=== PATIENT | male | born 1955 | race Caucasian/White ===

== ENCOUNTER 2016-09-01 19:45 | Inpatient (IN) | payer MEDICARE, OTHER ==
[~2016-09-01] VITALS: Ht 172.7 cm; Wt 65.9 kg
[2016-09-01 20:14] VITALS: BP 183/98; PULSE 110; RESP 15; TEMP 98.3; O2SAT 98
[2016-09-01] MEDS ORDERED: SODIUM CHLOR 0.9% 1000 ML INJ 1,000 ML IV ONE (20:30)
[2016-09-01 20:34] VITALS: BP 176/93; PULSE 101; RESP 15; O2SAT 98
[2016-09-01 20:52] VITALS: BP 157/78; PULSE 91; RESP 16; O2SAT 98
--- NOTE | 2016-09-01 21:11 | PD ---
HPI Chief Complaint: Psychiatric Symptoms Time Seen by Provider: 20:30 Travel History International Travel<30 days: No Contact w/Intl Traveler<30days: No Traveled to known affect area: No History of Present Illness HPI 61yo M with PMH of bipolar disorder presents to the ED under Grant Act because he claims that there is a person beaming signals from a [place] satelite to his head and speaking to him. Pt denies any suicidal ideation or homicidal ideation. Denies any fever, cough, chest pain, sob, n/v, abdominal pain, focal weakness or numbness. Pt initially had EKG that showed SVT at 172bpm but when I walked into the medical room, he was in sinus tachycardia at 110bpm. Pt denies any cardiac complaints. PFSH Past Medical History Bipolar Disorder: Yes (PT DENIES, QUIT TAKING MEDS) Anxiety: Yes Depression: Yes Cancer: Yes (HX OF SKIN CANCER) Cardiovascular Problems: Yes High Cholesterol: Yes Diabetes: Yes Diminished Hearing: No Headaches: No Hypertension: Yes Insomnia: Yes Psychiatric: Yes (Bipolar Disorder) Immunizations Current: Yes Schizophrenia: Yes Seizures: No ?: Not Past Surgical History Other Surgery: Yes (PROSTATE BIOPSY 01/29/14/ Hernia) Social History Alcohol Use: No (QUIT IN 90S) Tobacco Use: No (QUIT IN THE 80S) Substance Use: Yes Allergies-Medications (Allergen,Severity, Reaction): Coded Allergies: No Known Allergies (Verified , 09/01/16) Reported Meds & Prescriptions Reported Meds & Active Scripts Active No Active Prescriptions or Reported Medications Review of Systems Except as stated in HPI: all other systems reviewed are Neg Physical Exam Narrative GENERAL: 61yo M not in distress. SKIN: Focused skin assessment warm/dry. HEAD: Atraumatic. Normocephalic. EYES: Pupils equal and round. No scleral icterus. No injection or drainage. ENT: No nasal bleeding or discharge. Mucous membranes pink and moist. NECK: Trachea midline. No JVD. CARDIOVASCULAR: Sinus tachycardia at 110bpm. No murmur appreciated. RESPIRATORY: No accessory muscle use. Clear to auscultation. Breath sounds equal bilaterally. GASTROINTESTINAL: Abdomen soft, non-tender, nondistended. MUSCULOSKELETAL: No obvious deformities. No clubbing. No cyanosis. No edema. NEUROLOGICAL: Awake and alert. No obvious cranial nerve deficits. Motor grossly within normal limits. Normal speech. PSYCHIATRIC: Inappropriate mood and affect; poor insight and judgment. Data Data Last Documented VS Vital Signs Date Time Temp Pulse Resp B/P Pulse Ox O2 Delivery O2 Flow Rate FiO2 09/01/16 20:52 91 16 157/78 98 09/01/16 20:34 Room Air 09/01/16 20:14 98.3 Orders Complete Blood Count With Diff (09/01/16 20:30) Comprehensive Metabolic Panel (09/01/16 20:30) Thyroid Stimulating Hormone (09/01/16 20:30) Urinalysis - C+S If Indicated (09/01/16 20:30) Electrocardiogram (09/01/16 20:30) Psych Screen (09/01/16 20:30) Drug Screen, Random Urine (09/01/16 20:30) Alcohol (Ethanol) (09/01/16 20:30) Sodium Chlor 0.9% 1000 Ml Inj (Ns 1000 M (09/01/16 20:30) Ckmb (Isoenzyme) Profile (09/01/16 21:00) Troponin I (09/01/16 21:00) Electrocardiogram (09/01/16 20:00) Labs Laboratory Tests Test 09/01/16 21:00 White Blood Count 9.1 TH/MM3 Red Blood Count 4.76 MIL/MM3 Hemoglobin 14.9 GM/DL Hematocrit 44.3 % Mean Corpuscular Volume 93.2 FL Mean Corpuscular Hemoglobin 31.3 PG Mean Corpuscular Hemoglobin 33.6 % Concent Red Cell Distribution Width 13.9 % Platelet Count 269 TH/MM3 Mean Platelet Volume 8.5 FL Neutrophils (%) (Auto) 68.2 % Lymphocytes (%) (Auto) 20.1 % Monocytes (%) (Auto) 9.9 % Eosinophils (%) (Auto) 1.2 % Basophils (%) (Auto) 0.6 % Neutrophils # (Auto) 6.2 TH/MM3 Lymphocytes # (Auto) 1.8 TH/MM3 Monocytes # (Auto) 0.9 TH/MM3 Eosinophils # (Auto) 0.1 TH/MM3 Basophils # (Auto) 0.1 TH/MM3 CBC Comment DIFF FINAL Differential Comment Urine Color YELLOW Urine Turbidity CLEAR Urine pH 5.5 Urine Specific [place] 1.020 Urine Protein 30 mg/dL Urine Glucose (UA) 150 mg/dL Urine Ketones NEG mg/dL Urine Occult Blood TRACE Urine Nitrite NEG Urine Bilirubin NEG Urine Urobilinogen LESS THAN 2.0 MG/DL Urine Leukocyte Esterase NEG Urine RBC 7 /hpf Urine WBC LESS THAN 1 /hpf Urine Mucus FEW /lpf Urine Sperm RARE Microscopic Urinalysis Comment CULT NOT INDICATED Sodium Level 141 MEQ/L Potassium Level 4.1 MEQ/L Chloride Level 108 MEQ/L Carbon Dioxide Level 23.6 MEQ/L Anion Gap 9 MEQ/L Blood Urea Nitrogen 33 MG/DL Creatinine 1.84 MG/DL Estimat Glomerular Filtration 37 ML/MIN Rate Random Glucose 129 MG/DL Calcium Level 8.5 MG/DL Total Bilirubin 0.3 MG/DL Aspartate Amino Transf 18 U/L (AST/SGOT) Alanine Aminotransferase 22 U/L (ALT/SGPT) Alkaline Phosphatase 117 U/L Total Creatine Kinase 90 U/L Troponin I LESS THAN 0.02 NG/ML Total Protein 8.2 GM/DL Albumin 4.1 GM/DL Thyroid Stimulating Hormone 0.570 uIU/ML 3rd Gen Urine Opiates Screen NEG Urine Barbiturates Screen NEG Urine Amphetamines Screen NEG Urine Benzodiazepines Screen NEG Urine Cocaine Screen NEG Urine Cannabinoids Screen NEG Ethyl Alcohol Level LESS THAN 3 MG/DL MDM Medical Decision Making Medical Screen Exam Complete: Yes Emergency Medical Condition: Yes Interpretation(s) EKG #1: SVT 172bpm. EKG #2: NSR 93bpm. Normal axis. TWI I, aVL. 1mm ST elevation in V2. Similar to prior on 08/2014 except for TWI I. Differential Diagnosis Dehydration vs. homelessness vs. bipolar disorder vs. psychosis Narrative Course 61yo M with bipolar disorder who has been here multiple times for psych complaints here under Grant Act because he states someone is beaming signals into his head. I was given EKG that showed SVT at 172bpm by nurse but when I walked into the room, pt was in sinus tachycardia at 110bpm and I ordered NS IVF. Pt has no complaints. Labs reviewed, no leukocytosis. BUN/creatinine elevated at 33/1.84. Creatinine is mildly increased from prior at 1.59. Pt given NS IVF. Troponin negative. TSH normal. Glucose 129. UA showed no leukocyte or nitrite. Culture not indicated. Utox negative. Blood alcohol negative. Pt has been observed in the ED and HR has been in the 90s. Pt is medically clear for psych evaluation. Diagnosis Primary Impression: Auditory hallucinations Scripts No Active Prescriptions or Reported Meds Kendal Desai DO Sep 01, 2016 21:11
[2016-09-01 21:28] LABS: AUTOMATED NEUTROPHIL # 6.2 TH/MM3 (1.8-7.7); BASOPHIL # 0.1 TH/MM3 (0-0.2); BASOPHIL % 0.6 % (0.0-2.0); EOSINOPHIL # 0.1 TH/MM3 (0-0.4); EOSINOPHIL % 1.2 % (0.0-4.0); HEMATOCRIT 44.3 % (39.0-51.0); HEMO FLAGS DIFF FINAL; LYMPH % 20.1 % (9.0-44.0); LYMPHOCYTE # 1.8 TH/MM3 (1.0-4.8); MEAN CELL VOLUME 93.2 FL (80.0-100.0); MEAN CORPUSCULAR HEMOGLOBIN 31.3 PG (27.0-34.0); MEAN CORPUSCULAR HGB CONC 33.6 % (32.0-36.0); MONO % 9.9 % (0.0-8.0); NEUT % 68.2 % (16.0-70.0); PLATELET COUNT 269 TH/MM3 (150-450); RED BLOOD COUNT 4.76 MIL/MM3 (4.50-5.90); RED CELL DISTRIBUTION WIDTH 13.9 % (11.6-17.2); WHITE BLOOD COUNT 9.1 TH/MM3 (4.0-11.0)
[2016-09-01 21:46] LABS: BLOOD, URINE TRACE (NEG); GLUCOSE,URINE 150 mg/dL (NEG); KETONE, URINE NEG (NEG); MUCUS URINE FEW /lpf (OCC); NITRITE,URINE NEG (NEG); PH, URINE 5.5 (5.0-8.5); URINE COLOR YELLOW (YELLW/STRAW)
[2016-09-01 21:47] LABS: COMMENT (UR) CULT NOT INDICATED; CULTURE IF INDICATED CULT NOT INDICATED
[2016-09-01 21:49] LABS: AMPHETAMINE, URINE NEG (NEG); BARBITURATES, URINE NEG (NEG); COCAINE, URINE NEG (NEG)
[2016-09-01 22:01] LABS: ALKALINE PHOSPHATASE 117 U/L (45-117); TOTAL BILIRUBIN ADULT 0.3 MG/DL (0.2-1.0)
[2016-09-01 22:17] LABS: ALT (GPT) 22 U/L (12-78); ANION GAP 9 MEQ/L (5-15); AST (GOT) 18 U/L (15-37); BICARBONATE 23.6 MEQ/L (21.0-32.0); BLOOD UREA NITROGEN 33 MG/DL (7-18); CHLORIDE 108 MEQ/L (98-107); CREATINE KINASE 90 U/L (39-308); GLOMERULAR FILTRATION RATE 37 ML/MIN (>89); POTASSIUM 4.1 MEQ/L (3.5-5.1); SODIUM (NA) 141 MEQ/L (136-145)
[2016-09-02] VITALS (9 sets, daily range): BP systolic 152–221; BP diastolic 72–108; PULSE 73–104; RESP 17–20; TEMP 97.3–98.4; O2SAT 98–99
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
[2016-09-02] MEDS ORDERED: ALUMINUM/MAGNESIUM/SIMETH 30 ML CUP PO PRN (13:30)
[2016-09-02] MEDS ORDERED: ACETAMINOPHEN 325 MG TAB PO PRN (13:30)
[2016-09-02] MEDS ORDERED: MAGNESIUM HYDROXIDE SUSP 30 ML CUP PO PRN (13:30)
[2016-09-02] MEDS ORDERED: cloNIDine HCL 0.2 MG TAB PO ONE (14:15)
[2016-09-02] MEDS ORDERED: cloNIDine HCL 0.1 MG TAB PO PRN (14:15)
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
[2016-09-02] MEDS ORDERED: BENZTROPINE MESYLATE 1 MG TAB PO PRN (16:30)
[2016-09-02] MEDS ORDERED: BENZTROPINE MESYLATE 2 MG/2 ML VIAL IM PRN (16:30)
[2016-09-02] MEDS ORDERED: ZOLPIDEM TARTRATE 5 MG TAB PO PRN (16:30)
[2016-09-02] MEDS ORDERED: LORazepam 2 MG/ML VIAL IM PRN (16:30)
--- NOTE | 2016-09-02 16:57 | PD.CONS ---
HPI Service [facility] Hospitalists Consult Requested By Dr. Granados Reason for Consult Assist in the management of medical condition, hypertension Primary Care Physician Unknown Diagnoses: History of Present Illness Written by Jimbo Hernandez, acting as scribe for Dr. Bhakta on 09/02/16 at 16:47. 61-year-old male with past medical history of HTN, HLD, DM, and psychosis. The patient presented for psychiatric evaluation for hearing voices because he was "fed up". Hospitalist service was consulted for medical management. The patient does report a history of taking medicine for blood pressure. He does recall that he was taking lisinopril, but states he only took it intermittently and does not recall the dose. He has been out of his blood pressure medication for several weeks now. He states a long time ago he also took medicine for cholesterol and level 170/30 for diabetes. The patient has no acute complaints at this time. He denies any chest pain, shortness breath, palpitations, dizziness, lower healy the swelling, or blood in his stool, urine, or cough. He denies being on any medications for breathing or any blood thinning medication. The patient has no acute medical complaints at this time. Review of Systems Except as stated in HPI: all other systems reviewed are Neg Past Family Social History Allergies: Coded Allergies: No Known Allergies (Verified , 09/01/16) Past Medical History Hypertension Hyperlipidemia Diabetes mellitus Psychosis Past Surgical History Left hernia repair Right hip surgery Reported Medications None Active Ordered Medications Current Medications Medications (Trade) Dose Ordered Sig/Drea Route Start Time Stop Time Status Last Admin (Tylenol) 650 mg Q4H PRN PO 09/02/16 13:30 (Milk Of Magnesia Liq) 30 ml DAILY PRN PO 09/02/16 13:30 (Mag-Al Plus Susp Liq) 30 ml Q6H PRN PO 09/02/16 13:30 (Catapres) 0.1 mg Q8HR PRN PO 09/02/16 14:15 (Norvasc) 10 mg DAILY PO 09/03/16 09:00 (Cozaar) 50 mg DAILY PO 09/03/16 09:00 (Apresoline) 50 mg Q8HR PO 09/02/16 22:00 (risperDAL M-TAB) 1 mg Q12HR PO 09/02/16 21:00 (Ativan) 1 mg Q6H PRN PO 09/02/16 16:30 (Ativan Inj) 1 mg Q6H PRN IM 09/02/16 16:30 (Cogentin) 1 mg Q12HR PRN PO 09/02/16 16:30 (Cogentin Inj) 1 mg Q12HR PRN IM 09/02/16 16:30 (Ambien) 5 mg HS PRN PO 09/02/16 16:30 Family History Mother had diabetes Social History Denies alcohol, tobacco, or drug use Physical Exam Vital Signs Vital Signs Date Time Temp Pulse Resp B/P Pulse Ox O2 Delivery O2 Flow Rate FiO2 09/02/16 15:06 78 171/83 09/02/16 14:47 82 183/87 09/02/16 14:30 84 181/84 09/02/16 13:49 97.3 98 18 190/98 99 Blow-by 09/02/16 13:45 98.2 104 17 221/108 09/02/16 13:13 97.3 98 20 190/98 99 Room Air 09/02/16 06:19 77 20 152/83 98 Room Air 09/02/16 02:06 73 18 159/87 98 Room Air 09/01/16 20:52 91 16 157/78 98 09/01/16 20:34 101 15 176/93 98 Room Air 09/01/16 20:14 98.3 110 15 183/98 98 Physical Exam GENERAL: Well-developed well-nourished. In no acute distress. SKIN: Warm and dry. No lesions noted. HEENT: Normocephalic. Pupils equal and round. Mucous membranes pink and moist. CARDIOVASCULAR: Regular rate and rhythm. No murmur appreciated. RESPIRATORY: No accessory muscle use. Clear to auscultation. Breath sounds equal bilaterally. GASTROINTESTINAL: Abdomen soft, non-tender, nondistended. Bowel sounds x4. MUSCULOSKELETAL: No obvious deformities. No clubbing or cyanosis. No edema. NEUROLOGICAL: Awake and alert. No focal neurological deficits. Moves upper and lower extremities spontaneously. Normal speech. PSYCHIATRIC: Expresses visual hallucinations. Laboratory Laboratory Tests Test 09/01/16 21:00 White Blood Count 9.1 Red Blood Count 4.76 Hemoglobin 14.9 Hematocrit 44.3 Mean Corpuscular Volume 93.2 Mean Corpuscular Hemoglobin 31.3 Mean Corpuscular Hemoglobin 33.6 Concent Red Cell Distribution Width 13.9 Platelet Count 269 Mean Platelet Volume 8.5 Neutrophils (%) (Auto) 68.2 Lymphocytes (%) (Auto) 20.1 Monocytes (%) (Auto) 9.9 Eosinophils (%) (Auto) 1.2 Basophils (%) (Auto) 0.6 Neutrophils # (Auto) 6.2 Lymphocytes # (Auto) 1.8 Monocytes # (Auto) 0.9 Eosinophils # (Auto) 0.1 Basophils # (Auto) 0.1 CBC Comment DIFF FINAL Differential Comment Urine Color YELLOW Urine Turbidity CLEAR Urine pH 5.5 Urine Specific [place] 1.020 Urine Protein 30 Urine Glucose (UA) 150 Urine Ketones NEG Urine Occult Blood TRACE Urine Nitrite NEG Urine Bilirubin NEG Urine Urobilinogen LESS THAN 2.0 Urine Leukocyte Esterase NEG Urine RBC 7 Urine WBC LESS THAN 1 Urine Mucus FEW Urine Sperm RARE Microscopic Urinalysis Comment CULT NOT INDICATED Sodium Level 141 Potassium Level 4.1 Chloride Level 108 Carbon Dioxide Level 23.6 Anion Gap 9 Blood Urea Nitrogen 33 Creatinine 1.84 Estimat Glomerular Filtration 37 Rate Random Glucose 129 Calcium Level 8.5 Total Bilirubin 0.3 Aspartate Amino Transf 18 (AST/SGOT) Alanine Aminotransferase 22 (ALT/SGPT) Alkaline Phosphatase 117 Total Creatine Kinase 90 Troponin I LESS THAN 0.02 Total Protein 8.2 Albumin 4.1 Thyroid Stimulating Hormone 0.570 3rd Gen Urine Opiates Screen NEG Urine Barbiturates Screen NEG Urine Amphetamines Screen NEG Urine Benzodiazepines Screen NEG Urine Cocaine Screen NEG Urine Cannabinoids Screen NEG Ethyl Alcohol Level LESS THAN 3 Result Diagram: 09/01/16 2100 09/01/16 2100 Assessment and Plan Assessment and Plan 61-year-old male with past medical history of HTN, HLD, DM, and psychosis. The patient presented for psychiatric evaluation for hearing voices because he was "fed up". Hospitalist service was consulted for medical management. Hypertension: Accelerated. Improved some with clonidine 1. The patient has been started appropriately on amlodipine, losartan, and hydralazine. Continue clonidine as needed. Monitor and adjust medications as needed. Hyperlipidemia: Check lipid profile and treat appropriately. Diabetes mellitus: By history. Random glucose 129. Check hemoglobin A1c and treat accordingly. CKD vs SARAH: Creatinine 1.84, previously 1.59 on 08/31/15. Renal function probably decreased due to uncontrolled hypertension. Follow-up BMP. Psychosis/hallucinations: Management per primary psychiatry service. This note was transcribed by amari Hernandez. I, Dr. Frederick Bhakta personally performed the history, physical exam, and medical decision making; and confirmed the accuracy of the information in the transcribed note. Authenticated by Dr. Frederick Bhakta on 09/02/16 at 16:47. Code Status Full code Discussed Condition With Patient, psychological operations officer Jimbo Hernandez Sep 02, 2016 16:57 Frederick Bhakta MD Sep 02, 2016 16:58
--- NOTE | 2016-09-02 18:17 | EKG ---
Date Performed: 09/01/2016 Time Performed: 20:49:21 PTAGE: 61 years EKG: Sinus rhythm LEFT ATRIAL ENLARGEMENT INCOMPLETE RIGHT BUNDLE BRANCH BLOCK NONSPECIFIC T-WAVE ABNORMALITY ABNORMAL ECG PREVIOUS TRACING : 09/19/2014 09.16 Compared to the previous tracing, now in sinus rhythm, ST/T wave changes have resolved DOCTOR: Jero Reza Interpretating Date/Time 09/02/2016 18:16:05
--- NOTE | 2016-09-02 18:21 | EKG ---
Date Performed: 09/01/2016 Time Performed: 20:09:27 PTAGE: 61 years EKG: SUPRAVENTRICULAR TACHYCARDIA POSSIBLE RIGHT VENTRICULAR CONDUCTION DELAY ST DEVIATION AND M ODERATE T-WAVE ABNORMALITY, CONSIDER LATERAL ISCHEMIA ST DEVIATION AND MODERATE T-WAVE ABNORMALITY, C ONSIDER INFERIOR ISCHEMIA ABNORMAL ECG INTERPRETATION BASED ON A DEFAULT AGE OF 40 YEARS Compared to the PREVIOUS TRACING from 09/19/14, now in SVT with ST/T wave changes DOCTOR: Jero Reza Interpretating Date/Time 09/02/2016 18:19:16
[2016-09-02] MEDS: hydrALAZINE HCL 50 MG TAB PO SCH (21:10)
[2016-09-02] MEDS: risperiDONE ODT 1 MG TAB PO SCH (21:10)
[2016-09-03 05:46] VITALS: BP 139/82
[2016-09-03] MEDS: hydrALAZINE HCL 50 MG TAB PO SCH ×3 (05:49→21:31)
[2016-09-03 06:10] VITALS: BP 139/82; PULSE 75; RESP 16; TEMP 98.2; O2SAT 98
[2016-09-03 08:03] LABS: ANION GAP 9 MEQ/L (5-15); BLOOD UREA NITROGEN 29 MG/DL (7-18); CHLORIDE 110 MEQ/L (98-107); GLOMERULAR FILTRATION RATE 53 ML/MIN (>89); POTASSIUM 4.5 MEQ/L (3.5-5.1); SODIUM (NA) 141 MEQ/L (136-145)
[2016-09-03 08:06] LABS: HDL CHOLESTEROL 49.2 MG/DL (40.0-60.0); LDL CHOLESTEROL 134 MG/DL (0-99)
[2016-09-03] MEDS: LOSARTAN 50 MG TAB PO SCH (09:06)
[2016-09-03] MEDS: risperiDONE ODT 1 MG TAB PO SCH ×2 (09:07→21:00)
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
[2016-09-03 10:21] LABS: HEMOGLOBIN A1a 1.7 %; HEMOGLOBIN Ao 84.8 %; HEMOGLOBIN F 0.9 %; HEMOGLOBIN LA1C 1.9 %; HEMOGLOBIN P3 3.8 %
[2016-09-03] MEDS ORDERED: ATORVASTATIN 40 MG TAB PO ONE (10:30)
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
[2016-09-03 15:55] VITALS: BP 146/78; PULSE 86; RESP 16; TEMP 98.1; O2SAT 98
[2016-09-04 05:58] VITALS: BP 165/78; PULSE 91; RESP 18; TEMP 98.3; O2SAT 98
[2016-09-04] MEDS: hydrALAZINE HCL 50 MG TAB PO SCH ×3 (06:11→21:37)
[2016-09-04] MEDS: risperiDONE ODT 1 MG TAB PO SCH ×2 (08:41→21:37)
[2016-09-04] MEDS: LOSARTAN 50 MG TAB PO SCH ×2 (08:41→21:38)
[2016-09-04] MEDS: ATORVASTATIN 40 MG TAB PO SCH (10:21)
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
[2016-09-04 14:44] VITALS: BP 143/59; PULSE 102; RESP 19; TEMP 97.1; O2SAT 99
[2016-09-05 06:14] VITALS: BP 158/79; PULSE 86; RESP 18; TEMP 98.5; O2SAT 100
[2016-09-05 08:38] LABS: BICARBONATE 23.8 MEQ/L (21.0-32.0); POTASSIUM 4.1 MEQ/L (3.5-5.1)
[2016-09-05] MEDS: ATORVASTATIN 40 MG TAB PO SCH (08:44)
[2016-09-05] MEDS: LOSARTAN 50 MG TAB PO SCH (08:44)
[2016-09-05] MEDS: hydrALAZINE HCL 50 MG TAB PO SCH ×3 (08:44→21:23)
[2016-09-05] MEDS: risperiDONE ODT 1 MG TAB PO SCH ×2 (08:45→21:23)
[2016-09-05 11:11] VITALS: BP 145/63; PULSE 88; RESP 18; TEMP 97.9; O2SAT 98
[2016-09-05] MEDS ORDERED: NIFEdipine 60 MG SUSTAINED RELEASE TAB PO ONE (13:00)
--- NOTE | 2016-09-05 13:55 | HHI.PR ---
Subjective Remarks Follow up on patient with HTN, HLD, DM and psychosis. Patient seen and examined today. Patient states he has alot of things wrong with him. When asked for specifics he replies "just with the way my life is going". Patient denies any fever or chills, headaches or dizziness. Also denies any N/V or abdominal pain. Denies any chest pain or SOB. Objective Vitals Vital Signs Date Time Temp Pulse Resp B/P Pulse Ox O2 Delivery O2 Flow Rate FiO2 09/05/16 11:11 97.9 88 18 145/63 98 09/05/16 06:14 98.5 86 18 158/79 100 09/04/16 14:44 97.1 102 19 143/59 99 Result Diagram: 09/01/16 2100 09/05/16 0730 Objective Remarks GENERAL: Well-developed well-nourished male, INAD. Awake and alert. Pleasant and cooperative. SKIN: Warm and dry. No lesions noted. HEENT: Normocephalic. EOMI. Mucous membranes pink and moist. CARDIOVASCULAR: Regular rate and rhythm. No murmur appreciated. RESPIRATORY: No accessory muscle use. Clear to auscultation. Breath sounds equal bilaterally. GASTROINTESTINAL: Abdomen soft, non-tender, nondistended. Bowel sounds x4. MUSCULOSKELETAL: No obvious deformities. No clubbing or cyanosis. No edema. NEUROLOGICAL: Awake and alert. No focal neurological deficits. Moves upper and lower extremities spontaneously. Normal speech. Medications and IVs Current Medications Medications (Trade) Dose Ordered Sig/Drea Route Start Time Stop Time Status Last Admin (Tylenol) 650 mg Q4H PRN PO 09/02/16 13:30 (Milk Of Magnesia Liq) 30 ml DAILY PRN PO 09/02/16 13:30 (Mag-Al Plus Susp Liq) 30 ml Q6H PRN PO 09/02/16 13:30 (Catapres) 0.1 mg Q8HR PRN PO 09/02/16 14:15 (Apresoline) 50 mg Q8HR PO 09/02/16 22:00 09/05/16 08:44 (Ativan) 1 mg Q6H PRN PO 09/02/16 16:30 (Ativan Inj) 1 mg Q6H PRN IM 09/02/16 16:30 (Cogentin) 1 mg Q12HR PRN PO 09/02/16 16:30 (Cogentin Inj) 1 mg Q12HR PRN IM 09/02/16 16:30 (Ambien) 5 mg HS PRN PO 09/02/16 16:30 (Lipitor) 40 mg DAILY PO 09/04/16 09:00 09/05/16 08:44 (risperDAL M-TAB) 2 mg Taper BID PO 09/04/16 21:00 09/17/16 20:59 09/05/16 08:45 (Procardia Xl) 60 mg DAILY PO 09/06/16 09:00 A/P Assessment and Plan 61-year-old male with past medical history of HTN, HLD, DM, and psychosis. The patient presented for psychiatric evaluation for hearing voices because he was "fed up". Hospitalist service was consulted for medical management. Psychosis/hallucinations - Management per primary psychiatry service Hypertension: - Accelerated at admission. Improved some with clonidine 1. - still not well controlled - discontinue Cozaar (due to SARAH) and Norvasc - Begin Procardia XL 60mg daily - Continue Hydralazine 50mg q8hr - Continue clonidine as needed. - Monitor and adjust medications as needed. Hyperlipidemia - lipid panel shows TG 119, TC 207, LDL 134 - ASCVD risk calculator indicates patient would benefit from statin therapy - begin Lipitor 40mg daily Diabetes mellitus - By history. - Random glucose 91 and 95 - hemoglobin A1c 5.6 - no indication to begin treatment at this time. Recommend follow up with PCP as outpatient. SARAH on CKD - Creatinine 1.84 --> 1.35 but now 1.46 after increasing dose of Cozaar - baseline appears to be 1.2 - 1.3 - d/c Cozaar - avoid nephrotoxic agents - encourage po intake - repeat BMP in 3 days to follow trend DVT prophylaxis - patient is ambulatory Discussed with patient and Pat Smith Sep 05, 2016 13:55
--- NOTE | 2016-09-05 15:56 | HHI.PYPN ---
Subjective Remarks Patient was seen and case discussed with nursing. Patient remains delusional various bizarre delusions. Believes that a man named Mr. Millan controls his another people's thoughts. His upsets the police would not believe him about being some satellites controlling people some somatic delusions where his body is made out of moonshine pills and he should be in the medical unit. Behaving well on the unit. Compliant with medications Objective Alert: Yes [place]: Person, Place Mood: Other (remains dysphoric) Affect: Restricted Memory Intact: Comment (Not assessed) Hallucinations: Auditory (as before) Delusions: Yes Delusion Type: Paranoid Suicidal: Ideation (Suicide by paste up copy camera operator. No reported urge to hurt himself on the unit.) Homicidal: Ideation (No HI) Insight/Judgment Poor Labs Test 09/05/16 07:30 Sodium Level 142 MEQ/L Potassium Level 4.1 MEQ/L Chloride Level 108 MEQ/L Carbon Dioxide Level 23.8 MEQ/L Anion Gap 10 MEQ/L Blood Urea Nitrogen 32 MG/DL Creatinine 1.46 MG/DL Estimat Glomerular Filtration 49 ML/MIN Rate Random Glucose 95 MG/DL Calcium Level 9.0 MG/DL Vitals/IOs Vital Signs Date Time Temp Pulse Resp B/P Pulse Ox O2 Delivery O2 Flow Rate FiO2 09/05/16 11:11 97.9 88 18 145/63 98 09/02/16 13:49 Blow-by Assessment & Plan Problem List: (1) Psychosis ICD Code: F29 Assessment & Plan Continue current treatment plan Justification for Cont. Inpt. Patient will decompensate in a less restrictive setting Request HC Surrog/Guard Advoc?: No Problem Qualifiers (1) Psychosis: Qualified Code: F28 - Other psychotic disorder not due to substance or known physiological condition Dinesh Pinto DO Sep 05, 2016 15:56
[2016-09-05 17:00] VITALS: BP_SYST 128; BP_SYST 143; BP_DIAS 64; BP_DIAS 70; PULSE 84; PULSE 97; RESP 18; TEMP 97.7; TEMP 98.2; O2SAT 96; O2SAT 99
[2016-09-06 05:56] VITALS: BP 136/63; PULSE 75; RESP 18; TEMP 98; O2SAT 98
[2016-09-06] MEDS: hydrALAZINE HCL 50 MG TAB PO SCH ×3 (06:03→21:37)
[2016-09-06] MEDS: ATORVASTATIN 40 MG TAB PO SCH (08:28)
[2016-09-06] MEDS: risperiDONE ODT 1 MG TAB PO SCH ×2 (08:28→21:00)
[2016-09-06] MEDS: NIFEdipine 60 MG SUSTAINED RELEASE TAB PO SCH (08:29)
--- NOTE | 2016-09-06 16:41 | HHI.PYPN ---
Subjective Remarks Patient was seen and case discussed with nursing. Patient remains seclusive and delusional. Molina used to have bizarre delusions about a Mr. Monty and satellites controlling his mind. Continues to have somatic delusions with the believe he needs to be checked out medically. Irritable edge questioned about specifics of delusions. Behaving well on the unit Objective Alert: Yes [place]: Person, Place Mood: Other (remains dysphoric) Affect: Blunted Memory Intact: Comment (Not assessed) Hallucinations: Auditory (denies, but for story and) Delusions: Yes Delusion Type: Paranoid (bizarre delusions) Suicidal: Ideation (Suicide by telescope repairer. No reported urge to hurt himself on the unit.) Homicidal: Ideation (No HI) Insight/Judgment Poor Vitals/IOs Vital Signs Date Time Temp Pulse Resp B/P Pulse Ox O2 Delivery O2 Flow Rate FiO2 09/06/16 05:56 98.0 75 18 136/63 98 09/02/16 13:49 Blow-by Assessment & Plan Problem List: (1) Psychosis ICD Code: F29 Assessment & Plan Continue current treatment plan Justification for Cont. Inpt. Patient will decompensate in a less restrictive setting Request HC Surrog/Guard Advoc?: No Problem Qualifiers (1) Psychosis: Qualified Code: F28 - Other psychotic disorder not due to substance or known physiological condition Dinesh Pinto DO Sep 06, 2016 16:41
[2016-09-06 19:59] VITALS: BP 126/55; PULSE 100; RESP 18; TEMP 98.1; O2SAT 97
[2016-09-07 05:46] VITALS: BP 143/70; PULSE 116; RESP 18; TEMP 98.3; O2SAT 96
[2016-09-07] MEDS: hydrALAZINE HCL 50 MG TAB PO SCH ×3 (06:00→21:12)
[2016-09-07] MEDS: risperiDONE ODT 1 MG TAB PO SCH (09:00)
[2016-09-07] MEDS: ATORVASTATIN 40 MG TAB PO SCH (09:00)
[2016-09-07] MEDS: NIFEdipine 60 MG SUSTAINED RELEASE TAB PO SCH (09:00)
--- NOTE | 2016-09-07 09:13 | HHI.PYPN ---
Subjective Remarks Patient seen and examined with counselor and nurse. Chart reviewed. Case discussed with nursing staff who notes that the patient's spat out his Risperdal this morning before it could dissolve. On my examination today, patient remains irritable and dysphoric. He is somewhat somatically preoccupied and was not reassured by his visit with the hospitalist. He continues to believe that he is being attacked with beams. He says "I don't want to live a life like this." No side effects from medications. No new physical complaints. Review of Systems ROS Limitations: Psychotic, Poor Historian Except as stated in HPI: all other systems reviewed are Neg Objective Alert: Yes [place]: Person, Place Mood: Other (dysphoric) Affect: Restricted Memory Intact: Comment (not formally assessed) Hallucinations: Other (no AVH) Delusions: Yes Delusion Type: Paranoid (ongoing bizarre delusions) Suicidal: Ideation (continues to say that he no longer wants to live in his current fashion. No reported suicidal plan or intent on the unit.) Homicidal: Ideation (No HI) Insight/Judgment Poor Remarks No motor abnormalities noted. Grooming and hygiene fair at best. Thought process fairly linear within delusional system. Labs Labs reviewed. Vitals/IOs Vital Signs Date Time Temp Pulse Resp B/P Pulse Ox O2 Delivery O2 Flow Rate FiO2 09/07/16 05:46 98.3 116 18 143/70 96 Assessment & Plan Problem List: (1) Psychosis ICD Code: F29 Assessment & Plan Definitely an irritable, dysphoric quality to the patient's current presentation. I will add Depakote DR 500 mg twice daily for mood stabilization. LFTs and platelets okay. Plan to check a level after the appropriate interval. I will additionally add IM backup Haldol in case patient should continue to refuse his Risperdal. Hospitalist input noted and appreciated. I will follow up BMP ordered by hospitalist for tomorrow. Continue to monitor on the high acuity unit. Continue other medications and care as ordered. Justification for Cont. Inpt. Impairment in reality construction. Concern for impairment in safety. Medication changes in process. High risk for decompensation in a less restrictive environment. Discharge Planning Possible placement following psychiatric stabilization. Request HC Surrog/Guard Advoc?: No (May need to request HCS/GA) Problem Qualifiers (1) Psychosis: Qualified Code: F28 - Other psychotic disorder not due to substance or known physiological condition Jose Granados MD Sep 07, 2016 09:13
[2016-09-07] MEDS ORDERED: HALOPERIDOL LACTATE 5 MG/ML AMP IM PRN (13:45)
[2016-09-07 17:57] VITALS: BP 148/74; PULSE 89; RESP 18; TEMP 97.1; O2SAT 97
[2016-09-07] MEDS: DIVALPROEX DR 500 MG TABEC PO SCH (21:12)
[2016-09-07] MEDS: risperiDONE ODT 3 MG TAB PO SCH (21:12)
[2016-09-08 05:43] VITALS: BP 130/68; PULSE 92; RESP 18; TEMP 98.7; O2SAT 96
[2016-09-08] MEDS: hydrALAZINE HCL 50 MG TAB PO SCH ×3 (05:55→21:32)
[2016-09-08 08:23] LABS: BICARBONATE 22.4 MEQ/L (21.0-32.0); POTASSIUM 4.1 MEQ/L (3.5-5.1)
[2016-09-08] MEDS: risperiDONE ODT 3 MG TAB PO SCH (09:00)
[2016-09-08] MEDS: NIFEdipine 60 MG SUSTAINED RELEASE TAB PO SCH (09:16)
[2016-09-08] MEDS: DIVALPROEX DR 500 MG TABEC PO SCH ×2 (09:16→21:32)
[2016-09-08] MEDS: ATORVASTATIN 40 MG TAB PO SCH (09:16)
--- NOTE | 2016-09-08 11:37 | HHI.PYPN ---
Subjective Remarks Patient seen and examined with counselor and nurse. Chart reviewed. Case discussed with nurse, counselor and occupational therapist in treatment team. Per nursing staff, patient remains fairly irritable. Occupational therapist reports that the patient isn't participating in groups. On my examination today , the patient does indeed present as fairly irritable. He says "15 times in the psychiatric [facility]. It's not right. It's not fair. I was trying to get rid of someone" by which she apparently means Mr. Millan. He continues to say that he is "tired of living" but does not articulate any suicidal plan or intent on the unit. No side effects from medications. No physical complaints. Review of Systems ROS Limitations: Psychotic, Poor Historian Except as stated in HPI: all other systems reviewed are Neg Objective Alert: Yes [place]: Person, Place Mood: Other (remains irritable and dysphoric) Affect: Restricted Memory Intact: Comment (not formally assessed) Hallucinations: Other (no AVH) Delusions: Yes Delusion Type: Paranoid Suicidal: Ideation ("tired of living") Homicidal: Ideation (No HI) Insight/Judgment Poor Remarks No motoric abnormalities noted. Grooming and hygiene somewhat improved. Thought process little less perseverative on delusional themes. Labs Test 09/08/16 06:35 Sodium Level 137 MEQ/L Potassium Level 4.1 MEQ/L Chloride Level 104 MEQ/L Carbon Dioxide Level 22.4 MEQ/L Anion Gap 11 MEQ/L Blood Urea Nitrogen 39 MG/DL Creatinine 1.91 MG/DL Estimat Glomerular Filtration 36 ML/MIN Rate Random Glucose 88 MG/DL Calcium Level 8.8 MG/DL Labs reviewed. GFR decreased; hospitalist following this. Vitals/IOs Vital Signs Date Time Temp Pulse Resp B/P Pulse Ox O2 Delivery O2 Flow Rate FiO2 09/08/16 05:43 98.7 92 18 130/68 96 Assessment & Plan Problem List: (1) Psychosis ICD Code: F29 Assessment & Plan Titrate Risperdal to 4 mg twice daily to target psychosis. Unclear if patient is deriving significant benefit from this agent; may need to consider switching to an alternative antipsychotic. Continue Depakote for mood stabilization. Continue to monitor on the inpatient unit. Hospitalist datapower consultant input noted and appreciated. Continue other medications and care as ordered. Justification for Cont. Inpt. Impairment in reality construction. Medication changes in process. High risk for decompensation in a less restrictive environment. Discharge Planning Presently pending psychiatric stabilization. Placement is possibility if the patient is willing. Request HC Surrog/Guard Advoc?: No Problem Qualifiers (1) Psychosis: Qualified Code: F28 - Other psychotic disorder not due to substance or known physiological condition Jose Granados MD Sep 08, 2016 11:37
[2016-09-08 14:17] VITALS: BP 134/59; PULSE 104; RESP 18; TEMP 98.6
--- NOTE | 2016-09-08 15:36 | HHI.PR ---
Subjective Remarks Follow up on patient with HTN, HLD, DM and psychosis. Patient seen and examined today. Patient is angry and agitated. States that he doesn't belong to the unit, and he was "mistakenly locked in there." States "everything in his life is wrong." Reports he has no medical issues. Denies pain and discomfort. Denies SOB/ dyspnea. Denies chest pain, palpitations, headaches, dizziness. Denies fevers, chills, n/v/d. Denies hematuria, dysuria. Objective Vitals Vital Signs Date Time Temp Pulse Resp B/P Pulse Ox O2 Delivery O2 Flow Rate FiO2 09/08/16 14:17 98.6 104 18 134/59 09/08/16 05:43 98.7 92 18 130/68 96 09/07/16 17:57 97.1 89 18 148/74 97 Result Diagram: 09/08/16 0635 Objective Remarks GENERAL: This is a well-nourished, well-developed patient, in no apparent distress. SKIN: Warm and dry. HEENT: Normocephalic. Pupils equal round and reactive. Nose without bleeding. Airway patent. NECK: Trachea midline. No JVD. Supple. CARDIOVASCULAR: Tachycardia without murmurs, gallops, or rubs. RESPIRATORY: Clear to auscultation. Breath sounds equal bilaterally. No wheezes , rales, or rhonchi. GASTROINTESTINAL: Abdomen soft, non-tender, nondistended. Bowel Sounds normoactive x4. MUSCULOSKELETAL: Extremities without clubbing, cyanosis, or edema. NEUROLOGICAL: Awake and alert. Agitated. Oriented to place, person. Moves all extremities. Pressure speech. A/P Problem List: (1) Psychosis ICD Code: F29 Status: Acute (2) Diabetes mellitus ICD Code: E11.9 Status: Acute (3) noncompliance medication Status: Acute (4) Benign hypertension ICD Code: I10 Status: Acute Assessment and Plan 61-year-old male with past medical history of HTN, HLD, DM, and psychosis. The patient presented for psychiatric evaluation for hearing voices because he was "fed up". Hospitalist service was consulted for medical management. Psychosis/hallucinations - Management per primary psychiatry service Hypertension, accelerated Tachycardia - Previously on Cozaar but was held secondary to SARAH - Currently on Procardia XL 60 mg daily, hydralazine 50 mg every 8 hours - Clonidine when necessary - Monitor BP trend. Improving - Continue current meds. Possible tachycardia is secondary to agitation and psychosis. Hyperlipidemia - lipid panel shows TG 119, TC 207, LDL 134 - ASCVD risk calculator indicates patient would benefit from statin therapy - Continue Lipitor 40mg daily Diabetes mellitus, history - hemoglobin A1c 5.6 - no indication to begin treatment at this time. Recommend follow up with PCP as outpatient. SARAH on CKD - Creatinine 1.84 --> 1.35 --> 1.91 - avoid nephrotoxic agents - encourage po intake - Repeat BMP in 3 days DVT prophylaxis - patient is ambulatory Discussed with patient, nursing, Dr. Anthony Problem Qualifiers (1) Psychosis: Qualified Code: F28 - Other psychotic disorder not due to substance or known physiological condition Agus Chapa Sep 08, 2016 15:36
[2016-09-08 18:53] VITALS: BP 134/59; PULSE 104; RESP 18; TEMP 98.2; O2SAT 97
[2016-09-08] MEDS: risperiDONE ODT 2 MG TAB PO SCH (21:32)
[2016-09-09 05:39] VITALS: BP 158/79; PULSE 121; RESP 18; TEMP 97.8; O2SAT 97
[2016-09-09] MEDS: hydrALAZINE HCL 50 MG TAB PO SCH ×3 (06:00→21:02)
[2016-09-09] MEDS: NIFEdipine 60 MG SUSTAINED RELEASE TAB PO SCH (08:19)
[2016-09-09] MEDS: ATORVASTATIN 40 MG TAB PO SCH (08:19)
[2016-09-09] MEDS: risperiDONE ODT 2 MG TAB PO SCH ×2 (08:19→20:23)
[2016-09-09] MEDS: DIVALPROEX DR 500 MG TABEC PO SCH ×2 (08:19→20:23)
--- NOTE | 2016-09-09 10:08 | HHI.PYPN ---
Subjective Remarks Patient seen and examined with counselor and nurse. Chart reviewed. Case discussed with nursing staff reports the patient believes that someone stole one of his hip bones at a long-term that he once resided in. On my examination today, the patient does indeed articulated beliefs that his hip bone was severed at a facility he resided at [facility]. He continues to believe that he is being attacked by radar beams. He believes that Jason Millan is behind it. He remains quite frustrated and dysphoric as a result of his ongoing delusional material and says that he continues to experience suicidal ideation as a result. No side effects from medications but he doesn't really feel like they're helping. No physical complaints. We discuss pharmacotherapeutic options going forward including the possibility of a clozapine trial, and the patient is not opposed to this option. Review of Systems ROS Limitations: Psychotic, Poor Historian Except as stated in HPI: all other systems reviewed are Neg Objective Alert: Yes [place]: Person, Place Mood: Depressed Affect: Restricted (consistent with stated mood) Memory Intact: Comment (not formally assessed) Hallucinations: Other (messages, e.g. about family being , etc.) Delusions: Yes Delusion Type: Paranoid Suicidal: Ideation (Vague SI. No reported urge to hurt himself on the inpatient psychiatric unit.) Homicidal: Ideation (no homicidal ideation) Insight/Judgment Poor Remarks No motoric abnormalities noted. Thought process fairly linear within delusional system. Grooming and hygiene fair. Labs Labs reviewed. Vitals/IOs Vital Signs Date Time Temp Pulse Resp B/P Pulse Ox O2 Delivery O2 Flow Rate FiO2 09/09/16 05:39 97.8 121 18 158/79 97 Assessment & Plan Problem List: (1) Psychosis ICD Code: F29 Assessment & Plan Patient with previous trials of Risperdal and Geodon within our system, although the patient does report an extensive history of previous antipsychotic medication trials without significant improvement in symptoms. Given the length and severity of his illness, I do not think a clozapine trial is unreasonable at this juncture. I will check a CBC, and if the ANC is within acceptable parameters will plan to taper Risperdal and initiate a low dose of clozapine with plans to titrate to effect. Check EKG given ongoing tachycardia. Continue to monitor on the inpatient unit. Continue other medications and care as ordered. Justification for Cont. Inpt. Impairment in reality construction. Planned medication changes. High risk for decompensation in a less restrictive environment. Discharge Planning Possible placement following psychiatric stabilization. Request HC Surrog/Guard Advoc?: No Problem Qualifiers (1) Psychosis: Qualified Code: F28 - Other psychotic disorder not due to substance or known physiological condition Jose Granados MD Sep 09, 2016 10:08
[2016-09-09 14:28] LABS: AUTOMATED NEUTROPHIL # 7.3 TH/MM3 (1.8-7.7); BASOPHIL % 0.3 % (0.0-2.0); EOSINOPHIL # 0.3 TH/MM3 (0-0.4); EOSINOPHIL % 3.2 % (0.0-4.0); HEMATOCRIT 44.2 % (39.0-51.0); HEMO FLAGS DIFF FINAL; LYMPH % 4.6 % (9.0-44.0); LYMPHOCYTE # 0.4 TH/MM3 (1.0-4.8); MEAN CELL VOLUME 93.2 FL (80.0-100.0); MEAN CORPUSCULAR HEMOGLOBIN 30.2 PG (27.0-34.0); MEAN CORPUSCULAR HGB CONC 32.4 % (32.0-36.0); MONO % 8.9 % (0.0-8.0); PLATELET COUNT 229 TH/MM3 (150-450); RED BLOOD COUNT 4.74 MIL/MM3 (4.50-5.90); RED CELL DISTRIBUTION WIDTH 13.9 % (11.6-17.2); WHITE BLOOD COUNT 8.8 TH/MM3 (4.0-11.0)
[2016-09-09 18:22] VITALS: BP 120/67; PULSE 109; RESP 16; TEMP 99.1; O2SAT 97
[2016-09-10 04:49] VITALS: PULSE 106
[2016-09-10] MEDS: hydrALAZINE HCL 50 MG TAB PO SCH ×3 (05:15→21:06)
[2016-09-10 05:54] VITALS: BP 112/58; PULSE 106; RESP 18; TEMP 99; O2SAT 96
[2016-09-10] MEDS: ATORVASTATIN 40 MG TAB PO SCH (08:27)
[2016-09-10] MEDS: risperiDONE ODT 2 MG TAB PO SCH ×2 (08:27→21:07)
[2016-09-10] MEDS: DIVALPROEX DR 500 MG TABEC PO SCH ×2 (08:27→21:06)
[2016-09-10] MEDS: NIFEdipine 60 MG SUSTAINED RELEASE TAB PO SCH (08:27)
--- NOTE | 2016-09-10 11:53 | HHI.PYPN ---
Subjective Remarks Patient seen and case discussed with nursing staff. Chart reviewed. For me today, patient continues to believe that Mr. Millan is taunting him, saying that people behind him or trying to shoot him and talking about the [place]. He believes that he is doing this by some sort of radio. Describes his mood as "down, really down" and hopeless. No side effects from medications. No physical complaints. Review of Systems ROS Limitations: Psychotic, Poor Historian Except as stated in HPI: all other systems reviewed are Neg Objective Alert: Yes [place]: Person, Place Mood: Depressed Affect: Restricted Memory Intact: Comment (not formally assessed) Hallucinations: Auditory (ongoing messages, as before) Delusions: Yes Delusion Type: Paranoid Suicidal: Ideation (No SI but remains hopeless) Homicidal: Ideation (No HI) Insight/Judgment Poor Remarks No motor abnormalities noted. Thought process perseverative on delusional themes. Speech within normal limits for rate, tone and volume. Labs Test 09/09/16 14:10 White Blood Count 8.8 TH/MM3 Red Blood Count 4.74 MIL/MM3 Hemoglobin 14.3 GM/DL Hematocrit 44.2 % Mean Corpuscular Volume 93.2 FL Mean Corpuscular Hemoglobin 30.2 PG Mean Corpuscular Hemoglobin 32.4 % Concent Red Cell Distribution Width 13.9 % Platelet Count 229 TH/MM3 Mean Platelet Volume 7.9 FL Neutrophils (%) (Auto) 83.0 % Lymphocytes (%) (Auto) 4.6 % Monocytes (%) (Auto) 8.9 % Eosinophils (%) (Auto) 3.2 % Basophils (%) (Auto) 0.3 % Neutrophils # (Auto) 7.3 TH/MM3 Lymphocytes # (Auto) 0.4 TH/MM3 Monocytes # (Auto) 0.8 TH/MM3 Eosinophils # (Auto) 0.3 TH/MM3 Basophils # (Auto) 0.0 TH/MM3 CBC Comment DIFF FINAL Differential Comment Labs reviewed. ANC is adequate for initiation of clozapine. Vitals/IOs Vital Signs Date Time Temp Pulse Resp B/P Pulse Ox O2 Delivery O2 Flow Rate FiO2 09/10/16 05:54 99.0 106 18 112/58 96 Assessment & Plan Problem List: (1) Psychosis ICD Code: F29 Assessment & Plan Initiate cause a pain 25 mg at bedtime to target psychosis. Plan to titrate to effect. Weekly CBCs. Taper Risperdal to 2 mg twice daily with plans to discontinue. Continue Depakote as ordered. Continue to monitor on the inpatient unit. Continue other medications and care as ordered. Patient's case was presented to the [place] and he was retained on the inpatient unit by the court. Justification for Cont. Inpt. Impairment in reality construction. Medication changes in process. High risk for decompensation in a less restrictive environment. Discharge Planning Pending psychiatric stabilization. Request HC Surrog/Guard Advoc?: No Problem Qualifiers (1) Psychosis: Qualified Code: F28 - Other psychotic disorder not due to substance or known physiological condition Jose Granados MD Sep 10, 2016 11:53
[2016-09-10 14:11] VITALS: BP 153/67; PULSE 112; TEMP 97.8; O2SAT 95
[2016-09-10 16:09] VITALS: BP 133/61; PULSE 119; RESP 17; TEMP 98.2; O2SAT 95
--- NOTE | 2016-09-10 16:49 | EKG ---
Date Performed: 09/09/2016 Time Performed: 14:15:56 PTAGE: 61 years EKG: SINUS TACHYCARDIA WITH OCCASIONAL SUPRAVENTRICULAR PREMATURE COMPLEXES RIGHT ATRIAL ENLARGE MENT LEFT ATRIAL ENLARGEMENT BORDERLINE RIGHT AXIS DEVIATION INCOMPLETE RIGHT BUNDLE BRANCH BLOCK NON SPECIFIC ST & T-WAVE ABNORMALITY Prolonged corrected QT interval. ABNORMAL ECG PREVIOUS TRACING : 09/01/2016 20.49 DOCTOR: Wolf Mobley Interpretating Date/Time 09/10/2016 16:46:53
[2016-09-10] MEDS ORDERED: cloZAPine 25 MG TAB PO SCH (21:00)
[2016-09-11 05:35] VITALS: BP 152/65; PULSE 118; RESP 24; TEMP 98; O2SAT 97
[2016-09-11] MEDS: LORazepam 1 MG TAB PO PRN ×2 (05:47→12:38)
[2016-09-11] MEDS: hydrALAZINE HCL 50 MG TAB PO SCH ×3 (05:47→22:00)
[2016-09-11 09:15] VITALS: BP 115/57; PULSE 96; RESP 18; TEMP 98.3; O2SAT 98
[2016-09-11] MEDS: DIVALPROEX DR 500 MG TABEC PO SCH (09:22)
[2016-09-11] MEDS: risperiDONE ODT 2 MG TAB PO SCH (09:22)
[2016-09-11] MEDS: ATORVASTATIN 40 MG TAB PO SCH (09:22)
[2016-09-11] MEDS: NIFEdipine 60 MG SUSTAINED RELEASE TAB PO SCH (09:22)
[2016-09-11 10:15] VITALS: BP 106/63; PULSE 127; RESP 18; TEMP 97.3; O2SAT 97
[2016-09-11 10:46] LABS: BICARBONATE 21.7 MEQ/L (21.0-32.0); POTASSIUM 3.4 MEQ/L (3.5-5.1)
--- NOTE | 2016-09-11 10:53 | RADRPT ---
EXAM DATE/TIME: 09/11/2016 10:37 [facility] COMPARISON: CT BRAIN W/O CONTRAST, June 09, 2014, 10:42. INDICATIONS : Trauma and altered mental status. RADIATION DOSE: 69.18 CTDIvol (mGy) MEDICAL HISTORY : Cardiovascular disease. Hypertension. Schizophrenia, Bipolar SURGICAL HISTORY : prostate bx, hernia. ENCOUNTER: Initial ACUITY: 1 day PAIN SCALE: 0/10 LOCATION: cranial TECHNIQUE: Multiple contiguous axial images were obtained of the head. Using automated exposure control and adj ustment of the mA and/or kV according to patient size, radiation dose was kept as low as reasonably a chievable to obtain optimal diagnostic quality images. FINDINGS: CEREBRUM: The ventricles are normal for age. No evidence of midline shift, mass lesion, hemorrhage or acute in farction. No extra-axial fluid collections are seen. POSTERIOR FOSSA: The cerebellum and brainstem are intact. The 4th ventricle is midline. The cerebellopontine angle i s unremarkable. EXTRACRANIAL: The visualized portion of the orbits is intact. SKULL: The calvaria is intact. No evidence of skull fracture. CONCLUSION: No acute disease. Conrado Chao MD FACR on September 11, 2016 at 10:51 Board Certified Radiologist. This report was verified electronically.
[2016-09-11] MEDS ORDERED: POTASSIUM CHLORIDE 10 MEQ CAP PO ONE (11:15)
--- NOTE | 2016-09-11 11:35 | RADRPT ---
EXAM DATE/TIME: 09/11/2016 10:18 [facility] COMPARISON: No previous studies available for comparison. INDICATIONS : Left hip pain due to trauma. MEDICAL HISTORY : None. SURGICAL HISTORY : None. ENCOUNTER: Initial ACUITY: 3 days PAIN SCORE: Non-responsive. LOCATION: Left hip. FINDINGS: No acute fracture or dislocation of the left hip. Mild degenerative changes are noted involving the l eft hip joint. Right hip replacement is noted. Degenerative changes are also noted within the lower l umbar spine. CONCLUSION: No acute fracture or dislocation of the left hip. Mild degenerative changes are noted within the left hip. Degenerative changes are noted within the lower lumbar spine. Jamie Koenig MD on September 11, 2016 at 11:32 Board Certified Radiologist. This report was verified electronically.
--- NOTE | 2016-09-11 11:35 | HHI.PYPN ---
Subjective Remarks Patient seen and examined with counselor and nurse. Chart reviewed. Case discussed with nursing staff. I was notified by nursing staff this morning about fall earlier this morning on to the patient's left side involving left shoulder and left hip, questionable whether he hit his head. Per nursing staff , even prior to the fall, the patient seemed a little sedated. At the time of my evaluation, the patient is drowsy and oriented to month and location. Focus and concentration somewhat impaired. He denies any pain in general and in particular in the areas affected by the fall. There is no sign of focal weakness or slurred speech. Affect blunted. Limited exam because of patient's mental status. Review of Systems ROS Limitations: Altered Mental Status, Psychotic, Poor Historian Except as stated in HPI: all other systems reviewed are Neg Objective Alert: Yes [place]: Person, Place, Date (month) Mood: Other (Dysphoric) Affect: Blunted Memory Intact: Comment (No assessed) Hallucinations: Other (None reported) Delusions: Yes Delusion Type: Paranoid Suicidal: Ideation (None voiced) Homicidal: Ideation (None voiced) Insight/Judgment Poor Remarks No focal weakness. No motor abnormalities. TP slowed. Labs Test 09/11/16 08:46 Sodium Level 134 MEQ/L Potassium Level 3.4 MEQ/L Chloride Level 100 MEQ/L Carbon Dioxide Level 21.7 MEQ/L Anion Gap 12 MEQ/L Blood Urea Nitrogen 28 MG/DL Creatinine 1.92 MG/DL Estimat Glomerular Filtration 36 ML/MIN Rate Random Glucose 120 MG/DL Calcium Level 8.7 MG/DL Ammonia 34 MCMOL/L Valproic Acid (Depakene) Level 89 MCG/ML Labs reviewed. Mild hyponatremia noted. Mild hypokalemia noted. GFR stable. Depakote level within the therapeutic range. Ammonia level mildly elevated. Last Impressions Shoulder X-Ray 09/11/16 0000 Signed Impressions: Service Date/Time: Sunday, September 11, 2016 10:27 - CONCLUSION: No acute disease. Jamie Koenig MD Hip and Pelvis X-Ray 09/11/16 0000 Signed Impressions: Service Date/Time: Sunday, September 11, 2016 10:18 - CONCLUSION: No acute fracture or dislocation of the left hip. Mild degenerative changes are noted within the left hip. Degenerative changes are noted within the lower lumbar spine. Jamie Koenig MD Head CT 09/11/16 0000 Signed Impressions: Service Date/Time: Sunday, September 11, 2016 10:37 - CONCLUSION: No acute disease. Conrado Chao MD FACR Vitals/IOs Vital Signs Date Time Temp Pulse Resp B/P Pulse Ox O2 Delivery O2 Flow Rate FiO2 09/11/16 10:15 97.3 127 18 106/63 97 Assessment & Plan Problem List: (1) Psychosis ICD Code: F29 (2) Delirium due to multiple etiologies Assessment & Plan: ?hyperammonemia, medications ICD Code: F05 Assessment & Plan Patient presents as mildly delirious today. He has taken a fall this morning. Possible contributing factors to the patient's acute confusional state include mild hyperammonemia, possible medication effect as we just started the clozapine last night. Head CT and imaging of patient's left shoulder and hip all negative. I will hold patient's psychotropics including the clozapine, Depakote and Risperdal. I will initiate Carnitor for hyperammonemia and recheck an ammonia level as well as a BMP on Wednesday morning. I will institute fall precautions and consult physical therapist. The hospitalist is following a long. Should the patient's mental status improve over the weekend, I would ask the weekend rounding psychiatrist to please try to resume patient's clozapine 25 mg at bedtime. Continue to monitor on the inpatient unit. Continue other medications and care as ordered. Justification for Cont. Inpt. Complicating condition, delirium. Impairment in reality construction. High risk for decompensation in a less restrictive environment. Discharge Planning Pending psychiatric stabilization. Request HC Surrog/Guard Advoc?: No Problem Qualifiers (1) Psychosis: Qualified Code: F28 - Other psychotic disorder not due to substance or known physiological condition Jose Granados MD Sep 11, 2016 11:35
--- NOTE | 2016-09-11 11:36 | RADRPT ---
EXAM DATE/TIME: 09/11/2016 10:27 [facility] COMPARISON: No previous studies available for comparison. INDICATIONS : Left shoulder pain due to trauma. MEDICAL HISTORY : None. SURGICAL HISTORY : None. ENCOUNTER: Initial ACUITY: 3 days PAIN SCORE: Non-responsive. LOCATION: Left shoulder. FINDINGS: Two view examination of the left shoulder demonstrates no evidence of fracture or dislocation. The g lenohumeral and acromioclavicular joints are maintained. Bony mineralization is normal. CONCLUSION: No acute disease. Jamie Koenig MD on September 11, 2016 at 11:33 Board Certified Radiologist. This report was verified electronically.
[2016-09-11] MEDS: levOCARNitine 10% ORAL SOLN 118 ML BTL PO SCH ×2 (13:00→17:27)
[2016-09-11 14:15] VITALS: BP 101/51; PULSE 110; RESP 18; TEMP 97.3; O2SAT 97
[2016-09-11] MEDS ORDERED: LACTULOSE SYRUP 20 GM/30 ML CUP PO ONE (15:30)
[2016-09-11 16:54] LABS: BLOOD, URINE TRACE (NEG); COMMENT (UR) CULT NOT INDICATED; CULTURE IF INDICATED CULT NOT INDICATED; GLUCOSE,URINE NEG (NEG); GRANULAR CAST, URINE 5 /lpf; HYALINE CAST, URINE 1 /lpf (RARE); KETONE, URINE 10 mg/dL (NEG); MUCUS URINE FEW /lpf (OCC); NITRITE,URINE NEG (NEG); PH, URINE 5.5 (5.0-8.5); URINE COLOR DARK-YELLOW (YELLW/STRAW)
--- NOTE | 2016-09-11 16:56 | HHI.PR ---
Subjective Remarks Follow-up visit status post fall, lethargic, SARAH, elevated ammonia level. Patient seen and examined today. He is sitting in a geriatric chair. Lethargic. Occasionally would open eyes to verbal stimulation and would follow commands. Otherwise, appears to be overly medicated. One-to-one 8 with the patient. As per nursing, he was transferred from 2700 and has been lethargic since yesterday. His psych medications has been held by psychiatry. Patient also with poor by mouth and fluid intake. Objective Vitals Vital Signs Date Time Temp Pulse Resp B/P Pulse Ox O2 Delivery O2 Flow Rate FiO2 09/11/16 14:15 97.3 110 18 101/51 97 09/11/16 10:15 97.3 127 18 106/63 97 09/11/16 09:15 98.3 96 18 115/57 98 09/11/16 05:35 98.0 118 24 152/65 97 I/O 09/10/16 09/10/16 09/10/16 09/11/16 09/11/16 09/11/16 07:00 15:00 23:00 07:00 15:00 23:00 Intake Total 240 ml Balance 240 ml Intake Oral 240 ml Result Diagram: 09/09/16 1410 09/11/16 0846 Imaging Last Impressions Shoulder X-Ray 09/11/16 0000 Signed Impressions: Service Date/Time: Sunday, September 11, 2016 10:27 - CONCLUSION: No acute disease. Jamie Koenig MD Hip and Pelvis X-Ray 09/11/16 0000 Signed Impressions: Service Date/Time: Sunday, September 11, 2016 10:18 - CONCLUSION: No acute fracture or dislocation of the left hip. Mild degenerative changes are noted within the left hip. Degenerative changes are noted within the lower lumbar spine. Jamie Koenig MD Head CT 09/11/16 0000 Signed Impressions: Service Date/Time: Sunday, September 11, 2016 10:37 - CONCLUSION: No acute disease. Conrado Chao MD FACR Objective Remarks GENERAL: This is a well-nourished, well-developed patient, lethargic. SKIN: Warm and dry. HEENT: Normocephalic. Pupils equal round and reactive. Nose without bleeding. Airway patent. NECK: Trachea midline. No JVD. Supple. CARDIOVASCULAR: Tachycardia without murmurs, gallops, or rubs. RESPIRATORY: Clear to auscultation. Breath sounds equal bilaterally. No wheezes , rales, or rhonchi. GASTROINTESTINAL: Abdomen soft, non-tender, nondistended. Bowel Sounds normoactive x4. MUSCULOSKELETAL: Extremities without clubbing, cyanosis, or edema. NEUROLOGICAL: Lethargic. Moves all extremities. Slow speech. A/P Problem List: (1) Psychosis ICD Code: F29 Status: Acute (2) Diabetes mellitus ICD Code: E11.9 Status: Acute (3) noncompliance medication Status: Acute (4) Benign hypertension ICD Code: I10 Status: Acute Assessment and Plan 61-year-old male with past medical history of HTN, HLD, DM, and psychosis. The patient presented for psychiatric evaluation for hearing voices because he was "fed up". Hospitalist service was consulted for medical management. Psychosis/hallucinations - Management per primary psychiatry service Acute encephalopathy - Elevated ammonia level 34 - Lactulose ordered - CT scan of the head showed no acute disease. - Hold off on any narcotics, benzos - held risperidone, Clozaril, Depakote, Haldol - Check liver enzymes. Check UA. - Labs reviewed worsening kidney function. - If encephalopathy continues and worsening kidney function continues may warrant to be transferred to medical unit for IV fluid hydration. - Monitor neuro status Status post fall, weakness - Patient is lethargic. Elevated ammonia level. Hold all medications with sedating effect - X-ray of the hip and pelvis negative, x-ray of the shoulder negative - Increased risk for falls secondary to encephalopathy - Monitor patient Hypertension, accelerated Tachycardia - Previously on Cozaar but was held secondary to SARAH - Currently on Procardia XL 60 mg daily, hydralazine 50 mg every 8 hours - Clonidine when necessary - Monitor BP trend. - Encouraged by mouth fluid intake. SARAH on CKD - Creatinine 1.84 --> 1.35 --> 1.91 -->1.92 - avoid nephrotoxic agents - encourage po intake 300ml per med pass and qshift Hypo kalemia Hyponatremia - Potassium replacement 10MEQ - Check BMP tomorrow Hyperlipidemia - lipid panel shows TG 119, TC 207, LDL 134 - ASCVD risk calculator indicates patient would benefit from statin therapy - Continue Lipitor 40mg daily - Check liver enzymes Diabetes mellitus, history - hemoglobin A1c 5.6 - no indication to begin treatment at this time. Recommend follow up with PCP as outpatient. DVT prophylaxis - patient is ambulatory Discussed with patient, nursing, Dr. Anthony Problem Qualifiers (1) Psychosis: Qualified Code: F28 - Other psychotic disorder not due to substance or known physiological condition Agus Chapa Sep 11, 2016 4:56 pm
[2016-09-11 17:56] VITALS: BP 108/64; PULSE 70; RESP 17; TEMP 97.7; O2SAT 99
[2016-09-11 18:36] LABS: INDIRECT BILIRUBIN 0.5 MG/DL (0.0-0.8); TOTAL BILIRUBIN ADULT 1.5 MG/DL (0.2-1.0)
[2016-09-11 21:25] VITALS: BP 114/72; PULSE 74; RESP 20; TEMP 97.9; O2SAT 98
[2016-09-11] MEDS ORDERED: ONDANSETRON ODT 4 MG TAB SL PRN (22:45)
[2016-09-12 01:30] VITALS: BP 125/74; PULSE 97; RESP 20; TEMP 101.5; O2SAT 99
[2016-09-12] MEDS: hydrALAZINE HCL 50 MG TAB PO SCH (06:00)
[2016-09-12 06:01] VITALS: BP 127/59; PULSE 121; RESP 16; TEMP 99.7; O2SAT 96
[2016-09-12] MEDS: NIFEdipine 60 MG SUSTAINED RELEASE TAB PO SCH (08:27)
[2016-09-12] MEDS: levOCARNitine 10% ORAL SOLN 118 ML BTL PO SCH ×2 (08:28→11:55)
[2016-09-12] MEDS ORDERED: LACTULOSE SYRUP 20 GM/30 ML CUP PO SCH (09:00)
[2016-09-12 09:30] VITALS: BP 113/58; PULSE 118
[2016-09-12 10:07] LABS: BICARBONATE 25.5 MEQ/L (21.0-32.0); POTASSIUM 3.5 MEQ/L (3.5-5.1)
--- NOTE | 2016-09-12 12:48 | RADRPT ---
EXAM DATE/TIME: 09/12/2016 11:48 [facility] COMPARISON: No previous studies available for comparison. INDICATIONS : Fever starting today MEDICAL HISTORY : None. SURGICAL HISTORY : None. ENCOUNTER: Initial ACUITY: 1 day PAIN SCORE: Non-responsive. LOCATION: Bilateral chest FINDINGS: Underinflated AP view of the chest demonstrates a normal-sized cardiac silhouette with mild calcifica tion of the aorta. There is atelectasis at the lung bases, left greater than right. No effusion, cons olidation, or pneumothorax is visualized. Bones and soft tissues demonstrate no acute finding. CONCLUSION: Underinflated examination with atelectasis at the lung bases. Otherwise, no acute finding is visualiz ed. Riley Colin MD on September 12, 2016 at 12:45 Board Certified Radiologist. This report was verified electronically.
--- NOTE | 2016-09-12 13:04 | HHI.PR ---
Subjective Remarks Follow-up visit acute kidney injury, lethargic, elevated temperature. Patient seen and examined today. Lethargic. Eyes opening to tactile stimulation occasionally would follow commands otherwise he appears to be more lethargic than yesterday's exam. As per nursing, patient had elevated temperature last night 101.9, 99.9 and was tachycardic. They have been trying to push fluids but patient is unable to comply. Repeat labs today showed worsening kidney function. Discuss with Dr. Anthony and with nursing, patient to be transferred out to the medical floor for further evaluation and closer monitoring. Objective Vitals Vital Signs Date Time Temp Pulse Resp B/P Pulse Ox O2 Delivery O2 Flow Rate FiO2 09/12/16 09:30 118 113/58 09/12/16 06:01 99.7 121 16 127/59 96 09/12/16 01:30 101.5 97 20 125/74 99 09/11/16 21:25 97.9 74 20 114/72 98 09/11/16 17:56 97.7 70 17 108/64 99 09/11/16 14:15 97.3 110 18 101/51 97 I/O 09/11/16 09/11/16 09/11/16 09/12/16 09/12/16 09/12/16 07:00 15:00 23:00 07:00 15:00 23:00 Intake Total 240 ml 900 ml Balance 240 ml 900 ml Intake Oral 240 ml 900 ml # Voids 3 Result Diagram: 09/09/16 1410 09/12/16 0858 Imaging Last Impressions Chest X-Ray 09/12/16 0000 Signed Impressions: Service Date/Time: Monday, September 12, 2016 11:48 - CONCLUSION: Underinflated examination with atelectasis at the lung bases. Otherwise, no acute finding is visualized. Riley Colin MD Shoulder X-Ray 09/11/16 0000 Signed Impressions: Service Date/Time: Sunday, September 11, 2016 10:27 - CONCLUSION: No acute disease. Jamie Koenig MD Hip and Pelvis X-Ray 09/11/16 0000 Signed Impressions: Service Date/Time: Sunday, September 11, 2016 10:18 - CONCLUSION: No acute fracture or dislocation of the left hip. Mild degenerative changes are noted within the left hip. Degenerative changes are noted within the lower lumbar spine. Jamie Koenig MD Head CT 09/11/16 0000 Signed Impressions: Service Date/Time: Sunday, September 11, 2016 10:37 - CONCLUSION: No acute disease. Conrado Chao MD FACR Objective Remarks GENERAL: This is a well-nourished, well-developed patient, lethargic. SKIN: Warm and dry. HEENT: Normocephalic. Pupils equal round and reactive. Nose without bleeding. Airway patent. NECK: Trachea midline. No JVD. Supple. CARDIOVASCULAR: Tachycardia without murmurs, gallops, or rubs. RESPIRATORY: Diminished at sounds. No wheezes, rales, or rhonchi. GASTROINTESTINAL: Abdomen soft, non-tender, nondistended. Bowel Sounds normoactive x4. MUSCULOSKELETAL: Extremities without clubbing, cyanosis, or edema. NEUROLOGICAL: Lethargic. Moves all extremities. Very Slow speech. A/P Problem List: (1) Psychosis ICD Code: F29 Status: Acute (2) Diabetes mellitus ICD Code: E11.9 Status: Acute (3) noncompliance medication Status: Acute (4) Benign hypertension ICD Code: I10 Status: Acute Assessment and Plan 61-year-old male with past medical history of HTN, HLD, DM, and psychosis. The patient presented for psychiatric evaluation for hearing voices because he was "fed up". Hospitalist service was consulted for medical management. SIRS - elevated temperature, tachycardia Sepsis - unknown source - Chest x-ray follow-up results - UA negative - Check CBC, pro-calcitonin, lactic acid, blood cultures - Transfer to medical floor - Vital signs every 4 hours - Start IV fluid for hydration NS @100ML/HR - Repeat labs tomorrow CBC, CMP - Upon transfer to medical floor, Dr. Anthony or order empiric antibiotics - vancomycin and Zosyn IV Psychosis/hallucinations - Management per primary psychiatry service Acute encephalopathy Transaminitis, acute liver failure - Elevated ammonia level 34 - Lactulose ordered - CT scan of the head showed no acute disease. - Hold off on any narcotics, benzos - held risperidone, Clozaril, Depakote, Haldol - Check liver enzymes. Check UA. - Labs reviewed worsening kidney function. - If encephalopathy continues and worsening kidney function continues may warrant to be transferred to medical unit for IV fluid hydration. - Monitor neuro status - Patient continues to be lethargic. - LFTs elevated. Hold off atorvastatin for now - Trend LFTs Status post fall, weakness - Patient is lethargic. Elevated ammonia level. Hold all medications with sedating effect - X-ray of the hip and pelvis negative, x-ray of the shoulder negative - Increased risk for falls secondary to encephalopathy - Monitor patient Hypertension, accelerated Tachycardia - Previously on Cozaar but was held secondary to SARAH - Currently on Procardia XL 60 mg daily, hydralazine 50 mg every 8 hours - Clonidine when necessary - Monitor BP trend. - Encouraged by mouth fluid intake. SARAH on CKD - Creatinine 1.84 --> 1.35 --> 1.91 -->1.92 -->2.05 - avoid nephrotoxic agents - Start IV fluids ns @100ML/HR Hypo kalemia Hyponatremia - Potassium replacement 10MEQ - Check BMP tomorrow Hyperlipidemia - lipid panel shows TG 119, TC 207, LDL 134 - ASCVD risk calculator indicates patient would benefit from statin therapy - Hold Lipitor 40mg daily - Liver enzymes elevated Diabetes mellitus, history - hemoglobin A1c 5.6 - no indication to begin treatment at this time. Recommend follow up with PCP as outpatient. DVT prophylaxis - patient is ambulatory Discussed with patient, nursing, Dr. Anthony Problem Qualifiers (1) Psychosis: Qualified Code: F28 - Other psychotic disorder not due to substance or known physiological condition Agus Chapa Sep 12, 2016 13:04
--- NOTE | 2016-09-13 13:12 | HHI.DS ---
Psychiatry Discharge Summary Advance Directive: Yes Mental Health AdvanceDirective: No Admission Admission Date Sep 02, 2016 at 13:29 Admission Diagnosis: Brief History Mr. Pate is a 61 year-old male with a history of psychotic illness who presents under a [place] Act by [place] alleging that he believes that someone named Jason Millan is beaming signals into his brain. Reviewing the EMR, I note that the patient was admitted here most recently in August,, seen chiefly at that time by Dr. Bui. He was stabilized on Risperdal and transitioned to Invega Sustenna at that time along with Depakote. Patient seen and examined. Chart reviewed. Case discussed with RN on the inpatient unit. On my examination today, patient tells me that for years he has been "controlled by a radar beam from the [employer] satellite that is getting into Swazi's heads. Some of the crap they're pumping into Swazi's heads is crap! Martian stuff, telling you your brother and sister are , popping sounds." He says "my appetite isn't good because of the beams and my hygiene isn't good [for the same reason]." He says that he would like to end his life because, "I'm fed up with this crap. If they put me down like a dog, so be it. " Affect is dysphoric and the patient is fairly anhedonic. No other delusional material or AVH. No hypomanic/manic symptoms. No HI. Remainder of the psychiatric ROS is negative. Past psychiatric history: Patient is likely an unreliable historian. He reports that he has been attacked for several years by the beams, although he does not accept that this reflects a mental illness. His earliest psychiatric hospitalization within our system is from 2013. He denies a history of suicide attempts. 09/03/16 Above note dictated by Dr. Granados noted and agreed with. Patient seen on unit with RN. Patient quite psychotic delusional and paranoid. Feels there are Martian supervision read his brain in people who have consider thoughts into his brain. Dr. granados first opinion petition supporting [place] act. I agree. Patient meets criteria for involuntary psychiatric hospitalization under the [place] act. Thus I will cosign second opinion petition supporting [place] act Tobacco Use In Past 30 Days: No Tobacco Past 30 Days Alcohol Use: Never Results Blood Pressure 113 / 58 Vital Signs Date Time Temp Pulse Resp B/P Pulse Ox O2 Delivery O2 Flow Rate FiO2 09/12/16 09:30 118 113/58 09/12/16 06:01 99.7 16 96 Laboratory Tests Test 09/11/16 09/11/16 09/12/16 09/12/16 08:46 16:21 08:58 13:30 Sodium Level 134 MEQ/L (136-145) Potassium Level 3.4 MEQ/L (3.5-5.1) Blood Urea Nitrogen 28 MG/DL (7-18) 42 MG/DL (7-18) Creatinine 1.92 MG/DL 2.05 MG/DL (0.60-1.30) (0.60-1.30) Estimat Glomerular Filtration 36 ML/MIN (>89) 33 ML/MIN (>89) Rate Random Glucose 120 MG/DL 107 MG/DL (74-106) (74-106) Total Bilirubin 1.5 MG/DL (0.2-1.0) Direct Bilirubin 1.0 MG/DL (0.0-0.2) Aspartate Amino Transf 121 U/L (15-37) (AST/SGOT) Alanine Aminotransferase 198 U/L (12-78) (ALT/SGPT) Alkaline Phosphatase 290 U/L (45-117) Ammonia 34 MCMOL/L (11-32) Albumin 2.9 GM/DL (3.4-5.0) Urine Color DARK-YELLOW (YELLW/STRAW) Urine Turbidity HAZY (CLEAR) Urine Protein 30 mg/dL (NEG-TRACE) Urine Ketones 10 mg/dL (NEG) Urine Occult Blood TRACE (NEG) Urine Bilirubin SMALL (NEG) Urine Urobilinogen 4.0 MG/DL (LESS THAN 2.0) Urine RBC 6 /hpf (0-3) Urine Mucus FEW /lpf (OCC) Calcium Level 8.4 MG/DL (8.5-10.1) Procalcitonin 1.25 ng/mL (0.00-0.50) Laboratory Results Test 09/11/16 08:46 Valproic Acid (Depakene) Level 89 MCG/ML (50-100) Imaging Last Impressions Chest X-Ray 09/12/16 0000 Signed Impressions: Service Date/Time: Monday, September 12, 2016 11:48 - CONCLUSION: Underinflated examination with atelectasis at the lung bases. Otherwise, no acute finding is visualized. Riley Colin MD Shoulder X-Ray 09/11/16 0000 Signed Impressions: Service Date/Time: Sunday, September 11, 2016 10:27 - CONCLUSION: No acute disease. Jamie Koenig MD Hip and Pelvis X-Ray 09/11/16 0000 Signed Impressions: Service Date/Time: Sunday, September 11, 2016 10:18 - CONCLUSION: No acute fracture or dislocation of the left hip. Mild degenerative changes are noted within the left hip. Degenerative changes are noted within the lower lumbar spine. Jamie Koenig MD Head CT 09/11/16 0000 Signed Impressions: Service Date/Time: Sunday, September 11, 2016 10:37 - CONCLUSION: No acute disease. Conrado Chao MD FACR Medications Approp Antipsych med options 1 - Minimum of three failed multiple trials of monotherapy. 2 - Documented plan to taper to monotherapy due to previous use of multiple meds OR cross-taper in progress at D/C. 3 - Documentation of augmentation of Clozapine. 4 - Justification other than those listed in allowable values 1-3, document here : Discharge Discharge Disposition: Disch to Another Hospital Discharge Instructions Diet Instructions: Heart Healthy Diet Activities you can perform: Regular-No Restrictions Discharge/Advance Care Plan Health Problems: (1) Psychosis (2) Delirium due to multiple etiologies Goals to promote your health * To prevent worsening of your condition and complications * To maintain your health at the optimal level Directions to meet your goals Take your medications as prescribed Follow your dietary instruction Follow activity as directed Keep your appointments as scheduled Take your immunizations and boosters as scheduled If your symptoms worsen call your PCP, if no PCP go to Urgent Care Center or Emergency Room For 24/7 questions related to your inpatient stay or results of tests pending at discharge, please contact Dr. Jose Granados at Smoking is Dangerous to Your Health. Avoid second hand smoking Jose Granados MD Sep 13, 2016 13:12
== END 2016-09-12 12:05 | disposition short-term general hospital (02) | DRG 885 ==
LOC: NEPC 19:45 → NEDA 09-02 13:29 → H270 09-02 13:45 → H260 09-10 14:32 → H250 09-11 18:03
PROVIDERS: ADMIT Psychiatry & Neurology Psychiatry; ATTEND Psychiatry & Neurology Psychiatry
DX: F29 Unspecified psychosis not due to a substance or known physiological condition (principal); K72.00 Acute and subacute hepatic failure without coma; G93.40 Encephalopathy, unspecified; N17.9 Acute kidney failure, unspecified; E72.20 Disorder of urea cycle metabolism, unspecified; E87.1 Hypo-osmolality and hyponatremia; R65.10 Systemic inflammatory response syndrome (SIRS) of non-infectious origin without acute organ dysfunction; E11.9 Type 2 diabetes mellitus without complications; Z91.19 Patient's noncompliance with other medical treatment and regimen; E78.5 Hyperlipidemia, unspecified; Z59.0 Homelessness; I12.9 Hypertensive chronic kidney disease with stage 1 through stage 4 chronic kidney disease, or unspecified chronic kidney disease; N18.9 Chronic kidney disease, unspecified; Z91.81 History of falling; E87.6 Hypokalemia; T46.5X5A Adverse effect of other antihypertensive drugs, initial encounter; Y92.239 Unspecified place in hospital as the place of occurrence of the external cause; Z85.828 Personal history of other malignant neoplasm of skin; Z87.891 Personal history of nicotine dependence
CPT/HCPCS: 70450; 71010; 73030; 73502; 80048; 80053; 80061; 80076; 80164; 80307; 81001; 82140; 82550; 83036; 84145; 84443; 84484; 85025; 93005; 96360; J7030

== ENCOUNTER 2016-09-12 12:27 | Inpatient (IN) | payer MEDICARE, OTHER ==
[2016-09-12] MEDS ORDERED: SENNOSIDES 8.6 MG TAB PO PRN (12:45)
[2016-09-12] MEDS ORDERED: LACTULOSE SYRUP 20 GM/30 ML CUP PO PRN (12:45)
[2016-09-12] MEDS ORDERED: ONDANSETRON HCL 4 MG/2 ML VIAL IVP PRN (12:45)
[2016-09-12] MEDS ORDERED: SODIUM CHLORIDE 0.9% FLUSH 10 ML FLUSH IV FLUSH PRN (12:45)
[2016-09-12] MEDS ORDERED: BISACODYL 10 MG SUPP RECTAL PRN (12:45)
[2016-09-12] MEDS ORDERED: MAGNESIUM HYDROXIDE SUSP 30 ML CUP PO PRN (12:45)
[2016-09-12] MEDS ORDERED: NALOXONE HCL 0.4 MG/ML AMP IV PRN (12:45)
[2016-09-12] MEDS ORDERED: ACETAMINOPHEN 325 MG TAB PO PRN (12:45)
[2016-09-12 14:17] LABS: AUTOMATED NEUTROPHIL # 11.4 TH/MM3 (1.8-7.7); BASOPHIL % 0.2 % (0.0-2.0); EOSINOPHIL # 0.4 TH/MM3 (0-0.4); EOSINOPHIL % 2.6 % (0.0-4.0); HEMATOCRIT 42.5 % (39.0-51.0); HEMO FLAGS DIFF FINAL; LYMPH % 5.5 % (9.0-44.0); LYMPHOCYTE # 0.8 TH/MM3 (1.0-4.8); MEAN CELL VOLUME 91.2 FL (80.0-100.0); MEAN CORPUSCULAR HEMOGLOBIN 30.8 PG (27.0-34.0); MEAN CORPUSCULAR HGB CONC 33.8 % (32.0-36.0); NEUT % 81.7 % (16.0-70.0); PLATELET COUNT 187 TH/MM3 (150-450); RED BLOOD COUNT 4.67 MIL/MM3 (4.50-5.90); WHITE BLOOD COUNT 13.9 TH/MM3 (4.0-11.0)
[2016-09-12 14:30] VITALS: PULSE 100
[2016-09-12] MEDS: D5-1/2 NS + KCL 20 MEQ INJ 1,000 ML IV SCH ×2 (14:31→21:06)
[2016-09-12] MEDS: PIPERACIL-TAZO 4.5 GM PREMIX 100 ML IV SCH ×2 (15:44→23:18)
[2016-09-12] MEDS: LACTULOSE SYRUP 20 GM/30 ML CUP PO SCH (15:50)
[2016-09-12 16:00] VITALS: BP 116/67; PULSE 98; RESP 18; TEMP 97.8; O2SAT 96
[2016-09-12] MEDS ORDERED: VANCOMYCIN INJ 1,250 MG in SODIUM CHLOR 0.9% 250 ML INJ 250 ML IV ONE (16:00)
--- NOTE | 2016-09-12 16:49 | HHI.HP ---
HPI Service [facility] Primary Care Physician Unknown Admission Diagnosis Diagnoses: Chief Complaint: Sepsis, SARAH Travel History International Travel<30 Days: No Contact w/Intl Traveler <30 Da: No Sepsis Criteria SIRS Criteria (2 or more): Temp > 100.9 or < 96.8, Heart rate over 90, WBC > 87622, < 4000 or > 10% bands Severe Sepsis (+one): Hypoperfusion, Acute Oliguria/Renal Failure History of Present Illness 61 Y/O male with a medical history significant for HTN, DM, hyperlipidemia, psychosis initially admitted to the psychiatric unit for delusional disorder who has been progressively getting dehydrated. Over the past couple of days, the patient's oral intake has been declining. He spiked a fever overnight. He is becoming more lethargic. His renal functions have been declining and is now in acute renal failure. Patient is admitted from the psychiatric unit to the medical floor for acute renal failure and possible sepsis. Patient is lethargic anc cannot contribute to the history. History obtained from extensive review of the chart. Review of Systems ROS Limitations: Clinical Condition, Poor Historian Past Family Social History Past Medical History Hypertension Hyperlipidemia Diabetes mellitus Psychosis Past Surgical History Left hernia repair Right hip surgery Allergies: Coded Allergies: No Known Allergies (Verified , 09/01/16) Family History Unable to obtain Social History Unable to obtain. Physical Exam Vital Signs Vital Signs Date Time Temp Pulse Resp B/P Pulse Ox O2 Delivery O2 Flow Rate FiO2 09/12/16 16:00 97.8 98 18 116/67 96 09/12/16 14:30 100 Physical Exam GENERAL: Patient is lethargic HEAD: Atraumatic. Normocephalic. No temporal or scalp tenderness. EYES: Pupils equal round and reactive. Extraocular motions intact. No scleral icterus. No injection or drainage. ENT: Nose without drainage. Airway patent. NECK: Trachea midline. No JVD or lymphadenopathy. Supple, nontender, no meningeal signs. CARDIOVASCULAR: Rate about 105 and rhythm without murmurs, gallops, or rubs. RESPIRATORY: Clear to auscultation. Breath sounds equal bilaterally. No wheezes , rales, or rhonchi. GASTROINTESTINAL: Abdomen soft, non-tender, nondistended. No hepato-splenomegaly , or palpable masses. No guarding. MUSCULOSKELETAL: Extremities without clubbing, cyanosis, or edema. No joint tenderness, effusion, or edema noted. No calf tenderness. Negative Homans sign bilaterally. NEUROLOGICAL: Lethargic Laboratory Laboratory Tests Test 09/12/16 13:46 White Blood Count 13.9 Red Blood Count 4.67 Hemoglobin 14.4 Hematocrit 42.5 Mean Corpuscular Volume 91.2 Mean Corpuscular Hemoglobin 30.8 Mean Corpuscular Hemoglobin 33.8 Concent Red Cell Distribution Width 14.0 Platelet Count 187 Mean Platelet Volume 8.7 Neutrophils (%) (Auto) 81.7 Lymphocytes (%) (Auto) 5.5 Monocytes (%) (Auto) 10.0 Eosinophils (%) (Auto) 2.6 Basophils (%) (Auto) 0.2 Neutrophils # (Auto) 11.4 Lymphocytes # (Auto) 0.8 Monocytes # (Auto) 1.4 Eosinophils # (Auto) 0.4 Basophils # (Auto) 0.0 CBC Comment DIFF FINAL Differential Comment Lactic Acid Level 1.0 Date/Time Procedure Status Source Growth 09/12/16 13:46 Aerobic Blood Culture Received Blood Peripheral Pending 09/12/16 13:46 Anaerobic Blood Culture Received Blood Peripheral Pending Result Diagram: 09/12/16 4116 Assessment and Plan Assessment and Plan 61 Y/O male with Sepsis - unknown source - Chest x-ray and UA negative - Start IV fluid for hydration NS @100ML/HR - Repeat labs tomorrow CBC, CMP - Vancomycin and Zosyn IV Acute on chronic renal failure - Baseline creatinine seems to be around 1.5, it is now 2.05 - avoid nephrotoxic agents - Start IV fluids ns @125ML/HR Psychosis/hallucinations - Hold all sedating meds for now. Consult Psychiatry. Acute encephalopathy Transaminitis, acute liver failure Possible Uremia - Elevated ammonia level 34 - Lactulose ordered - CT scan of the head showed no acute disease. - Hold off on all sedatives - If encephalopathy continues and worsening kidney function continues may warrant to be transferred to medical unit for IV fluid hydration. - Monitor neuro status - Trend LFTs Hypertension: BP stable - Previously on Cozaar, Procardia XL 60 mg daily, hydralazine 50 mg every 8 hours - Clonidine when necessary - Monitor BP trend. Diabetes mellitus, history - hemoglobin A1c 5.6 - no indication to begin treatment at this time. Recommend follow up with PCP as outpatient. DVT prophylaxis - Heparin Physician Certification 2 Midnight Certification Type: Admission for Inpatient Services Order for Inpatient Services The services are ordered in accordance with Medicare regulations or non- Medicare payer requirements, as applicable. In the case of services not specified as inpatient-only, they are appropriately provided as inpatient services in accordance with the 2-midnight benchmark. Estimated LOS (days): 5 days is the estimated time the patient will need to remain in the hospital, assuming treatment plan goals are met and no additional complications. Post-Hospital Plan: Not yet determined Murali Anthony MD Sep 12, 2016 16:48
[2016-09-12] MEDS ORDERED: cloNIDine HCL 0.1 MG TAB PO PRN (17:00)
[2016-09-12] MEDS: HEPARIN SODIUM - SQ 10,000 UNITS/ML VIAL SQ SCH (17:12)
[2016-09-12 20:00] VITALS: BP 118/68; PULSE 98; RESP 17; TEMP 96.9; O2SAT 96
[2016-09-12] MEDS: DOCUSATE SODIUM 50 MG/SENNA 8.6 MG TAB PO SCH (21:00)
[2016-09-12] MEDS: SODIUM CHLORIDE 0.9% FLUSH 10 ML FLUSH IV FLUSH SCH (21:00)
[2016-09-12 21:47] VITALS: O2SAT 98
[2016-09-12 23:02] VITALS: PULSE 105
[2016-09-13] VITALS (9 sets, daily range): BP systolic 104–118; BP diastolic 57–72; PULSE 84–106; RESP 17–20; TEMP 96.9–100; O2SAT 94–98
[2016-09-13] MEDS: HEPARIN SODIUM - SQ 10,000 UNITS/ML VIAL SQ SCH ×3 (01:00→17:31)
[2016-09-13] MEDS: D5-1/2 NS + KCL 20 MEQ INJ 1,000 ML IV SCH ×3 (04:35→20:27)
[2016-09-13 06:24] LABS: AUTOMATED NEUTROPHIL # 7.1 TH/MM3 (1.8-7.7); BASOPHIL % 0.2 % (0.0-2.0); EOSINOPHIL # 0.5 TH/MM3 (0-0.4); EOSINOPHIL % 5.1 % (0.0-4.0); HEMO FLAGS DIFF FINAL; LYMPHOCYTE # 1.1 TH/MM3 (1.0-4.8); MEAN CELL VOLUME 91.2 FL (80.0-100.0); MEAN CORPUSCULAR HEMOGLOBIN 30.3 PG (27.0-34.0); MEAN CORPUSCULAR HGB CONC 33.2 % (32.0-36.0); MONO % 12.4 % (0.0-8.0); NEUT % 71.3 % (16.0-70.0); PLATELET COUNT 176 TH/MM3 (150-450); RED BLOOD COUNT 4.61 MIL/MM3 (4.50-5.90); RED CELL DISTRIBUTION WIDTH 13.6 % (11.6-17.2)
[2016-09-13] MEDS: PIPERACIL-TAZO 4.5 GM PREMIX 100 ML IV SCH ×3 (06:40→23:06)
[2016-09-13 06:51] LABS: ANION GAP 9 MEQ/L (5-15); AST (GOT) 109 U/L (15-37); BICARBONATE 23.9 MEQ/L (21.0-32.0); BLOOD UREA NITROGEN 33 MG/DL (7-18); CHLORIDE 104 MEQ/L (98-107); GLOMERULAR FILTRATION RATE 41 ML/MIN (>89); POTASSIUM 3.6 MEQ/L (3.5-5.1); SODIUM (NA) 137 MEQ/L (136-145)
[2016-09-13 06:52] LABS: ALT (GPT) 179 U/L (12-78)
[2016-09-13 06:54] LABS: ALKALINE PHOSPHATASE 411 U/L (45-117); TOTAL BILIRUBIN ADULT 1.7 MG/DL (0.2-1.0)
[2016-09-13] MEDS: SODIUM CHLORIDE 0.9% FLUSH 10 ML FLUSH IV FLUSH SCH ×2 (09:00→20:28)
--- NOTE | 2016-09-13 10:35 | HHI.PR ---
Subjective Remarks Patient states he is fed up and just does not want to eat. He reports visual and auditory hallucinations that has been ongoing. Objective Vitals Vital Signs Date Time Temp Pulse Resp B/P Pulse Ox O2 Delivery O2 Flow Rate FiO2 09/13/16 08:30 96 21 09/13/16 07:50 98.2 84 20 115/63 95 09/13/16 04:00 96.9 97 17 108/57 96 09/13/16 00:00 97.2 96 17 104/62 94 09/12/16 23:02 105 09/12/16 21:47 98 21 09/12/16 20:00 96.9 98 17 118/68 96 09/12/16 16:00 97.8 98 18 116/67 96 09/12/16 14:30 100 I/O 09/12/16 09/12/16 09/12/16 09/13/16 09/13/16 09/13/16 07:00 15:00 23:00 07:00 15:00 23:00 Intake Total 589 ml 60 ml Output Total 550 ml 300 ml 460 ml Balance -550 ml 289 ml -400 ml Intake Oral 160 ml 60 ml IV Total 429 ml Output Urine Total 550 ml 300 ml 460 ml # Voids 0 1 # Bowel Movements 0 0 Result Diagram: 09/13/1615 09/13/1615 Objective Remarks GENERAL: Patient is withdrawn. In no acute distress. CARDIOVASCULAR: Normal rate and regular rhythm without murmurs, gallops, or rubs. RESPIRATORY: Good respiratory efforts. Breath sounds equal and clear to auscultation bilaterally. GASTROINTESTINAL: Abdomen soft, non-tender, non-distended. Normal active bowel sounds MUSCULOSKELETAL: Extremities without cyanosis, or edema. NEURO: Awake and alert. Moves all ext x4 PSYCH: Withdrawn. Seems to be responding to internal stimuli. A/P Assessment and Plan 61 Y/O male with Acute on chronic renal failure: Patient is refusing to eat or drink. -Renal function improving - avoid nephrotoxic agents -Continue IV fluids ns @125ML/HR Possible Sepsis : Less likely - Chest x-ray and UA negative -Continue IV fluid for hydration NS @100ML/HR -Blood cultures so far negative. CBC improved. -Continue Zosyn IV for 1 more day. Plan to discontinue Aleve blood cultures remain negative at 48 hours Psychosis/hallucinations: -Psychiatry consulted for psychiatric meds. Currently still hallucinating and refusing to eat or drink. Acute encephalopathy: Much improved. He is awake and talking Transaminitis, acute liver failure Possible Uremia - Elevated ammonia level 34 - Lactulose ordered - CT scan of the head showed no acute disease. - Hold off on all sedatives - Monitor neuro status - Trend LFTs Hypertension: BP stable - Previously on Cozaar, Procardia XL 60 mg daily, hydralazine 50 mg every 8 hours - Clonidine when necessary - Monitor BP trend. Diabetes mellitus, history - hemoglobin A1c 5.6 - no indication to begin treatment at this time. Recommend follow up with PCP as outpatient. DVT prophylaxis - Heparin Murali Anthony MD Sep 13, 2016 10:35
[2016-09-13] MEDS: DOCUSATE SODIUM 50 MG/SENNA 8.6 MG TAB PO SCH ×2 (11:45→20:27)
[2016-09-13] MEDS: LACTULOSE SYRUP 20 GM/30 ML CUP PO SCH (11:45)
--- NOTE | 2016-09-13 12:14 | PD.CONS ---
Provisional Diagnosis Admission Date Sep 12, 2016 at 12:27 [place] I. 1. Schizophrenia, paranoid type, acute exacerbation Rule out schizoaffective disorder or comorbid depression 2. Delirium due to multiple etiologies [place] II. Deferred History of Present Illness Service Psychiatry Consult Requested By Dr. Anthony Reason for Consult Transfer from inpatient psych. Primary Care Physician Unknown HPI Mr. Pate is a 61-year-old male with a history psychosis who was admitted initially to the inpatient psychiatric unit under a [place] act by law enforcement alleging that he believed that a gentleman by the name of Jason Millan was beaming signals into his brain. Patient underwent medication management on the inpatient psychiatric unit, and his case was presented to the [place] act court. The patient was retained on the unit by the glass carrier and appointed a guardian advocate, BILL DEMPSEY [phone]. On around his 10th inpatient day, the patient became more somnolent and altered. He also took a fall. He was evaluated by the hospitalist consulted who recommended transferred to the inpatient medical unit for further evaluation. Psychiatry has been consulted to follow along. Patient seen and examined. Chart reviewed. Case discussed with nursing staff who reports the patient's oral intake is poor. He has been no real behavioral problem otherwise. On my examination today, the patient presents as somewhat encephalopathic, see full mental status testing below. He says that he is struggling with "confusion and things out of place." He continues to believe that he is being assaulted by radar beams and says "that probably won't stop." He continues to articulate that he is "fed up" with being attacked in this way and says that he is intentionally not eating "because I've had enough." He denies any urge to actively hurt himself on the medical unit but does say he intends to continue to refuse food/fluids. He is presently receiving IVF. Affect remains restricted and dysphoric. Hopelessness present. Anhedonia present. No hypomanic or manic symptoms. Continues to receive messages as before. No command auditory hallucinations. No other delusional material. No homicidal ideation. Remainder psychiatric ROS is negative. I obtained patient's past psychiatric, family, chemical dependency and social history during my initial evaluation under [id number] on 09/02/16. These data are unchanged today. Review of Systems ROS Limitations: Psychotic, Poor Historian Except as stated in HPI: all other systems reviewed are Neg Past Family Social History Coded Allergies: No Known Allergies (Verified , 09/01/16) Past Medical History See electronic medical record No Active Prescriptions or Reported Meds Current Medications Medications (Trade) Dose Ordered Sig/Drea Route Start Time Stop Time Status Last Admin (D5-1/2 NS + KCl 20 Meq Inj) 1,000 ml @ 125 mls/hr Q8H IV 09/12/16 12:35 09/12/16 21:06 (NS Flush) 2 ml UNSCH PRN IV FLUSH 09/12/16 12:45 (NS Flush) 2 ml BID IV FLUSH 09/12/16 21:00 (Tylenol) 650 mg Q4H PRN PO 09/12/16 12:45 (Zofran Inj) 4 mg Q6H PRN IVP 09/12/16 12:45 (Narcan Inj) 0.4 mg UNSCH PRN IV 09/12/16 12:45 (Vanessa-Colace) 1 tab BID PO 09/12/16 21:00 09/13/16 11:45 (Milk Of Magnesia Liq) 30 ml Q12H PRN PO 09/12/16 12:45 (Senokot) 17.2 mg Q12H PRN PO 09/12/16 12:45 (Dulcolax Supp) 10 mg DAILY PRN RECTAL 09/12/16 12:45 Lactulose 30 ml 30 ml DAILY PRN PO 09/12/16 12:45 (Zosyn 4.5 Gm Premix) 100 ml @ 200 mls/hr Q8H IV 09/12/16 15:00 09/13/16 06:40 (Lactulose Liq) 30 ml DAILY PO 09/12/16 12:39 09/13/16 11:45 (Heparin Inj) 5,000 units Q8H SQ 09/12/16 17:00 09/13/16 11:45 (Catapres) 0.1 mg Q6H PRN PO 09/12/16 17:00 Patient's Strengths (min. 2) In a monitored setting. Verbally fluent. Physical Exam Physical examination completed by ED provider. On my examination today, the patient appears to be in no acute physical distress. He is somewhat ill- appearing. No motoric abnormalities noted. Laboratories and vitals reviewed. Vital Signs Vital Signs Date Time Temp Pulse Resp B/P Pulse Ox O2 Delivery O2 Flow Rate FiO2 09/13/16 08:30 96 21 09/13/16 07:50 98.2 84 20 115/63 I/O 09/12/16 09/12/16 09/13/16 08:00 16:00 00:00 Intake Total 589 ml Output Total 550 ml 300 ml Balance -550 ml 289 ml Lab Results Item Value Date Time White Blood Count 10.0 TH/MM3 09/13/16 06 Hemoglobin 13.9 GM/DL 09/13/16614 Platelet Count 176 TH/MM3 09/13/16614 Sodium Level 137 MEQ/L 09/13/16614 Potassium Level 3.6 MEQ/L 09/13/16614 Chloride Level 104 MEQ/L 09/13/16614 Carbon Dioxide Level 23.9 MEQ/L 09/13/16614 Blood Urea Nitrogen 33 MG/DL H 09/13/16 0615 Creatinine 1.71 MG/DL H 09/13/1615 Aspartate Amino Transf (AST/SGOT) 109 U/L H 09/13/16 0615 Alanine Aminotransferase (ALT/SGPT) 179 U/L H 09/13/1615 Alkaline Phosphatase 411 U/L H 09/13/16614 Mental Status Examination Patient is in hospital gow. He is somewhat disheveled. He is awake and alert and oriented to person, month, [place] in [facility]. He does not know the date, year or floor. His registration is 3 out of 3 but his recall is one out of 3 at 3 minutes. He is able to spell the word world forwards because it backwards as DLORD. He is somewhat over inclusive on vigilance A. no motor abnormalities noted. Speech is somewhat slow with increased speech latency. Focus and concentration mildly impaired. Mood is dysphoric and affect is restricted and consistent with stated mood. Thought process linear. No loosening of associations. Paranoid delusions of being attacked by radar beams present. Receiving messages from these beams of this sort as previously detailed. No command auditory hallucinations. No other hallucinatory material. Denies urged to actively hurt himself on the medical unit but says that he will continue to refuse food and fluids. No homicidal ideation. Insight and judgment are poor. Assessment & Plan Problem List: (1) Psychosis ICD Code: F29 (2) Delirium due to multiple etiologies ICD Code: F05 Assessment & Plan This is a 61-year-old male with psychiatric history as noted above who has been transferred from the inpatient psychiatric unit to the medical unit following an episode of altered mental status. Psychiatry is consulted to follow along while the patient is medically hospitalized. Patient remains delusional and is reportedly presently refusing food and fluids. He is presently mildly encephalopathic. For now, I recommend the following: --For patient's dysphoria, I will start Remeron 15mg qHS. It is my hope that this will also stimulate his appetite so that he will accept PO, although we will also need to remain vigilant for excessive sedation. --Underlying delusions are long-standing. He has been on Geodon, Risperdal and Invega Sustenna within our system. I was going to trial him on clozapine prior to his departure from the psychiatric unit, but in light of his acute medical issues, I think such a trial is presently unwise. I will instead start Abilify 5mg daily as this does not require dose adjustment for renal/hepatic impairment , is not sedating, and is available in a long-acting injectable should it prove efficacious. --Patient is not presently with a sitter. Inasmuch as his plan for self-injury is passive, i.e. by food/fluid refusal, I do not think one is absolutely needed at this time. However, I would have a low threshold to place patient with a sitter if there is any sign of behavioral deterioration, and I would have the staff make regular (i.e. at least q15min) checks on the patient. --Patient already has a court-appointed GA for medical/psychiatric decisions, see HPI --We will plan to accept pt back to inpatient psychiatry once medically clear ( patient might also be a candidate for med psych, should the unit open again while patient is medically hospitalized). Case d/w RN. Thank you very much for this consultation. Please call or page with questions. I will plan to follow along. Discharge Planning Patient has been retained by the court and a guardian advocate appointed. Plan to return to inpatient psychiatry once medically stabilized. Request HC Surrog/Guard Advoc?: Yes Problem Qualifiers (1) Psychosis: Qualified Code: F20.0 - Paranoid schizophrenia Jose Granados MD Sep 13, 2016 12:14
[2016-09-13] MEDS: MIRTAZAPINE ODT 15 MG TAB PO SCH (20:28)
[2016-09-14] VITALS (7 sets, daily range): BP systolic 103–134; BP diastolic 55–73; PULSE 72–98; RESP 16–20; TEMP 97.3–98.6; O2SAT 94–97
[2016-09-14] MEDS: HEPARIN SODIUM - SQ 10,000 UNITS/ML VIAL SQ SCH ×3 (00:24→17:55)
[2016-09-14] MEDS: D5-1/2 NS + KCL 20 MEQ INJ 1,000 ML IV SCH ×3 (02:49→20:37)
[2016-09-14] MEDS: PIPERACIL-TAZO 4.5 GM PREMIX 100 ML IV SCH (06:50)
[2016-09-14 07:31] LABS: HEMATOCRIT 40.1 % (39.0-51.0); MEAN CELL VOLUME 92.7 FL (80.0-100.0); MEAN CORPUSCULAR HEMOGLOBIN 30.1 PG (27.0-34.0); MEAN CORPUSCULAR HGB CONC 32.4 % (32.0-36.0); PLATELET COUNT 170 TH/MM3 (150-450); RED BLOOD COUNT 4.33 MIL/MM3 (4.50-5.90); RED CELL DISTRIBUTION WIDTH 13.6 % (11.6-17.2); REVIEW FLAG FINAL; WHITE BLOOD COUNT 7.1 TH/MM3 (4.0-11.0)
[2016-09-14 07:56] LABS: BICARBONATE 22.8 MEQ/L (21.0-32.0); POTASSIUM 3.8 MEQ/L (3.5-5.1)
[2016-09-14 07:59] LABS: INDIRECT BILIRUBIN 0.3 MG/DL (0.0-0.8)
[2016-09-14] MEDS: SODIUM CHLORIDE 0.9% FLUSH 10 ML FLUSH IV FLUSH SCH ×2 (09:00→20:36)
[2016-09-14] MEDS: ARIPiprazole 5 MG TAB PO SCH (09:33)
[2016-09-14] MEDS: DOCUSATE SODIUM 50 MG/SENNA 8.6 MG TAB PO SCH ×2 (09:33→20:32)
[2016-09-14] MEDS: LACTULOSE SYRUP 20 GM/30 ML CUP PO SCH (09:34)
--- NOTE | 2016-09-14 14:15 | HHI.PR ---
Subjective Remarks Patient reports he is feeling okay. He stated he ate some eggs this morning. Still does not want to eat or drink much. Renal functions improving. Objective Vitals Vital Signs Date Time Temp Pulse Resp B/P Pulse Ox O2 Delivery O2 Flow Rate FiO2 09/14/16 11:50 98.1 77 20 103/56 96 09/14/16 07:50 97.5 72 20 118/56 97 09/14/16 04:00 97.3 82 16 106/55 94 09/14/16 00:00 98.0 83 18 122/60 97 09/13/16 20:18 95 09/13/16 20:00 98.7 87 17 115/72 98 09/13/16 15:00 100.0 106 20 118/58 95 I/O 09/13/16 09/13/16 09/13/16 09/14/16 09/14/16 09/14/16 07:00 15:00 23:00 07:00 15:00 23:00 Intake Total 60 ml 1450 ml 700 ml 1150 ml Output Total 460 ml 550 ml 700 ml 700 ml Balance -400 ml 900 ml 0 ml 450 ml Intake Oral 60 ml 341 ml 120 ml 60 ml IV Total 1109 ml 580 ml 1090 ml Output Urine Total 460 ml 550 ml 700 ml 700 ml # Voids 1 # Bowel Movements 0 0 0 0 Result Diagram: 09/14/16 0709/14/16 07 Objective Remarks GENERAL: Patient is withdrawn. In no acute distress. CARDIOVASCULAR: Normal rate and regular rhythm without murmurs, gallops, or rubs. RESPIRATORY: Good respiratory efforts. Breath sounds equal and clear to auscultation bilaterally. GASTROINTESTINAL: Abdomen soft, non-tender, non-distended. Normal active bowel sounds MUSCULOSKELETAL: Extremities without cyanosis, or edema. NEURO: Awake and alert. Moves all ext x4 PSYCH: Withdrawn. A/P Assessment and Plan 61 Y/O male with Acute on chronic renal failure: Patient has been refusing to eat or drink. Related to his psychiatric condition. Seems slightly improved today since started on antipsychotics. -Renal function improving - avoid nephrotoxic agents -Continue IV fluids ns @125ML/HR Possible Sepsis : Less likely, ruled out. - Chest x-ray and UA negative -Blood cultures so far negative. CBC improved. -Discontinue antibiotics Psychosis/hallucinations: -Appreciate psychiatry following. Psych meds per psychiatry. Seems to be improving today. Acute encephalopathy: Much improved. He is awake and talking Transaminitis, acute liver failure Possible Uremia - Elevated ammonia level 34 - Lactulose ordered - CT scan of the head showed no acute disease. - Monitor neuro status - Trend LFTs Hypertension: BP stable - Previously on Cozaar, Procardia XL 60 mg daily, hydralazine 50 mg every 8 hours - Clonidine when necessary - Monitor BP trend. Diabetes mellitus, history - hemoglobin A1c 5.6 - no indication to begin treatment at this time. Recommend follow up with PCP as outpatient. DVT prophylaxis - Heparin Murali Anthony MD Sep 14, 2016 14:15
--- NOTE | 2016-09-14 17:42 | HHI.PYPN ---
Subjective Remarks Pt seen in follow up for psychosis, delirium. Chart reviewed. Has received first dose of Abilify and Remeron. Case discussed with RN who reports PO intake has been good today, although the patient has been a little drowsy. He is awake and alert for my evaluation. Remains fairly dysphoric. Feels like he is a "total loss." Denies any urge to hurt himself in the hospital but insinuates he might try to arrange suicide by buffer copper after leaving. Continues to believe he is being attacked by radar beams as before. No reported CAH. Denies side effects from medications. Review of Systems ROS Limitations: Psychotic, Poor Historian Except as stated in HPI: all other systems reviewed are Neg Objective Alert: Yes [place]: Person, Place, Date Mood: Other (Dysphoric) Affect: Restricted Memory Intact: Comment (Not formally assessed today) Hallucinations: Auditory (non-command) Delusions: Yes Delusion Type: Paranoid Suicidal: Ideation (As above. Denies urge to hurt himself on inpatient unit.) Homicidal: Ideation (No HI) Insight/Judgment Poor Remarks No motor abnormalities noted. No cog-wheeling. No hypomimia. TP linear today. Focus/concentration fair. Speech wnl for rate, tone, volume. Labs Test 09/14/16 07:01 White Blood Count 7.1 TH/MM3 Red Blood Count 4.33 MIL/MM3 Hemoglobin 13.0 GM/DL Hematocrit 40.1 % Mean Corpuscular Volume 92.7 FL Mean Corpuscular Hemoglobin 30.1 PG Mean Corpuscular Hemoglobin 32.4 % Concent Red Cell Distribution Width 13.6 % Platelet Count 170 TH/MM3 Mean Platelet Volume 8.7 FL Sodium Level 139 MEQ/L Potassium Level 3.8 MEQ/L Chloride Level 108 MEQ/L Carbon Dioxide Level 22.8 MEQ/L Anion Gap 8 MEQ/L Blood Urea Nitrogen 17 MG/DL Creatinine 1.49 MG/DL Estimat Glomerular Filtration 48 ML/MIN Rate Random Glucose 122 MG/DL Calcium Level 8.7 MG/DL Total Bilirubin 1.0 MG/DL Direct Bilirubin 0.7 MG/DL Indirect Bilirubin 0.3 MG/DL Aspartate Amino Transf 53 U/L (AST/SGOT) Alanine Aminotransferase 115 U/L (ALT/SGPT) Alkaline Phosphatase 339 U/L Total Protein 5.5 GM/DL Albumin 2.2 GM/DL Date/Time Procedure Status Source Growth 09/12/16 13:46 Aerobic Blood Culture - Preliminary Resulted Blood Peripheral NO GROWTH IN 2 DAYS 09/12/16 13:46 Anaerobic Blood Culture - Preliminary Resulted Blood Peripheral NO GROWTH IN 2 DAYS Labs reviewed. GFR trending upward. Transaminitis improving. Vitals/IOs Vital Signs Date Time Temp Pulse Resp B/P Pulse Ox O2 Delivery O2 Flow Rate FiO2 09/14/16 15:50 98.6 78 20 119/64 96 09/13/16 08:30 21 Intake and Output 09/13/16 09/13/16 09/14/16 08:00 16:00 00:00 Intake Total 60 ml 1450 ml 700 ml Output Total 460 ml 550 ml 700 ml Balance -400 ml 900 ml 0 ml Assessment & Plan Problem List: (1) Psychosis Assessment & Plan: ?comorbid depressive d/o vs. Schizoaffective d/o. ICD Code: F29 (2) Delirium due to multiple etiologies Assessment & Plan: ?improving ICD Code: F05 Assessment & Plan PO intake reportedly improved. Patient remains dysphoric and psychotic but is denying urge to hurt himself in the hospital. Mental status seems improved today. --Recommend continuing Abilify and Remeron as ordered for now with plans for slow titration of both agents to avoid excessive sedation from medications. --No behavioral issues on medical unit. Would continue to have low threshold to place patient with sitter should behavior deteriorate, however. --Patient has been involuntarily retained on inpatient unit by [employer], and we will plan to accept patient back to inpatient psychiatry once he is medically cleared. I will continue to follow along. Case d/w RN. Thank you for the consultation. Justification for Cont. Inpt. Per primary team. Discharge Planning To IP psych once medically cleared. Request HC Surrog/Guard Advoc?: Yes Problem Qualifiers (1) Psychosis: Qualified Code: F20.0 - Paranoid schizophrenia Jose Granados MD Sep 14, 2016 17:42
[2016-09-14] MEDS: MIRTAZAPINE ODT 15 MG TAB PO SCH (20:34)
[2016-09-15] VITALS (7 sets, daily range): BP systolic 115–146; BP diastolic 56–81; PULSE 62–72; RESP 16; TEMP 97.6–98.5; O2SAT 95–100
[2016-09-15] MEDS: HEPARIN SODIUM - SQ 10,000 UNITS/ML VIAL SQ SCH ×3 (00:32→17:55)
[2016-09-15] MEDS: D5-1/2 NS + KCL 20 MEQ INJ 1,000 ML IV SCH ×3 (02:42→20:24)
[2016-09-15 07:17] LABS: BICARBONATE 24.3 MEQ/L (21.0-32.0); POTASSIUM 4.2 MEQ/L (3.5-5.1)
[2016-09-15] MEDS: DOCUSATE SODIUM 50 MG/SENNA 8.6 MG TAB PO SCH ×2 (08:32→20:25)
[2016-09-15] MEDS: ARIPiprazole 5 MG TAB PO SCH (08:32)
[2016-09-15] MEDS: LACTULOSE SYRUP 20 GM/30 ML CUP PO SCH (08:32)
[2016-09-15] MEDS: SODIUM CHLORIDE 0.9% FLUSH 10 ML FLUSH IV FLUSH SCH ×2 (08:33→20:24)
--- NOTE | 2016-09-15 10:01 | HHI.PR ---
Subjective Remarks " There is no hope for me doc". He said he ate a little today. No motivation to get out of bed. Objective Vitals Vital Signs Date Time Temp Pulse Resp B/P Pulse Ox O2 Delivery O2 Flow Rate FiO2 09/15/16 08:00 97.6 72 16 146/71 100 09/15/16 04:00 97.6 69 16 135/81 96 09/15/16 00:00 98.0 72 16 128/70 95 09/14/16 20:08 98 09/14/16 20:00 98.2 80 16 134/73 95 09/14/16 15:50 98.6 78 20 119/64 96 09/14/16 11:50 98.1 77 20 103/56 96 I/O 09/14/16 09/14/16 09/14/16 09/15/16 09/15/16 09/15/16 07:00 15:00 23:00 07:00 15:00 23:00 Intake Total 1150 ml 221 ml 2420 ml 950 ml Output Total 700 ml 400 ml 650 ml 500 ml Balance 450 ml -179 ml 1770 ml 450 ml Intake Oral 60 ml 221 ml 480 ml IV Total 1090 ml 1940 ml 950 ml Output Urine Total 700 ml 400 ml 650 ml 500 ml # Bowel Movements 0 0 2 Result Diagram: 09/14/16 0701 09/15/16 0600 Objective Remarks GENERAL: Patient is withdrawn. In no acute distress. CARDIOVASCULAR: Normal rate and regular rhythm without murmurs, gallops, or rubs. RESPIRATORY: Good respiratory efforts. Breath sounds equal and clear to auscultation bilaterally. GASTROINTESTINAL: Abdomen soft, non-tender, non-distended. Normal active bowel sounds MUSCULOSKELETAL: Extremities without cyanosis, or edema. NEURO: Awake and alert. Moves all ext x4 PSYCH: Withdrawn. A/P Assessment and Plan 61 Y/O male with Acute on chronic renal failure: Patient has been refusing to eat or drink. Related to his psychiatric condition. Stable today since started on antipsychotics. However he remain hopeless. - Renal function improving, seems to be stabilizing to his baseline. - avoid nephrotoxic agents - Continue IV fluids ns @125ML/HR Possible Sepsis : Sepsis ruled out. Patient had SIRS. - Chest x-ray and UA negative -Blood cultures negative. CBC improved. -Antibiotics discontinued. Psychosis/hallucinations: -Appreciate psychiatry following. Psych meds per psychiatry. Seems stable. Will need to go back to psychiatry. Acute encephalopathy: Much improved. He is awake and talking Transaminitis, acute liver failure Possible Uremia - Elevated ammonia level 34 - Lactulose ordered - CT scan of the head showed no acute disease. - Monitor neuro status - Trend LFTs Hypertension: BP stable - Previously on Cozaar, Procardia XL 60 mg daily, hydralazine 50 mg every 8 hours - Clonidine when necessary - Monitor BP trend. Diabetes mellitus, history - hemoglobin A1c 5.6 - no indication to begin treatment at this time. Recommend follow up with PCP as outpatient. DVT prophylaxis - Heparin Discharge Planning Plan to discharge back to psych in the next 1-2 days. Murali Anthony MD Sep 15, 2016 10:01
--- NOTE | 2016-09-15 18:34 | HHI.PYPN ---
Subjective Remarks Pt seen in follow up for delirium, psychosis. Chart reviewed. Case d/w RN. Reportedly saw "black waffles" earlier today. Eating well per nursing staff. On my examination today, patient remains broadly dysphoric. Continues to say he has "nothing to look forward to." Remains hopeless secondary to his belief that he is being assaulted by radar beams. He says "this vikas has been sending messages, it changes night to night. One night it's the [employer] green party. The next night it's black people stuff." Denies urge to hurt himself on inpatient unit. Denies side effects from medications. Review of Systems ROS Limitations: Poor Historian Except as stated in HPI: all other systems reviewed are Neg Objective Alert: Yes [place]: Person, Place, Date Mood: Other (Remains dysphoric) Affect: Restricted Memory Intact: Comment (Not assessed) Hallucinations: Auditory (no AVH) Delusions: Yes Delusion Type: Paranoid Suicidal: Ideation (Denies urge to hurt self on medical unit. Remains fairly hopeless.) Homicidal: Ideation (No HI) Insight/Judgment Poor Remarks No motor abnormalities noted. TP linear within delusional system. Labs Test 09/15/16 06:00 Sodium Level 143 MEQ/L Potassium Level 4.2 MEQ/L Chloride Level 111 MEQ/L Carbon Dioxide Level 24.3 MEQ/L Anion Gap 8 MEQ/L Blood Urea Nitrogen 17 MG/DL Creatinine 1.43 MG/DL Estimat Glomerular Filtration 50 ML/MIN Rate Random Glucose 107 MG/DL Calcium Level 8.2 MG/DL Date/Time Procedure Status Source Growth 09/12/16 13:46 Aerobic Blood Culture - Preliminary Resulted Blood Peripheral NO GROWTH IN 3 DAYS 09/12/16 13:46 Anaerobic Blood Culture - Preliminary Resulted Blood Peripheral NO GROWTH IN 3 DAYS Labs reviewed. Vitals/IOs Vital Signs Date Time Temp Pulse Resp B/P Pulse Ox O2 Delivery O2 Flow Rate FiO2 09/15/16 16:00 98.2 72 16 115/56 98 09/13/16 08:30 21 Intake and Output 09/14/16 09/14/16 09/15/16 08:00 16:00 00:00 Intake Total 1150 ml 221 ml 2420 ml Output Total 700 ml 400 ml 650 ml Balance 450 ml -179 ml 1770 ml Assessment & Plan Problem List: (1) Psychosis ICD Code: F29 (2) Delirium due to multiple etiologies ICD Code: F05 Assessment & Plan Recommend titrating Abilify to 7.5mg daily to target psychosis. Continue Remeron as ordered for now with plans to titrate to target dysphoria. Other recommendations as before. We will plan to accept pt back to inpatient psych once medically cleared (or to med psych if bed is available). Justification for Cont. Inpt. Per primary team. Request HC Surrog/Guard Advoc?: Yes Problem Qualifiers (1) Psychosis: Qualified Code: F20.0 - Paranoid schizophrenia Jose Granados MD Sep 15, 2016 18:34
[2016-09-15] MEDS ORDERED: PILL SPLITTER OTHER PRN (19:15)
[2016-09-15] MEDS: MIRTAZAPINE ODT 15 MG TAB PO SCH (20:25)
[2016-09-16] VITALS: BP 138/70; PULSE 51; RESP 16; TEMP 97.9; O2SAT 96
[2016-09-16] MEDS: HEPARIN SODIUM - SQ 10,000 UNITS/ML VIAL SQ SCH ×2 (00:52→09:02)
[2016-09-16 04:00] VITALS: BP 135/73; PULSE 58; RESP 16; TEMP 98.9; O2SAT 97
[2016-09-16] MEDS: D5-1/2 NS + KCL 20 MEQ INJ 1,000 ML IV SCH (04:35)
[2016-09-16 06:02] LABS: BICARBONATE 23.4 MEQ/L (21.0-32.0); POTASSIUM 4.4 MEQ/L (3.5-5.1)
[2016-09-16 06:05] LABS: INDIRECT BILIRUBIN 0.2 MG/DL (0.0-0.8); TOTAL BILIRUBIN ADULT 0.6 MG/DL (0.2-1.0)
[2016-09-16 07:55] VITALS: BP 124/72; PULSE 64; RESP 20; TEMP 98.1; O2SAT 96
[2016-09-16] MEDS: SODIUM CHLORIDE 0.9% FLUSH 10 ML FLUSH IV FLUSH SCH (09:00)
[2016-09-16] MEDS ORDERED: ARIPiprazole 5 MG TAB PO SCH (09:00)
[2016-09-16] MEDS: LACTULOSE SYRUP 20 GM/30 ML CUP PO SCH (09:01)
[2016-09-16] MEDS: DOCUSATE SODIUM 50 MG/SENNA 8.6 MG TAB PO SCH (09:01)
[2016-09-16 11:30] VITALS: BP 132/98; PULSE 55; RESP 20; TEMP 97.4; O2SAT 98
[2016-09-16] MEDS ORDERED: ARIP1TAB11 PO (13:06)
[2016-09-16] MEDS ORDERED: Lactulose Liq PO (13:06)
[2016-09-16] MEDS ORDERED: MIRT15TA2 PO (13:06)
--- NOTE | 2016-09-16 13:07 | HHI.DCPOC ---
Discharge Care Plan Diagnosis: (1) Acute on chronic renal failure (2) Psychosis (3) Delirium due to multiple etiologies (4) Dehydration (5) Delusional disorder Goals to Promote Your Health * To prevent worsening of your condition and complications * To maintain your health at the optimal level Directions to Meet Your Goals Take your medications as prescribed Follow your dietary instruction Follow activity as directed Keep your appointments as scheduled Take your immunizations and boosters as scheduled If your symptoms worsen call your PCP, if no PCP go to Urgent Care Center or Emergency Room Smoking is Dangerous to Your Health. Avoid second hand smoke Call the 24-hour hour crisis hotline for domestic abuse at Murali Anthony MD Sep 16, 2016 13:07
--- NOTE | 2016-09-16 13:14 | HHI.DS ---
Discharge Summary Admission Date Sep 12, 2016 at 12:27 Discharge Date: Sep 16, 2016 Admitting Diagnosis (1) Acute on chronic renal failure ICD Code: N17.9 (2) Delusional disorder ICD Code: F22 (3) Dehydration ICD Code: E86.0 (4) Psychosis ICD Code: F29 Procedures None Brief History - From Admission 61 Y/O male with a medical history significant for HTN, DM, hyperlipidemia, psychosis initially admitted to the psychiatric unit for delusional disorder who has been progressively getting dehydrated. Over the past couple of days, the patient's oral intake has been declining. He spiked a fever overnight. He is becoming more lethargic. His renal functions have been declining and is now in acute renal failure. Patient is admitted from the psychiatric unit to the medical floor for acute renal failure and possible sepsis. Patient is lethargic anc cannot contribute to the history. History obtained from extensive review of the chart. CBC/BMP: 09/14/16 0701 09/16/16 0448 Significant Findings Laboratory Tests Test 09/14/16 09/15/16 09/16/16 07:01 06:00 04:48 Red Blood Count 4.33 MIL/MM3 (4.50-5.90) Chloride Level 108 MEQ/L 111 MEQ/L 110 MEQ/L (98-107) (98-107) (98-107) Creatinine 1.49 MG/DL 1.43 MG/DL 1.34 MG/DL (0.60-1.30) (0.60-1.30) (0.60-1.30) Estimat Glomerular Filtration 48 ML/MIN (>89) 50 ML/MIN (>89) 54 ML/MIN (>89) Rate Random Glucose 122 MG/DL 107 MG/DL 137 MG/DL (74-106) (74-106) (74-106) Direct Bilirubin 0.7 MG/DL 0.4 MG/DL (0.0-0.2) (0.0-0.2) Aspartate Amino Transf 53 U/L (15-37) (AST/SGOT) Alanine Aminotransferase 115 U/L (12-78) 86 U/L (12-78) (ALT/SGPT) Alkaline Phosphatase 339 U/L 348 U/L (45-117) (45-117) Total Protein 5.5 GM/DL (6.4-8.2) Albumin 2.2 GM/DL 2.4 GM/DL (3.4-5.0) (3.4-5.0) Calcium Level 8.2 MG/DL 8.1 MG/DL (8.5-10.1) (8.5-10.1) PE at Discharge GENERAL: Patient is withdrawn. In no acute distress. CARDIOVASCULAR: Normal rate and regular rhythm without murmurs, gallops, or rubs. RESPIRATORY: Good respiratory efforts. Breath sounds equal and clear to auscultation bilaterally. GASTROINTESTINAL: Abdomen soft, non-tender, non-distended. Normal active bowel sounds MUSCULOSKELETAL: Extremities without cyanosis, or edema. NEURO: Awake and alert. Moves all ext x4 PSYCH: Withdrawn. Pt update on day of discharge Patient reports is feeling okay. He is eating more. Still reports that someone is be meeting information into his head. Still expresses despair and a sense of hopelessness. Renal functions back to baseline. He ate 90% of his lunch. Hospital Course 61 Y/O male initially in the psychiatric unit who developed acute on chronic renal failure related to inadequate oral intake. The patient decided to stop eating or drinking. Evaluation and treatment course detailed below: Acute on chronic renal failure: Patient has been refusing to eat or drink. He does have psychosis and pervasive delusions. However based on discussion with the psychiatrist, it appears that he has had superimposed depression which affected his oral intake. The patient was started on Remeron and Abilify. Although his delusions persist but his appetite significantly improved. His renal functions returned to baseline with IV fluid. He is discharged back to psychiatry to continue treatment. Possible Sepsis : Sepsis ruled out. Patient had SIRS. - Chest x-ray and UA negative -Blood cultures negative. CBC improved. Psychosis/hallucinations: -Appreciate psychiatry following. Psych meds per psychiatry. Will go back to psychiatry. Acute encephalopathy: Likely related to dehydration. Much improved. He is awake and talking Transaminitis, acute liver failure Possible Uremia - Elevated ammonia level 34 - Lactulose ordered - CT scan of the head showed no acute disease. Hypertension: BP stable - Previously on Cozaar, Procardia XL 60 mg daily, hydralazine 50 mg every 8 hours. However his blood pressure remained normal therefore on antihypertensives were put on hold. - Monitor BP trend. Diabetes mellitus, history - hemoglobin A1c 5.6 - no indication to begin treatment at this time. Recommend follow up with PCP as outpatient. I discussed the case with Dr. Granados who will continue to manage the patient in psychiatry. Pt Condition on Discharge: Good Discharge Disposition: Disc to Psych Care Fac Discharge Time: > 30 minutes Discharge Instructions DIET: Follow Instructions for: As Tolerated, No Restrictions Activities you can perform: Regular-No Restrictions New Medications: Aripiprazole (Aripiprazole) 5 Mg Tab 7.5 MG PO DAILY #30 TAB Mirtazapine ODT (Mirtazapine ODT) 15 Mg Tab 15 MG PO HS #30 TAB ([Lactulose Liq]) 30 ML SYRP 30 ML PO DAILY Days 30 ML Murali Anthony MD Sep 16, 2016 13:14
[2016-09-16 15:50] VITALS: BP 185/81; PULSE 72; RESP 20; TEMP 97.9; O2SAT 97
== END 2016-09-16 15:46 | DRG 682 ==
LOC: HOCB 12:27
PROVIDERS: ADMIT Family Medicine; ATTEND Family Medicine
DX: N17.9 Acute kidney failure, unspecified (principal); K72.00 Acute and subacute hepatic failure without coma; R65.11 Systemic inflammatory response syndrome (SIRS) of non-infectious origin with acute organ dysfunction; G93.40 Encephalopathy, unspecified; F05 Delirium due to known physiological condition; F29 Unspecified psychosis not due to a substance or known physiological condition; E86.0 Dehydration; E11.22 Type 2 diabetes mellitus with diabetic chronic kidney disease; I12.9 Hypertensive chronic kidney disease with stage 1 through stage 4 chronic kidney disease, or unspecified chronic kidney disease; N18.9 Chronic kidney disease, unspecified; R74.0 Nonspecific elevation of levels of transaminase and lactic acid dehydrogenase [LDH]
CPT/HCPCS: 80048; 80053; 80076; 83605; 85025; 85027; 87040; J1644; J2543; J3370; J3480; J7050

== ENCOUNTER 2016-09-16 16:10 | Inpatient (IN) | payer MEDICARE, OTHER ==
[~2016-09-16] VITALS: Ht 172.7 cm; Wt 73.3 kg
[2016-09-16 15:55] VITALS: BP 198/92; PULSE 69; RESP 18; TEMP 98.5; O2SAT 98
[~2016-09-16 16:10] MED LIST: ARIP1TAB11 PO; Lactulose Liq PO; MIRT15TA2 PO
[2016-09-16] MEDS ORDERED: BENZTROPINE MESYLATE 1 MG TAB PO PRN (17:00)
[2016-09-16] MEDS ORDERED: LORazepam 2 MG/ML VIAL IM PRN (17:00)
[2016-09-16] MEDS ORDERED: ACETAMINOPHEN 325 MG TAB PO PRN (17:00)
[2016-09-16] MEDS ORDERED: ALUMINUM/MAGNESIUM/SIMETH 30 ML CUP PO PRN (17:00)
[2016-09-16] MEDS ORDERED: BENZTROPINE MESYLATE 2 MG/2 ML VIAL IM PRN (17:00)
[2016-09-16] MEDS ORDERED: MAGNESIUM HYDROXIDE SUSP 30 ML CUP PO PRN (17:00)
[2016-09-16] MEDS ORDERED: PILL SPLITTER OTHER PRN (17:15)
[2016-09-16 20:00] VITALS: BP 163/89; PULSE 74; RESP 18; O2SAT 97
[2016-09-16] MEDS ORDERED: cloNIDine HCL 0.1 MG TAB PO PRN (20:45)
[2016-09-16] MEDS ORDERED: MIRTAZAPINE 15 MG TAB PO SCH (21:00)
[2016-09-16] MEDS: DOCUSATE SODIUM 50 MG/SENNA 8.6 MG TAB PO SCH (21:46)
[2016-09-17 05:11] VITALS: BP 129/74; PULSE 70; RESP 18; TEMP 99.2
[2016-09-17 08:46] LABS: AUTOMATED NEUTROPHIL # 6.4 TH/MM3 (1.8-7.7); BASOPHIL # 0.1 TH/MM3 (0-0.2); BASOPHIL % 0.7 % (0.0-2.0); EOSINOPHIL # 0.6 TH/MM3 (0-0.4); EOSINOPHIL % 5.7 % (0.0-4.0); HEMATOCRIT 38.1 % (39.0-51.0); LYMPHOCYTE # 2.3 TH/MM3 (1.0-4.8); MEAN CELL VOLUME 92.1 FL (80.0-100.0); MEAN CORPUSCULAR HEMOGLOBIN 31.2 PG (27.0-34.0); MEAN CORPUSCULAR HGB CONC 33.9 % (32.0-36.0); MONO % 10.5 % (0.0-8.0); NEUT % 61.1 % (16.0-70.0); PLATELET COUNT 245 TH/MM3 (150-450); RED BLOOD COUNT 4.13 MIL/MM3 (4.50-5.90); RED CELL DISTRIBUTION WIDTH 14.4 % (11.6-17.2); WHITE BLOOD COUNT 10.5 TH/MM3 (4.0-11.0)
[2016-09-17 09:00] LABS: HEMO FLAGS AUTO DIFF
[2016-09-17] MEDS ORDERED: ARIPiprazole 5 MG TAB PO SCH (09:00)
[2016-09-17 09:34] LABS: ALKALINE PHOSPHATASE 309 U/L (45-117); ALT (GPT) 80 U/L (12-78); ANION GAP 8 MEQ/L (5-15); AST (GOT) 46 U/L (15-37); BICARBONATE 24.6 MEQ/L (21.0-32.0); BLOOD UREA NITROGEN 14 MG/DL (7-18); CHLORIDE 108 MEQ/L (98-107); GLOMERULAR FILTRATION RATE 54 ML/MIN (>89); HDL CHOLESTEROL 24.1 MG/DL (40.0-60.0); LDL CHOLESTEROL 79 MG/DL (0-99); SODIUM (NA) 141 MEQ/L (136-145); TOTAL BILIRUBIN ADULT 0.6 MG/DL (0.2-1.0)
[2016-09-17 09:52] LABS: SCAN/DIFF AUTO DIFF CONFIRMED
[2016-09-17] MEDS: NIFEdipine 60 MG SUSTAINED RELEASE TAB PO SCH (09:54)
[2016-09-17] MEDS: DOCUSATE SODIUM 50 MG/SENNA 8.6 MG TAB PO SCH ×2 (09:54→20:35)
--- NOTE | 2016-09-17 14:07 | HHI.HP ---
Provisional Diagnosis Admission Date Sep 16, 2016 at 16:10 Hillister I. 1. Schizophrenia, paranoid type, acute exacerbation 2. Depressive disorder Hillister II. Deferred Hillister V. GAF is 30 presently Certification of Person's Competence To Provide Express and Informed Consent I have personally examined Yuan PateJr , a [facility] on, Sep 17, 2016 14:07. Express and informed consent means consent voluntarily given in writing, by a competent person, after sufficient explanation and disclosure of the subject matter involved to enable the person to make a knowing and willful decision without any element of force, fraud, deceit, duress, or other form of constraint or coercion. This person is 18 years of age or older, is not now known to be incompetent to consent to treatment with a guardian advocate, and does not have a health care surrogate or proxy currently making medical treatment decisions. I have found this person to be one of the following: [] Competent to provide express and informed consent, as defined above, for voluntary admission to this facility and is competent to provide express and informed consent for treatment. He/she has the consistent capacity to make well reasoned, willful, and knowing decisions concerning his or her medical or mental health treatment. The person fully and consistently understands the purpose of the admission for examination/placement and is fully capable of personally exercising all rights assured [place] [x] Incompetent to provide express and informed consent to voluntary admission, and this is incompetent to provide express and informed consent to treatment. The person must be transferred to involuntary status and a petition for a guardian advocate filed with the Circuit Court. [] Refusing to provide express and informed consent to voluntary admission but is competent to provide express and informed consent for treatment. The person must be discharged or transferred to involuntary status. Form shall be completed within 24 hours of a person's arrival at the receiving facility and filed in the clinical record of each person: 1. Admitted on a voluntary basis 2. Permitted to provide express and informed consent to his/her own treatment 3. Allowed to transfer from involuntary to voluntary status 4. Prior to permitting a person to consent to his or her own treatment after having been previously found incompetent to consent to treatment. History of Present Illness Capacity: Lacks Capacity HPI Mr. Pate is a 61-year-old male with a history of schizophrenia transferred from the medical unit following an episode of SARAH. He had initially been admitted to the inpatient psychiatric unit on 09/02 under my care. He was presented to the [place] and retained by the court and a BILL guardian was appointed. EMR reviewed. Patient seen and examined. Chart reviewed. Case discussed with nursing staff. Patient has been placed with a sitter. On my examination today, the patient remains extremely dysphoric. He claims that it is his intention not to eat on the unit "because 16 times I've been in the hospital. I'm tired of it." I do see that he is charted as having eaten 100% of breakfast and lunch today. He describes his mood as "miserable." Remains quite hopeless. He continues to believe that he is "being induced by someone else." He continues to believe that he is being attacked by Jason Millan who is directing radar beams at him with messages as before. No other hallucinations or delusional material. No hypomanic/manic symptoms. Denies side effects from medications but doesn't feel like they are doing anything. No physical complaints. I obtained patient's past psychiatric, family, chemical dependency and social history at the time of my initial evaluation on 09/02, and these are unchanged today. Review of Systems ROS Limitations: Psychotic, Poor Historian Except as stated in HPI: all other systems reviewed are Neg Past Psych History Psychological trauma history None reported Violence risk - others (6 mos) Lower imminent risk. Violence risk - self (6 mos) Elevated, chiefly from self-neglect. Patient is threatening not to eat or drink although he has apparently been eating on the unit. Substance Abuse History Drugs/Alcohol past 12 months See above Past Family Social History Coded Allergies: No Known Allergies (Verified , 09/01/16) Past Medical History See electronic medical record Active Scripts Mirtazapine ODT 15 Mg Tab15 Mg PO HS #30 TAB Prov:Murali Anthony MD 09/16/16 [Lactulose] (Lactulose Liq)30 ML SYRP No Conflict Check30 Ml PO DAILY 30 Days Prov:Murali Anthony MD 09/16/16 Aripiprazole 5 Mg Tab7.5 Mg PO DAILY #30 TAB Prov:Murali Anthony MD 09/16/16 Current Medications Medications (Trade) Dose Ordered Sig/Drea Route Start Time Stop Time Status Last Admin (Ativan) 0.5 mg Q12H PRN PO 09/16/16 17:00 (Ativan Inj) 0.5 mg Q12H PRN IM 09/16/16 17:00 (Benadryl) 50 mg HS PRN PO 09/16/16 17:00 (Tylenol) 650 mg Q4H PRN PO 09/16/16 17:00 (Milk Of Magnesia Liq) 30 ml DAILY PRN PO 09/16/16 17:00 (Mag-Al Plus Susp Liq) 30 ml Q6H PRN PO 09/16/16 17:00 (Cogentin) 1 mg Q12H PRN PO 09/16/16 17:00 (Cogentin Inj) 1 mg Q12H PRN IM 09/16/16 17:00 (Abilify) 7.5 mg DAILY PO 09/17/16 09:00 09/17/16 09:54 (Remeron) 15 mg HS PO 09/16/16 21:00 09/16/16 21:46 (Vanessa-Colace) 1 tab BID PO 09/16/16 21:00 09/17/16 09:54 (Pill Splitter) 1 ea UNSCH PRN OTHER 09/16/16 17:15 (Procardia Xl) 60 mg DAILY PO 09/17/16 09:00 09/17/16 09:54 Family History See above Social History See above Patient's Strengths (min. 2) In a monitored setting. Verbally fluent. Physical Exam Physical exam completed by hospitalist prior to transfer from the medical floor. On my examination today, the patient appears to be in no acute physical distress. No abnormal motor movements noted. Labs and vital signs reviewed: Vital Signs Vital Signs Date Time Temp Pulse Resp B/P Pulse Ox O2 Delivery O2 Flow Rate FiO2 09/17/16 05:11 99.2 70 18 129/74 09/16/16 20:00 97 I/O 09/16/16 09/16/16 09/17/16 08:00 16:00 00:00 Intake Total 150 ml Balance 150 ml Lab Results Item Value Date Time White Blood Count 10.5 TH/MM3 09/17/16621 Hemoglobin 12.9 GM/DL L 09/17/16621 Platelet Count 245 TH/MM3 # 6/22/17 06 Sodium Level 141 MEQ/L 09/17/16 06 Potassium Level 4.0 MEQ/L 09/17/16621 Chloride Level 108 MEQ/L H 09/17/16621 Carbon Dioxide Level 24.6 MEQ/L 09/17/16621 Blood Urea Nitrogen 14 MG/DL 09/17/16621 Creatinine 1.34 MG/DL H 09/17/16621 Aspartate Amino Transf (AST/SGOT) 46 U/L H 09/17/16 06 Alanine Aminotransferase (ALT/SGPT) 80 U/L H 09/17/16 06 Alkaline Phosphatase 309 U/L H 09/17/16621 Labs reviewed. GFR improved. Transaminitis improving. Mental Status Examination Patient is in hospital gown. He is somewhat disheveled but maintaining basic hygiene. He is awake and alert and oriented to person and hospital at least. No motor abnormalities noted. Speech is somewhat terse but otherwise within normal limits for rate, tone and volume. Language and fund of knowledge average. Mood depressed and affect restricted and dysphoric. Thought process linear within delusional system. No loosening of associations. Paranoid delusions present as noted above. Receiving messages from satellites as before. Threatens not to eat but does not describe any plan to actively try to take his life. No HI. Insight and judgment poor. Assessment & Plan Problem List: (1) Psychosis ICD Code: F29 (2) Depressive disorder ICD Code: F32.9 Assessment & Plan This is a 61-year-old male with psychiatric history as detailed above who presents in transfer from the medical floor following an episode of SARAH, now improved. Patient remains delusional and believes that he is being attacked by a man named Mr. Millan. These beliefs continue unabated despite antipsychotic treatment. He is now saying that he will not eat because he is frustrated with his circumstance. Patient does seem quite dysphoric and so I believe that he qualifies for a separate depressive disorder diagnosis in addition to his primary psychotic disorder diagnosis. Patient requires psychiatric admission at this time for safety, observation and stabilization. Admit inpatient. Patient has already been retained on the unit and a BILL guardian appointed by the director microbiology. Consult to the hospitalist to continue to follow from the medical floor. Will ask the outpatient coder continue to follow patient's case. I&Os. Thrice weekly weights. I will continue the one-to-one sitter overnight, although since patient's plan for self-harm is passive, i.e. by not eating, and so one-to-one may be able to be discontinued tomorrow if there is no evidence of any behavioral problem. Titrate Abilify to 10 mg daily to target psychosis. Titrate Remeron to 30 mg at bedtime to target low mood. Ativan as needed for anxiety, Cogentin as needed for EPS, Benadryl as needed for sleep. Vitals every shift. Counselor to see. Disposition planning. Estimated length of stay: 2-4 weeks. Discharge Planning Pending psychiatric stabilization. Request HC Surrog/Guard Advoc?: Yes Problem Qualifiers (1) Psychosis: Qualified Code: F20.0 - Paranoid schizophrenia Jose Granados MD Sep 17, 2016 14:07
[2016-09-17 16:14] LABS: HEMOGLOBIN A1a 1.2 %; HEMOGLOBIN A1b 1.1 %; HEMOGLOBIN Ao 84.5 %; HEMOGLOBIN LA1C 1.9 %; HEMOGLOBIN P3 4.2 %
[2016-09-17 18:00] VITALS: BP 136/80; PULSE 69; RESP 17; TEMP 96.9; O2SAT 99
[2016-09-17] MEDS: MIRTAZAPINE 15 MG TAB PO SCH (20:35)
[2016-09-17] MEDS: LORazepam 0.5 MG TAB PO PRN (20:36)
[2016-09-18 06:24] VITALS: BP 135/77; PULSE 76; RESP 17; TEMP 98.9; O2SAT 97
[2016-09-18] MEDS: DOCUSATE SODIUM 50 MG/SENNA 8.6 MG TAB PO SCH ×2 (09:57→20:38)
[2016-09-18] MEDS: NIFEdipine 60 MG SUSTAINED RELEASE TAB PO SCH (09:57)
[2016-09-18] MEDS: ARIPiprazole 10 MG TAB PO SCH (09:57)
[2016-09-18] MEDS ORDERED: cloNIDine HCL 0.1 MG TAB PO PRN (17:00)
--- NOTE | 2016-09-18 17:07 | PD.CONS ---
[facility] Request[facility] By Dr. Granados Reason for Consult Medical management Primary Care Physician Unknown Diagnoses: History of Present Illness The patient is a 61-year-old male with history of diabetes and psychosis who is transferred to psychiatry after a stay at the main hospital. He was treated for acute renal failure, transaminitis and encephalopathy amongst other things. The patient was calm but unable to elaborate on his hospital stay. He kept saying that he was ready to leave the planet. He says he has been hospitalized for psychiatric reasons 17 or 18 times and he is tired of it. He does not have a plan to hurt himself but he would like to . He mentions hearing voices and believes there is somebody talking to him for communications in his brain. He says he has been trying to drink fluids. He has been ambulating. He says he is homeless and has had a bad employment history. He does not seem like he wants to be treated for his depression at this time. He was calm and cooperative. Review of Systems ROS Limitations: Psychotic, Poor Historian Except as stated in HPI: all other systems reviewed are Neg Past Family Social History Allergies: Coded Allergies: No Known Allergies (Verified , 09/01/16) Past Medical History Hypertension Hyperlipidemia Diabetes mellitus Psychosis Past Surgical History Left hernia repair Right hip surgery Active Ordered Medications Current Medications Medications (Trade) Dose Ordered Sig/Drea Route Start Time Stop Time Status Last Admin (Ativan) 0.5 mg Q12H PRN PO 09/16/16 17:00 09/17/16 20:36 (Ativan Inj) 0.5 mg Q12H PRN IM 09/16/16 17:00 (Benadryl) 50 mg HS PRN PO 09/16/16 17:00 (Tylenol) 650 mg Q4H PRN PO 09/16/16 17:00 (Milk Of Magnesia Liq) 30 ml DAILY PRN PO 09/16/16 17:00 (Mag-Al Plus Susp Liq) 30 ml Q6H PRN PO 09/16/16 17:00 (Cogentin) 1 mg Q12H PRN PO 09/16/16 17:00 (Cogentin Inj) 1 mg Q12H PRN IM 09/16/16 17:00 (Vanessa-Colace) 1 tab BID PO 09/16/16 21:00 09/18/16 09:57 (Pill Splitter) 1 ea UNSCH PRN OTHER 09/16/16 17:15 (Procardia Xl) 60 mg DAILY PO 09/17/16 09:00 09/18/16 09:57 (Abilify) 10 mg DAILY PO 09/18/16 09:00 09/18/16 09:57 (Remeron) 30 mg HS PO 09/17/16 21:00 09/17/16 20:35 Family History Denies pertinent family history Social History The pt denies smoking, drinking or using illicit substances. He says he is currently homeless Physical Exam Vital Signs Vital Signs Date Time Temp Pulse Resp B/P Pulse Ox O2 Delivery O2 Flow Rate FiO2 09/18/16 06:24 98.9 76 17 135/77 97 09/17/16 18:00 96.9 69 17 136/80 99 Physical Exam GENERAL: Resting comfortably. In no acute distress. CARDIOVASCULAR: Normal rate and regular rhythm without murmurs, gallops or rubs. RESPIRATORY: Good respiratory efforts. Breath sounds equal and clear to auscultation bilaterally. GASTROINTESTINAL: Abdomen soft, non-tender, non-distended. Normoactive bowel sounds. MUSCULOSKELETAL: Extremities without cyanosis, or edema. NEURO: Awake and alert. Moves all ext x4 PSYCH: Calm. Laboratory Laboratory Tests Test 09/18/16 11:19 Ammonia 38 Result Diagram: 09/17/1662109/17/16621 Assessment and Plan Assessment and Plan Psychosis/ Depression The pt endorses suicidal ideation. - care per psychiatry. Acute on chronic renal failure Improved. S/p IVFs at the hospital. - avoid nephrotoxic agents. - encourage fluid intake. - monitor as needed. Acute encephalopathy Improved compared to presentation at the hospital. He is awake and talking. - continue to monitor. Transaminitis LFTs have been improving. - continue to trend as needed. Hypertension BP stable. - continue nifedipine. - clonidine as needed. History diabetes mellitus Recent hemoglobin A1c 5.9%. - no indication to begin treatment at this time. Recommend follow up with PCP as outpatient. DVT prophylaxis: Ambulation Osiel Gonzales DO Sep 18, 2016 17:07
--- NOTE | 2016-09-18 17:30 | HHI.PYPN ---
Subjective Remarks Patient seen and examined. Chart reviewed. Case discussed with nursing staff. On my examination today, patient sitting in the day area. Remains fairly dysphoric. Ate 50% of lunch and 100% of dinner. Less insistent that he will refuse to eat. No active SI. Continues with paranoid delusions as before about being attacked by radar beams. Conspiratorially tells me "there more going on here than meets the eye." Denies side effects from medications. No physical complaints. Review of Systems ROS Limitations: Psychotic, Poor Historian Except as stated in HPI: all other systems reviewed are Neg Objective Alert: Yes [place]: Person, Place, Date Mood: Depressed Affect: Restricted Memory Intact: Comment (fair on clinical exam) Hallucinations: Other (no AVH today) Delusions: Yes Delusion Type: Paranoid Suicidal: Ideation (no active SI) Homicidal: Ideation (no HI) Insight/Judgment Poor Remarks Thought process linear within delusional system. No motor abnormalities noted. Grooming and hygiene fair. Labs Test 09/18/16 11:19 Ammonia 38 MCMOL/L Labs reviewed. Vitals/IOs Vital Signs Date Time Temp Pulse Resp B/P Pulse Ox O2 Delivery O2 Flow Rate FiO2 09/18/16 06:24 98.9 76 17 135/77 97 Intake and Output 09/17/16 09/17/16 09/18/16 08:00 16:00 00:00 Intake Total 240 ml 240 ml 150 ml Balance 240 ml 240 ml 150 ml Assessment & Plan Problem List: (1) Psychosis ICD Code: F29 (2) Depressive disorder ICD Code: F32.9 Assessment & Plan Continue Abilify and Remeron as ordered. These agents, particularly the Abilify , could be titrated over the weekend appropriate. Discontinue one-to-one but continue to closely monitor on the inpatient unit. Hospitalist input noted and appreciated. Continue other medications and care as ordered. Justification for Cont. Inpt. Impairment in reality construction. High risk for decompensation in a less restrictive environment. Discharge Planning Pending psychiatric stabilization Request HC Surrog/Guard Advoc?: Yes Problem Qualifiers (1) Psychosis: Qualified Code: F20.0 - Paranoid schizophrenia Jose Granados MD Sep 18, 2016 17:30
[2016-09-18 18:33] VITALS: BP 149/53; PULSE 61; RESP 18; TEMP 97.6; O2SAT 97
[2016-09-18] MEDS: MIRTAZAPINE 15 MG TAB PO SCH (20:38)
[2016-09-18] MEDS: LORazepam 0.5 MG TAB PO PRN (20:38)
[2016-09-19 06:00] VITALS: BP 111/71; PULSE 69; RESP 17; TEMP 98.5; O2SAT 94
[2016-09-19] MEDS: DOCUSATE SODIUM 50 MG/SENNA 8.6 MG TAB PO SCH ×2 (09:59→21:06)
[2016-09-19] MEDS: NIFEdipine 60 MG SUSTAINED RELEASE TAB PO SCH (09:59)
[2016-09-19] MEDS: ARIPiprazole 10 MG TAB PO SCH (09:59)
--- NOTE | 2016-09-19 12:28 | HHI.PYPN ---
Subjective Remarks Pt seen and discussed with staff. He continues to expresses belief that " Jason Millan" is plotting to kill him with a device that has been implanted in pt's head. He states that his brain is not "working right" like other people's brains. He told RN that he did not think he should eat because Jason wanted him to eat and he should do the opposite. He is tolerating medications without side effects. He denies suicide plan but states that he does not want to live anymore. Objective Alert: Yes [place]: Person, Place, Date Mood: Depressed Affect: Flat Memory Intact: Comment (fair on clinical exam) Hallucinations: Other (no AVH today) Delusions: Yes Delusion Type: Paranoid Suicidal: Ideation (no active SI) Homicidal: Ideation (no HI) Insight/Judgment poor Vitals/IOs Vital Signs Date Time Temp Pulse Resp B/P Pulse Ox O2 Delivery O2 Flow Rate FiO2 09/19/16 06:00 98.5 69 17 111/71 94 Intake and Output 09/18/16 09/18/16 09/19/16 08:00 16:00 00:00 Intake Total 0 ml 1440 ml Balance 0 ml 1440 ml Assessment & Plan Problem List: (1) Psychosis ICD Code: F29 (2) Depressive disorder ICD Code: F32.9 Assessment & Plan Continue current tx plan. Continue hospitalization for safety and stabilization. Estimated LOS: days Justification for Cont. Inpt. impairments in safety due to impairments in reality testing Request HC Surrog/Guard Advoc?: Yes Problem Qualifiers (1) Psychosis: Qualified Code: F20.0 - Paranoid schizophrenia Jess Hall MD Sep 19, 2016 12:28
[2016-09-19 18:00] VITALS: BP 114/60; PULSE 71; TEMP 97.8; O2SAT 96
[2016-09-19] MEDS: MIRTAZAPINE 15 MG TAB PO SCH (21:07)
[2016-09-20 05:39] VITALS: BP 123/71; PULSE 65; RESP 18; TEMP 97.8
[2016-09-20 10:12] LABS: ALKALINE PHOSPHATASE 234 U/L (45-117); ALT (GPT) 63 U/L (12-78); ANION GAP 8 MEQ/L (5-15); AST (GOT) 38 U/L (15-37); BICARBONATE 24.3 MEQ/L (21.0-32.0); BLOOD UREA NITROGEN 35 MG/DL (7-18); CHLORIDE 108 MEQ/L (98-107); GLOMERULAR FILTRATION RATE 47 ML/MIN (>89); POTASSIUM 3.9 MEQ/L (3.5-5.1); SODIUM (NA) 140 MEQ/L (136-145); TOTAL BILIRUBIN ADULT 0.4 MG/DL (0.2-1.0)
[2016-09-20] MEDS: ARIPiprazole 10 MG TAB PO SCH (10:31)
[2016-09-20] MEDS: NIFEdipine 60 MG SUSTAINED RELEASE TAB PO SCH (10:31)
[2016-09-20] MEDS: DOCUSATE SODIUM 50 MG/SENNA 8.6 MG TAB PO SCH ×2 (10:31→21:41)
--- NOTE | 2016-09-20 11:03 | HHI.PYPN ---
Subjective Remarks Pt seen and discussed with staff. He has been fixated on the state of [place] and believes that he is being controlled by [place]. He continues to fixate on implant in his head and states that he hears buzzing. He told RN that he needed to get out of the hospital because he wanted to because [place] was controlling his meals. He is compliant with medications. He states that he is going to stop eating because [facility] is controlling the minds of the cooks at the hospital and causing them to mess with his food. He reiterates that he wants to and that "Jason Millan needs to be killed too." No medication side effects. Objective Alert: Yes [place]: Person, Place, Date Mood: Depressed Affect: Flat Memory Intact: Comment (fair on clinical exam) Hallucinations: Other (no AVH today) Delusions: Yes Delusion Type: Paranoid Suicidal: Ideation (no active SI) Homicidal: Ideation (no HI) Insight/Judgment poor Labs Test 09/20/16 09:25 Sodium Level 140 MEQ/L Potassium Level 3.9 MEQ/L Chloride Level 108 MEQ/L Carbon Dioxide Level 24.3 MEQ/L Anion Gap 8 MEQ/L Blood Urea Nitrogen 35 MG/DL Creatinine 1.52 MG/DL Estimat Glomerular Filtration 47 ML/MIN Rate Random Glucose 132 MG/DL Calcium Level 8.5 MG/DL Total Bilirubin 0.4 MG/DL Aspartate Amino Transf 38 U/L (AST/SGOT) Alanine Aminotransferase 63 U/L (ALT/SGPT) Alkaline Phosphatase 234 U/L Ammonia 32 MCMOL/L Total Protein 7.0 GM/DL Albumin 2.6 GM/DL Vitals/IOs Vital Signs Date Time Temp Pulse Resp B/P Pulse Ox O2 Delivery O2 Flow Rate FiO2 09/20/16 05:39 97.8 65 18 123/71 09/19/16 18:00 96 Intake and Output 09/19/16 09/19/16 09/20/16 08:00 16:00 00:00 Intake Total 360 ml 360 ml 720 ml Balance 360 ml 360 ml 720 ml Assessment & Plan Problem List: (1) Psychosis ICD Code: F29 (2) Depressive disorder ICD Code: F32.9 Assessment & Plan Continue current tx plan. Estimated LOS: days Justification for Cont. Inpt. psychosis, impairments in safety and care Request HC Surrog/Guard Advoc?: Yes Problem Qualifiers (1) Psychosis: Qualified Code: F20.0 - Paranoid schizophrenia Jess Hall MD Sep 20, 2016 11:03
--- NOTE | 2016-09-20 12:09 | HHI.PR ---
Subjective Remarks Follow-up on patient with paranoid schizophrenia, diabetes, hypertension and SARAH. Patient seen and examined today. Patient denies any complaints of pain or discomfort. He denies any fever, chills, N/V, shortness of breath chest pain or abdominal pain. He is upset about the amount of food that he is receiving his meal trays and describes them as "dainty". He is convinced there is a gentleman in [place] who is controlling the food that he receives here. He states that this individual has controlled him most of his life and caused him a great deal of grief. He informs me he would be better off . Objective Vitals Vital Signs Date Time Temp Pulse Resp B/P Pulse Ox O2 Delivery O2 Flow Rate FiO2 09/20/16 05:39 97.8 65 18 123/71 09/19/16 18:00 97.8 71 114/60 96 I/O 09/19/16 09/19/16 09/19/16 09/20/16 09/20/16 09/20/16 07:00 15:00 23:00 07:00 15:00 23:00 Intake Total 720 ml 720 ml Balance 720 ml 720 ml Intake Oral 360 ml 720 ml Oral Supplement 360 ml # Voids 1 2 1 Result Diagram: 09/17/16 0622 09/20/16 0925 Objective Remarks GENERAL: Well-nourished, well-developed patient in NAD. Awake and alert. Paranoid. SKIN: Warm and dry. No rash. HEENT: Normocephalic. Atraumatic. EOMI. MMM. CARDIOVASCULAR: Regular rate and rhythm. S1, S2 noted. No murmur appreciated. RESPIRATORY: No accessory muscle use. Clear to auscultation. Breath sounds equal bilaterally. GASTROINTESTINAL: Abdomen soft, non-tender, nondistended. Normoactive bowel sounds x4. MUSCULOSKELETAL: No obvious deformities. Extremities without clubbing, cyanosis , or edema. NEUROLOGICAL: Awake and alert. He is able to move all extremities. Pressured Speech. PSYCHIATRIC: Calm and cooperative. Depressed, hopeless. Poor judgment. Medications and IVs Current Medications Medications (Trade) Dose Ordered Sig/Drea Route Start Time Stop Time Status Last Admin (Ativan) 0.5 mg Q12H PRN PO 09/16/16 17:00 6/23/17 20:38 (Ativan Inj) 0.5 mg Q12H PRN IM 09/16/16 17:00 (Benadryl) 50 mg HS PRN PO 09/16/16 17:00 (Tylenol) 650 mg Q4H PRN PO 09/16/16 17:00 (Milk Of Magnesia Liq) 30 ml DAILY PRN PO 09/16/16 17:00 (Mag-Al Plus Susp Liq) 30 ml Q6H PRN PO 09/16/16 17:00 (Cogentin) 1 mg Q12H PRN PO 09/16/16 17:00 (Cogentin Inj) 1 mg Q12H PRN IM 09/16/16 17:00 (Vanessa-Colace) 1 tab BID PO 09/16/16 21:00 09/20/16 10:31 (Pill Splitter) 1 ea UNSCH PRN OTHER 09/16/16 17:15 (Procardia Xl) 60 mg DAILY PO 09/17/16 09:00 09/20/16 10:31 (Abilify) 10 mg DAILY PO 09/18/16 09:00 09/20/16 10:31 (Remeron) 30 mg HS PO 09/17/16 21:00 09/19/16 21:07 (Catapres) 0.1 mg Q6H PRN PO 09/18/16 17:00 A/P Assessment and Plan 61-year-old male with paranoid schizophrenia admitted to psychiatric service as a transfer from the medical unit following an episode of SARAH. Hospitalist services have been consulted for medical management. Psychosis/ Depression The pt endorses suicidal ideation. - care per psychiatry. Acute on chronic renal failure Improved. S/p IVFs at the hospital. - creatinine appears near baseline - avoid nephrotoxic agents. - encourage fluid intake. - monitor as needed. Acute encephalopathy Improved compared to presentation at the hospital. He is awake and talking. - ammonia level normal - continue to monitor. Transaminitis LFTs continue to improve. - AST 46 --> 38, ALT 80 --> 63, Alk phos 309 --> 234 - continue to trend as needed. Hypertension BP stable. - continue nifedipine. - clonidine as needed. History diabetes mellitus Recent hemoglobin A1c 5.9%. - no indication to begin treatment at this time. Recommend follow up with PCP as outpatient. DVT prophylaxis: Ambulation Discussed with patient, nursing staff and Pat Carrion Sep 20, 2016 12:09 Pat Bourne Sep 20, 2016 12:09
[2016-09-20] MEDS: MIRTAZAPINE 15 MG TAB PO SCH (21:40)
[2016-09-21 05:40] VITALS: BP 113/61; PULSE 69; RESP 16; TEMP 98.1; O2SAT 95
[2016-09-21] MEDS: DOCUSATE SODIUM 50 MG/SENNA 8.6 MG TAB PO SCH ×2 (09:38→22:03)
[2016-09-21] MEDS: NIFEdipine 60 MG SUSTAINED RELEASE TAB PO SCH (09:38)
[2016-09-21] MEDS: ARIPiprazole 10 MG TAB PO SCH (09:38)
[2016-09-21] MEDS ORDERED: POLYETHYLENE GLYCOL 17 GM PKG PO ONE (14:30)
--- NOTE | 2016-09-21 16:39 | HHI.PYPN ---
Subjective Remarks Patient seen and examined. Chart reviewed. Case discussed with nursing staff. On my examination today, patient remains delusional. Of Mr. Millan, patient says, "he's got a new sensation. He makes it feel like you're getting hit in the back of the head with a basketball. He knows everything about me. He says he's done in the rest of my family. He claims how powerful his radio weapon is." Affect less dysphoric, although the patient does report he remains quite hopeless. No active SI, and patient says he has been eating some. In fact, it appears he has been taking nearly all of his meals. Denies side effects from medications. No other physical complaints. Review of Systems ROS Limitations: Psychotic, Poor Historian Except as stated in HPI: all other systems reviewed are Neg Objective Alert: Yes [place]: Person, Place, Date Mood: Other (Dysphoric) Affect: Restricted Memory Intact: Comment (fair on clinical exam) Hallucinations: Other (No AVH) Delusions: Yes Delusion Type: Paranoid Suicidal: Ideation (Again no active SI) Homicidal: Ideation (No HI) Insight/Judgment Poor Remarks No motor abnormalities noted. TP linear within delusional system. Grooming and hygiene fair. Labs Labs reviewed. Vitals/IOs Vital Signs Date Time Temp Pulse Resp B/P Pulse Ox O2 Delivery O2 Flow Rate FiO2 09/21/16 05:40 98.1 69 16 113/61 95 Intake and Output 09/20/16 09/20/16 09/21/16 08:00 16:00 00:00 Intake Total 600 ml 480 ml Balance 600 ml 480 ml Assessment & Plan Problem List: (1) Psychosis ICD Code: F29 (2) Depressive disorder ICD Code: F32.9 Assessment & Plan Titrate Abilify to 15mg/day to target psychosis with plans for further titration to effect. Continue Remeron as ordered although this too could be titrated. Check a BMP in am to follow up GFR. Continue to monitor on inpatient unit. Continue other medications and care as ordered. Justification for Cont. Inpt. Impairment in reality construction. Medication changes in process. High risk for decompensation in a less restrictive environment. Discharge Planning Pending psychiatric stabilization. Request HC Surrog/Guard Advoc?: Yes Problem Qualifiers (1) Psychosis: Qualified Code: F20.0 - Paranoid schizophrenia Jose Granados MD Sep 21, 2016 16:39
[2016-09-21 18:00] VITALS: BP 108/59; PULSE 70; RESP 20; TEMP 98; O2SAT 98
[2016-09-21] MEDS: MIRTAZAPINE 15 MG TAB PO SCH (22:03)
[2016-09-22 06:00] VITALS: BP 110/59; PULSE 60; RESP 16; O2SAT 94
[2016-09-22 09:46] LABS: BICARBONATE 25.4 MEQ/L (21.0-32.0); POTASSIUM 4.4 MEQ/L (3.5-5.1)
[2016-09-22] MEDS: DOCUSATE SODIUM 50 MG/SENNA 8.6 MG TAB PO SCH ×2 (09:48→20:39)
[2016-09-22] MEDS: NIFEdipine 60 MG SUSTAINED RELEASE TAB PO SCH (09:49)
[2016-09-22] MEDS: ARIPiprazole 15 MG TAB PO SCH (09:49)
--- NOTE | 2016-09-22 14:06 | PD.TTN ---
Present for Treatment Team Treatment Team Staff: Provider (Dr. Granados), Nurse (Katie), Psych Therapist (Lucero), Occupational Therapist (RAMON Mitchell) Patient Problems 1. Discharge planning 2. Medication compliance 3. Knowledge deficit 4. Lack of coping skills Progress Toward Goals Provider Input: Patient has fixed delusions and is getting anti-depressant medications. Medication management. Nurse Input: Patient is ntoed to be selcusive in room and refusing to eat and do ADLs. Patient is no cooperative and is isolating. Psych Therapist Input: Patient has fixed illusion surround Brenard Millan control his head and feelings of hopeless and vague suicidal states claiming he wants to . patient will potentially be a state referral. Occupational Therapist Input: Patient is not attendng groups. Lucero Badillo [facility] Sep 22, 2016 14:06
--- NOTE | 2016-09-22 16:46 | HHI.PYPN ---
Subjective Remarks Patient seen and examined with nurse. Chart reviewed. He has eaten 75% of breakfast, lunch and dinner. Case discussed in treatment team. On my examination today, the patient continues to insist that Jason Millan is causing "cracking and popping noises" in his head. He says that he feels fed up and endorses passive thoughts of but denies active suicidal ideation. He accuses Jason Millan of having tripped the nurse earlier in the day, and the nurse tells me that she slipped on the linoleum. Patient says ominously of Mr. Millan "he'll soon be here." Denies side effects from medications. No new physical complaints. Review of Systems ROS Limitations: Psychotic, Poor Historian Except as stated in HPI: all other systems reviewed are Neg Objective Alert: Yes [place]: Person, Place, Date Mood: Other (less dysphoric) Affect: Blunted Memory Intact: Comment (fair) Hallucinations: Other (No hallucinations) Delusions: Yes Delusion Type: Paranoid (ongoing, as before) Suicidal: Ideation (Denies active SI) Homicidal: Ideation (no HI) Insight/Judgment Poor Remarks No motor abnormalities noted. TP perseverative on delusional themes. Grooming and hygiene fair. Labs Test 09/22/16 06:53 Sodium Level 141 MEQ/L Potassium Level 4.4 MEQ/L Chloride Level 107 MEQ/L Carbon Dioxide Level 25.4 MEQ/L Anion Gap 9 MEQ/L Blood Urea Nitrogen 35 MG/DL Creatinine 1.55 MG/DL Estimat Glomerular Filtration 46 ML/MIN Rate Random Glucose 77 MG/DL Calcium Level 8.9 MG/DL Labs reviewed. GFR stable. Vitals/IOs Vital Signs Date Time Temp Pulse Resp B/P Pulse Ox O2 Delivery O2 Flow Rate FiO2 09/22/16 06:00 60 16 110/59 94 09/21/16 18:00 98.0 Intake and Output 09/21/16 09/21/16 09/22/16 08:00 16:00 00:00 Intake Total 0 ml 720 ml 1080 ml Output Total 3 ml Balance 0 ml 720 ml 1077 ml Assessment & Plan Problem List: (1) Psychosis ICD Code: F29 (2) Depressive disorder ICD Code: F32.9 Assessment & Plan Continue Abilify as ordered with plans to titrate approximately every other day to target psychosis. Continue Remeron as ordered. Continue to monitor on inpatient unit. Continue other medications and care as ordered. Justification for Cont. Inpt. Impairment in reality construction. High risk for decompensation in a less restrictive environment. Discharge Planning Pending psychiatric stabilization. I will initiate a state hospital referral in case patient fails to stabilize adequately for safe discharge. Request HC Surrog/Guard Advoc?: Yes Problem Qualifiers (1) Psychosis: Qualified Code: F20.0 - Paranoid schizophrenia Jose Granados MD Sep 22, 2016 16:46
[2016-09-22] MEDS: MIRTAZAPINE 15 MG TAB PO SCH (20:39)
[2016-09-23 06:34] VITALS: BP 115/60; PULSE 61; RESP 16; TEMP 98.1; O2SAT 99
[2016-09-23] MEDS: DOCUSATE SODIUM 50 MG/SENNA 8.6 MG TAB PO SCH ×2 (09:58→20:18)
[2016-09-23] MEDS: NIFEdipine 60 MG SUSTAINED RELEASE TAB PO SCH (09:58)
[2016-09-23] MEDS: ARIPiprazole 15 MG TAB PO SCH (09:58)
--- NOTE | 2016-09-23 11:33 | HHI.PYPN ---
Subjective Remarks Patient seen and examined. Chart reviewed. Case discussed with nurse. On my examination today, patient is ruminating on remaining in the hospital. "I don' t want to in a psych torrez. I'd rather than go through life like that." Affect remains dysphoric. No active SI but continues to threaten not to eat. At the same time, patient complains that his breakfast portion (of which he ate 100%) was too small. Systematized paranoid delusions of being attacked by Jason rodarte. Denies side effects from medications. No physical complaints. Review of Systems ROS Limitations: Poor Historian Except as stated in HPI: all other systems reviewed are Neg Objective Alert: Yes [place]: Person, Place, Date Mood: Oppositional Affect: Restricted (dysphoric) Memory Intact: Comment (fair) Hallucinations: Other (no AVH) Delusions: Yes Delusion Type: Paranoid (ongoing as above) Suicidal: Ideation (no active SI, see above) Homicidal: Ideation (no HI) Insight/Judgment Poor Remarks No motor abnormalities noted. Labs Labs reviewed. Vitals/IOs Vital Signs Date Time Temp Pulse Resp B/P Pulse Ox O2 Delivery O2 Flow Rate FiO2 09/23/16 06:34 98.1 61 16 115/60 99 Intake and Output 09/22/16 09/22/16 09/23/16 08:00 16:00 00:00 Intake Total 960 ml 1560 ml Balance 960 ml 1560 ml Assessment & Plan Problem List: (1) Psychosis ICD Code: F29 (2) Depressive disorder ICD Code: F32.9 Assessment & Plan Titrate Remeron to 45 mg this evening to target dysphoria. Titrate Abilify to 20 mg tomorrow to target psychotic symptoms. Continue to monitor oral intake. Check a BMP in the morning to ensure that the patient is not dehydrating himself. Continue to monitor on the inpatient unit. Continue other medications and care as ordered. Justification for Cont. Inpt. Threats of impairment and safety. Impairment in reality construction. Medication changes in process. High risk for decompensation in a less restrictive environment. Discharge Planning Pending psychiatric stabilization. [facility] referral initiated. Request HC Surrog/Guard Advoc?: Yes Problem Qualifiers (1) Psychosis: Qualified Code: F20.0 - Paranoid schizophrenia Jose Granados MD Sep 23, 2016 11:33
--- NOTE | 2016-09-23 13:19 | HHI.PR ---
Subjective Remarks Follow-up on patient with paranoid schizophrenia, diabetes, hypertension and SARAH. Patient seen and examined today. States he is still doing the same. He states he is not eating or drinking well and he refused to do it. Reports "I always have headache and there is a knot in my head I cannot eat or drink because the vikas the black vikas in [place] is controlling everything, he is adjusting a diol that makes him not to eat or drink and there is nothing he can do about it." Patient continues to admit that he is seeing things and hearing things coming from "the vikas in [place]." Denies SOB/ dyspnea. Denies chest pain, palpitations. Denies fevers, chills, n/v/d. Denies dysuria. Objective Vitals Vital Signs Date Time Temp Pulse Resp B/P Pulse Ox O2 Delivery O2 Flow Rate FiO2 09/23/16 06:34 98.1 61 16 115/60 99 I/O 09/22/16 09/22/16 09/22/16 09/23/16 09/23/16 09/23/16 07:00 15:00 23:00 07:00 15:00 23:00 Intake Total 960 ml 1560 ml 120 ml 240 ml Balance 960 ml 1560 ml 120 ml 240 ml Intake Oral 960 ml 1560 ml 120 ml 240 ml # Voids 2 4 1 Result Diagram: 09/22/16 0653 Objective Remarks GENERAL: This is a well-nourished, well-developed patient, in no apparent distress. SKIN: Warm and dry. HEENT: Normocephalic. Pupils equal round and reactive. Nose without bleeding. Airway patent. NECK: Trachea midline. No JVD. Supple. CARDIOVASCULAR: Regular rate and rhythm without murmurs, gallops, or rubs. RESPIRATORY: Clear to auscultation. No wheezes, rales, or rhonchi. GASTROINTESTINAL: Abdomen soft, non-tender, nondistended. Bowel Sounds normoactive x4. MUSCULOSKELETAL: Extremities without clubbing, cyanosis, or edema. NEUROLOGICAL: Awake and alert. Oriented to person. Noted paranoia. Moves all extremities. Normal speech. A/P Problem List: (1) Dehydration ICD Code: E86.0 Status: Acute (2) Psychosis ICD Code: F29 Status: Acute (3) Depressive disorder ICD Code: F32.9 Status: Acute (4) Acute on chronic renal failure ICD Code: N17.9 Status: Acute (5) Delusional disorder ICD Code: F22 Status: Acute Assessment and Plan Patient is a 61-year-old male with paranoid schizophrenia admitted to psychiatric service as a transfer from the medical unit following an episode of SARAH. Hospitalist services have been consulted for medical management. Psychosis/ Depression - The pt endorses suicidal ideation. Continues to have hallucinations. - Managed by psychiatry team Acute kidney injury on chronic renal failure - S/P IVFs in the acute setting - Baseline creatinine 1.2-1.3 - avoid nephrotoxic agents. - encourage fluid intake. Patient continued to have poor intake - Creatinine increasing now 1.52--> 1.55 - Recheck BMP in 2 days. Patient might need another IV fluid for hydration. Acute encephalopathy Improved compared to presentation at the hospital. He is awake and talking. - ammonia level normal - continue to monitor. Transaminitis LFTs continue to improve. - AST 46 --> 38, ALT 80 --> 63, Alk phos 309 --> 234 - Improving Hypertension BP stable. - Continue nifedipine, clonidine as needed - Monitor BP trend History diabetes mellitus Recent hemoglobin A1c 5.9%. - no indication to begin treatment at this time. Recommend follow up with PCP as outpatient. DVT prophylaxis: Ambulation This with patient, nursing, Dr. Gonzales Problem Qualifiers (1) Psychosis: Qualified Code: F20.0 - Paranoid schizophrenia Agus Chapa Sep 23, 2016 13:19
[2016-09-23 18:00] VITALS: BP 108/53; PULSE 71; RESP 16; TEMP 92.8; O2SAT 97
[2016-09-23] MEDS: MIRTAZAPINE 15 MG TAB PO SCH (20:18)
[2016-09-24 06:10] VITALS: BP 118/59; PULSE 68; RESP 18; TEMP 97.2; O2SAT 98
[2016-09-24 08:49] LABS: BICARBONATE 22.6 MEQ/L (21.0-32.0); POTASSIUM 4.4 MEQ/L (3.5-5.1)
[2016-09-24] MEDS: DOCUSATE SODIUM 50 MG/SENNA 8.6 MG TAB PO SCH ×2 (10:09→20:44)
[2016-09-24] MEDS: NIFEdipine 60 MG SUSTAINED RELEASE TAB PO SCH (10:09)
--- NOTE | 2016-09-24 12:44 | HHI.PYPN ---
Subjective Remarks Patient seen and examined. Chart reviewed. Case discussed with nursing staff. Patient has eaten breakfast and at least 50% lunch today. On my examination today, the patient remains pessimistic and dysphoric. He tells me, "I didn't think I should eat today, but I did." Continues to ruminate on being attacked by Mr. Millan. "When someone is controlling you with a radio, how good can you be?" No active SI/HI. No side effects from medications, but he doesn't feel they are helping." Review of Systems ROS Limitations: Poor Historian Except as stated in HPI: all other systems reviewed are Neg Objective Alert: Yes [place]: Person, Place, Date Mood: Other (Dysphoric) Affect: Restricted Memory Intact: Comment (Fair) Hallucinations: Other (None) Delusions: Yes Delusion Type: Paranoid (persistent) Suicidal: Ideation (No SI) Homicidal: Ideation (No HI) Insight/Judgment Poor Remarks No motor abnormalities noted. TP linear within delusions. Grooming and hygiene fair. Labs Test 09/24/16 07:29 Sodium Level 139 MEQ/L Potassium Level 4.4 MEQ/L Chloride Level 108 MEQ/L Carbon Dioxide Level 22.6 MEQ/L Anion Gap 8 MEQ/L Blood Urea Nitrogen 37 MG/DL Creatinine 1.49 MG/DL Estimat Glomerular Filtration 48 ML/MIN Rate Random Glucose 85 MG/DL Calcium Level 9.1 MG/DL Labs reviewed. Vitals/IOs Vital Signs Date Time Temp Pulse Resp B/P Pulse Ox O2 Delivery O2 Flow Rate FiO2 09/24/16 06:10 97.2 68 18 118/59 98 Intake and Output 09/23/16 09/23/16 09/24/16 08:00 16:00 00:00 Intake Total 360 ml 360 ml Balance 360 ml 360 ml Assessment & Plan Problem List: (1) Psychosis ICD Code: F29 (2) Depressive disorder ICD Code: F32.9 Assessment & Plan Continue Abilify with plans to titrate. Continue Remeron as ordered. Continue to monitor on the inpatient unit. Continue other medications and care as ordered. Justification for Cont. Inpt. Impairment in reality construction. High risk for decompensation in a less restrictive setting. Discharge Planning [facility] referral Request HC Surrog/Guard Advoc?: Yes Problem Qualifiers (1) Psychosis: Qualified Code: F20.0 - Paranoid schizophrenia Chaiffetz,Jose B. MD Sep 24, 2016 12:44
[2016-09-24 13:05] VITALS: BP 99/61; PULSE 78; TEMP 97.6; O2SAT 96
[2016-09-24] MEDS: MIRTAZAPINE 15 MG TAB PO SCH (20:44)
[2016-09-24 20:46] VITALS: BP 126/61; PULSE 76; RESP 18; TEMP 97.6; O2SAT 94
[2016-09-25 04:36] VITALS: BP 128/77; PULSE 74; RESP 17; TEMP 98.4; O2SAT 96
[2016-09-25 06:03] VITALS: BP 128/77; PULSE 74; RESP 17; TEMP 98.4; O2SAT 96
[2016-09-25] MEDS: DOCUSATE SODIUM 50 MG/SENNA 8.6 MG TAB PO SCH ×2 (09:00→22:04)
[2016-09-25] MEDS: NIFEdipine 60 MG SUSTAINED RELEASE TAB PO SCH (09:00)
--- NOTE | 2016-09-25 12:33 | HHI.PYPN ---
Subjective Remarks Patient seen and examined with nurse. Chart reviewed. Case discussed with nursing staff. On my examination today, the patient remains delusional, believing that he is subject to numerous attacks by Jason Millan. He reports hallucinations of "cobwebs." Affect remains dysphoric and hopeless. No active SI. He has been accepting most of his meals, although he continues to say that he would like to stop eating to passively end his life. Denies side effects from medications. Review of Systems ROS Limitations: Psychotic, Poor Historian Except as stated in HPI: all other systems reviewed are Neg Objective Alert: Yes [place]: Person, Place, Date Mood: Other (Remains dysphoric) Affect: Restricted Memory Intact: Comment (remains fair) Hallucinations: Other (No AVH) Delusions: Yes Delusion Type: Paranoid (persecutory, ongoing) Suicidal: Ideation (No active SI) Homicidal: Ideation (No HI) Insight/Judgment Poor Remarks No motor abnormalities noted. TP linear within delusional system. Grooming/ hygiene fair. Labs Labs reviewed. No new labs. Vitals/IOs Vital Signs Date Time Temp Pulse Resp B/P Pulse Ox O2 Delivery O2 Flow Rate FiO2 09/25/16 06:03 98.4 74 17 128/77 96 Intake and Output 09/24/16 09/24/16 09/25/16 08:00 16:00 00:00 Intake Total 360 ml 490 ml 240 ml Balance 360 ml 490 ml 240 ml Assessment & Plan Problem List: (1) Psychosis ICD Code: F29 (2) Depressive disorder ICD Code: F32.9 Assessment & Plan Titrate Abilify through the weekend to a target dose of 30 mg daily for psychosis. Continue Remeron for dysphoria. To consider switching antipsychotic or augmenting antidepressant if inadequate response. Continue to monitor on inpatient unit. Continue other medications and care as ordered. Justification for Cont. Inpt. Impairment in reality construction. High risk for decompensation in a less restrictive environment. Discharge Planning [facility] psychiatric hospital referral Request HC Surrog/Guard Advoc?: Yes Problem Qualifiers (1) Psychosis: Qualified Code: F20.0 - Paranoid schizophrenia Jose Granados MD Sep 25, 2016 12:33
--- NOTE | 2016-09-25 14:56 | HHI.PR ---
Subjective Remarks Follow-up on patient with paranoid schizophrenia, diabetes, hypertension and SARAH. Patient seen and examined today. She states he continues to have headaches but "there is nothing he can do or anybody can do about it because the radiofrequency being controlled in [place]." States he hasn't been eating or drinking well because he can only eat or drink dictated by the radiofrequency. Patient was provided with crystallite bottle and he is able to take it without any problem. Denies chest pain, palpitations, fevers, chills. Objective Vitals Vital Signs Date Time Temp Pulse Resp B/P Pulse Ox O2 Delivery O2 Flow Rate FiO2 09/25/16 06:03 98.4 74 17 128/77 96 09/25/16 04:36 98.4 74 17 128/77 96 09/24/16 20:46 97.6 76 18 126/61 94 I/O 09/24/16 09/24/16 09/24/16 09/25/16 09/25/16 09/25/16 07:00 15:00 23:00 07:00 15:00 23:00 Intake Total 360 ml 490 ml 240 ml 1440 ml Balance 360 ml 490 ml 240 ml 1440 ml Intake Oral 360 ml 490 ml 1440 ml Oral Supplement 240 ml # Voids 1 2 Result Diagram: 09/24/16 0729 Objective Remarks GENERAL: This is a well-nourished, well-developed patient, in no apparent distress. SKIN: Warm and dry. HEENT: Normocephalic. Pupils equal round and reactive. Nose without bleeding. Airway patent. NECK: Trachea midline. No JVD. Supple. CARDIOVASCULAR: Regular rate and rhythm without murmurs, gallops, or rubs. RESPIRATORY: Clear to auscultation. No wheezes, rales, or rhonchi. GASTROINTESTINAL: Abdomen soft, non-tender, nondistended. Bowel Sounds normoactive x4. MUSCULOSKELETAL: Extremities without clubbing, cyanosis, or edema. NEUROLOGICAL: Awake and alert. Oriented to person. Noted paranoia, delusions. Moves all extremities. Normal speech. A/P Problem List: (1) Dehydration ICD Code: E86.0 Status: Acute (2) Psychosis ICD Code: F29 Status: Acute (3) Depressive disorder ICD Code: F32.9 Status: Acute (4) Acute on chronic renal failure ICD Code: N17.9 Status: Acute (5) Delusional disorder ICD Code: F22 Status: Acute Assessment and Plan Patient is a 61-year-old male with paranoid schizophrenia admitted to psychiatric service as a transfer from the medical unit following an episode of SARAH. Hospitalist services have been consulted for medical management. Psychosis/ Depression - The pt endorses suicidal ideation. Continues to have hallucinations. - Managed by psychiatry team Acute kidney injury on chronic renal failure - S/P IVFs in the acute setting - Baseline creatinine 1.2-1.3 - avoid nephrotoxic agents. - encourage fluid intake. Patient continued to have poor intake - Creatinine increasing now 1.52--> 1.55 - Recheck BMP on Wednesday Acute encephalopathy Improved compared to presentation at the hospital. He is awake and talking. - ammonia level normal - continue to monitor. Transaminitis LFTs continue to improve. - AST 46 --> 38, ALT 80 --> 63, Alk phos 309 --> 234 - Improving Hypertension BP stable. - Continue nifedipine, clonidine as needed - Monitor BP trend History diabetes mellitus Recent hemoglobin A1c 5.9%. - no indication to begin treatment at this time. Recommend follow up with PCP as outpatient. DVT prophylaxis: Ambulation This with patient, nursing, Dr. Gonzales Problem Qualifiers (1) Psychosis: Qualified Code: F20.0 - Paranoid schizophrenia Agus Chapa Sep 25, 2016 14:56
[2016-09-25 17:49] VITALS: BP 138/66; PULSE 69; RESP 16; TEMP 97.9; O2SAT 98
[2016-09-25] MEDS: MIRTAZAPINE 15 MG TAB PO SCH (22:05)
[2016-09-26 05:49] VITALS: BP 137/67; PULSE 67; RESP 16; TEMP 98.4; O2SAT 96
[2016-09-26] MEDS: DOCUSATE SODIUM 50 MG/SENNA 8.6 MG TAB PO SCH ×2 (09:44→20:29)
[2016-09-26] MEDS: NIFEdipine 60 MG SUSTAINED RELEASE TAB PO SCH (09:44)
[2016-09-26] MEDS: ARIPiprazole 10 MG TAB PO SCH (09:44)
--- NOTE | 2016-09-26 12:09 | HHI.PYPN ---
Subjective Remarks Patient was seen and case discussed with nursing. Patient is pleasant and cooperative with exam. Per nursing he has been irritable and seclusive throughout the day. Continues to be psychotic with a fixed believe that a man named Jason Millan is controlling his life since 1970 with rate are beings. Denies active suicidal ideation but says that "I'll be glad when it's over." Compliant with medications. Objective Alert: Yes [place]: Person, Place, Date Mood: Calm Affect: Blunted Memory Intact: Comment Hallucinations: Other Delusions: Yes Delusion Type: Paranoid (Jason Millan, radar beams) Suicidal: Ideation Homicidal: Ideation (No HI) Insight/Judgment Poor Vitals/IOs Vital Signs Date Time Temp Pulse Resp B/P Pulse Ox O2 Delivery O2 Flow Rate FiO2 09/26/16 05:49 98.4 67 16 137/67 96 Intake and Output 09/25/16 09/25/16 09/25/16 07:59 15:59 23:59 Intake Total 1440 ml 960 ml Balance 1440 ml 960 ml Assessment & Plan Problem List: (1) Psychosis ICD Code: F29 (2) Depressive disorder ICD Code: F32.9 Assessment & Plan Continue current treatment plan Justification for Cont. Inpt. Patient will decompensate in a less restrictive setting Request HC Surrog/Guard Advoc?: Yes Problem Qualifiers (1) Psychosis: Qualified Code: F20.0 - Paranoid schizophrenia Dinesh Pinto DO Sep 26, 2016 12:09
[2016-09-26 18:16] VITALS: BP 107/59; PULSE 70; RESP 17; TEMP 98.1; O2SAT 95
[2016-09-26] MEDS: MIRTAZAPINE 15 MG TAB PO SCH (20:29)
[2016-09-27 06:12] VITALS: BP 116/61; PULSE 72; RESP 16; TEMP 97.9; O2SAT 95
[2016-09-27] MEDS: NIFEdipine 60 MG SUSTAINED RELEASE TAB PO SCH (08:42)
[2016-09-27] MEDS: ARIPiprazole 10 MG TAB PO SCH (08:43)
[2016-09-27] MEDS: DOCUSATE SODIUM 50 MG/SENNA 8.6 MG TAB PO SCH ×2 (08:44→20:54)
--- NOTE | 2016-09-27 11:46 | HHI.PR ---
Subjective Remarks Follow-up on patient with paranoid schizophrenia, diabetes, hypertension and SARAH. Patient seen and examined today. Patient states he is doing the same. States that the man continues to control him but does not give him headaches anymore. States "he is giving me the visions in front of me with blocks which is black and blue-colored." When asked if he is hearing the person that is controlling him he states that "not recently." Patient noted to be drinking more fluids as it was in his bedside. He is also offered crystallite and he is able to take it without difficulty. Denies chest pain, palpitations, fevers, chills. Denies headaches. Objective Vitals Vital Signs Date Time Temp Pulse Resp B/P Pulse Ox O2 Delivery O2 Flow Rate FiO2 09/27/16 06:12 97.9 72 16 116/61 95 09/26/16 18:16 98.1 70 17 107/59 95 I/O 09/26/16 09/26/16 09/26/16 09/27/16 09/27/16 09/27/16 07:00 15:00 23:00 07:00 15:00 23:00 Intake Total 240 ml 720 ml 0 ml Balance 240 ml 720 ml 0 ml Intake Oral 240 ml 720 ml 0 ml # Voids 1 3 2 2 Result Diagram: 09/24/16 0729 Objective Remarks GENERAL: This is a well-nourished, well-developed patient, in no apparent distress. SKIN: Warm and dry. HEENT: Normocephalic. Pupils equal round and reactive. Nose without bleeding. Airway patent. NECK: Trachea midline. No JVD. Supple. CARDIOVASCULAR: Regular rate and rhythm without murmurs, gallops, or rubs. RESPIRATORY: Clear to auscultation. No wheezes, rales, or rhonchi. GASTROINTESTINAL: Abdomen soft, non-tender, nondistended. Bowel Sounds normoactive x4. MUSCULOSKELETAL: Extremities without clubbing, cyanosis, or edema. NEUROLOGICAL: Awake and alert. Oriented to person. Noted paranoia, delusions. Moves all extremities. Normal speech. A/P Problem List: (1) Dehydration ICD Code: E86.0 Status: Acute (2) Psychosis ICD Code: F29 Status: Acute (3) Depressive disorder ICD Code: F32.9 Status: Acute (4) Acute on chronic renal failure ICD Code: N17.9 Status: Acute (5) Delusional disorder ICD Code: F22 Status: Acute Assessment and Plan Patient is a 61-year-old male with paranoid schizophrenia admitted to psychiatric service as a transfer from the medical unit following an episode of SARAH. Hospitalist services have been consulted for medical management. Psychosis/ Depression - The pt endorses suicidal ideation. Continues to have hallucinations. - Managed by psychiatry team Acute kidney injury on chronic renal failure - S/P IVFs in the acute setting - Baseline creatinine 1.2-1.3 - avoid nephrotoxic agents. - encourage fluid intake. Patient continued to have poor intake - Creatinine increasing now 1.52--> 1.55 -->1.49 - Improving - Recheck BMP on Wednesday Acute encephalopathy Improved compared to presentation at the hospital. He is awake and talking. - ammonia level normal - continue to monitor. Transaminitis LFTs continue to improve. - AST 46 --> 38, ALT 80 --> 63, Alk phos 309 --> 234 - Improving Hypertension BP stable. - Continue nifedipine, clonidine as needed - Monitor BP trend History diabetes mellitus Recent hemoglobin A1c 5.9%. - no indication to begin treatment at this time. Recommend follow up with PCP as outpatient. DVT prophylaxis: Ambulation Discuss with patient, nursing, Dr. Tin Jarrett from Hospitalist standpoint. We will sign off if labs improved. Problem Qualifiers (1) Psychosis: Qualified Code: F20.0 - Paranoid schizophrenia Agus Chapa Sep 27, 2016 11:46
--- NOTE | 2016-09-27 12:25 | HHI.PYPN ---
Subjective Remarks Patient was seen and case discussed with nursing. Patient remains delusional and seclusive. He remains with a fixed delusion that he is being controlled by rate are beings. Told the nurse earlier someone is putting cobwebs over his eyes. Patient feels hopeless because of his bothersome delusions. He denies suicidal ideation intent or plan. Compliant with medications Objective Alert: Yes [place]: Person, Place, Date Mood: Depressed Affect: Blunted Memory Intact: Comment Hallucinations: Other Delusions: Yes Delusion Type: Paranoid (Jason Millan, radar goyo) Suicidal: Ideation Homicidal: Ideation (No HI) Insight/Judgment Poor Vitals/IOs Vital Signs Date Time Temp Pulse Resp B/P Pulse Ox O2 Delivery O2 Flow Rate FiO2 09/27/16 06:12 97.9 72 16 116/61 95 Intake and Output 09/26/16 09/26/16 09/27/16 08:00 16:00 00:00 Intake Total 240 ml 720 ml Balance 240 ml 720 ml Assessment & Plan Problem List: (1) Psychosis ICD Code: F29 (2) Depressive disorder ICD Code: F32.9 Assessment & Plan Continue current treatment plan Justification for Cont. Inpt. Patient will decompensate in a less restrictive setting Request HC Surrog/Guard Advoc?: Yes Problem Qualifiers (1) Psychosis: Qualified Code: F20.0 - Paranoid schizophrenia Dinesh Pinto DO Sep 27, 2016 12:25
[2016-09-27 18:14] VITALS: BP 114/60; PULSE 70; RESP 17; TEMP 98.1; O2SAT 99
[2016-09-27] MEDS: MIRTAZAPINE 15 MG TAB PO SCH (20:54)
[2016-09-28 08:24] LABS: TOTAL BILIRUBIN ADULT 0.5 MG/DL (0.2-1.0)
[2016-09-28 08:26] LABS: BICARBONATE 26.9 MEQ/L (21.0-32.0); INDIRECT BILIRUBIN 0.4 MG/DL (0.0-0.8); POTASSIUM 5.2 MEQ/L (3.5-5.1)
[2016-09-28] MEDS: NIFEdipine 60 MG SUSTAINED RELEASE TAB PO SCH (08:47)
[2016-09-28] MEDS: ARIPiprazole 10 MG TAB PO SCH (08:47)
[2016-09-28] MEDS: DOCUSATE SODIUM 50 MG/SENNA 8.6 MG TAB PO SCH ×2 (08:49→20:37)
--- NOTE | 2016-09-28 13:13 | HHI.PYPN ---
Subjective Remarks Patient seen and case discussed with the nurse. He continues to be seclusive. He continues to be frustrated because of delusional thinking. He appears to experience only a partial response to current antipsychotic medication. Review of Systems Except as stated in HPI: all other systems reviewed are Neg Objective Alert: Yes [place]: Person, Place Mood: Depressed Affect: Blunted Memory Intact: Comment Hallucinations: Other Delusions: Yes Delusion Type: Paranoid (Jason Millan, radar goyo) Suicidal: Ideation Homicidal: Ideation (No HI) Insight/Judgment Impaired Labs Test 09/28/16 07:18 Sodium Level 138 MEQ/L Potassium Level 5.2 MEQ/L Chloride Level 107 MEQ/L Carbon Dioxide Level 26.9 MEQ/L Anion Gap 4 MEQ/L Blood Urea Nitrogen 37 MG/DL Creatinine 1.47 MG/DL Estimat Glomerular Filtration 48 ML/MIN Rate Random Glucose 81 MG/DL Calcium Level 9.4 MG/DL Total Bilirubin 0.5 MG/DL Direct Bilirubin 0.1 MG/DL Indirect Bilirubin 0.4 MG/DL Aspartate Amino Transf 45 U/L (AST/SGOT) Alanine Aminotransferase 40 U/L (ALT/SGPT) Alkaline Phosphatase 164 U/L Total Protein 8.2 GM/DL Albumin 3.3 GM/DL Vitals/IOs Vital Signs Date Time Temp Pulse Resp B/P Pulse Ox O2 Delivery O2 Flow Rate FiO2 09/27/16 18:14 98.1 70 17 114/60 99 Intake and Output 09/27/16 09/27/16 09/28/16 08:00 16:00 00:00 Intake Total 0 ml 1200 ml Balance 0 ml 1200 ml Assessment & Plan Problem List: (1) Psychosis ICD Code: F29 (2) Depressive disorder ICD Code: F32.9 Assessment & Plan Estimated LOS: days patient requires more time on current medication regimen. He has partially responded but hopefully his delusions will at least glory in their intensity. Justification for Cont. Inpt. Likely to decompensate at lower level of care. Request HC Surrog/Guard Advoc?: Yes Problem Qualifiers (1) Psychosis: Qualified Code: F20.0 - Paranoid schizophrenia Chidi Nobles MD Sep 28, 2016 13:13
[2016-09-28 18:00] VITALS: BP 127/65; PULSE 100; RESP 18; TEMP 98; O2SAT 95
[2016-09-28] MEDS: MIRTAZAPINE 15 MG TAB PO SCH (20:37)
[2016-09-29 05:46] VITALS: BP 139/83; PULSE 67; RESP 18; O2SAT 97
[2016-09-29] MEDS: ARIPiprazole 10 MG TAB PO SCH (08:21)
[2016-09-29] MEDS: DOCUSATE SODIUM 50 MG/SENNA 8.6 MG TAB PO SCH ×2 (08:21→21:21)
[2016-09-29] MEDS: NIFEdipine 60 MG SUSTAINED RELEASE TAB PO SCH (08:21)
--- NOTE | 2016-09-29 11:08 | HHI.PYPN ---
Subjective Remarks Patient appears to be very psychotic, claiming to hear "crackling noises" and that he is being persecuted by somebody named Monty. He feels he needs to obtain a gun in order to put Monty "down". Patient has very poor insight and impaired judgment. He has not responded adequately to Abilify yet. Case discussed with nurse. Review of Systems Except as stated in HPI: all other systems reviewed are Neg Objective Alert: Yes [place]: Person Mood: Anxious Affect: Restricted, Blunted Memory Intact: Comment Hallucinations: Auditory, Other Delusions: Yes Delusion Type: Paranoid (Jason Millan, radar goyo) Suicidal: Ideation Homicidal: Ideation (No HI) Insight/Judgment Impaired Labs Test 09/28/16 13:18 Potassium Level 4.4 MEQ/L Vitals/IOs Vital Signs Date Time Temp Pulse Resp B/P Pulse Ox O2 Delivery O2 Flow Rate FiO2 09/29/16 05:46 67 18 139/83 97 09/28/16 18:00 98.0 Intake and Output 09/28/16 09/28/16 09/29/16 08:00 16:00 00:00 Intake Total 600 ml 3560 ml Balance 600 ml 3560 ml Assessment & Plan Problem List: (1) Psychosis ICD Code: F29 (2) Depressive disorder ICD Code: F32.9 Assessment & Plan Estimated LOS: days this physician plans to give Abilify more time to work. If not, the patient will be changed to a different antipsychotic. However, at the age of 61, his ability to tolerate certain antipsychotics is in question. Therefore this physician is considering Zyprexa. Justification for Cont. Inpt. Psychotic and unable to care for self. Request HC Surrog/Guard Advoc?: Yes Problem Qualifiers (1) Psychosis: Qualified Code: F20.0 - Paranoid schizophrenia Chidi Nobles MD Sep 29, 2016 11:08
[2016-09-29 18:32] VITALS: BP 131/70; PULSE 85; RESP 18; O2SAT 98
[2016-09-29] MEDS: MIRTAZAPINE 15 MG TAB PO SCH (21:20)
[2016-09-30 04:42] VITALS: BP 118/88; PULSE 69; RESP 16; TEMP 97.5; O2SAT 98
[2016-09-30] MEDS: DOCUSATE SODIUM 50 MG/SENNA 8.6 MG TAB PO SCH ×2 (09:05→21:00)
[2016-09-30] MEDS: NIFEdipine 60 MG SUSTAINED RELEASE TAB PO SCH (09:05)
[2016-09-30] MEDS: ARIPiprazole 10 MG TAB PO SCH (09:05)
[2016-09-30 13:08] LABS: BICARBONATE 25.3 MEQ/L (21.0-32.0); POTASSIUM 4.1 MEQ/L (3.5-5.1)
--- NOTE | 2016-09-30 13:47 | HHI.PR ---
Subjective Remarks Follow-up on patient with paranoid schizophrenia, diabetes, hypertension and SARAH. Patient seen and examined today. Patient states "my head isn't big enough to hold all my thoughts in life". He denies any pain or discomfort. He denies any fever, chills, N/V, dizziness, SOB, chest pain or abdominal pain. Objective Vitals Vital Signs Date Time Temp Pulse Resp B/P Pulse Ox O2 Delivery O2 Flow Rate FiO2 09/30/16 04:42 97.5 69 16 118/88 98 09/29/16 18:32 85 18 131/70 98 I/O 09/29/16 09/29/16 09/29/16 09/30/16 09/30/16 09/30/16 07:00 15:00 23:00 07:00 15:00 23:00 Intake Total 480 ml 1440 ml 480 ml Balance 480 ml 1440 ml 480 ml Intake Oral 480 ml 1440 ml 480 ml # Voids 4 1 Result Diagram: 09/30/16 1114 Objective Remarks GENERAL: Well-nourished, well-developed patient in NAD. Awake and alert. Paranoid. Lying in hospital bed. SKIN: Warm and dry. No rash. HEENT: Normocephalic. Atraumatic. EOMI. MMM. CARDIOVASCULAR: Regular rate and rhythm. S1, S2 noted. No murmur appreciated. RESPIRATORY: No accessory muscle use. Clear to auscultation. Breath sounds equal bilaterally. GASTROINTESTINAL: Abdomen soft, non-tender, nondistended. Normoactive bowel sounds x4. MUSCULOSKELETAL: No obvious deformities. Extremities without clubbing, cyanosis , or edema. NEUROLOGICAL: Awake and alert. Able to move all extremities. No focal neurologic findings appreciated. Normal Speech. PSYCHIATRIC: Calm and cooperative. Depressed, hopeless. Poor judgment. Medications and IVs Reported Meds & Active Scripts Active Mirtazapine ODT (Mirtazapine) 15 Mg Tab 15 Mg PO HS [Lactulose Liq] 30 ML Syrp 30 Ml PO DAILY 30 Days Aripiprazole 5 Mg Tab 7.5 Mg PO DAILY A/P Problem List: (1) Dehydration ICD Code: E86.0 Status: Acute (2) Psychosis ICD Code: F29 Status: Acute (3) Depressive disorder ICD Code: F32.9 Status: Acute (4) Acute on chronic renal failure ICD Code: N17.9 Status: Acute (5) Delusional disorder ICD Code: F22 Status: Acute Assessment and Plan 61-year-old male with paranoid schizophrenia admitted to psychiatric service as a transfer from the medical unit following an episode of SARAH. Hospitalist services have been consulted for medical management. Psychosis/ Depression The pt endorses suicidal ideation. He continues to have hallucinations. -Management per psychiatric team Acute on chronic renal failure S/p IVFs at the hospital. - baseline creatinine 1.2-1.3 - creatinine improving, near baseline - avoid nephrotoxic agents. - Continue to encourage fluid intake. - monitor as needed. Acute encephalopathy Improved compared to presentation at the hospital. He is awake and talking. - ammonia level normal - monitor as indicated Transaminitis LFTs continue to improve. - AST 46 --> 45, ALT 80 --> 40, Alk phos 309 --> 164 - continue to trend as needed. Hypertension BP stable. - continue nifedipine. - clonidine as needed. History diabetes mellitus Recent hemoglobin A1c 5.9%. - no indication to begin treatment at this time. Recommend follow up with PCP as outpatient. DVT prophylaxis: Ambulation Discussed with patient, nursing staff and Dr. Barreto Patient is stable from hospitalist standpoint. Will sign off. Please reconsult if needed. Problem Qualifiers (1) Psychosis: Qualified Code: F20.0 - Paranoid schizophrenia Pat Bourne Sep 30, 2016 13:47
[2016-09-30 18:00] VITALS: BP 122/64; PULSE 77; RESP 17; TEMP 97.5; O2SAT 98
[2016-09-30] MEDS: MIRTAZAPINE 15 MG TAB PO SCH (22:13)
[2016-09-30] MEDS: diphenhydrAMINE HCL 50 MG CAP PO PRN (22:14)
[2016-10-01 06:19] VITALS: BP 137/85; PULSE 67; RESP 19; TEMP 96.6; O2SAT 96
[2016-10-01] MEDS: ARIPiprazole 10 MG TAB PO SCH (08:51)
[2016-10-01] MEDS: NIFEdipine 60 MG SUSTAINED RELEASE TAB PO SCH (08:51)
[2016-10-01] MEDS: DOCUSATE SODIUM 50 MG/SENNA 8.6 MG TAB PO SCH ×2 (08:51→21:00)
--- NOTE | 2016-10-01 09:58 | HHI.PYPN ---
Subjective Remarks This is the psychiatric progress note for September 30, 2016. Chart reviewed, patient interviewed and case discussed with nursing staff. Patient continues to report being persecuted by an individual with the name of Monty. This individual's not in this hospital unit but patient continues to feel there is a conspiracy against him. Review of Systems Except as stated in HPI: all other systems reviewed are Neg Objective Alert: Yes [place]: Person Mood: Anxious Affect: Restricted, Blunted Memory Intact: Comment Hallucinations: Auditory, Other Delusions: Yes Delusion Type: Paranoid (Jason Millan, thomas nance) Suicidal: Ideation Homicidal: Ideation (No HI) Insight/Judgment Impaired Labs Test 09/30/16 11:14 Sodium Level 141 MEQ/L Potassium Level 4.1 MEQ/L Chloride Level 107 MEQ/L Carbon Dioxide Level 25.3 MEQ/L Anion Gap 9 MEQ/L Blood Urea Nitrogen 36 MG/DL Creatinine 1.32 MG/DL Estimat Glomerular Filtration 55 ML/MIN Rate Random Glucose 143 MG/DL Calcium Level 8.9 MG/DL Vitals/IOs Vital Signs Date Time Temp Pulse Resp B/P Pulse Ox O2 Delivery O2 Flow Rate FiO2 10/01/16 06:19 96.6 67 19 137/85 96 Intake and Output 09/30/16 09/30/16 10/01/16 08:00 16:00 00:00 Intake Total 480 ml 1080 ml Balance 480 ml 1080 ml Assessment & Plan Problem List: (1) Psychosis ICD Code: F29 (2) Depressive disorder ICD Code: F32.9 Assessment & Plan Estimated LOS: days patient has had an inadequate response to antipsychotic therapy. This physician feels he needs more time on current antipsychotic medications and or 2 adequately respond. Justification for Cont. Inpt. Will decompensate a lower level of care. Request HC Surrog/Guard Advoc?: Yes Problem Qualifiers (1) Psychosis: Qualified Code: F20.0 - Paranoid schizophrenia Chidi Nobles MD Oct 01, 2016 09:58
--- NOTE | 2016-10-01 13:51 | HHI.PYPN ---
Subjective Remarks Patient seen and examined with nurse. Chart reviewed. Case discussed with nursing staff. On my examination today, the patient continues to say that he is experiencing "popping noises and all kinds of stuff" in his head. He believes that Jason Millan is using a radio that he obtained from [place] "to be the Devil and to be God." Patient remains consistently dysphoric and hopeless, "there's no future for me" and "I didn't want this life. " He is eating and even requests additional food. He does not describe any active SI. No side effects from medications. Review of Systems ROS Limitations: Psychotic, Poor Historian Except as stated in HPI: all other systems reviewed are Neg Objective Alert: Yes [place]: Person Mood: Other (dysphoric) Affect: Restricted Memory Intact: Comment (not formally assessed) Hallucinations: Auditory (popping noises in his head) Delusions: Yes Delusion Type: Paranoid (as before) Suicidal: Ideation (no active SI) Homicidal: Ideation (No HI) Insight/Judgment Poor Remarks No motor abnormalities noted. Grooming and hygiene fair. Labs Labs reviewed. Vitals/IOs Vital Signs Date Time Temp Pulse Resp B/P Pulse Ox O2 Delivery O2 Flow Rate FiO2 10/01/16 06:19 96.6 67 19 137/85 96 Intake and Output 09/30/16 09/30/16 09/30/16 07:59 15:59 23:59 Intake Total 480 ml 1080 ml Balance 480 ml 1080 ml Assessment & Plan Problem List: (1) Psychosis ICD Code: F29 (2) Depressive disorder ICD Code: F32.9 Assessment & Plan Ongoing psychotic symptoms causing significant distress. I will augment Abilify with Haldol 1mg BID with plans to titrate if well tolerated. We still could consider clozapine, but I would like to try alternative strategy first as episode of AMS, although likely unrelated, was temporally associated with initiation of this agent previously. Continue Remeron as ordered, although we might also consider additional/alternate antidepressant. I will order double food portions as patient feels current portions are too meagre. Continue to monitor on the inpatient unit. Continue other medications and care as ordered. Justification for Cont. Inpt. Medication changes in process. Impairment in reality construction. High risk for decompensation in a less restrictive environment. [facility] Planning [facility] Request HC Surrog/Guard Advoc?: Yes Problem Qualifiers (1) Psychosis: Qualified Code: F20.0 - Paranoid schizophrenia Jose Granados MD Oct 01, 2016 13:51
[2016-10-01 19:21] VITALS: BP 135/81; PULSE 68; RESP 20; TEMP 97.6; O2SAT 97
[2016-10-01] MEDS: HALOPERIDOL 1 MG TAB PO SCH (21:27)
[2016-10-01] MEDS: MIRTAZAPINE 15 MG TAB PO SCH (21:27)
[2016-10-02 06:07] VITALS: BP 110/67; PULSE 68; RESP 16; TEMP 98.3; O2SAT 95
[2016-10-02] MEDS: DOCUSATE SODIUM 50 MG/SENNA 8.6 MG TAB PO SCH ×2 (09:00→20:42)
[2016-10-02] MEDS: HALOPERIDOL 1 MG TAB PO SCH (09:00)
[2016-10-02] MEDS: NIFEdipine 60 MG SUSTAINED RELEASE TAB PO SCH (09:00)
[2016-10-02] MEDS: ARIPiprazole 10 MG TAB PO SCH (09:01)
--- NOTE | 2016-10-02 10:48 | HHI.PYPN ---
Subjective Remarks Patient seen and examined with nurse. Chart reviewed. Case discussed with nurse. Case discussed with counselor. On my examination today, the patient is sitting in the day area. He appears less intensely dysphoric, although he says that he is experiencing "the same thing" as before, referring to ongoing attack by Jason Millan. He also says that he has been "seeing visions that I'm in someone else's house." He denies any such visions at this time. No SI or HI. Denies side effects from medications. No new physical complaints. Review of Systems ROS Limitations: Psychotic, Poor Historian Except as stated in HPI: all other systems reviewed are Neg Objective Alert: Yes [place]: Person Mood: Other (a little less dysphoric) Affect: Restricted Memory Intact: Comment (not formally assessed) Hallucinations: Auditory (continues to experience popping noises in his head), Visual ("visions" as noted above) Delusions: Yes Delusion Type: Paranoid Suicidal: Ideation (no SI) Homicidal: Ideation (no HI) Insight/Judgment Poor Remarks No abnormal motor movements noted. Thought processes fairly linear within delusional system. Labs Labs reviewed. Vitals/IOs Vital Signs Date Time Temp Pulse Resp B/P Pulse Ox O2 Delivery O2 Flow Rate FiO2 10/02/16 06:07 98.3 68 16 110/67 95 Intake and Output 10/01/16 10/01/16 10/02/16 08:00 16:00 00:00 Intake Total 960 ml 700 ml Balance 960 ml 700 ml Assessment & Plan Problem List: (1) Psychosis ICD Code: F29 (2) Depressive disorder ICD Code: F32.9 Assessment & Plan Titrate Haldol to 2 mg twice a day to target psychosis. Continue Abilify and Remeron as ordered. Continue to monitor on the inpatient unit. Continue other medications and care as ordered. Justification for Cont. Inpt. Impairment in reality construction. High risk for decompensation in a less restrictive environment. Discharge Planning [facility] psychiatric hospital referral Request HC Surrog/Guard Advoc?: Yes Problem Qualifiers (1) Psychosis: Qualified Code: F20.0 - Paranoid schizophrenia Jose Granados MD Oct 02, 2016 10:48
[2016-10-02 16:20] VITALS: BP 125/60; PULSE 68; RESP 16; TEMP 97.6; O2SAT 96
[2016-10-02] MEDS: HALOPERIDOL 2 MG TAB PO SCH (20:42)
[2016-10-02] MEDS: MIRTAZAPINE 15 MG TAB PO SCH (20:42)
[2016-10-03 04:00] VITALS: BP 120/72; PULSE 61; RESP 16; TEMP 98.2; O2SAT 96
[2016-10-03] MEDS: DOCUSATE SODIUM 50 MG/SENNA 8.6 MG TAB PO SCH ×2 (09:00→20:57)
[2016-10-03] MEDS: ARIPiprazole 10 MG TAB PO SCH (09:21)
[2016-10-03] MEDS: NIFEdipine 60 MG SUSTAINED RELEASE TAB PO SCH (09:21)
[2016-10-03] MEDS: HALOPERIDOL 2 MG TAB PO SCH ×2 (09:21→20:57)
--- NOTE | 2016-10-03 16:57 | HHI.PYPN ---
Subjective Remarks Pt seen and discussed with staff. He still is fixated on "Sigifredo" and told RN that "Sigifredo is trying to make me a faggot. But I won't let him." He is compliant with medications and denies side effects. He states to MD" if a endoscopy technican has to put me down, then that's how it will be." Objective Alert: Yes [place]: Person, Place, Date Mood: Depressed Affect: Restricted Memory Intact: Comment (no gross deficits) Hallucinations: Auditory Delusions: Yes Delusion Type: Paranoid Suicidal: Ideation (+SI) Homicidal: Ideation (denies) Insight/Judgment poor Vitals/IOs Vital Signs Date Time Temp Pulse Resp B/P Pulse Ox O2 Delivery O2 Flow Rate FiO2 10/03/16 04:00 98.2 61 16 120/72 96 Intake and Output 10/02/16 10/02/16 10/03/16 08:00 16:00 00:00 Intake Total 120 ml 240 ml 1320 ml Balance 120 ml 240 ml 1320 ml Assessment & Plan Problem List: (1) Psychosis ICD Code: F29 (2) Depressive disorder ICD Code: F32.9 Assessment & Plan Continue current tx plan. Estimated LOS: days Justification for Cont. Inpt. impairments in reality construction Request HC Surrog/Guard Advoc?: Yes Problem Qualifiers (1) Psychosis: Qualified Code: F20.0 - Paranoid schizophrenia Jess Hall MD Oct 03, 2016 16:57
[2016-10-03 18:00] VITALS: BP 152/73; PULSE 86; RESP 16; TEMP 98.8; O2SAT 96
[2016-10-03] MEDS: MIRTAZAPINE 15 MG TAB PO SCH (20:57)
[2016-10-04 05:47] VITALS: BP 149/71; PULSE 81; RESP 18; TEMP 98; O2SAT 96
[2016-10-04] MEDS: ARIPiprazole 10 MG TAB PO SCH (08:18)
[2016-10-04] MEDS: HALOPERIDOL 2 MG TAB PO SCH ×2 (08:18→20:45)
[2016-10-04] MEDS: NIFEdipine 60 MG SUSTAINED RELEASE TAB PO SCH (08:18)
[2016-10-04] MEDS: DOCUSATE SODIUM 50 MG/SENNA 8.6 MG TAB PO SCH ×2 (08:23→20:45)
[2016-10-04] MEDS: LORazepam 0.5 MG TAB PO PRN (08:23)
--- NOTE | 2016-10-04 13:54 | HHI.PYPN ---
Subjective Remarks Pt seen and discussed with staff. He is compliant with medications and tolerating without side effects. He remains anxious and paranoid.He states that "Jason" continues to control him. He denies SI/HI today Objective Alert: Yes [place]: Person, Place, Date Mood: Depressed Affect: Restricted Memory Intact: Comment (no gross deficits) Hallucinations: Auditory Delusions: Yes Delusion Type: Paranoid Suicidal: Ideation (denies) Homicidal: Ideation (denies) Insight/Judgment poor Vitals/IOs Vital Signs Date Time Temp Pulse Resp B/P Pulse Ox O2 Delivery O2 Flow Rate FiO2 10/04/16 05:47 98.0 81 18 149/71 96 Intake and Output 10/03/16 10/03/16 10/04/16 08:00 16:00 00:00 Intake Total 120 ml 960 ml 480 ml Balance 120 ml 960 ml 480 ml Assessment & Plan Problem List: (1) Psychosis ICD Code: F29 (2) Depressive disorder ICD Code: F32.9 Assessment & Plan Continue current tx plan. Estimated LOS: days Justification for Cont. Inpt. impairments in reality testing Request HC Surrog/Guard Advoc?: Yes Problem Qualifiers (1) Psychosis: Qualified Code: F20.0 - Paranoid schizophrenia Jess Hall MD Oct 04, 2016 13:54
[2016-10-04] MEDS: MIRTAZAPINE 15 MG TAB PO SCH (20:45)
[2016-10-05 06:19] VITALS: BP 127/74; PULSE 75; RESP 18; TEMP 98.2; O2SAT 99
[2016-10-05] MEDS: HALOPERIDOL 2 MG TAB PO SCH ×2 (08:20→21:09)
[2016-10-05] MEDS: ARIPiprazole 10 MG TAB PO SCH (08:20)
[2016-10-05] MEDS: DOCUSATE SODIUM 50 MG/SENNA 8.6 MG TAB PO SCH ×2 (08:20→21:09)
[2016-10-05] MEDS: NIFEdipine 60 MG SUSTAINED RELEASE TAB PO SCH (08:20)
--- NOTE | 2016-10-05 12:40 | HHI.PYPN ---
Subjective Remarks Patient seen and examined. Chart reviewed. Case discussed with nursing staff. On my examination today, patient presents as dysphoric and psychotic. Continues to believe the BW is attacking him. "He's got some kind of machine that erases your memory. He should be shot on the spot!" Later, he says that BW is "some sort of faggot looking for a male pet ambassador." He continues to ruminate on suicide by copyholder but does not describe any urge to hurt himself on the unit. Per nursing staff he has been eating. He does not describe any side effects from meds but see below. No new physical complaints. Review of Systems ROS Limitations: Psychotic, Poor Historian Except as stated in HPI: all other systems reviewed are Neg Objective Alert: Yes [place]: Person, Place, Date Mood: Depressed Affect: Restricted (dysphoric) Memory Intact: Comment (Not assessed) Hallucinations: Auditory ("popping sounds") Delusions: Yes Delusion Type: Paranoid Suicidal: Ideation (No urge to hurt self on unit) Homicidal: Ideation (As above, wants BW shot on the spot. No active HI.) Insight/Judgment Poor Remarks Prominent resting tremor but no dystonias, dyskinesias or hypomimia noted. Thought process linear within delusional system. Grooming and hygiene fair. Labs Labs reviewed. Vitals/IOs Vital Signs Date Time Temp Pulse Resp B/P Pulse Ox O2 Delivery O2 Flow Rate FiO2 10/05/16 06:19 98.2 75 18 127/74 99 Intake and Output 10/04/16 10/04/16 10/05/16 08:00 16:00 00:00 Intake Total 1440 ml 480 ml Balance 1440 ml 480 ml Assessment & Plan Problem List: (1) Psychosis ICD Code: F29 (2) Depressive disorder ICD Code: F32.9 (3) Resting tremor Assessment & Plan: Suspect EPS ICD Code: R25.9 Assessment & Plan Inadequate response to current therapy with respect to paranoia/psychosis and depression. Add Cogentin 1mg BID for suspected EPS before titrating Haldol further to target psychosis. Fall precautions. Add Lexapro 10mg daily to target dysphoria. Continue other psychotropics as ordered. Check updated set of basic labs in am. Continue to monitor on inpatient unit. Continue other medications and care as ordered. Justification for Cont. Inpt. Impairment in reality construction. Concern for impairment in safety. High risk for decompensation in a less restrictive environment. [facility] Request HC Surrog/Guard Advoc?: Yes Problem Qualifiers (1) Psychosis: Qualified Code: F20.0 - Paranoid schizophrenia Jose Granados MD Oct 05, 2016 12:40
[2016-10-05] MEDS: MIRTAZAPINE 15 MG TAB PO SCH (21:08)
[2016-10-05] MEDS: BENZTROPINE MESYLATE 1 MG TAB PO SCH (21:09)
[2016-10-06 06:43] VITALS: BP 144/88; PULSE 90; RESP 20; TEMP 98.3; O2SAT 95
[2016-10-06] MEDS: ESCITALOPRAM OXALATE 10 MG TAB PO SCH (09:36)
[2016-10-06] MEDS: NIFEdipine 60 MG SUSTAINED RELEASE TAB PO SCH (09:36)
[2016-10-06] MEDS: BENZTROPINE MESYLATE 1 MG TAB PO SCH ×2 (09:37→20:51)
[2016-10-06] MEDS: DOCUSATE SODIUM 50 MG/SENNA 8.6 MG TAB PO SCH ×2 (09:37→20:51)
[2016-10-06] MEDS: ARIPiprazole 10 MG TAB PO SCH (09:37)
[2016-10-06] MEDS: HALOPERIDOL 2 MG TAB PO SCH ×2 (09:37→20:55)
--- NOTE | 2016-10-06 10:52 | PD.TTN ---
Present for Treatment Team Treatment Team Staff: Provider (Dr. Granados), Nurse (Katie), Occupational Therapist (Izaiah) Patient Problems 1. Discharge planning 2. Medication compliance 3. Knowledge deficit 4. Lack of coping skills Progress Toward Goals Provider Input: Dr. Granados reported he will adjust patient's medications in an effort to curb aggression. Per Dr. Granados's request, counselor will contact patient's sister to discuss discharge plan. Nurse Input: Nurse reported the patient was compliant with his medications this morning. Psych Therapist Input: Counselor reported attempting to contact patient's sister yesterday and having to leave a message requesting a return call. Counselor reported witnissng the patient tell nurse Katie that the "Ophthalmic Tech discharged me last week." In an effort to better assist this patient with his mental health treatment his counselor will now be Yuniel due to patient's irrability and aggression towards this counselor. Occupational Therapist Input: Izaiah reported the patient is not attending therapeutic groups or activities. Documentation Scribe: ESTELLE Hammond Date Resolved: Oct 06, 2016 Latoya Mendoza Oct 06, 2016 10:52
--- NOTE | 2016-10-06 10:56 | PD.TTN ---
Patient Problems 1. Discharge planning 2. Medication compliance 3. Knowledge deficit 4. Lack of coping skills Progress Toward Goals Psych Therapist Input: PLEASE DISREGUARD THE PREVIOUS TREATMENT TEAM NOTE IT WAS MISTAKENLY ENTERED UNDER THE WRONG PATIENT. Latoya Mendoza [facility] Oct 06, 2016 10:55
--- NOTE | 2016-10-06 11:10 | PD.TTN ---
Present for Treatment Team Treatment Team Staff: Provider (Dr. Granaods), Nurse (Katie), Psych Therapist (ESTELLE Hammond), Occupational Therapist (Izaiah) Patient Problems 1. Discharge planning 2. Medication compliance 3. Knowledge deficit 4. Lack of coping skills Progress Toward Goals Provider Input: Dr. Granados requested an update regarding the patient's status from this counselor. Nurse Input: Nurse reported the patient remains compliant with medications and without behavioral disturbance. Psych Therapist Input: Counselor reported the patient continues to report he is experiencing auditiory hallucinations related to a man named Jason Millan who is threatening to kill the patient and his family. Patient was noted to be dressed in his own clothing and out of his room this morning. Occupational Therapist Input: Izaiah reported the patient is not participating in recreational groups or activities. Documentation Scribe: ESTELLE Hammond Date Resolved: Oct 06, 2016 Latoya Mendoza Oct 06, 2016 11:10
--- NOTE | 2016-10-06 11:27 | HHI.PYPN ---
Subjective Remarks Patient seen and examined. Chart reviewed. Case discussed in treatment team with nurse, counselor and occupational therapist. Per counselor, patient has dressed in casual attire and is out of bed and out of his room; this represents a change as the patient has usually secluded to room and remained in gown for much of the day. I find the patient casually dressed and sitting on the periphery in the day area. He remains dysphoric and ruminates about his situation as he see it: stuck on an inpatient psychiatric unit while he continues to be attacked by BW. No suicidal or homicidal ideation verbalized today. No side effects from meds, and resting tremor is significantly attenuated today. Review of Systems ROS Limitations: Psychotic, Poor Historian Except as stated in HPI: all other systems reviewed are Neg Objective Alert: Yes [place]: Person, Place, Date Mood: Depressed Affect: Restricted (remains dysphoric) Memory Intact: Comment (Not assessed) Hallucinations: Auditory (ongoing, as before) Delusions: Yes Delusion Type: Paranoid (of being attacked by BW.) Suicidal: Ideation (No SI) Homicidal: Ideation (No HI) Insight/Judgment Poor Remarks Hand tremor considerably reduced. No other motoric abnormalities noted. Thought process perseverative on delusional themes. Grooming and hygiene a little better than usual today. Labs Item Value Date Time White Blood Count 6.7 TH/MM3 10/06/16 1143 Hemoglobin 13.7 GM/DL 10/06/16 1143 Platelet Count 215 TH/MM3 10/06/16 1143 Sodium Level 140 MEQ/L 10/06/16 1143 Potassium Level 4.3 MEQ/L 10/06/16 1143 Chloride Level 105 MEQ/L 10/06/16 1143 Carbon Dioxide Level 25.4 MEQ/L 10/06/16 1143 Blood Urea Nitrogen 42 MG/DL H 10/06/16 1143 Creatinine 1.46 MG/DL H 10/06/16 1143 Aspartate Amino Transf (AST/SGOT) 22 U/L 10/06/16 1143 Alanine Aminotransferase (ALT/SGPT) 35 U/L 10/06/16 1143 Alkaline Phosphatase 120 U/L H 10/06/16 1143 Labs reviewed. I note improvement in anemia. GFR essentially unchanged. Vitals/IOs Vital Signs Date Time Temp Pulse Resp B/P Pulse Ox O2 Delivery O2 Flow Rate FiO2 7/11/17 06:43 98.3 90 20 144/88 95 Intake and Output 10/05/16 10/05/16 10/06/16 08:00 16:00 00:00 Intake Total 480 ml 2880 ml 1200 ml Balance 480 ml 2880 ml 1200 ml Assessment & Plan Problem List: (1) Psychosis ICD Code: F29 (2) Depressive disorder ICD Code: F32.9 (3) Resting tremor ICD Code: R25.9 Assessment & Plan Titrate Haldol to 3mg BID to target psychosis; this augments Abilify 30mg/day. Continue Lexapro 10mg daily and Remeron at HS for low mood. Continue to monitor on the inpatient unit. Continue other medications and care as ordered. Justification for Cont. Inpt. Medication changes in process. High risk for decompensation in a less restrictive environment. Impairment in reality construction. Discharge Planning [facility] referral. I have asked the counselor to check into patient's position on the critical access hospital wait list. Request HC Surrog/Guard Advoc?: Yes Problem Qualifiers (1) Psychosis: Qualified Code: F20.0 - Paranoid schizophrenia Jose Granados MD Oct 06, 2016 11:27
[2016-10-06 12:11] LABS: AUTOMATED NEUTROPHIL # 3.4 TH/MM3 (1.8-7.7); BASOPHIL # 0.1 TH/MM3 (0-0.2); BASOPHIL % 0.9 % (0.0-2.0); EOSINOPHIL # 0.7 TH/MM3 (0-0.4); HEMATOCRIT 42.3 % (39.0-51.0); HEMO FLAGS DIFF FINAL; LYMPH % 29.5 % (9.0-44.0); MEAN CELL VOLUME 93.1 FL (80.0-100.0); MEAN CORPUSCULAR HEMOGLOBIN 30.2 PG (27.0-34.0); MEAN CORPUSCULAR HGB CONC 32.4 % (32.0-36.0); MONO % 7.3 % (0.0-8.0); NEUT % 51.3 % (16.0-70.0); PLATELET COUNT 215 TH/MM3 (150-450); RED BLOOD COUNT 4.54 MIL/MM3 (4.50-5.90); RED CELL DISTRIBUTION WIDTH 14.3 % (11.6-17.2); WHITE BLOOD COUNT 6.7 TH/MM3 (4.0-11.0)
[2016-10-06 12:35] LABS: ANION GAP 10 MEQ/L (5-15); AST (GOT) 22 U/L (15-37); BICARBONATE 25.4 MEQ/L (21.0-32.0); BLOOD UREA NITROGEN 42 MG/DL (7-18); CHLORIDE 105 MEQ/L (98-107); GLOMERULAR FILTRATION RATE 49 ML/MIN (>89); POTASSIUM 4.3 MEQ/L (3.5-5.1); SODIUM (NA) 140 MEQ/L (136-145)
[2016-10-06 12:36] LABS: ALT (GPT) 35 U/L (12-78)
[2016-10-06 12:38] LABS: ALKALINE PHOSPHATASE 120 U/L (45-117); TOTAL BILIRUBIN ADULT 0.3 MG/DL (0.2-1.0)
[2016-10-06 16:02] VITALS: BP 125/64; PULSE 85; RESP 20; TEMP 97.8; O2SAT 98
[2016-10-06] MEDS: MIRTAZAPINE 15 MG TAB PO SCH (20:51)
[2016-10-06] MEDS: diphenhydrAMINE HCL 50 MG CAP PO PRN (20:51)
[2016-10-07] MEDS: ARIPiprazole 10 MG TAB PO SCH (08:30)
[2016-10-07] MEDS: BENZTROPINE MESYLATE 1 MG TAB PO SCH ×2 (08:31→21:00)
[2016-10-07] MEDS: HALOPERIDOL 2 MG TAB PO SCH ×2 (08:31→21:00)
[2016-10-07] MEDS: ESCITALOPRAM OXALATE 10 MG TAB PO SCH (08:31)
[2016-10-07] MEDS: DOCUSATE SODIUM 50 MG/SENNA 8.6 MG TAB PO SCH ×2 (08:32→21:00)
[2016-10-07] MEDS: NIFEdipine 60 MG SUSTAINED RELEASE TAB PO SCH (08:32)
--- NOTE | 2016-10-07 12:59 | HHI.PYPN ---
Subjective Remarks Patient seen and examined. Chart reviewed. Patient eating well per charting. Case discussed with nursing staff. On my examination today, the patient seems perhaps a little less dysphoric today. He remains quite convinced that he is being attacked by Jason Millan and says that he is "getting quite a few snaps and pops" from him. He denies active SI. Denies side effects from meds. No new physical complaints. Review of Systems ROS Limitations: Psychotic, Poor Historian Except as stated in HPI: all other systems reviewed are Neg Objective Alert: Yes [place]: Person, Place, Date Mood: Depressed (?lessening) Affect: Blunted Memory Intact: Comment (Not assessed) Hallucinations: Auditory ("snaps and pops") Delusions: Yes Delusion Type: Paranoid (ongoing, as before) Suicidal: Ideation (denies active suicidal ideation) Homicidal: Ideation (No HI) Insight/Judgment Poor Remarks Resting hand tremor remains significantly reduced. No other motoric abnormalities noted. Thought processes linear within delusional system. Grooming and hygiene fair. Labs Labs reviewed. Vitals/IOs Vital Signs Date Time Temp Pulse Resp B/P Pulse Ox O2 Delivery O2 Flow Rate FiO2 10/06/16 16:02 97.8 85 20 125/64 98 Intake and Output 10/06/16 10/06/16 10/07/16 08:00 16:00 00:00 Intake Total 720 ml 3120 ml Balance 720 ml 3120 ml Assessment & Plan Problem List: (1) Psychosis ICD Code: F29 (2) Depressive disorder ICD Code: F32.9 Assessment & Plan Continue Haldol and Lexapro as ordered. We will consider titrating both to target his psychosis and low mood, respectively. Continue other psychotropics as ordered. Continue to monitor on the inpatient unit. Continue other medications and care as ordered. Justification for Cont. Inpt. Impairment in reality construction. High risk for decompensation in a less restrictive environment. [facility]charge Planning [facility] Request HC Surrog/Guard Advoc?: Yes Problem Qualifiers (1) Psychosis: Qualified Code: F20.0 - Paranoid schizophrenia Jose Granados MD Oct 07, 2016 12:59
[2016-10-07 18:00] VITALS: BP 152/83; PULSE 102; RESP 16; TEMP 97.4; O2SAT 98
[2016-10-07] MEDS: diphenhydrAMINE HCL 50 MG CAP PO PRN (21:00)
[2016-10-07] MEDS: LORazepam 0.5 MG TAB PO PRN (21:00)
[2016-10-07] MEDS: MIRTAZAPINE 15 MG TAB PO SCH (21:00)
[2016-10-08 06:06] VITALS: BP 154/81; PULSE 95; RESP 18; TEMP 97.9; O2SAT 99
[2016-10-08] MEDS: BENZTROPINE MESYLATE 1 MG TAB PO SCH ×2 (09:10→20:36)
[2016-10-08] MEDS: DOCUSATE SODIUM 50 MG/SENNA 8.6 MG TAB PO SCH ×2 (09:11→20:36)
[2016-10-08] MEDS: HALOPERIDOL 2 MG TAB PO SCH (09:11)
[2016-10-08] MEDS: NIFEdipine 60 MG SUSTAINED RELEASE TAB PO SCH (09:11)
[2016-10-08] MEDS: ESCITALOPRAM OXALATE 10 MG TAB PO SCH (09:11)
[2016-10-08] MEDS: LORazepam 0.5 MG TAB PO PRN (09:59)
--- NOTE | 2016-10-08 11:35 | HHI.PYPN ---
Subjective Remarks Patient seen and examined. Chart reviewed. Case discussed with nursing staff who reports patient is more anxious and dysphoric than usual. Reportedly marched down the ortiz to the nurses' station, threw down his bedding, and rambled about Jason Millan. No reported med non-adherence per RN. On my examination today, patient remains more anxious and dysphoric than I have recently seen him. He continues to hear "popping" noises in his head that he attributes to BW. He rails against BW, becoming quite animated and agitated in the process. He says that BW is a "pervert" and is trying to control him with a [employer] radio, and says that he now feels that BW is coming into the hospital because he now has offices just down the street. Patient is so distraught that he has contemplated strangling himself with his roommate's sheet. Denies side effects from meds. No new physical complaints. Review of Systems ROS Limitations: Psychotic, Poor Historian Except as stated in HPI: all other systems reviewed are Neg Objective Alert: Yes [place]: Person, Place, Date Mood: Agitated, Angry, Depressed Affect: Restricted Memory Intact: Comment (not formally assessed) Hallucinations: Auditory (int stim) Delusions: Yes Delusion Type: Paranoid (more prominent today) Suicidal: Plan, Ideation (+SI) Homicidal: Ideation (No HI) Insight/Judgment Poor Remarks Mildly tremulous, but patient is quite anxious and angry. No other motor abnormalities noted. TP perseverative on delusional themes. Grooming and hygiene fair. Labs Labs reviewed. Vitals/IOs Vital Signs Date Time Temp Pulse Resp B/P Pulse Ox O2 Delivery O2 Flow Rate FiO2 10/08/16 06:06 97.9 95 18 154/81 99 Intake and Output 10/07/16 10/07/16 10/08/16 08:00 16:00 00:00 Intake Total 1920 ml 1320 ml Balance 1920 ml 1320 ml Assessment & Plan Problem List: (1) Psychosis ICD Code: F29 (2) Depressive disorder ICD Code: F32.9 Assessment & Plan Patient's psychosis is worsened today. Titrate Haldol to 5mg BID to target psychosis. Transfer to high-acuity unit, [facility] room, given suicidal ideation/ plan. I have notified propellant charge loader to make the transfer RAMESH. Low threshold for 1 :1, but in his present state this might make him even more paranoid and agitated , and he responds badly to the idea of a 1:1 when I suggest it to him. Check CMP in morning to follow up renal function and alk phos. Continue other medications and care as ordered. Justification for Cont. Inpt. Concern for impairment in safety. Impairment in reality construction. High risk for decompensation in less restrictive environment. Discharge Planning Transfer to high acuity unit. [facility] referral. Request HC Surrog/Guard Advoc?: Yes Problem Qualifiers (1) Psychosis: Qualified Code: F20.0 - Paranoid schizophrenia Jose Granados MD Oct 08, 2016 11:35
[2016-10-08] MEDS: HALOPERIDOL 5 MG TAB PO SCH (20:36)
[2016-10-08] MEDS: MIRTAZAPINE 15 MG TAB PO SCH (20:36)
[2016-10-09 06:04] VITALS: BP 133/77; PULSE 101; RESP 18; TEMP 98.2; O2SAT 96
[2016-10-09] MEDS: BENZTROPINE MESYLATE 1 MG TAB PO SCH (08:29)
[2016-10-09] MEDS: HALOPERIDOL 5 MG TAB PO SCH ×2 (08:29→21:10)
[2016-10-09] MEDS: DOCUSATE SODIUM 50 MG/SENNA 8.6 MG TAB PO SCH ×2 (08:29→21:10)
[2016-10-09] MEDS: NIFEdipine 60 MG SUSTAINED RELEASE TAB PO SCH (08:29)
[2016-10-09] MEDS: ESCITALOPRAM OXALATE 10 MG TAB PO SCH (08:29)
--- NOTE | 2016-10-09 09:03 | HHI.PYPN ---
Subjective Remarks Patient seen and examined with nurse. Chart reviewed. Case discussed with nursing staff. On my examination today, patient remains quite dysphoric. Regarding Jason Millan he says "I can't control him." He says that Mr. Millan has implanted a radio in lots of peoples heads that tells them to commit suicide. He describes a voice saying "that's the only way" apparently alluding to suicide. He does not describe any active urge to injure himself at this time on the unit but continues to ruminate about suicide by copy room technician. No side effects from medications. No physical complaints. Review of Systems ROS Limitations: Poor Historian Except as stated in HPI: all other systems reviewed are Neg Objective Alert: Yes [place]: Person, Place, Date Mood: Depressed Affect: Restricted Memory Intact: Comment (not formally assessed) Hallucinations: Auditory (as above) Delusions: Yes Delusion Type: Paranoid Suicidal: Plan (suicide by copy room technician), Ideation (Ongoing SI) Homicidal: Ideation (No HI) Insight/Judgment Poor Remarks Hand tremor noted. Cog-wheeling noted. No other motor abnormalities noted. TP linear within delusional system. Labs Labs reviewed. GFR decreasing somewhat. Vitals/IOs Vital Signs Date Time Temp Pulse Resp B/P Pulse Ox O2 Delivery O2 Flow Rate FiO2 10/09/16 06:04 98.2 101 18 133/77 96 Intake and Output 10/08/16 10/08/16 10/09/16 08:00 16:00 00:00 Intake Total 0 ml 720 ml Balance 0 ml 720 ml Assessment & Plan Problem List: (1) Psychosis ICD Code: F29 (2) Depressive disorder ICD Code: F32.9 Assessment & Plan Titrate Lexapro to target dysphoria. Titrate Cogentin to target EPS. Continue other psychotropics as ordered. Encourage fluids and trend BMP. I will ask the hospitalist to return to evaluate the decreasing GFR. Continue to monitor on the high acuity inpatient unit. Continue other medications and care as ordered. Justification for Cont. Inpt. Impairment in reality construction. Concern for impairments in safety. High risk for decompensation in a less restrictive environment. Discharge Planning [facility] referral Request HC Surrog/Guard Advoc?: Yes Problem Qualifiers (1) Psychosis: Qualified Code: F20.0 - Paranoid schizophrenia Jose Granados MD Oct 09, 2016 09:03
[2016-10-09 10:07] LABS: ANION GAP 10 MEQ/L (5-15); AST (GOT) 24 U/L (15-37); BICARBONATE 24.4 MEQ/L (21.0-32.0); BLOOD UREA NITROGEN 40 MG/DL (7-18); CHLORIDE 108 MEQ/L (98-107); GLOMERULAR FILTRATION RATE 40 ML/MIN (>89); POTASSIUM 4.3 MEQ/L (3.5-5.1); SODIUM (NA) 142 MEQ/L (136-145)
[2016-10-09 10:11] LABS: ALKALINE PHOSPHATASE 99 U/L (45-117); ALT (GPT) 32 U/L (12-78); TOTAL BILIRUBIN ADULT 0.5 MG/DL (0.2-1.0)
[2016-10-09] MEDS ORDERED: POLYETHYLENE GLYCOL 17 GM PKG PO PRN (16:30)
[2016-10-09] MEDS ORDERED: LACTULOSE SYRUP 20 GM/30 ML CUP PO PRN (16:30)
--- NOTE | 2016-10-09 17:01 | HHI.PR ---
Subjective Remarks Reconsult: Increasing creatinine, decreasing GFR Patient seen and examined today with RN. As per RN, patient has been eating and drinking well. He had double portions of meals this lunch. He also finished all his fluids. Patient reports he is doing well. States he is not hearing voices or seeing things right now. But he occasionally does when "the vikas in [place] sends radiofrequency wave to him." Patient states the vikas continues to have control on him and would give him occasional headaches if he doesn't follow his instructions, but his headaches are now "not that much." States his voiding well, also having bowel movements without difficulty. Denies pain and discomfort. Denies SOB/ dyspnea. Denies chest pain, palpitations, headaches, dizziness. Denies fevers, chills, n/v/d. Denies hematuria, dysuria. Objective Vitals Vital Signs Date Time Temp Pulse Resp B/P Pulse Ox O2 Delivery O2 Flow Rate FiO2 10/09/16 06:04 98.2 101 18 133/77 96 I/O 10/08/16 10/08/16 10/08/16 10/09/16 10/09/16 10/09/16 06:59 14:59 22:59 06:59 14:59 22:59 Intake Total 660 ml 720 ml Balance 660 ml 720 ml Intake Oral 660 ml 720 ml # Voids 4 2 Result Diagram: 10/06/16 1143 10/09/16 0903 Objective Remarks GENERAL: This is a well-nourished, well-developed patient, in no apparent distress. SKIN: Warm and dry. HEENT: Normocephalic. Pupils equal round and reactive. Nose without bleeding. Airway patent. NECK: Trachea midline. No JVD. Supple. CARDIOVASCULAR: Regular rate and rhythm without murmurs, gallops, or rubs. RESPIRATORY: Clear to auscultation. No wheezes, rales, or rhonchi. GASTROINTESTINAL: Abdomen soft, non-tender, nondistended. Bowel Sounds normoactive x4. MUSCULOSKELETAL: Extremities without clubbing, cyanosis, trace bilateral lower extremity edema. NEUROLOGICAL: Awake and alert. Oriented to person, place. Noted continued delusions. Moves all extremities. Normal speech. A/P Problem List: (1) Dehydration ICD Code: E86.0 Status: Acute (2) Psychosis ICD Code: F29 Status: Acute (3) Depressive disorder ICD Code: F32.9 Status: Acute (4) Acute on chronic renal failure ICD Code: N17.9 Status: Acute (5) Delusional disorder ICD Code: F22 Status: Acute Assessment and Plan Patient is a 61-year-old male with paranoid schizophrenia admitted to psychiatric service as a transfer from the medical unit following an episode of SARAH. Hospitalist services have been consulted for medical management. Psychosis/ Depression - Continues to have hallucinations, believes that a BANQUET HOUSEPERSON in [place] is controlling him by sending him radiofrequency waves - Managed by psychiatry team Acute kidney injury on chronic renal failure stage III Increasing creatinine, decreasing GFR - Previously given IV fluids and acute setting - Baseline creatinine 1.2-1.4 - avoid nephrotoxic agents. DC maalox, mag ox - encourage fluid intake - GIFT WRAPPER 1.46 --> 1.74 - Will trend BMP Hypertension BP stable. - Continue nifedipine, clonidine as needed - Monitor BP trend History diabetes mellitus Recent hemoglobin A1c 5.9%. - no indication to begin treatment at this time. - Continue as outpatient DVT prophylaxis: Ambulation Discuss with patient, nursing, Dr. Davis Problem Qualifiers (1) Psychosis: Qualified Code: F20.0 - Paranoid schizophrenia Agus Chapa Oct 09, 2016 5:01 pm
[2016-10-09 17:26] VITALS: BP 129/65; PULSE 88; RESP 18; TEMP 98; O2SAT 95
[2016-10-09] MEDS: MIRTAZAPINE 15 MG TAB PO SCH (21:10)
[2016-10-09] MEDS: BENZTROPINE MESYLATE 2 MG TAB PO SCH (21:11)
[2016-10-10 05:49] VITALS: BP 137/79; PULSE 80; RESP 18; TEMP 97.9; O2SAT 98
[2016-10-10] MEDS: NIFEdipine 60 MG SUSTAINED RELEASE TAB PO SCH (08:46)
[2016-10-10] MEDS: BENZTROPINE MESYLATE 2 MG TAB PO SCH ×2 (08:47→21:09)
[2016-10-10] MEDS: ESCITALOPRAM OXALATE 10 MG TAB PO SCH (08:47)
[2016-10-10] MEDS: DOCUSATE SODIUM 50 MG/SENNA 8.6 MG TAB PO SCH ×2 (08:47→21:08)
[2016-10-10] MEDS: HALOPERIDOL 5 MG TAB PO SCH ×2 (08:47→21:09)
[2016-10-10 10:30] LABS: POTASSIUM 4.1 MEQ/L (3.5-5.1)
--- NOTE | 2016-10-10 12:32 | HHI.PYPN ---
Subjective Remarks Patient was seen and case discussed with nursing. Patient remains grossly psychotic with a fixed delusion that he has a chip in his head and that is being controlled by Jason Millan. He does say "there is less noises in my head today." Behaving well on the unit and compliant with medications. Not alluding to suicide today. Fleeting suicidal thoughts with no intent or plan Objective Alert: Yes [place]: Person, Place, Date Mood: Depressed Affect: Blunted Memory Intact: Comment (not formally assessed) Hallucinations: Auditory (as above) Delusions: Yes Delusion Type: Paranoid (bizarre delusions) Suicidal: Plan (denies), Ideation (fleeting) Homicidal: Ideation (No HI) Insight/Judgment Poor Labs Test 10/10/16 09:39 Sodium Level 140 MEQ/L Potassium Level 4.1 MEQ/L Chloride Level 107 MEQ/L Carbon Dioxide Level 27.0 MEQ/L Anion Gap 6 MEQ/L Blood Urea Nitrogen 41 MG/DL Creatinine 1.58 MG/DL Estimat Glomerular Filtration 45 ML/MIN Rate Random Glucose 88 MG/DL Calcium Level 9.0 MG/DL Vitals/IOs Vital Signs Date Time Temp Pulse Resp B/P Pulse Ox O2 Delivery O2 Flow Rate FiO2 10/10/16 05:49 97.9 80 18 137/79 98 Assessment & Plan Problem List: (1) Psychosis ICD Code: F29 (2) Depressive disorder ICD Code: F32.9 Assessment & Plan Continue current treatment plan Justification for Cont. Inpt. Patient will decompensate in a less restrictive setting Request HC Surrog/Guard Advoc?: Yes Problem Qualifiers (1) Psychosis: Qualified Code: F20.0 - Paranoid schizophrenia Dinesh Pinto DO Oct 10, 2016 12:32
--- NOTE | 2016-10-10 14:37 | HHI.PR ---
Subjective Remarks Follow-up acute kidney injury. Patient denies voiding difficulty. Discussed with RN Objective Vitals Vital Signs Date Time Temp Pulse Resp B/P Pulse Ox O2 Delivery O2 Flow Rate FiO2 10/10/16 05:49 97.9 80 18 137/79 98 10/09/16 17:26 98.0 88 18 129/65 95 Result Diagram: 10/06/16 1143 10/10/16 0939 Objective Remarks GENERAL: This is a well-nourished, well-developed patient, in no apparent distress. SKIN: Warm and dry. HEENT: Normocephalic. Pupils equal round and reactive. Nose without bleeding. Airway patent. NECK: Trachea midline. No JVD. Supple. CARDIOVASCULAR: Regular rate and rhythm without murmurs, gallops, or rubs. RESPIRATORY: Clear to auscultation. No wheezes, rales, or rhonchi. GASTROINTESTINAL: Abdomen soft, non-tender, nondistended. Bowel Sounds normoactive x4. MUSCULOSKELETAL: Extremities without clubbing, cyanosis, trace bilateral lower extremity edema. NEUROLOGICAL: Awake and alert. Oriented to person, place. Noted continued delusions. Moves all extremities. Normal speech. A/P Problem List: (1) Dehydration ICD Code: E86.0 Status: Acute (2) Psychosis ICD Code: F29 Status: Acute (3) Depressive disorder ICD Code: F32.9 Status: Acute (4) Acute on chronic renal failure ICD Code: N17.9 Status: Acute (5) Delusional disorder ICD Code: F22 Status: Acute Assessment and Plan Patient is a 61-year-old male with paranoid schizophrenia admitted to psychiatric service as a transfer from the medical unit following an episode of SARAH. Hospitalist services have been consulted for medical management. Psychosis/ Depression - Continues to have hallucinations, believes that a BROOM BUNDLER in [place] is controlling him by sending him radiofrequency waves - Managed by psychiatry team Acute kidney injury on chronic renal failure stage III Increasing creatinine, decreasing GFR - Previously given IV fluids and acute setting - Baseline creatinine 1.2-1.4 - avoid nephrotoxic agents. DC maalox, mag ox - encourage fluid intake - PHOTO OPTICS TECHNICIAN 1.46 --> 1.74 - Will trend BMP . Improving creatinine continue hydration and monitoring Hypertension BP stable. - Continue nifedipine, clonidine as needed - Monitor BP trend History diabetes mellitus Recent hemoglobin A1c 5.9%. - no indication to begin treatment at this time. - Continue as outpatient DVT prophylaxis: Ambulation Problem Qualifiers (1) Psychosis: Qualified Code: F20.0 - Paranoid schizophrenia Omar Davis MD Oct 10, 2016 14:37
[2016-10-10 17:48] VITALS: BP 141/80; PULSE 94; RESP 18; TEMP 98.4; O2SAT 97
[2016-10-10] MEDS: MIRTAZAPINE 15 MG TAB PO SCH (21:08)
[2016-10-11 05:31] VITALS: BP 141/79; PULSE 88; RESP 18; TEMP 98; O2SAT 97
[2016-10-11] MEDS: BENZTROPINE MESYLATE 2 MG TAB PO SCH ×2 (08:28→20:36)
[2016-10-11] MEDS: HALOPERIDOL 5 MG TAB PO SCH ×2 (08:28→20:36)
[2016-10-11] MEDS: ESCITALOPRAM OXALATE 10 MG TAB PO SCH (08:29)
[2016-10-11] MEDS: DOCUSATE SODIUM 50 MG/SENNA 8.6 MG TAB PO SCH ×2 (08:30→20:36)
[2016-10-11] MEDS: NIFEdipine 60 MG SUSTAINED RELEASE TAB PO SCH (08:30)
--- NOTE | 2016-10-11 16:59 | HHI.PYPN ---
Subjective Remarks Patient was seen and case discussed with nursing. Patient remains grossly psychotic and perseverative on his fixed delusion. Behaving well on the unit. Tolerating his medications well. Denies suicidal ideation intent or plan Objective Alert: Yes [place]: Person, Place, Date Mood: Depressed Affect: Blunted Memory Intact: Comment (not formally assessed) Hallucinations: Auditory (as above) Delusions: Yes Delusion Type: Paranoid (bizarre delusions) Suicidal: Plan (denies), Ideation (fleeting) Homicidal: Ideation (No HI) Insight/Judgment Poor Vitals/IOs Vital Signs Date Time Temp Pulse Resp B/P Pulse Ox O2 Delivery O2 Flow Rate FiO2 10/11/16 05:31 98.0 88 18 141/79 97 Assessment & Plan Problem List: (1) Psychosis ICD Code: F29 (2) Depressive disorder ICD Code: F32.9 Assessment & Plan Continue current treatment plan Justification for Cont. Inpt. Patient will decompensate in a less restrictive setting Request HC Surrog/Guard Advoc?: Yes Problem Qualifiers (1) Psychosis: Qualified Code: F20.0 - Paranoid schizophrenia Dinesh Pinto DO Oct 11, 2016 16:59
[2016-10-11 17:07] VITALS: BP 145/79; PULSE 84; RESP 18; TEMP 98.5; O2SAT 99
[2016-10-11] MEDS: MIRTAZAPINE 15 MG TAB PO SCH (20:36)
[2016-10-12 04:32] VITALS: BP 155/80; PULSE 102; RESP 20; TEMP 97.9; O2SAT 98
[2016-10-12] MEDS: NIFEdipine 60 MG SUSTAINED RELEASE TAB PO SCH (09:01)
[2016-10-12] MEDS: ESCITALOPRAM OXALATE 10 MG TAB PO SCH (09:02)
[2016-10-12] MEDS: HALOPERIDOL 5 MG TAB PO SCH ×2 (09:02→21:28)
[2016-10-12] MEDS: DOCUSATE SODIUM 50 MG/SENNA 8.6 MG TAB PO SCH ×2 (09:02→21:28)
[2016-10-12] MEDS: BENZTROPINE MESYLATE 2 MG TAB PO SCH ×2 (09:02→21:28)
--- NOTE | 2016-10-12 10:29 | HHI.PYPN ---
Subjective Remarks Patient seen and examined with counselor nurse. Chart reviewed. Case discussed with nursing staff. On my examination today, patient seems less unfailingly dysphoric. He even cracks a smile at times. He continues to believe that Jason Millan is attacking him via radio waves and is causing a popping sensation in his head. Although his affect is improved, he describes his mood as "about the same." He does say "I'm not going to commit suicide in here." Denies side effects from medications. No physical complaints. We discussed patient's realistic options with regard to discharge, and he would prefer [facility] to [facility] if possible. Review of Systems ROS Limitations: Psychotic, Poor Historian Except as stated in HPI: all other systems reviewed are Neg Objective Alert: Yes [place]: Person, Place, Date Mood: Depressed Affect: Other (More appropriate and reactive) Memory Intact: Comment (not formally assessed) Hallucinations: Auditory (popping) Delusions: Yes Delusion Type: Paranoid (bizarre delusions) Suicidal: Ideation (Denies SI) Homicidal: Ideation (no HI) Insight/Judgment Poor Remarks No motor abnormalities noted. Labs Labs reviewed Vitals/IOs Vital Signs Date Time Temp Pulse Resp B/P Pulse Ox O2 Delivery O2 Flow Rate FiO2 10/12/16 04:32 97.9 102 20 155/80 98 Intake and Output 10/11/16 10/11/16 10/12/16 08:00 16:00 00:00 Intake Total 600 ml Balance 600 ml Assessment & Plan Problem List: (1) Psychosis ICD Code: F29 (2) Depressive disorder ICD Code: F32.9 Assessment & Plan Titrate Lexapro to 20 mg daily to target dysphoria. To consider further titration of patient's Haldol for psychosis. Continue to monitor on the inpatient unit. Continue other medications and care as ordered. Justification for Cont. Inpt. Impairment in reality construction. Medication changes. Risk for decompensation in less restrictive environment. Discharge Planning Pending psychiatric stabilization. Request HC Surrog/Guard Advoc?: Yes Problem Qualifiers (1) Psychosis: Qualified Code: F20.0 - Paranoid schizophrenia Jose Granados MD Oct 12, 2016 10:29
[2016-10-12 11:52] VITALS: BP 183/88; PULSE 108
[2016-10-12 14:29] VITALS: BP 145/72; PULSE 83
--- NOTE | 2016-10-12 16:21 | HHI.PR ---
Subjective Remarks Follow-up acute kidney injury. Patient seen and examined today. Reports he is doing well. States he continues to hear "crackling sounds and popping sounds" that is being sent to him via radiofrequency waves. He identifies the man who controls him as "Jason Millan, from [facility]." Patient states "he is the one whose making all decisions for me." Patient is agreeable to drink water and juice. As per nurse, patient is hydrating and eating well as long as he gets prompted and provided with food and drinks. Denies headaches , chest pains, dizziness. Patient denies dysuria, voiding difficulty. Denies abdominal cramping, nausea, vomiting, diarrhea. Objective Vitals Vital Signs Date Time Temp Pulse Resp B/P Pulse Ox O2 Delivery O2 Flow Rate FiO2 10/12/16 14:29 83 145/72 10/12/16 11:52 108 183/88 10/12/16 04:32 97.9 102 20 155/80 98 10/11/16 17:07 98.5 84 18 145/79 99 I/O 10/11/16 10/11/16 10/11/16 10/12/16 10/12/16 10/12/16 06:59 14:59 22:59 06:59 14:59 22:59 Intake Total 600 ml Balance 600 ml Intake Oral 600 ml Result Diagram: 10/10/16 0939 Objective Remarks GENERAL: This is a well-nourished, well-developed patient, in no apparent distress. SKIN: Warm and dry. HEENT: Normocephalic. Pupils equal round and reactive. Nose without bleeding. Airway patent. NECK: Trachea midline. No JVD. Supple. CARDIOVASCULAR: Regular rate and rhythm without murmurs, gallops, or rubs. RESPIRATORY: Clear to auscultation. No wheezes, rales, or rhonchi. GASTROINTESTINAL: Abdomen soft, non-tender, nondistended. Bowel Sounds normoactive x4. MUSCULOSKELETAL: Extremities without clubbing, cyanosis, trace bilateral lower extremity edema. NEUROLOGICAL: Awake and alert. Oriented to person, place. Noted continued delusions. Moves all extremities. Normal speech. A/P Problem List: (1) Dehydration ICD Code: E86.0 Status: Acute (2) Psychosis ICD Code: F29 Status: Acute (3) Depressive disorder ICD Code: F32.9 Status: Acute (4) Acute on chronic renal failure ICD Code: N17.9 Status: Acute (5) Delusional disorder ICD Code: F22 Status: Acute Assessment and Plan Patient is a 61-year-old male with paranoid schizophrenia admitted to psychiatric service as a transfer from the medical unit following an episode of SARAH. Hospitalist services have been consulted for medical management. Psychosis/ Depression - Continues to have hallucinations, believes that a MACHINE ZIPPER TRIMMER in [place] is controlling him by sending him radiofrequency waves - Managed by psychiatry team Acute kidney injury on chronic renal failure stage III Increasing creatinine, decreasing GFR - Previously given IV fluids and acute setting - Baseline creatinine 1.2-1.5 - avoid nephrotoxic agents. DC maalox, mag ox - encourage fluid intake - DETENTION WORKER 1.46 --> 1.74 --> 1.58 - Repeat BMP tomorrow - We will sign off if DETENTION WORKER is within baseline Hypertension - BP trend greater than 140s, may be related to agitation - Continue nifedipine 60 mg daily, may increase to 90 mg daily if continues to be elevated, clonidine as needed - Monitor BP trend History diabetes mellitus Recent hemoglobin A1c 5.9%. - no indication to begin treatment at this time. - Continue as outpatient DVT prophylaxis: Ambulation Discuss with patient, nursing, Dr. Davis Problem Qualifiers (1) Psychosis: Qualified Code: F20.0 - Paranoid schizophrenia Agus Chapa Oct 12, 2016 16:21
[2016-10-12 18:08] VITALS: BP 136/71; PULSE 83; RESP 18; TEMP 98.2; O2SAT 97
[2016-10-12] MEDS: MIRTAZAPINE 15 MG TAB PO SCH (21:29)
[2016-10-12] MEDS: LORazepam 0.5 MG TAB PO PRN (21:30)
[2016-10-13 06:06] VITALS: BP 111/71; PULSE 69; RESP 16; TEMP 98.3; O2SAT 99
[2016-10-13] MEDS: BENZTROPINE MESYLATE 2 MG TAB PO SCH ×2 (08:20→21:09)
[2016-10-13] MEDS: HALOPERIDOL 5 MG TAB PO SCH ×2 (08:20→21:09)
[2016-10-13] MEDS: DOCUSATE SODIUM 50 MG/SENNA 8.6 MG TAB PO SCH ×2 (08:21→21:09)
[2016-10-13] MEDS: ESCITALOPRAM OXALATE 20 MG TAB PO SCH (08:21)
[2016-10-13] MEDS: NIFEdipine 60 MG SUSTAINED RELEASE TAB PO SCH (08:21)
[2016-10-13 08:54] LABS: BICARBONATE 26.2 MEQ/L (21.0-32.0); POTASSIUM 4.1 MEQ/L (3.5-5.1)
[2016-10-13 10:07] VITALS: BP 122/65; PULSE 110
--- NOTE | 2016-10-13 13:04 | HHI.PYPN ---
Subjective Remarks Patient seen and examined with counselor and occupational therapist. Chart reviewed. Case discussed in treatment team. On my examination today, the patient continues to say that he hears "snaps and pops." Mood is reportedly "kind of low" although affect once again seems less intensely dysphoric. He denies suicidal ideation today. Denies side effects from medications. No physical complaints. Review of Systems ROS Limitations: Psychotic, Poor Historian Except as stated in HPI: all other systems reviewed are Neg Objective Alert: Yes [place]: Person, Place, Date Mood: Depressed (perhaps a little less so) Affect: Other (perhaps a little more reactive) Memory Intact: Comment (not formally assessed) Hallucinations: Auditory (ongoing) Delusions: Yes Delusion Type: Paranoid (as before) Suicidal: Ideation (again denies SI) Homicidal: Ideation (no HI) Insight/Judgment Poor Remarks No motor abnormalities noted Labs Test 10/13/16 08:05 Sodium Level 140 MEQ/L Potassium Level 4.1 MEQ/L Chloride Level 107 MEQ/L Carbon Dioxide Level 26.2 MEQ/L Anion Gap 7 MEQ/L Blood Urea Nitrogen 34 MG/DL Creatinine 1.73 MG/DL Estimat Glomerular Filtration 40 ML/MIN Rate Random Glucose 86 MG/DL Calcium Level 9.0 MG/DL Labs reviewed. GFR remains on the lower side. Vitals/IOs Vital Signs Date Time Temp Pulse Resp B/P Pulse Ox O2 Delivery O2 Flow Rate FiO2 10/13/16 10:07 110 122/65 10/13/16 06:06 98.3 16 99 Assessment & Plan Problem List: (1) Psychosis ICD Code: F29 (2) Depressive disorder ICD Code: F32.9 Assessment & Plan Continue Lexapro as ordered. Continue other psychotropics as ordered. Appreciate hospitalist input. Continue other medications and care as ordered. Justification for Cont. Inpt. Risk for decompensation. Impairment in reality construction. [facility] If the patient's depressive illness can be improved we might consider [facility] placement as his delusions are chronic and most likely fixed. Request HC Surrog/Guard Advoc?: Yes Problem Qualifiers (1) Psychosis: Qualified Code: F20.0 - Paranoid schizophrenia Jose Granados MD Oct 13, 2016 13:04
[2016-10-13 18:45] VITALS: BP 140/74; PULSE 90; RESP 17; TEMP 98.8; O2SAT 98
[2016-10-13] MEDS: MIRTAZAPINE 15 MG TAB PO SCH (21:09)
[2016-10-14 05:53] VITALS: BP 159/91; PULSE 96; RESP 16; TEMP 98.1; O2SAT 97
[2016-10-14 07:00] LABS: BICARBONATE 24.9 MEQ/L (21.0-32.0); POTASSIUM 4.1 MEQ/L (3.5-5.1)
[2016-10-14] MEDS: NIFEdipine 60 MG SUSTAINED RELEASE TAB PO SCH (08:54)
[2016-10-14] MEDS: ESCITALOPRAM OXALATE 20 MG TAB PO SCH (08:55)
[2016-10-14] MEDS: DOCUSATE SODIUM 50 MG/SENNA 8.6 MG TAB PO SCH ×2 (08:55→20:43)
[2016-10-14] MEDS: HALOPERIDOL 5 MG TAB PO SCH ×2 (08:55→20:41)
[2016-10-14] MEDS: BENZTROPINE MESYLATE 2 MG TAB PO SCH ×2 (08:55→20:40)
--- NOTE | 2016-10-14 12:11 | HHI.PYPN ---
Subjective Remarks Patient seen and examined with counselor. Chart reviewed. Case discussed with nursing staff. On my exam, the patient says that he continues to experience "snaps and pops" from [facility]. He says "I had a strong 1 this morning." He remains a little bit dysphoric but his affect is in general more reactive. He denies active suicidal ideation. He even uses a little bit of very dry humor as a coping mechanism. No side effects from medications besides some dry mouth. No physical complaints. Review of Systems ROS Limitations: Psychotic, Poor Historian Except as stated in HPI: all other systems reviewed are Neg Objective Alert: Yes [place]: Person, Place, Date Mood: Depressed (improving) Affect: Other (again more reactive) Memory Intact: Comment (not formally assessed) Hallucinations: Auditory (as before) Delusions: Yes Delusion Type: Paranoid (re: BW attacking him) Suicidal: Ideation (Denies SI) Homicidal: Ideation (No HI) Insight/Judgment Poor Remarks No motor abnormalities noted. Labs Test 10/14/16 05:57 Sodium Level 141 MEQ/L Potassium Level 4.1 MEQ/L Chloride Level 108 MEQ/L Carbon Dioxide Level 24.9 MEQ/L Anion Gap 8 MEQ/L Blood Urea Nitrogen 34 MG/DL Creatinine 1.61 MG/DL Estimat Glomerular Filtration 44 ML/MIN Rate Random Glucose 85 MG/DL Calcium Level 8.8 MG/DL Labs reviewed. GFR stable. Vitals/IOs Vital Signs Date Time Temp Pulse Resp B/P Pulse Ox O2 Delivery O2 Flow Rate FiO2 10/14/16 05:53 98.1 96 16 159/91 97 Intake and Output 10/13/16 10/13/16 10/13/16 07:59 15:59 23:59 Intake Total 360 ml Balance 360 ml Assessment & Plan Problem List: (1) Psychosis ICD Code: F29 (2) Depressive disorder ICD Code: F32.9 Assessment & Plan Titrate Haldol to target psychosis. Continue Lexapro and Remeron for mood. I will add Biotene for dry mouth. Continue to monitor on the unit. Continue other medications and care as ordered. Justification for Cont. Inpt. Impairment in reality construction. Med changes. Risk for decompensation. Discharge Planning Counselor initiating [facility] referrals. Request HC Surrog/Guard Advoc?: Yes Problem Qualifiers (1) Psychosis: Qualified Code: F20.0 - Paranoid schizophrenia Jose Granados MD Oct 14, 2016 12:11
[2016-10-14 18:18] VITALS: BP 117/63; PULSE 94; RESP 16; TEMP 98.4; O2SAT 98
[2016-10-14] MEDS: MIRTAZAPINE 15 MG TAB PO SCH (20:42)
[2016-10-15 06:27] VITALS: BP 158/88; PULSE 92; RESP 16; TEMP 98; O2SAT 96
[2016-10-15] MEDS: NIFEdipine 60 MG SUSTAINED RELEASE TAB PO SCH (09:13)
[2016-10-15] MEDS: LORazepam 0.5 MG TAB PO PRN (09:13)
[2016-10-15] MEDS: DOCUSATE SODIUM 50 MG/SENNA 8.6 MG TAB PO SCH ×2 (09:14→20:31)
[2016-10-15] MEDS: HALOPERIDOL 5 MG TAB PO SCH ×2 (09:14→20:32)
[2016-10-15] MEDS: ESCITALOPRAM OXALATE 20 MG TAB PO SCH (09:14)
[2016-10-15] MEDS: BENZTROPINE MESYLATE 2 MG TAB PO SCH ×2 (09:14→20:32)
--- NOTE | 2016-10-15 13:19 | HHI.PYPN ---
Subjective Remarks Patient seen and examined with nurse. Chart reviewed. Case discussed with nursing staff. On my examination today, patient's affect again appears more reactive. He smiles at intervals, and when I pointed this out to him he says that this is just "Jason Millan pushing the smile buttons." Denies any suicidal ideation. Delusions remain as before. No side effects from medications. No physical complaints. Review of Systems ROS Limitations: Psychotic, Poor Historian Except as stated in HPI: all other systems reviewed are Neg Objective Alert: Yes [place]: Person, Place, Date Mood: Depressed (Continues to improve) Affect: Other (More full and reactive.) Memory Intact: Comment (Not assessed) Hallucinations: Other (No AVH reported today) Delusions: Yes Delusion Type: Paranoid (ongoing) Suicidal: Ideation (Denies SI) Homicidal: Ideation (no HI) Insight/Judgment Poor Remarks No motoric abnormalities noted. Labs Labs reviewed. Vitals/IOs Vital Signs Date Time Temp Pulse Resp B/P Pulse Ox O2 Delivery O2 Flow Rate FiO2 10/15/16 06:27 98.0 92 16 158/88 96 Assessment & Plan Problem List: (1) Psychosis ICD Code: F29 (2) Depressive disorder ICD Code: F32.9 Assessment & Plan Continue Haldol with plans for further titration to target psychosis. Continue Lexapro/Remeron combination for low mood which does seem to be helping. Appreciate hospitalist input. Continue to monitor on the inpatient unit. Continue other medications and care as ordered. Justification for Cont. Inpt. Impairment in reality construction. Anticipated medication adjustments. High risk for decompensation and less restrictive environment. Discharge Planning Pending psychiatric stabilization. [facility] referral versus [facility] placement. Request HC Surrog/Guard Advoc?: Yes Problem Qualifiers (1) Psychosis: Qualified Code: F20.0 - Paranoid schizophrenia Jose Granados MD Oct 15, 2016 13:19
--- NOTE | 2016-10-15 15:48 | HHI.PR ---
Subjective Remarks Written by Desiree Martino, acting as scribe for Dr. Anthony on 10/15/16 at 15:20. Follow-up acute kidney injury. Patient seen and examined today, resting in his room. Reports he is doing well. States he continues to hear instruction from, "the man in [place]," which is telling him to, "commit suicide." Patient is agreeable to drink water and juice. Denies headaches, chest pains, dizziness. Patient denies dysuria, voiding difficulty. Denies abdominal cramping, nausea, vomiting, diarrhea. Objective Vitals Vital Signs Date Time Temp Pulse Resp B/P Pulse Ox O2 Delivery O2 Flow Rate FiO2 10/15/16 06:27 98.0 92 16 158/88 96 10/14/16 18:18 98.4 94 16 117/63 98 Result Diagram: 10/14/16 0557 Objective Remarks GENERAL: This is a well-nourished, well-developed patient, in no apparent distress. SKIN: Warm and dry. HEENT: Normocephalic. EOMI. Nose without bleeding. Airway patent. NECK: Trachea midline. No JVD. Supple. CARDIOVASCULAR: Regular rate and rhythm without murmurs, gallops, or rubs. RESPIRATORY: Clear to auscultation. No wheezes, rales, or rhonchi. GASTROINTESTINAL: Abdomen soft, non-tender, nondistended. Bowel Sounds normoactive x4. MUSCULOSKELETAL: Extremities without clubbing, cyanosis, trace bilateral lower extremity edema. NEUROLOGICAL: Awake and alert. Oriented to person, place. Noted continued delusions. Moves all extremities. Normal speech. A/P Problem List: (1) Dehydration ICD Code: E86.0 Status: Acute (2) Psychosis ICD Code: F29 Status: Acute (3) Depressive disorder ICD Code: F32.9 Status: Acute (4) Acute on chronic renal failure ICD Code: N17.9 Status: Acute (5) Delusional disorder ICD Code: F22 Status: Acute Assessment and Plan Patient is a 61-year-old male with paranoid schizophrenia admitted to psychiatric service as a transfer from the medical unit following an episode of SARAH. Hospitalist services have been consulted for medical management. Psychosis/ Depression - Continues to have hallucinations, believes that a ENTERPRISE MANAGER in [place] is controlling him by sending him radiofrequency waves - Managed by psychiatry team Acute kidney injury on chronic renal failure stage III- appears to be related to be related to hydration status Increasing creatinine, decreasing GFR - Previously given IV fluids and acute setting - Baseline creatinine 1.2-1.5 - avoid nephrotoxic agents. DC maalox, mag ox - encourage fluid intake- patient agrees to increase oral hydration - HYDRAULIC PLUMBER 1.46 --> 1.74 --> 1.58 --> 1.71 -->1.61 - Repeat BMP 10/17/16 Hypertension - Continue nifedipine 60 mg daily, may increase to 90 mg daily if continues to be elevated, clonidine as needed - Monitor BP trend History diabetes mellitus Recent hemoglobin A1c 5.9%. - no indication to begin treatment at this time. - Continue as outpatient DVT prophylaxis: Ambulation Discuss with patient, nursing This note was transcribed by scribe [Desiree Martino]. I, Dr. Murali Anthony personally performed the history, physical exam, and medical decision making; and confirmed the accuracy of the information in the transcribed note. Authenticated by Dr. Murali Anthony on 10/15/16 at 1525. Problem Qualifiers (1) Psychosis: Qualified Code: F20.0 - Paranoid schizophrenia Desiree Martino Oct 15, 2016 15:48 Murali Anthony MD Oct 15, 2016 16:47
[2016-10-15 18:40] VITALS: BP 153/78; PULSE 91; RESP 18; TEMP 98.1; O2SAT 97
[2016-10-15] MEDS: MIRTAZAPINE 15 MG TAB PO SCH (20:31)
[2016-10-16 05:52] VITALS: BP 140/90; PULSE 97; RESP 16; TEMP 97.9; O2SAT 96
[2016-10-16] MEDS: BENZTROPINE MESYLATE 2 MG TAB PO SCH ×2 (09:06→20:34)
[2016-10-16] MEDS: ESCITALOPRAM OXALATE 20 MG TAB PO SCH (09:07)
[2016-10-16] MEDS: NIFEdipine 60 MG SUSTAINED RELEASE TAB PO SCH (09:07)
[2016-10-16] MEDS: DOCUSATE SODIUM 50 MG/SENNA 8.6 MG TAB PO SCH ×2 (09:07→20:34)
[2016-10-16] MEDS: HALOPERIDOL 5 MG TAB PO SCH ×2 (09:07→20:34)
--- NOTE | 2016-10-16 11:51 | HHI.PYPN ---
Subjective Remarks Patient seen and examined with counselor and nurse. Chart reviewed. Case discussed with nursing staff reports that the patient remained seclusive to room although he is noted to be somewhat brighter in terms of his affect. On my examination today, the patient seems to be in better spirits, almost in spite of himself. When I ask him about his mood however he insists that it remains "about the same." No active suicidal ideation. Delusions regarding Jason Millan continue unchanged. No side effects from medications. Complains of a little bit of constipation but otherwise no physical complaints. Review of Systems ROS Limitations: Psychotic, Poor Historian Except as stated in HPI: all other systems reviewed are Neg Objective Alert: Yes [place]: Person, Place, Date Mood: Depressed (lessening) Affect: Other (fairly full and reactive) Memory Intact: Comment (Not assessed) Hallucinations: Auditory ("pops in my head") Delusions: Yes Delusion Type: Paranoid Suicidal: Ideation (No SI) Homicidal: Ideation (No HI) Insight/Judgment Poor Remarks No motor abnormalities noted. Labs Labs reviewed. Vitals/IOs Vital Signs Date Time Temp Pulse Resp B/P Pulse Ox O2 Delivery O2 Flow Rate FiO2 10/16/16 05:52 97.9 97 16 140/90 96 Assessment & Plan Problem List: (1) Psychosis ICD Code: F29 (2) Depressive disorder ICD Code: F32.9 Assessment & Plan Titrate Haldol to 10mg BID to target psychosis. Continue antidepressants as ordered; mood seems to be improving. Increase to 2 tabs Vanessa-Colace BID. Continue to monitor on high acuity unit. Continue other medications and care as ordered. Justification for Cont. Inpt. Impairment in reality construction. High risk for decompensation and less restrictive environment. [facility]charge Planning [facility]. Request HC Surrog/Guard Advoc?: Yes Problem Qualifiers (1) Psychosis: Qualified Code: F20.0 - Paranoid schizophrenia Jose Granados MD Oct 16, 2016 11:51
[2016-10-16 18:17] VITALS: BP 138/69; PULSE 95; RESP 17; TEMP 98.8; O2SAT 95
[2016-10-16] MEDS: MIRTAZAPINE 15 MG TAB PO SCH (20:38)
[2016-10-17 06:22] VITALS: BP 106/70; PULSE 78; RESP 16; TEMP 98.8; O2SAT 98
[2016-10-17 08:08] LABS: BICARBONATE 25.3 MEQ/L (21.0-32.0); POTASSIUM 4.4 MEQ/L (3.5-5.1)
[2016-10-17] MEDS: NIFEdipine 60 MG SUSTAINED RELEASE TAB PO SCH (09:35)
[2016-10-17] MEDS: BENZTROPINE MESYLATE 2 MG TAB PO SCH ×2 (09:36→20:43)
[2016-10-17] MEDS: HALOPERIDOL 5 MG TAB PO SCH ×2 (09:36→20:43)
[2016-10-17] MEDS: ESCITALOPRAM OXALATE 20 MG TAB PO SCH (09:36)
[2016-10-17] MEDS: DOCUSATE SODIUM 50 MG/SENNA 8.6 MG TAB PO SCH ×2 (09:36→20:43)
--- NOTE | 2016-10-17 14:55 | HHI.PYPN ---
Subjective Remarks Patient was seen and case discussed with nursing. Per nursing, he remains largely seclusive to room. Mood is "so-so, down." Denies suicidal ideation intent or plan. Continues to be bothered by snaps in his head. Compliant with medications and tolerating it well Objective Alert: Yes [place]: Person, Place, Date Mood: Depressed (lessening) Affect: Blunted Memory Intact: Comment (Not assessed) Hallucinations: Auditory ("pops in my head") Delusions: Yes Delusion Type: Paranoid Suicidal: Ideation (No SI) Homicidal: Ideation (No HI) Insight/Judgment Poor Labs Test 10/17/16 07:24 Sodium Level 142 MEQ/L Potassium Level 4.4 MEQ/L Chloride Level 108 MEQ/L Carbon Dioxide Level 25.3 MEQ/L Anion Gap 9 MEQ/L Blood Urea Nitrogen 37 MG/DL Creatinine 1.78 MG/DL Estimat Glomerular Filtration 39 ML/MIN Rate Random Glucose 84 MG/DL Calcium Level 9.0 MG/DL Vitals/IOs Vital Signs Date Time Temp Pulse Resp B/P Pulse Ox O2 Delivery O2 Flow Rate FiO2 10/17/16 06:22 98.8 78 16 106/70 98 Intake and Output 10/16/16 10/16/16 10/17/16 08:00 16:00 00:00 Intake Total 0 ml Balance 0 ml Assessment & Plan Problem List: (1) Psychosis ICD Code: F29 (2) Depressive disorder ICD Code: F32.9 Assessment & Plan Continue current treatment plan Justification for Cont. Inpt. Patient will decompensate in a less restrictive setting Request HC Surrog/Guard Advoc?: Yes Problem Qualifiers (1) Psychosis: Qualified Code: F20.0 - Paranoid schizophrenia Dinesh Pinto DO Oct 17, 2016 14:55
[2016-10-17 18:12] VITALS: BP 115/85; PULSE 97; RESP 16; TEMP 99.1; O2SAT 99
[2016-10-17] MEDS: MIRTAZAPINE 15 MG TAB PO SCH (20:44)
[2016-10-17] MEDS: LORazepam 0.5 MG TAB PO PRN (20:47)
[2016-10-18 06:05] VITALS: BP 155/78; PULSE 91; RESP 18; TEMP 98.5; O2SAT 99
[2016-10-18] MEDS: ESCITALOPRAM OXALATE 20 MG TAB PO SCH (09:07)
[2016-10-18] MEDS: BENZTROPINE MESYLATE 2 MG TAB PO SCH ×2 (09:07→22:27)
[2016-10-18] MEDS: HALOPERIDOL 5 MG TAB PO SCH ×2 (09:07→20:50)
[2016-10-18] MEDS: NIFEdipine 60 MG SUSTAINED RELEASE TAB PO SCH (09:08)
[2016-10-18] MEDS: DOCUSATE SODIUM 50 MG/SENNA 8.6 MG TAB PO SCH ×2 (09:08→20:50)
[2016-10-18 11:30] VITALS: BP 139/72; PULSE 107
[2016-10-18 12:46] LABS: BICARBONATE 24.6 MEQ/L (21.0-32.0); POTASSIUM 4.2 MEQ/L (3.5-5.1)
--- NOTE | 2016-10-18 13:21 | HHI.PYPN ---
Subjective Remarks Patient was seen and case discussed with nursing. Creatinine is elevated patient continues to be followed by the medical team. Patient is complaining of constipation the last 2-3 days. He remains internally stimulated hearing snaps Jason Millan. Mood is "sad." Is compliant with his medications and denies suicidal ideation intent or plan Objective Alert: Yes [place]: Person, Place, Date Mood: Depressed (lessening) Affect: Blunted Memory Intact: Comment (Not assessed) Hallucinations: Auditory ("pops in my head") Delusions: Yes Delusion Type: Paranoid Suicidal: Ideation (No SI) Homicidal: Ideation (No HI) Insight/Judgment Poor Labs Test 10/18/16 11:45 Sodium Level 140 MEQ/L Potassium Level 4.2 MEQ/L Chloride Level 107 MEQ/L Carbon Dioxide Level 24.6 MEQ/L Anion Gap 8 MEQ/L Blood Urea Nitrogen 44 MG/DL Creatinine 2.28 MG/DL Estimat Glomerular Filtration 29 ML/MIN Rate Random Glucose 116 MG/DL Calcium Level 9.1 MG/DL Vitals/IOs Vital Signs Date Time Temp Pulse Resp B/P Pulse Ox O2 Delivery O2 Flow Rate FiO2 10/18/16 06:05 98.5 91 18 155/78 99 Intake and Output 10/17/16 10/17/16 10/18/16 08:00 16:00 00:00 Intake Total 550 ml 320 ml Balance 550 ml 320 ml Assessment & Plan Problem List: (1) Psychosis ICD Code: F29 (2) Depressive disorder ICD Code: F32.9 Assessment & Plan I will double check with nursing to make sure that medicine is still following him and if not request a consult given elevated creatinine Justification for Cont. Inpt. Patient would decompensate in a less restrictive setting Request HC Surrog/Guard Advoc?: Yes Problem Qualifiers (1) Psychosis: Qualified Code: F20.0 - Paranoid schizophrenia Dinesh Pinto DO Oct 18, 2016 13:21
[2016-10-18] MEDS: SODIUM CHLOR 0.9% 1000 ML INJ 1,000 ML IV SCH (16:45)
[2016-10-18 17:53] VITALS: BP 153/70; PULSE 90; RESP 18; TEMP 99.9; O2SAT 97
--- NOTE | 2016-10-18 18:22 | HHI.PR ---
Subjective Remarks Follow-up acute kidney injury. Patient seen and examined, resting in his room. Reports constipation. Small firm BM x1 today with positive flatus. Patient denies abdominal pain. Patient has had very little PO intake over the last few days, creatinine increase 2.28 today. Patient is agreeable to IV fluid hydration. Denies headaches, chest pains, dizziness. Patient denies dysuria, voiding difficulty. Denies abdominal cramping, nausea, vomiting, diarrhea. Objective Vitals Vital Signs Date Time Temp Pulse Resp B/P Pulse Ox O2 Delivery O2 Flow Rate FiO2 10/18/16 17:53 99.9 90 18 153/70 97 10/18/16 11:30 107 139/72 10/18/16 06:05 98.5 91 18 155/78 99 I/O 10/17/16 10/17/16 10/17/16 10/18/16 10/18/16 10/18/16 07:00 15:00 23:00 07:00 15:00 23:00 Intake Total 550 ml 320 ml 50 ml 240 ml Balance 550 ml 320 ml 50 ml 240 ml Intake Oral 550 ml 320 ml 50 ml 240 ml # Voids 2 1 4 1 # Bowel Movements 1 Result Diagram: 10/18/16 1145 Objective Remarks GENERAL: This is a well-nourished, well-developed patient, in no apparent distress. SKIN: Warm and dry. HEENT: Normocephalic. EOMI. Nose without bleeding. Airway patent. NECK: Trachea midline. No JVD. Supple. CARDIOVASCULAR: Regular rate and rhythm without murmurs, gallops, or rubs. RESPIRATORY: Clear to auscultation. No wheezes, rales, or rhonchi. GASTROINTESTINAL: Abdomen soft, non-tender, distended with high pitched bowel sounds. MUSCULOSKELETAL: Extremities without clubbing, cyanosis, trace bilateral lower extremity edema. NEUROLOGICAL: Awake and alert. Oriented to person, place. Noted continued delusions. Moves all extremities. Normal speech. A/P Problem List: (1) Dehydration ICD Code: E86.0 Status: Acute (2) Psychosis ICD Code: F29 Status: Acute (3) Depressive disorder ICD Code: F32.9 Status: Acute (4) Acute on chronic renal failure ICD Code: N17.9 Status: Acute (5) Delusional disorder ICD Code: F22 Status: Acute Assessment and Plan Patient is a 61-year-old male with paranoid schizophrenia admitted to psychiatric service as a transfer from the medical unit following an episode of SARAH. Hospitalist services have been consulted for medical management. Psychosis/ Depression - believes that a TOUR AGENT in [place] is controlling him by sending him radiofrequency waves - Managed by psychiatry team Acute kidney injury on chronic renal failure stage III- appears to be related to be related to hydration status Increasing creatinine, decreasing GFR - Previously given IV fluids and acute setting - Baseline creatinine 1.2-1.5 - avoid nephrotoxic agents. DC maalox, mag ox - encourage fluid intake- patient agrees to increase oral hydration - PUBLIC HEALTH PHYSICIAN 1.46 --> 1.74 --> 1.58 --> 1.71 -->1.61 --> 2.28 - Transfer to medical psych for IV hydration, NS at 100ml/H - recheck BMP in AM Hypertension - Continue nifedipine 60 mg daily, may increase to 90 mg daily if continues to be elevated, clonidine as needed - Monitor BP trend History diabetes mellitus Recent hemoglobin A1c 5.9%. - no indication to begin treatment at this time. - Continue as outpatient Constipation- small BM after lactulose KUB ordered DVT prophylaxis: Ambulation Discuss with patient, nursing and Dr. Anthony Problem Qualifiers (1) Psychosis: Qualified Code: F20.0 - Paranoid schizophrenia Desiree Martino Oct 18, 2016 18:22
--- NOTE | 2016-10-18 19:02 | RADRPT ---
EXAM DATE/TIME: 10/18/2016 18:33 [facility] COMPARISON: No previous studies available for comparison. INDICATIONS : Distention. MEDICAL HISTORY : None. SURGICAL HISTORY : None. ENCOUNTER: Initial ACUITY: 1 day PAIN SCORE: 0/10 LOCATION: Bilateral abdomen FINDINGS: Supine view of the abdomen was performed. Copious stool in the rectum. Gaseous distention of the prox imal large bowel. No abnormal masses, calcifications, or organomegaly is seen. The osseous structur es are unremarkable. CONCLUSION: Constipation. Frederick Jefferson MD on October 18, 2016 at 19:00 Board Certified Radiologist. This report was verified electronically.
[2016-10-18] MEDS: MIRTAZAPINE 15 MG TAB PO SCH (20:50)
[2016-10-19] MEDS: SODIUM CHLOR 0.9% 1000 ML INJ 1,000 ML IV SCH ×3 (01:02→22:30)
[2016-10-19 05:49] VITALS: BP 134/56; PULSE 88; RESP 18; TEMP 98.2; O2SAT 96
[2016-10-19] MEDS ORDERED: BISACODYL 10 MG SUPP RECTAL ONE (07:30)
[2016-10-19] MEDS: NIFEdipine 60 MG SUSTAINED RELEASE TAB PO SCH (08:05)
[2016-10-19] MEDS: BENZTROPINE MESYLATE 2 MG TAB PO SCH ×2 (08:05→21:00)
[2016-10-19] MEDS: DOCUSATE SODIUM 50 MG/SENNA 8.6 MG TAB PO SCH ×2 (08:05→21:00)
[2016-10-19] MEDS: HALOPERIDOL 5 MG TAB PO SCH ×2 (08:05→21:00)
[2016-10-19 08:06] LABS: BICARBONATE 26.1 MEQ/L (21.0-32.0); POTASSIUM 4.6 MEQ/L (3.5-5.1)
[2016-10-19] MEDS: ESCITALOPRAM OXALATE 20 MG TAB PO SCH (09:00)
--- NOTE | 2016-10-19 11:43 | HHI.PYPN ---
Subjective Remarks Patient is seen today for psychiatric evaluation, patient is finding in his bed , calm, superficially cooperative, but seems to be distant and guarded. Patient reports feeling sad, he says that he doesn't care about anything anymore, "today is not my best day", patient reports suicidal thoughts, but not intentional plan. Patient seems to be internally preoccupied, but he denies visual and auditory hallucinations. No delusions elicited this time. Patient is compliant with medications, no side effects. Review of Systems Other No somatic complaints Objective Alert: Yes [place]: Person, Place, Date Mood: Depressed (lessening) Affect: Blunted Memory Intact: Comment (Not assessed) Hallucinations: Other (he denies today) Delusions: Yes Delusion Type: Other (not elicited today) Suicidal: Ideation (No SI) Homicidal: Ideation (No HI) Insight/Judgment Poor Labs Test 10/18/16 10/19/16 11:45 07:33 Sodium Level 140 MEQ/L 146 MEQ/L Potassium Level 4.2 MEQ/L 4.6 MEQ/L Chloride Level 107 MEQ/L 112 MEQ/L Carbon Dioxide Level 24.6 MEQ/L 26.1 MEQ/L Anion Gap 8 MEQ/L 8 MEQ/L Blood Urea Nitrogen 44 MG/DL 36 MG/DL Creatinine 2.28 MG/DL 1.76 MG/DL Estimat Glomerular Filtration 29 ML/MIN 39 ML/MIN Rate Random Glucose 116 MG/DL 79 MG/DL Calcium Level 9.1 MG/DL 8.7 MG/DL Vitals/IOs Vital Signs Date Time Temp Pulse Resp B/P Pulse Ox O2 Delivery O2 Flow Rate FiO2 10/19/16 05:49 98.2 88 18 134/56 96 Intake and Output 10/18/16 10/18/16 10/18/16 07:59 15:59 23:59 Intake Total 50 ml 600 ml Balance 50 ml 600 ml Assessment & Plan Problem List: (1) Psychosis ICD Code: F29 (2) Depressive disorder Assessment & Plan: Brief supportive psychotherapy provided. We'll continue current psychotropics. Continue treatment of acute renal failure as per medical team. ICD Code: F32.9 Assessment & Plan Estimated LOS: days Justification for Cont. Inpt. Patient has a great risk to decompensate at a lower level of care Request HC Surrog/Guard Advoc?: Yes Problem Qualifiers (1) Psychosis: Qualified Code: F20.0 - Paranoid schizophrenia Lawrence Thibodeaux MD Oct 19, 2016 11:43
--- NOTE | 2016-10-19 13:10 | HHI.PR ---
Subjective Remarks [place] reports he is doign OK today. States he had to run tot he bathroom multiple times, had watery stool but his last BM had more consistency. He denies abdominal pain or nausea. Objective Vitals Vital Signs Date Time Temp Pulse Resp B/P Pulse Ox O2 Delivery O2 Flow Rate FiO2 10/19/16 05:49 98.2 88 18 134/56 96 10/18/16 17:53 99.9 90 18 153/70 97 I/O 10/18/16 10/18/16 10/18/16 10/19/16 10/19/16 10/19/16 07:00 15:00 23:00 07:00 15:00 23:00 Intake Total 50 ml 240 ml 1760 ml 720 ml Balance 50 ml 240 ml 1760 ml 720 ml Intake Oral 50 ml 240 ml 360 ml 720 ml IV Total 1400 ml # Voids 4 1 4 # Bowel Movements 1 Result Diagram: 10/19/16 0733 Imaging Last Impressions Abdomen X-Ray 10/18/16 0000 Signed Impressions: Service Date/Time: Tuesday, October 18, 2016 18:33 - CONCLUSION: Constipation. Frederick Jefferson MD Objective Remarks GENERAL: This is a well-nourished, well-developed patient, in no apparent distress. CARDIOVASCULAR: Normal rate and regular rhythm without murmurs, gallops, or rubs. RESPIRATORY: Good respiratory efforts. Breath sounds equal and clear to auscultation bilaterally. GASTROINTESTINAL: Abdomen soft, mildly distended, nontender. Normal active bowel sounds MUSCULOSKELETAL: Extremities without cyanosis, or edema. NEURO: Alert & Oriented x4 to person, place, time, situation. Moves all ext x4 PSYCH: Depressed mood, flat affect A/P Problem List: (1) Dehydration ICD Code: E86.0 Status: Acute (2) Psychosis ICD Code: F29 Status: Acute (3) Depressive disorder ICD Code: F32.9 Status: Acute (4) Acute on chronic renal failure ICD Code: N17.9 Status: Acute (5) Delusional disorder ICD Code: F22 Status: Acute Assessment and Plan 61-year-old male with paranoid schizophrenia admitted to psychiatric service as a transfer from the medical unit following for SARAH. Hospitalist services have been consulted for medical management. The patient has had recurrent readmission to the medical floor for IV fluid due to renal failure because he stops drinking or eating. Psychosis/ Depression - believes that a vikas in [place] is controlling him by sending him radiofrequency waves - Managed by psychiatry team Acute kidney injury on chronic renal failure stage III- appears to be related to be related to hydration status Increasing creatinine, decreasing GFR - Previously given IV fluids and acute setting - Baseline creatinine 1.2-1.5 - avoid nephrotoxic agents. - encourage fluid intake- patient agrees to increase oral hydration - POULTRY RAISER 1.46 --> 1.74 --> 1.58 --> 1.71 -->1.61 --> 2.28>1.78 - Continue IV hydration, NS at 100ml/H - recheck BMP in AM Hypertension - Continue nifedipine 60 mg daily, may increase to 90 mg daily if continues to be elevated, clonidine as needed - Monitor BP trend History diabetes mellitus Recent hemoglobin A1c 5.9%. - no indication to begin treatment at this time. - Continue as outpatient Constipation- resolving. Having watery stool today, now with some consistency. Continue to monitor. Continue Vanessa-Colace and lactulose. If no improvement, will give enema. DVT prophylaxis: Ambulation Problem Qualifiers (1) Psychosis: Qualified Code: F20.0 - Paranoid schizophrenia Murali Anthony MD Oct 19, 2016 13:10
[2016-10-19 18:19] VITALS: BP 162/77; PULSE 92; RESP 16; TEMP 99.4; O2SAT 95
[2016-10-19] MEDS: MIRTAZAPINE 15 MG TAB PO SCH (21:00)
[2016-10-20 06:17] VITALS: BP 174/86; PULSE 91; RESP 15; TEMP 97.8; O2SAT 95
[2016-10-20] MEDS: SODIUM CHLOR 0.45% 1000 ML INJ 1,000 ML IV SCH ×2 (08:00→17:53)
[2016-10-20] MEDS: HALOPERIDOL 5 MG TAB PO SCH ×2 (08:27→20:49)
[2016-10-20] MEDS: ESCITALOPRAM OXALATE 20 MG TAB PO SCH (08:27)
[2016-10-20] MEDS: DOCUSATE SODIUM 50 MG/SENNA 8.6 MG TAB PO SCH ×2 (08:28→20:49)
[2016-10-20] MEDS: NIFEdipine 60 MG SUSTAINED RELEASE TAB PO SCH (08:28)
[2016-10-20] MEDS: BENZTROPINE MESYLATE 2 MG TAB PO SCH ×2 (08:28→20:49)
--- NOTE | 2016-10-20 12:00 | HHI.PR ---
Subjective Remarks Follow-up visit acute on chronic kidney injury, constipation, HTN. Patient seen and examined today. He reports that he went to the bathroom and called the toilet. He continues to have bowel movements. Previous complaints of constipation 1 week and he was given multiple laxatives and patient now is stooling, occasional liquid stool. Denies any abdominal pain or cramping. Denies any pain or discomfort. Denies nausea, vomiting. Denies chest pain, palpitations, headache, dizziness. Objective Vitals Vital Signs Date Time Temp Pulse Resp B/P Pulse Ox O2 Delivery O2 Flow Rate FiO2 10/20/16 06:17 97.8 91 15 174/86 95 10/19/16 18:19 99.4 92 16 162/77 95 I/O 10/19/16 10/19/16 10/19/16 10/20/16 10/20/16 10/20/16 07:00 15:00 23:00 07:00 15:00 23:00 Intake Total 1760 ml 1520 ml 960 ml 120 ml 120 ml Balance 1760 ml 1520 ml 960 ml 120 ml 120 ml Intake Oral 360 ml 720 ml 960 ml 120 ml 120 ml IV Total 1400 ml 800 ml # Voids 4 4 3 Result Diagram: 10/19/16 0733 Imaging Last Impressions Abdomen X-Ray 10/18/16 0000 Signed Impressions: Service Date/Time: Tuesday, October 18, 2016 18:33 - CONCLUSION: Constipation. Frederick Jefferson MD Objective Remarks GENERAL: This is a well-nourished, well-developed patient, in no apparent distress. SKIN: Warm and dry. HEENT: Normocephalic. Pupils equal round and reactive. Nose without bleeding. Airway patent. NECK: Trachea midline. No JVD. Supple. CARDIOVASCULAR: Regular rate and rhythm without murmurs, gallops, or rubs. RESPIRATORY: Clear to auscultation. No wheezes, rales, or rhonchi. GASTROINTESTINAL: Abdomen soft, non-tender, slightly distended. Bowel sounds active. MUSCULOSKELETAL: Extremities without clubbing, cyanosis, trace bilateral lower extremity edema. NEUROLOGICAL: Awake and alert. Oriented to person, place. Noted continued delusions. Moves all extremities. Normal speech. A/P Problem List: (1) Dehydration ICD Code: E86.0 Status: Acute (2) Psychosis ICD Code: F29 Status: Acute (3) Depressive disorder ICD Code: F32.9 Status: Acute (4) Acute on chronic renal failure ICD Code: N17.9 Status: Acute (5) Delusional disorder ICD Code: F22 Status: Acute Assessment and Plan Patient is a 61-year-old male with paranoid schizophrenia admitted to psychiatric service as a transfer from the medical unit following an episode of SARAH. Hospitalist services have been consulted for medical management. Psychosis/ Depression - Continues to have hallucinations, believes that a SENIOR COLDFUSION DEVELOPER in [place] is controlling him by sending him radiofrequency waves - Managed by psychiatry team Acute kidney injury on chronic renal failure stage III Increasing creatinine, decreasing GFR - Baseline creatinine 1.2-1.5 - avoid nephrotoxic agents. DC madav, mag ox - encourage fluid intake - HITCH TECHNICIAN 1.78 --> 2.28 --> 1.76 - IV fluids changed to have tenderness at 100 ML's an hour - Repeat BMP tomorrow Hypertension - BP trend greater than 140s, may be related to agitation - Nifedipine 60 mg daily, clonidine as needed. Add metoprolol 12.5 twice a day. - Monitor BP trend History diabetes mellitus Recent hemoglobin A1c 5.9%. - no indication to begin treatment at this time. - Continue as outpatient DVT prophylaxis: Ambulation Discuss with patient, nursing, Dr. Anthony Problem Qualifiers (1) Psychosis: Qualified Code: F20.0 - Paranoid schizophrenia Agus Chapa Oct 20, 2016 12:00
--- NOTE | 2016-10-20 13:33 | HHI.PYPN ---
Subjective Remarks Patient seen today for psychiatric reevaluation, patient says that he feels much better today, his going to the bathroom without problem now, however, still preoccupied "with this vikas from [place] working in a motel"which is controlling my mind and trying to steal my money from his bank account and trying to steal my underwear. Patient says that this person has been trying to manipulate his life for a long time now, he can hear a voice inside his head making fun and making derogatory comments about him. Patient seems to be very anxious and distressed about this. He says that he prefers to if they have to live like this, he denies suicidal intentions or plan. Patient is compliant with his medication, no significant side effects reported. No agitation or aggressive behavior reported Review of Systems Gastrointestinal: COMPLAINS OF: Constipation Objective Alert: Yes [place]: Person, Place, Date Mood: Depressed (lessening) Affect: Blunted Memory Intact: Immediate, Recent, Remote Hallucinations: Auditory, Visual, Other Delusions: Yes Delusion Type: Other (paranoid delusions) Suicidal: Ideation (No SI) Homicidal: Ideation (No HI) Insight/Judgment Poor Vitals/IOs Vital Signs Date Time Temp Pulse Resp B/P Pulse Ox O2 Delivery O2 Flow Rate FiO2 10/20/16 06:17 97.8 91 15 174/86 95 Intake and Output 10/19/16 10/19/16 10/20/16 08:00 16:00 00:00 Intake Total 1400 ml 1520 ml 960 ml Balance 1400 ml 1520 ml 960 ml Assessment & Plan Problem List: (1) Psychosis Assessment & Plan: Patient continues to show a significant paranoia and thought control, and a fixed delusion of a person from [place] trying to control his mind. Patient seems to be very distressed about this. We Will add Seroquel 100 mg for his psychosis. ICD Code: F29 (2) Depressive disorder ICD Code: F32.9 Assessment & Plan Estimated LOS: days Justification for Cont. Inpt. Patient is acutely psychotic, with elevated risk of danger to self and others, he needs continue psychiatric hospitalization for stabilization Request HC Surrog/Guard Advoc?: Yes Problem Qualifiers (1) Psychosis: Qualified Code: F20.0 - Paranoid schizophrenia Lawrence Thibodeaux MD Oct 20, 2016 13:33
--- NOTE | 2016-10-20 17:09 | EKG ---
Date Performed: 10/20/2016 Time Performed: 16:35:10 PTAGE: 61 years EKG: Sinus rhythm WITH FIRST DEGREE AV BLOCK POSSIBLE LEFT ATRIAL ENLARGEMENT INCOMPLETE RIGHT BUNDLE BRANCH BLOCK NON SPECIFIC T-WAVE ABNORMALITY ABNORMAL ECG PREVIOUS TRACING : 09/09/2016 14.15 Compared to the previous tracing rate slower DOCTOR: Jarad Blackwell Interpretating Date/Time 10/20/2016 17:09:22
[2016-10-20 18:35] VITALS: BP 152/72; PULSE 83; RESP 16; TEMP 99.5; O2SAT 96
[2016-10-20] MEDS: METOPROLOL TARTRATE 25 MG TAB PO SCH (20:49)
[2016-10-20] MEDS: MIRTAZAPINE 15 MG TAB PO SCH (20:49)
[2016-10-20] MEDS: QUEtiapine FUMARATE 100 MG TAB PO SCH (20:49)
[2016-10-21] MEDS: SODIUM CHLOR 0.45% 1000 ML INJ 1,000 ML IV SCH ×2 (03:32→14:00)
[2016-10-21 05:21] VITALS: BP 140/82; PULSE 66; RESP 15; TEMP 98.9; O2SAT 97
[2016-10-21] MEDS: BENZTROPINE MESYLATE 2 MG TAB PO SCH ×2 (08:17→20:55)
[2016-10-21] MEDS: ESCITALOPRAM OXALATE 20 MG TAB PO SCH (08:18)
[2016-10-21] MEDS: DOCUSATE SODIUM 50 MG/SENNA 8.6 MG TAB PO SCH ×2 (08:18→20:55)
[2016-10-21] MEDS: HALOPERIDOL 5 MG TAB PO SCH ×2 (08:18→20:55)
[2016-10-21] MEDS: METOPROLOL TARTRATE 25 MG TAB PO SCH ×2 (08:18→20:55)
[2016-10-21] MEDS: NIFEdipine 60 MG SUSTAINED RELEASE TAB PO SCH (08:18)
--- NOTE | 2016-10-21 10:37 | HHI.PYPN ---
Subjective Remarks On psychiatric evaluation today patient continues to be delusional about a man from [place] controlling his brain. Patient says that he is very upset today because he has been reminding the moment in which "that man is told my underwear and he continues to stay my food and inside my head". Patient reports better sleep last night, good appetite, but poor concentration, continues intrusive thoughts about this ma controlling his mind. Patient reports suicidal ideation, no plan, he says that he cannot live anymore without being able to control his mind. He denies visual and auditory hallucinations. Patient is fully oriented 3. Compliant with medications, no significant side effects. Review of Systems Other No somatic complaints Objective Alert: Yes [place]: Person, Place, Date Mood: Depressed (lessening) Affect: Blunted Memory Intact: Immediate, Recent, Remote Hallucinations: Auditory, Visual, Other Delusions: Yes Delusion Type: Other (paranoid delusions) Suicidal: Ideation (No SI) Homicidal: Ideation (No HI) Insight/Judgment Poor Vitals/IOs Vital Signs Date Time Temp Pulse Resp B/P Pulse Ox O2 Delivery O2 Flow Rate FiO2 10/21/16 05:21 98.9 66 15 140/82 97 Intake and Output 10/20/16 10/20/16 10/20/16 07:59 15:59 23:59 Intake Total 120 ml 960 ml 3488 ml Balance 120 ml 960 ml 3488 ml Assessment & Plan Problem List: (1) Psychosis Assessment & Plan: Patient continues to chose thought controlling, ideas of reference, fixed delusion. Seroquel 100 was recently added to psychotropic regimen. We'll continue current psychotropic regimen and. Support, motivation and psychoeducation provided. ICD Code: F29 (2) Depressive disorder ICD Code: F32.9 Assessment & Plan Estimated LOS: days Justification for Cont. Inpt. Patient is acutely psychotic, he also has suicidal ideation, no plan, needs to continue psychiatric hospitalization for stabilization and safety. Request HC Surrog/Guard Advoc?: Yes Problem Qualifiers (1) Psychosis: Qualified Code: F20.0 - Paranoid schizophrenia Lawrence Thibodeaux MD Oct 21, 2016 10:37
--- NOTE | 2016-10-21 11:13 | HHI.PR ---
Subjective Remarks Follow-up visit acute on chronic kidney injury, HTN. Patient seen and examined. Reports he doesn't have any more diarrhea post laxative use. States his doing well. Reports he doesn't have any appetite for eating or drinking. When asked if he is still being dictated by to person who is controlling him from his previous assertions, patient states he is not anymore. He occasionally "hears him but not as constant as compared to before." Denies pain or discomfort, nausea, vomiting, diarrhea. Denies chest pain, palpitations , headaches. Objective Vitals Vital Signs Date Time Temp Pulse Resp B/P Pulse Ox O2 Delivery O2 Flow Rate FiO2 10/21/16 05:21 98.9 66 15 140/82 97 10/20/16 18:35 99.5 83 16 152/72 96 I/O 10/20/16 10/20/16 10/20/16 10/21/16 10/21/16 10/21/16 07:00 15:00 23:00 07:00 15:00 23:00 Intake Total 120 ml 960 ml 3488 ml 240 ml 960 ml Balance 120 ml 960 ml 3488 ml 240 ml 960 ml Intake Oral 120 ml 960 ml 960 ml 240 ml 960 ml IV Total 2528 ml # Voids 3 3 3 Result Diagram: 10/19/16 0733 Imaging Last Impressions Abdomen X-Ray 10/18/16 0000 Signed Impressions: Service Date/Time: Tuesday, October 18, 2016 18:33 - CONCLUSION: Constipation. Frederick Jefferson MD Objective Remarks GENERAL: This is a well-nourished, well-developed patient, in no apparent distress. SKIN: Warm and dry. HEENT: Normocephalic. Pupils equal round and reactive. Nose without bleeding. Airway patent. NECK: Trachea midline. No JVD. Supple. CARDIOVASCULAR: Regular rate and rhythm without murmurs, gallops, or rubs. RESPIRATORY: Clear to auscultation. No wheezes, rales, or rhonchi. GASTROINTESTINAL: Abdomen soft, non-tender, slightly distended. Bowel sounds active. MUSCULOSKELETAL: Extremities without clubbing, cyanosis, trace bilateral lower extremity edema. NEUROLOGICAL: Awake and alert. Oriented to person, place. Noted continued delusions. Moves all extremities. Normal speech. A/P Problem List: (1) Dehydration ICD Code: E86.0 Status: Acute (2) Psychosis ICD Code: F29 Status: Acute (3) Depressive disorder ICD Code: F32.9 Status: Acute (4) Acute on chronic renal failure ICD Code: N17.9 Status: Acute (5) Delusional disorder ICD Code: F22 Status: Acute Assessment and Plan Patient is a 61-year-old male with paranoid schizophrenia admitted to psychiatric service as a transfer from the medical unit following an episode of SARAH. Hospitalist services have been consulted for medical management. Psychosis/ Depression - Continues to have hallucinations, believes that a WEB UI SOFTWARE ENGINEER in [place] is controlling him by sending him radiofrequency waves - Managed by psychiatry team Acute kidney injury on chronic renal failure stage III Increasing creatinine, decreasing GFR - Baseline creatinine 1.2-1.5 - avoid nephrotoxic agents. DC maalox, mag ox - encourage fluid intake - PHYSICAL EDUCATION SPECIALIST 1.78 --> 2.28 --> 1.76 --> 1.70 - 1/2 NS at 100 ML's an hour continue for x 24 hrs - May transfer to regular psych floor if PHYSICAL EDUCATION SPECIALIST continues to improve - US Renal Bladder ordered - Monitor BMP Hypertension - BP trend greater than 140s, may be related to agitation - Nifedipine 60 mg daily, clonidine as needed. Added metoprolol 12.5 twice a day. - Monitor BP trend - Improving History diabetes mellitus Recent hemoglobin A1c 5.9%. - no indication to begin treatment at this time. - Continue as outpatient DVT prophylaxis: Ambulation Discuss with patient, nursing, Dr. Castle Problem Qualifiers (1) Psychosis: Qualified Code: F20.0 - Paranoid schizophrenia Agus Chapa Oct 21, 2016 11:13
[2016-10-21 11:28] LABS: BICARBONATE 27.5 MEQ/L (21.0-32.0)
--- NOTE | 2016-10-21 18:07 | RADRPT ---
EXAM DATE/TIME: 10/21/2016 14:39 [facility] COMPARISON: No previous studies available for comparison. INDICATIONS : Increased BUN/creatinine. MEDICAL HISTORY : Hypercholesterolemia. Hypertension. Diabetes. Schizophrenia. Insomnia.Bipolar disorder. Depression. Anxiety. SURGICAL HISTORY : Prostate biopsy. Hernia repair. ENCOUNTER: Initial ACUITY: 1 day PAIN SCORE: 0/10 LOCATION: Bilateral flank MEASUREMENTS: RIGHT KIDNEY: 9.2 x 4.8 x 5.2 cm LEFT KIDNEY: 9.3 x 4.5 x 4.8 cm FINDINGS: There is increased echogenicity. No hydronephrosis or mass. No echogenic foci. Trace pleural effusion on the right. Urinary bladder is well distended. Questionable minimal layering debris. CONCLUSION: 1. Echogenic kidneys which can be seen with medical renal disease. 2. There is questionable layering debris in the bladder. Frederick Jefferson MD on October 21, 2016 at 18:04 Board Certified Radiologist. This report was verified electronically.
[2016-10-21] MEDS: QUEtiapine FUMARATE 100 MG TAB PO SCH (20:55)
[2016-10-21] MEDS: MIRTAZAPINE 15 MG TAB PO SCH (20:55)
[2016-10-22 06:25] VITALS: BP 125/80; PULSE 88; RESP 16; TEMP 98.6
[2016-10-22] MEDS: BENZTROPINE MESYLATE 2 MG TAB PO SCH ×2 (09:56→21:00)
[2016-10-22] MEDS: ESCITALOPRAM OXALATE 20 MG TAB PO SCH (09:56)
[2016-10-22] MEDS: DOCUSATE SODIUM 50 MG/SENNA 8.6 MG TAB PO SCH ×2 (09:56→21:00)
[2016-10-22] MEDS: HALOPERIDOL 5 MG TAB PO SCH ×2 (09:56→21:00)
[2016-10-22] MEDS: NIFEdipine 60 MG SUSTAINED RELEASE TAB PO SCH (09:56)
[2016-10-22] MEDS: METOPROLOL TARTRATE 25 MG TAB PO SCH ×2 (09:57→21:00)
--- NOTE | 2016-10-22 10:07 | HHI.PR ---
Subjective Remarks Follow-up visit acute on chronic kidney injury, HTN. Patient seen and examined. States is doing well. Denies pain and discomfort. Denies SOB/ dyspnea. Denies chest pain, palpitations, headaches, dizziness. Denies fevers, chills, n/v/d. Denies hematuria, dysuria. Objective Vitals Vital Signs Date Time Temp Pulse Resp B/P Pulse Ox O2 Delivery O2 Flow Rate FiO2 10/22/16 06:25 98.6 88 16 125/80 I/O 10/21/16 10/21/16 10/21/16 10/22/16 10/22/16 10/22/16 06:59 14:59 22:59 06:59 14:59 22:59 Intake Total 240 ml 2480 ml 480 ml Balance 240 ml 2480 ml 480 ml Intake Oral 240 ml 1680 ml 480 ml IV Total 800 ml # Voids 3 Result Diagram: 10/21/16 1035 Imaging Last Impressions Renal Ultrasound 10/21/16 0000 Signed Impressions: Service Date/Time: Friday, October 21, 2016 14:39 - CONCLUSION: 1. Echogenic kidneys which can be seen with medical renal disease. 2. There is questionable layering debris in the bladder. Frederick Jefferson MD Abdomen X-Ray 10/18/16 0000 Signed Impressions: Service Date/Time: Tuesday, October 18, 2016 18:33 - CONCLUSION: Constipation. Frederick Jefferson MD Objective Remarks GENERAL: This is a well-nourished, well-developed patient, in no apparent distress. SKIN: Warm and dry. HEENT: Normocephalic. Nonicteric. Nose without bleeding. Airway patent. NECK: Trachea midline. Supple. CARDIOVASCULAR: Regular rate and rhythm without murmurs, gallops, or rubs. RESPIRATORY: Clear to auscultation. No wheezes, rales, or rhonchi. GASTROINTESTINAL: Abdomen soft, non-tender, non-distended. Bowel sounds active. MUSCULOSKELETAL: Extremities without clubbing, cyanosis, trace bilateral lower extremity edema. NEUROLOGICAL: Awake and alert. Oriented to person, place. Noted continued delusions. Moves all extremities. Normal speech. A/P Problem List: (1) Dehydration ICD Code: E86.0 Status: Acute (2) Psychosis ICD Code: F29 Status: Acute (3) Depressive disorder ICD Code: F32.9 Status: Acute (4) Acute on chronic renal failure ICD Code: N17.9 Status: Acute (5) Delusional disorder ICD Code: F22 Status: Acute Assessment and Plan Patient is a 61-year-old male with paranoid schizophrenia admitted to psychiatric service as a transfer from the medical unit following an episode of SARAH. Hospitalist services have been consulted for medical management. Psychosis/ Depression - Continues to have hallucinations, believes that a vikas in [place] is controlling him by sending him radiofrequency waves - Managed by psychiatry team Acute kidney injury on chronic renal failure possibly stage III Increasing creatinine, decreasing GFR - Baseline creatinine 1.2-1.5, possibly new baseline is 1.5-1.7 - avoid nephrotoxic agents. DC maalox, mag ox - encourage fluid intake - [employer] 1.78 --> 2.28 --> 1.76 --> 1.70 - 1/2 NS at 100 ML's an hour continue for x 24 hrs - May transfer to regular psych floor if [employer] continues to improve - US Renal Bladder echogenic kidneys which can be seen with medical renal disease. There is questionable layering debris's in the bladder - Consult nephrology for acute on chronic kidney disease - Check BMP tomorrow Hypertension - BP trend greater than 140s, may be related to agitation - Nifedipine 60 mg daily, clonidine as needed. Added metoprolol 12.5 twice a day. - Monitor BP trend - Improving History diabetes mellitus Recent hemoglobin A1c 5.9%. - no indication to begin treatment at this time. - Continue as outpatient DVT prophylaxis: Ambulation Discuss with patient, nursing, Dr. Castle Problem Qualifiers (1) Psychosis: Qualified Code: F20.0 - Paranoid schizophrenia Agus Chapa [facility] Oct 22, 2016 10:07
--- NOTE | 2016-10-22 13:44 | HHI.PYPN ---
Subjective Remarks Patient was seen today for psychiatric evaluation, patient was found sleeping, but easily arousable, patient reports that for the first time in many days he had a good night last night, he feels restful and calm. He reports okay mood, he stated that he will be much better if "that man would leave me alone". Patient reports that he feels safe in the unit, he doesn't know what can happen was he lives the hospital "and they want to start controlling me again". He is fully oriented 3, no attention deficit, medication compliant. No significant side effects. Review of Systems Other No somatic complaints Objective Alert: Yes [place]: Person, Place, Date Mood: Calm Affect: Flat Memory Intact: Immediate, Recent, Remote Hallucinations: Auditory, Visual, Other Delusions: Yes Delusion Type: Other (paranoid delusions) Suicidal: Ideation (No SI) Homicidal: Ideation (No HI) Insight/Judgment Poor Vitals/IOs Vital Signs Date Time Temp Pulse Resp B/P Pulse Ox O2 Delivery O2 Flow Rate FiO2 10/22/16 06:25 98.6 88 16 125/80 10/21/16 05:21 97 Intake and Output 10/21/16 10/21/16 10/22/16 08:00 16:00 00:00 Intake Total 240 ml 2480 ml Balance 240 ml 2480 ml Assessment & Plan Problem List: (1) Psychosis Assessment & Plan: Will increase Seroquel to 200 mg at bedtime to help with psychosis ICD Code: F29 (2) Depressive disorder ICD Code: F32.9 Assessment & Plan Estimated LOS: days Justification for Cont. Inpt. Patient has a very high risk to decompensate out of the psychiatric unit. Request HC Surrog/Guard Advoc?: Yes Problem Qualifiers (1) Psychosis: Qualified Code: F20.0 - Paranoid schizophrenia Lawrence Thibodeaux MD Oct 22, 2016 13:44
[2016-10-22] MEDS: SODIUM CHLOR 0.45% 1000 ML INJ 1,000 ML IV SCH ×2 (14:01)
[2016-10-22 17:46] VITALS: BP 151/75; PULSE 69; RESP 16; TEMP 98.6; O2SAT 99
[2016-10-22] MEDS: QUEtiapine FUMARATE 100 MG TAB PO SCH (21:00)
[2016-10-22] MEDS: MIRTAZAPINE 15 MG TAB PO SCH (21:00)
[2016-10-23] MEDS: SODIUM CHLOR 0.45% 1000 ML INJ 1,000 ML IV SCH (05:58)
[2016-10-23 06:03] VITALS: BP 152/79; PULSE 103; RESP 16; TEMP 97.4; O2SAT 98
[2016-10-23 07:49] LABS: BICARBONATE 24.4 MEQ/L (21.0-32.0); POTASSIUM 4.3 MEQ/L (3.5-5.1)
[2016-10-23] MEDS: BENZTROPINE MESYLATE 2 MG TAB PO SCH ×2 (08:45→19:59)
[2016-10-23] MEDS: METOPROLOL TARTRATE 25 MG TAB PO SCH ×2 (08:45→19:58)
[2016-10-23] MEDS: ESCITALOPRAM OXALATE 20 MG TAB PO SCH (08:45)
[2016-10-23] MEDS: DOCUSATE SODIUM 50 MG/SENNA 8.6 MG TAB PO SCH ×2 (08:45→19:57)
[2016-10-23] MEDS: NIFEdipine 60 MG SUSTAINED RELEASE TAB PO SCH (08:45)
--- NOTE | 2016-10-23 09:13 | HHI.PR ---
Subjective Remarks Follow-up visit acute on chronic kidney injury, HTN. Patient seen and examined. States is doing well. Discuss with patient lab result and plan to clear him for transfer to regular psych unit. States "I don't want to go back to psychiatric unit, I don't like it there." Reassured patient that he will have same treatment as he moved to regular psych unit. Will speak with case supervisor if ASSISTED placement can be done. Denies pain and discomfort. Denies SOB/ dyspnea. Denies chest pain, palpitations, headaches, dizziness. Denies fevers, chills, n/v/d. Denies hematuria, dysuria. Objective Vitals Vital Signs Date Time Temp Pulse Resp B/P Pulse Ox O2 Delivery O2 Flow Rate FiO2 10/23/16 06:03 97.4 103 16 152/79 98 10/22/16 17:46 98.6 69 16 151/75 99 I/O 10/22/16 10/22/16 10/22/16 10/23/16 10/23/16 10/23/16 07:00 15:00 23:00 07:00 15:00 23:00 Intake Total 480 ml 770 ml Balance 480 ml 770 ml Intake Oral 480 ml 770 ml # Voids 4 Result Diagram: 10/23/16 0716 Imaging Last Impressions Renal Ultrasound 10/21/16 0000 Signed Impressions: Service Date/Time: Friday, October 21, 2016 14:39 - CONCLUSION: 1. Echogenic kidneys which can be seen with medical renal disease. 2. There is questionable layering debris in the bladder. Frederick Jefferson MD Abdomen X-Ray 10/18/16 0000 Signed Impressions: Service Date/Time: Tuesday, October 18, 2016 18:33 - CONCLUSION: Constipation. Frederick Jefferson MD Objective Remarks GENERAL: This is a well-nourished, well-developed patient, in no apparent distress. SKIN: Warm and dry. HEENT: Normocephalic. Nonicteric. Nose without bleeding. Airway patent. NECK: Trachea midline. Supple. CARDIOVASCULAR: Regular rate and rhythm without murmurs, gallops, or rubs. RESPIRATORY: Clear to auscultation. No wheezes, rales, or rhonchi. GASTROINTESTINAL: Abdomen soft, non-tender, non-distended. Bowel sounds active. MUSCULOSKELETAL: Extremities without clubbing, cyanosis, trace bilateral lower extremity edema. NEUROLOGICAL: Awake and alert. Oriented to person, place. Moves all extremities. Normal speech. A/P Problem List: (1) Dehydration ICD Code: E86.0 Status: Acute (2) Psychosis ICD Code: F29 Status: Acute (3) Depressive disorder ICD Code: F32.9 Status: Acute (4) Acute on chronic renal failure ICD Code: N17.9 Status: Acute (5) Delusional disorder ICD Code: F22 Status: Acute Assessment and Plan Patient is a 61-year-old male with paranoid schizophrenia admitted to psychiatric service as a transfer from the medical unit following an episode of SARAH. Hospitalist services have been consulted for medical management. Psychosis/ Depression - Continues to have some hallucinations, believes that a vikas in [place] is controlling him by sending him radiofrequency waves - Managed by psychiatry team Acute kidney injury on chronic renal failure stage III Increasing creatinine, decreasing GFR - Baseline creatinine 1.2-1.5, possibly new baseline is 1.5-1.7 - avoid nephrotoxic agents. DC maalox, mag ox - encourage fluid intake - [employer] 1.78 --> 2.28 --> 1.76 --> 1.70 -->1.71 - 1/2 NS at 100 ML's an hour administered. DC today - US Renal Bladder echogenic kidneys which can be seen with medical renal disease. There is questionable layering debris's in the bladder - [employer] and EGFR consistent with CKD 3. Review of previous records done and patient's [employer] fluctuates at 1.3-1.9 since previous admissions starting in 2008. He had multiple IVF administrations which brings the [employer] down slightly but has no significant improvement on EGFR which shows chronicity of disease. His CKD progression is stable. Management of BP and protein restriction may slow the rate of progression. - He warrants outpatient follow up with [facility] Hypertension - BP trend greater than 140s, may be related to agitation - Nifedipine 60 mg daily, clonidine as needed. Added metoprolol 12.5 twice a day. - Monitor BP trend - Improving History diabetes mellitus Recent hemoglobin A1c 5.9%. - no indication to begin treatment at this time. - Continue as outpatient DVT prophylaxis: Ambulation Discuss with patient, nursing, Dr. Castle Patient is medically clear to be transferred to regular psych unit. Stable from medical standpoint, we will sign off. Consult as needed Problem Qualifiers (1) Psychosis: Qualified Code: F20.0 - Paranoid schizophrenia Agus Chapa Oct 23, 2016 09:13
--- NOTE | 2016-10-23 10:31 | HHI.PYPN ---
Subjective Remarks Patient seen today for psychiatric reevaluation, patient is found in his bed, seems to be internally preoccupied, he reports okay mood, reports improved sleep last night, good appetite, he says that he is waiting for his breakfast. However, related that he continued to be preoccupied "because that man stole all my clothes in [place] and he continues inside my mind". He says that he is unable to get rid of this thoughts and he feels afraid about it. He denies suicidal thoughts, no intentions. He denies visual and auditory hallucinations, patient is fully oriented 3. Review of Systems Other No somatic complaints Objective Alert: Yes [place]: Person, Place, Date Mood: Depressed Affect: Flat Memory Intact: Immediate, Recent, Remote Hallucinations: Auditory, Visual, Other Delusions: Yes Delusion Type: Other (paranoid delusions) Suicidal: Ideation (No SI) Homicidal: Ideation (No HI) Insight/Judgment Poor Labs Test 10/23/16 07:16 Sodium Level 143 MEQ/L Potassium Level 4.3 MEQ/L Chloride Level 111 MEQ/L Carbon Dioxide Level 24.4 MEQ/L Anion Gap 8 MEQ/L Blood Urea Nitrogen 32 MG/DL Creatinine 1.71 MG/DL Estimat Glomerular Filtration 41 ML/MIN Rate Random Glucose 82 MG/DL Calcium Level 8.8 MG/DL Vitals/IOs Vital Signs Date Time Temp Pulse Resp B/P Pulse Ox O2 Delivery O2 Flow Rate FiO2 10/23/16 06:03 97.4 103 16 152/79 98 Intake and Output 10/22/16 10/22/16 10/23/16 08:00 16:00 00:00 Intake Total 480 ml 720 ml Balance 480 ml 720 ml Assessment & Plan Problem List: (1) Psychosis Assessment & Plan: Continue current psychotropic regimen. Insight oriented psychotherapy provided. ICD Code: F29 (2) Depressive disorder ICD Code: F32.9 Assessment & Plan Estimated LOS: days Justification for Cont. Inpt. Patient continues to be acutely psychotic, inpatient level of care is necessary for stabilization and safety. Request HC Surrog/Guard Advoc?: Yes Problem Qualifiers (1) Psychosis: Qualified Code: F20.0 - Paranoid schizophrenia Lawrence Thibodeaux MD Oct 23, 2016 10:31
[2016-10-23 13:16] LABS: INDIRECT BILIRUBIN 0.2 MG/DL (0.0-0.8); TOTAL BILIRUBIN ADULT 0.3 MG/DL (0.2-1.0)
[2016-10-23] MEDS: HALOPERIDOL 5 MG TAB PO SCH (19:58)
[2016-10-23] MEDS: QUEtiapine FUMARATE 100 MG TAB PO SCH (19:59)
[2016-10-23] MEDS: MIRTAZAPINE 15 MG TAB PO SCH (19:59)
[2016-10-24 05:57] VITALS: BP 92/53; PULSE 75; RESP 17; TEMP 97.9; O2SAT 100
[2016-10-24 05:59] VITALS: BP 114/66; PULSE 60; RESP 16; TEMP 97.6; O2SAT 97
[2016-10-24] MEDS: NIFEdipine 60 MG SUSTAINED RELEASE TAB PO SCH (09:00)
[2016-10-24] MEDS: METOPROLOL TARTRATE 25 MG TAB PO SCH ×2 (09:38→22:40)
[2016-10-24] MEDS: HALOPERIDOL 5 MG TAB PO SCH ×2 (09:38→22:40)
[2016-10-24] MEDS: BENZTROPINE MESYLATE 2 MG TAB PO SCH ×2 (09:38→22:41)
[2016-10-24] MEDS: ESCITALOPRAM OXALATE 20 MG TAB PO SCH (09:38)
[2016-10-24] MEDS: DOCUSATE SODIUM 50 MG/SENNA 8.6 MG TAB PO SCH ×2 (09:38→22:39)
--- NOTE | 2016-10-24 16:22 | HHI.PYPN ---
Subjective Remarks Pt seen and discussed. He is frustrated due to AH and delusions about "Jason Millan" controlling his body and talking to him through the radio in different voices. He reported that "Jason" has been instructing him to run out into traffic and doing things to his body. He is compliant with medications and denies medication side effects. No SI/HI Objective Alert: Yes [place]: Person, Place, Date Mood: Depressed Affect: Flat Memory Intact: Immediate, Recent, Remote Hallucinations: Auditory Delusions: Yes Delusion Type: Other (paranoid delusions) Suicidal: Ideation (No SI) Homicidal: Ideation (No HI) Insight/Judgment poor Vitals/IOs Vital Signs Date Time Temp Pulse Resp B/P Pulse Ox O2 Delivery O2 Flow Rate FiO2 10/24/16 05:59 97.6 60 16 114/66 97 Assessment & Plan Problem List: (1) Psychosis ICD Code: F29 (2) Depressive disorder ICD Code: F32.9 Assessment & Plan Continue current tx plan. Estimated LOS: days Justification for Cont. Inpt. impairments in self care and reality testing Request HC Surrog/Guard Advoc?: Yes Problem Qualifiers (1) Psychosis: Qualified Code: F20.0 - Paranoid schizophrenia Jess Hall MD Oct 24, 2016 16:22
[2016-10-24 18:36] VITALS: BP 162/77; PULSE 66; RESP 16; TEMP 98.2; O2SAT 96
[2016-10-24] MEDS: MIRTAZAPINE 15 MG TAB PO SCH (22:38)
[2016-10-24] MEDS: QUEtiapine FUMARATE 100 MG TAB PO SCH (22:40)
[2016-10-25 06:08] VITALS: BP 116/70; PULSE 54; RESP 16; TEMP 98.2; O2SAT 95
[2016-10-25] MEDS: DOCUSATE SODIUM 50 MG/SENNA 8.6 MG TAB PO SCH ×2 (09:08→20:51)
[2016-10-25] MEDS: METOPROLOL TARTRATE 25 MG TAB PO SCH ×2 (09:08→20:52)
[2016-10-25] MEDS: ESCITALOPRAM OXALATE 20 MG TAB PO SCH (09:08)
[2016-10-25] MEDS: HALOPERIDOL 5 MG TAB PO SCH ×2 (09:08→20:52)
[2016-10-25] MEDS: BENZTROPINE MESYLATE 2 MG TAB PO SCH ×2 (09:08→20:51)
[2016-10-25] MEDS: NIFEdipine 60 MG SUSTAINED RELEASE TAB PO SCH (09:57)
--- NOTE | 2016-10-25 15:24 | HHI.PYPN ---
Subjective Remarks Pt seen and discussed with staff. He has been compliant with meds and denies side effects. He has stayed in bed most of day. He remains paranoid and delusional. No SI/IH Objective Alert: Yes [place]: Person, Place, Date Mood: Depressed Affect: Flat Memory Intact: Immediate, Recent, Remote Hallucinations: Auditory Delusions: Yes Delusion Type: Other (paranoid delusions) Suicidal: Ideation (No SI) Homicidal: Ideation (No HI) Insight/Judgment poor Vitals/IOs Vital Signs Date Time Temp Pulse Resp B/P Pulse Ox O2 Delivery O2 Flow Rate FiO2 10/25/16 06:08 98.2 54 16 116/70 95 Assessment & Plan Problem List: (1) Psychosis ICD Code: F29 (2) Depressive disorder ICD Code: F32.9 Assessment & Plan Continue current tx pln.Estimated LOS: days Justification for Cont. Inpt. impairments in safety Request HC Surrog/Guard Advoc?: Yes Problem Qualifiers (1) Psychosis: Qualified Code: F20.0 - Paranoid schizophrenia Jess Hall MD Oct 25, 2016 15:24
[2016-10-25 16:49] VITALS: BP 139/80; PULSE 77; RESP 18; TEMP 98.1
[2016-10-25] MEDS: QUEtiapine FUMARATE 100 MG TAB PO SCH (20:51)
[2016-10-25] MEDS: MIRTAZAPINE 15 MG TAB PO SCH (20:51)
[2016-10-25] MEDS: diphenhydrAMINE HCL 50 MG CAP PO PRN (20:51)
[2016-10-26 06:00] VITALS: BP 105/63; PULSE 69; RESP 18; TEMP 98.3; O2SAT 95
[2016-10-26] MEDS: HALOPERIDOL 5 MG TAB PO SCH ×2 (08:55→20:53)
[2016-10-26] MEDS: BENZTROPINE MESYLATE 2 MG TAB PO SCH ×2 (08:55→20:53)
[2016-10-26] MEDS: METOPROLOL TARTRATE 25 MG TAB PO SCH ×2 (08:55→20:54)
[2016-10-26] MEDS: ESCITALOPRAM OXALATE 20 MG TAB PO SCH (08:55)
[2016-10-26] MEDS: NIFEdipine 60 MG SUSTAINED RELEASE TAB PO SCH (08:55)
[2016-10-26] MEDS: DOCUSATE SODIUM 50 MG/SENNA 8.6 MG TAB PO SCH ×2 (08:55→20:53)
[2016-10-26 15:58] VITALS: BP 117/61; PULSE 80; RESP 18; TEMP 98.6; O2SAT 98
--- NOTE | 2016-10-26 19:47 | HHI.PYPN ---
Subjective Remarks Patient seen for follow-up, chart reviewed. As per chart patient continued reporting auditory hallucinations and delusions about Jason Millan controlling his body and talking to the radio. He states that this auditory hallucination is commanding him to run out into traffic. Patient also noted to have stayed in bed most probably over the weekend continued to endorse paranoid ideation and delusions. As per nursing report this morning patient continues to be delusional along with paranoia and positive hallucinations of popping and cracking sounds. Patient noted to be isolative quiet and stated feeling frustrated. Patient seen today for follow-up along with nurse: Chart reviewed. Patient seen in his room without recall cooperative interview, states that he has been in the hospital for this admission for a month. He reports that he had been told by the radioman that his family was also was stating that a voice that told him. He states that this radio vikas is trying to get him to commit suicide. Patient reports that staff member had told him having seen his family live which she states was not sure how to feel about that but was feeling currently stunned. He denies any auditory hallucinations at time of interview but states the last and had was yesterday. Review of Systems Except as stated in HPI: all other systems reviewed are Neg Other Denies any somatic complaint Objective Alert: Yes [place]: Person, Place, Date Mood: Anxious Affect: Flat Memory Intact: Immediate, Recent, Remote Hallucinations: Auditory (command type to him to kill himself) Delusions: Yes Delusion Type: Other (paranoid delusions) Suicidal: Ideation (No SI) Homicidal: Ideation (No HI) Insight/Judgment Poor judgment, fair impulse control, poor insight Vitals/IOs Vital Signs Date Time Temp Pulse Resp B/P Pulse Ox O2 Delivery O2 Flow Rate FiO2 10/26/16 15:58 98.6 80 18 117/61 98 Intake and Output 10/25/16 10/25/16 10/26/16 08:00 16:00 00:00 Intake Total 240 ml Balance 240 ml Assessment & Plan Problem List: (1) Psychosis ICD Code: F29 (2) Depressive disorder ICD Code: F32.9 Assessment & Plan Estimated LOS: 7-10 days Patient at this time continues to be acutely psychotic, continues with paranoid delusions along with command auditory hallucinations to kill himself. Patient continues to require inpatient level of care for stabilization and safety. Patient to continue current treatment. Discharge planning process Justification for Cont. Inpt. Patient continues to be acutely psychotic and requires inpatient level care for safety and stabilization Discharge Planning In process Request HC Surrog/Guard Advoc?: Yes Problem Qualifiers (1) Psychosis: Qualified Code: F20.0 - Paranoid schizophrenia Frederick Oliver MD Oct 26, 2016 19:47
[2016-10-26] MEDS: QUEtiapine FUMARATE 100 MG TAB PO SCH (20:53)
[2016-10-26] MEDS: MIRTAZAPINE 15 MG TAB PO SCH (20:54)
[2016-10-26 21:00] VITALS: BP 140/70; PULSE 63
[2016-10-27 05:30] VITALS: BP 110/58; PULSE 55; RESP 17; TEMP 98.2; O2SAT 97
[2016-10-27] MEDS: NIFEdipine 60 MG SUSTAINED RELEASE TAB PO SCH (09:12)
[2016-10-27] MEDS: METOPROLOL TARTRATE 25 MG TAB PO SCH ×2 (09:12→21:00)
[2016-10-27] MEDS: BENZTROPINE MESYLATE 2 MG TAB PO SCH ×2 (09:13→21:14)
[2016-10-27] MEDS: HALOPERIDOL 5 MG TAB PO SCH ×2 (09:13→21:14)
[2016-10-27] MEDS: DOCUSATE SODIUM 50 MG/SENNA 8.6 MG TAB PO SCH ×2 (09:13→21:14)
[2016-10-27] MEDS: ESCITALOPRAM OXALATE 20 MG TAB PO SCH (09:13)
[2016-10-27 15:24] VITALS: BP 136/58; PULSE 49; RESP 18; TEMP 98.3; O2SAT 97
[2016-10-27] MEDS: MIRTAZAPINE 15 MG TAB PO SCH (21:14)
[2016-10-27] MEDS: QUEtiapine FUMARATE 100 MG TAB PO SCH (21:14)
[2016-10-28 05:36] VITALS: BP 113/58; PULSE 64; RESP 18; TEMP 97.9; O2SAT 99
--- NOTE | 2016-10-28 08:10 | HHI.PYPN ---
Subjective Remarks LATE ENTRY: NOTE FOR 10/27/2016 Patient seen today for follow up; chart reviewed. As per nursing report, patient noted to be isolative in room, continues to endorse AH, specifically the radio vikas but denied any SI or HI. Patient was found lying on hospital bed but was able to engage in interview. Patient states contemplating why he was experiencing the AH of the radio vikas which he reports started three years ago. He states that the radio vikas who at times refers to the voice as Jason, was doing this for the [employer] regime. He denies any AH for the past couple of days, reports his mood as being fair, denies feeling sad or depressed but at times a little down. He denies SI, HI, AVH but continues to endorse AH and paranoia with delusion of persecution by this voice. Review of Systems Except as stated in HPI: all other systems reviewed are Neg Other denies any other somatic complaints Objective Alert: Yes [place]: Person, Place, Date Mood: Anxious Affect: Flat Memory Intact: Immediate, Recent, Remote Hallucinations: Auditory (denies at this time) Delusions: Yes Delusion Type: Other (paranoid delusions) Suicidal: Ideation (No SI) Homicidal: Ideation (No HI) Insight/Judgment poor insight, fair impulse control and fair judgement Vitals/IOs Vital Signs Date Time Temp Pulse Resp B/P Pulse Ox O2 Delivery O2 Flow Rate FiO2 10/28/16 05:36 97.9 64 18 113/58 99 Assessment & Plan Problem List: (1) Psychosis ICD Code: F29 (2) Depressive disorder ICD Code: F32.9 Assessment & Plan Patient continues to endorse psychotic symptoms (AH, paranoia) and noted to be unkempt. Patient encouraged to improve hygiene and to continue current treatment. Patient has petition/application for state hospitalization completed currently awaiting for approval. Patient encouraged to participate in groups and activites. Justification for Cont. Inpt. Patient may decompensate if at lower level of care. Discharge Planning In process Request HC Surrog/Guard Advoc?: Yes Problem Qualifiers (1) Psychosis: Qualified Code: F20.0 - Paranoid schizophrenia Frederick Oliver MD Oct 28, 2016 08:10
[2016-10-28] MEDS: BISACODYL EC 5 MG TABEC PO PRN (09:16)
[2016-10-28] MEDS: ESCITALOPRAM OXALATE 20 MG TAB PO SCH (09:16)
[2016-10-28] MEDS: NIFEdipine 60 MG SUSTAINED RELEASE TAB PO SCH (09:16)
[2016-10-28] MEDS: METOPROLOL TARTRATE 25 MG TAB PO SCH ×2 (09:16→20:58)
[2016-10-28] MEDS: DOCUSATE SODIUM 50 MG/SENNA 8.6 MG TAB PO SCH ×2 (09:16→20:58)
[2016-10-28] MEDS: BENZTROPINE MESYLATE 2 MG TAB PO SCH ×2 (09:16→20:58)
[2016-10-28] MEDS: HALOPERIDOL 5 MG TAB PO SCH ×2 (09:16→20:58)
[2016-10-28 18:01] VITALS: BP 122/82; PULSE 71; RESP 16; TEMP 98.6; O2SAT 95
--- NOTE | 2016-10-28 19:29 | HHI.PYPN ---
Subjective Remarks Patient seen today for follow-up chart reviewed. As per nursing patient continues to report hearing the voice of "Jason was "an Jason trying to kill him patient noted to be isolative and continues with flat affect. Patient seen sitting on hospital bed noted to be calm and cooperative in interview. Patient states that he continues to hear "Jason" and has had and states that his name is Jason Millan. He reports that this person was an transportation officer and [facility] and having met him at a motel while he was there. He states the last and has heard the voice of Lenore was "in a while" but continues report hearing popping and cracking in his head. Patient reports that he was able to join the group outside for activity and which she enjoyed. Patient was encouraged to continue to do so along with improvement of hygiene which she agreed. Patient at this time continues to endorse auditory hallucinations, paranoia but denies SI, HI, visual hallucinations or delusions. Review of Systems Except as stated in HPI: all other systems reviewed are Neg Objective Alert: Yes [place]: Person, Place, Date Mood: Other ("all right") Affect: Flat Memory Intact: Immediate, Recent, Remote Hallucinations: Auditory (denies at this time) Delusions: Yes Delusion Type: Paranoid Suicidal: Ideation (No SI) Homicidal: Ideation (No HI) Insight/Judgment Poor insight, fair impulse control, poor judgment Vitals/IOs Vital Signs Date Time Temp Pulse Resp B/P Pulse Ox O2 Delivery O2 Flow Rate FiO2 10/28/16 18:01 98.6 71 16 122/82 95 Assessment & Plan Problem List: (1) Psychosis ICD Code: F29 (2) Depressive disorder ICD Code: F32.9 Assessment & Plan Estimated LOS: 5-7days. Patient continues with psychotic symptoms including auditory hallucinations and paranoia revolving around a person him to "Jason" who he claims has met previously in [place]. Patient at this time continues to require inpatient hospitalization for stabilization. Patient to continue current treatment regimen. Patient encouraged to shower and improve personal hygiene which she agreed to. Continue to encourage patient was spitting groups and activities. Discharge planning and process Justification for Cont. Inpt. Patient at risk for further decompensation if it lower level of care Discharge Planning In process Request HC Surrog/Guard Advoc?: Yes Problem Qualifiers (1) Psychosis: Qualified Code: F20.0 - Paranoid schizophrenia Frederick Oliver MD Oct 28, 2016 19:29
[2016-10-28] MEDS: QUEtiapine FUMARATE 100 MG TAB PO SCH (20:57)
[2016-10-28] MEDS: MIRTAZAPINE 15 MG TAB PO SCH (20:58)
[2016-10-29 06:01] VITALS: BP 94/53; PULSE 61; RESP 18; TEMP 97.9; O2SAT 98
[2016-10-29] MEDS: HALOPERIDOL 5 MG TAB PO SCH ×2 (08:28→21:16)
[2016-10-29] MEDS: ESCITALOPRAM OXALATE 20 MG TAB PO SCH (08:29)
[2016-10-29] MEDS: DOCUSATE SODIUM 50 MG/SENNA 8.6 MG TAB PO SCH ×2 (08:29→21:17)
[2016-10-29] MEDS: METOPROLOL TARTRATE 25 MG TAB PO SCH ×2 (08:29→21:17)
[2016-10-29] MEDS: BENZTROPINE MESYLATE 2 MG TAB PO SCH ×2 (08:29→21:16)
[2016-10-29] MEDS: NIFEdipine 60 MG SUSTAINED RELEASE TAB PO SCH (08:29)
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
[2016-10-29] MEDS: MIRTAZAPINE 15 MG TAB PO SCH (21:17)
[2016-10-29] MEDS: QUEtiapine FUMARATE 100 MG TAB PO SCH (21:17)
[2016-10-30 05:29] VITALS: BP 105/58; PULSE 71; RESP 16; TEMP 98.4; O2SAT 94
[2016-10-30] MEDS: BENZTROPINE MESYLATE 2 MG TAB PO SCH ×2 (08:49→20:23)
[2016-10-30] MEDS: HALOPERIDOL 5 MG TAB PO SCH ×2 (08:50→20:23)
[2016-10-30] MEDS: DOCUSATE SODIUM 50 MG/SENNA 8.6 MG TAB PO SCH ×2 (08:50→20:22)
[2016-10-30] MEDS: METOPROLOL TARTRATE 25 MG TAB PO SCH ×2 (08:50→20:23)
[2016-10-30] MEDS: ESCITALOPRAM OXALATE 20 MG TAB PO SCH (08:50)
[2016-10-30] MEDS: NIFEdipine 60 MG SUSTAINED RELEASE TAB PO SCH (08:50)
--- NOTE | 2016-10-30 17:42 | HHI.PYPN ---
Subjective Remarks Patient seen for follow-up, chart reviewed. As per nursing report patient continues to hear the voice of Jason and having auditory hallucinations. Patient noted to mostly to be in bed. Patient found lying on hospital bed was able to wake up to engage in interview. Patient states that he has been feeling Im the same. Patient was was advised to join the groups for ice cream later today and states that he used to have a collection of blue pill paraphernalia but that he had to sell them to pay for thousand expenses. Patient stated that he continues to hear the voice of Jason and is trying to get him to commit suicide although he denies having these thoughts of hurting himself here in the unit. Patient recalls that he tried once due to these command auditory hallucinations for Jason and had walked onto the highway but was uninjured. Patient states that his mood has been not happy patient denies any suicidal homicidal ideations at this time denies any auditory or visual hallucinations at time of interview continues to endorse paranoid ideation related to Jason. It was discussed with patient the possibility of close eye clozapine which she agreed to. Patient aware that he will have labs ordered and EKG done prior to commencing clozapine. Review of Systems Except as stated in HPI: all other systems reviewed are Neg Objective Alert: Yes [place]: Person, Place, Date Mood: Other ("on the same") Affect: Flat Memory Intact: Immediate, Recent, Remote Hallucinations: Auditory (continues to endorse the voice of Jason but denies at time of interview) Delusions: Yes Delusion Type: Paranoid, Other (persecutory) Suicidal: Ideation (No SI) Homicidal: Ideation (No HI) Insight/Judgment Poor insight, fair impulse control and judgment Vitals/IOs Vital Signs Date Time Temp Pulse Resp B/P Pulse Ox O2 Delivery O2 Flow Rate FiO2 10/30/16 05:29 98.4 71 16 105/58 94 Intake and Output 10/29/16 10/29/16 10/29/16 07:59 15:59 23:59 Intake Total 240 ml Balance 240 ml Assessment & Plan Problem List: (1) Psychosis ICD Code: F29 (2) Depressive disorder ICD Code: F32.9 Assessment & Plan Estimated LOS: 5-7 days. Patient at this time continues to endorse psychotic symptoms including auditory hallucinations, voice named Jsaon, continues with paranoia persecutory delusions from the same. Patient was discussed possibility of starting clozapine which she agreed to ramble have CBC along with EKG done prior to commencing this treatment. Patient continues to require inpatient psychiatric stabilization. Patient encouraged to improve a personal hygiene and to participate in group and activities while on the unit. Discharge planning in process. Justification for Cont. Inpt. Patient at risk for further decompensation if it lower level of care Discharge Planning In progress Request HC Surrog/Guard Advoc?: Yes Problem Qualifiers (1) Psychosis: Qualified Code: F20.0 - Paranoid schizophrenia Frederick Oliver MD Oct 30, 2016 17:41
[2016-10-30 17:56] VITALS: BP 104/59; PULSE 76; RESP 16; TEMP 98.6; O2SAT 96
[2016-10-30] MEDS: MIRTAZAPINE 15 MG TAB PO SCH (20:23)
[2016-10-30] MEDS: QUEtiapine FUMARATE 100 MG TAB PO SCH (20:23)
[2016-10-31 06:18] VITALS: BP 98/55; PULSE 56; RESP 16; TEMP 98.9; O2SAT 97
[2016-10-31] MEDS: ESCITALOPRAM OXALATE 20 MG TAB PO SCH (08:25)
[2016-10-31] MEDS: NIFEdipine 60 MG SUSTAINED RELEASE TAB PO SCH (08:25)
[2016-10-31] MEDS: HALOPERIDOL 5 MG TAB PO SCH ×2 (08:25→22:01)
[2016-10-31] MEDS: DOCUSATE SODIUM 50 MG/SENNA 8.6 MG TAB PO SCH ×2 (08:26→22:02)
[2016-10-31] MEDS: BENZTROPINE MESYLATE 2 MG TAB PO SCH ×2 (08:26→22:01)
[2016-10-31] MEDS: METOPROLOL TARTRATE 25 MG TAB PO SCH ×2 (08:26→21:00)
[2016-10-31 12:17] LABS: AUTOMATED NEUTROPHIL # 4.4 TH/MM3 (1.8-7.7); BASOPHIL % 0.6 % (0.0-2.0); EOSINOPHIL # 0.2 TH/MM3 (0-0.4); EOSINOPHIL % 2.7 % (0.0-4.0); HEMATOCRIT 42.9 % (39.0-51.0); HEMO FLAGS DIFF FINAL; LYMPH % 28.7 % (9.0-44.0); LYMPHOCYTE # 2.1 TH/MM3 (1.0-4.8); MEAN CELL VOLUME 93.5 FL (80.0-100.0); MEAN CORPUSCULAR HEMOGLOBIN 31.5 PG (27.0-34.0); MEAN CORPUSCULAR HGB CONC 33.7 % (32.0-36.0); MONO % 7.2 % (0.0-8.0); NEUT % 60.8 % (16.0-70.0); PLATELET COUNT 222 TH/MM3 (150-450); RED CELL DISTRIBUTION WIDTH 14.7 % (11.6-17.2); WHITE BLOOD COUNT 7.2 TH/MM3 (4.0-11.0)
[2016-10-31 12:40] LABS: BICARBONATE 24.8 MEQ/L (21.0-32.0); POTASSIUM 4.5 MEQ/L (3.5-5.1)
--- NOTE | 2016-10-31 14:01 | EKG ---
Date Performed: 10/30/2016 Time Performed: 20:47:06 PTAGE: 61 years EKG: Sinus rhythm WITH FIRST DEGREE AV BLOCK INCOMPLETE RIGHT BUNDLE BRANCH BLOCK RIGHT ATRIAL ENLARGEMENT Since previ ous tracing, no significant change noted. ABNORMAL ECG PREVIOUS TRACING : 10/20/2016 16.35 DOCTOR: Ene Henry Interpretating Date/Time 10/31/2016 14:00:41
--- NOTE | 2016-10-31 15:44 | HHI.PYPN ---
Subjective Remarks Patient was seen and case discussed with nursing. Patient is pleasant and cooperative with exam. He is behaving well on the unit. Continues to hear snaps in his head. Denies suicidal ideation intent or plan Objective Alert: Yes [place]: Person, Place, Date Mood: Other ("on the same") Affect: Blunted Memory Intact: Immediate, Recent, Remote Hallucinations: Auditory (continues to endorse the voice of Jason but denies at time of interview) Delusions: Yes Delusion Type: Paranoid, Other (persecutory) Suicidal: Ideation (No SI) Homicidal: Ideation (No HI) Insight/Judgment Poor Labs Test 10/31/16 11:36 White Blood Count 7.2 TH/MM3 Red Blood Count 4.60 MIL/MM3 Hemoglobin 14.5 GM/DL Hematocrit 42.9 % Mean Corpuscular Volume 93.5 FL Mean Corpuscular Hemoglobin 31.5 PG Mean Corpuscular Hemoglobin 33.7 % Concent Red Cell Distribution Width 14.7 % Platelet Count 222 TH/MM3 Mean Platelet Volume 8.4 FL Neutrophils (%) (Auto) 60.8 % Lymphocytes (%) (Auto) 28.7 % Monocytes (%) (Auto) 7.2 % Eosinophils (%) (Auto) 2.7 % Basophils (%) (Auto) 0.6 % Neutrophils # (Auto) 4.4 TH/MM3 Lymphocytes # (Auto) 2.1 TH/MM3 Monocytes # (Auto) 0.5 TH/MM3 Eosinophils # (Auto) 0.2 TH/MM3 Basophils # (Auto) 0.0 TH/MM3 CBC Comment DIFF FINAL Differential Comment Sodium Level 141 MEQ/L Potassium Level 4.5 MEQ/L Chloride Level 108 MEQ/L Carbon Dioxide Level 24.8 MEQ/L Anion Gap 8 MEQ/L Blood Urea Nitrogen 40 MG/DL Creatinine 1.63 MG/DL Estimat Glomerular Filtration 43 ML/MIN Rate Random Glucose 73 MG/DL Calcium Level 9.1 MG/DL Vitals/IOs Vital Signs Date Time Temp Pulse Resp B/P Pulse Ox O2 Delivery O2 Flow Rate FiO2 10/31/16 06:18 98.9 56 16 98/55 97 Assessment & Plan Problem List: (1) Psychosis ICD Code: F29 (2) Depressive disorder ICD Code: F32.9 Assessment & Plan Continue current treatment plan Justification for Cont. Inpt. Patient would decompensate in a less restrictive setting Request HC Surrog/Guard Advoc?: Yes Problem Qualifiers (1) Psychosis: Qualified Code: F20.0 - Paranoid schizophrenia Dinesh Pinto DO Oct 31, 2016 15:44
[2016-10-31 17:00] VITALS: BP 130/75; PULSE 67; RESP 16; TEMP 98.3; O2SAT 96
[2016-10-31 22:00] VITALS: BP 110/57; PULSE 67
[2016-10-31] MEDS: MIRTAZAPINE 15 MG TAB PO SCH (22:02)
[2016-10-31] MEDS: QUEtiapine FUMARATE 100 MG TAB PO SCH (22:02)
[2016-11-01 05:40] VITALS: BP 104/52; PULSE 56; RESP 17; TEMP 97.8; O2SAT 95
[2016-11-01] MEDS: BISACODYL EC 5 MG TABEC PO PRN (08:55)
[2016-11-01] MEDS: NIFEdipine 60 MG SUSTAINED RELEASE TAB PO SCH (08:57)
[2016-11-01] MEDS: DOCUSATE SODIUM 50 MG/SENNA 8.6 MG TAB PO SCH ×2 (08:57→21:24)
[2016-11-01] MEDS: METOPROLOL TARTRATE 25 MG TAB PO SCH ×2 (08:57→21:00)
[2016-11-01] MEDS: BENZTROPINE MESYLATE 2 MG TAB PO SCH ×2 (08:57→21:24)
[2016-11-01] MEDS: HALOPERIDOL 5 MG TAB PO SCH ×2 (08:59→21:24)
[2016-11-01] MEDS: ESCITALOPRAM OXALATE 20 MG TAB PO SCH (09:39)
--- NOTE | 2016-11-01 12:11 | HHI.PYPN ---
Subjective Remarks Patient was seen and case discussed with nursing. Patient continues to complain of snap/crackles/Jason his head. Appears more disheveled with foul odor was asked to take a shower. Does not describe any new stressors. His compliant with his medications. Denies suicidal ideation intent or plan Objective Alert: Yes [place]: Person, Place, Date Mood: Other ("on the same") Affect: Blunted Memory Intact: Immediate, Recent, Remote Hallucinations: Auditory (continues to endorse the voice of Jason ) Delusions: Yes Delusion Type: Paranoid, Other (persecutory) Suicidal: Ideation (No SI) Homicidal: Ideation (No HI) Insight/Judgment Poor Vitals/IOs Vital Signs Date Time Temp Pulse Resp B/P Pulse Ox O2 Delivery O2 Flow Rate FiO2 11/01/16 05:40 97.8 56 17 104/52 95 Assessment & Plan Problem List: (1) Psychosis ICD Code: F29 (2) Depressive disorder ICD Code: F32.9 Assessment & Plan Continue current treatment plan Justification for Cont. Inpt. Patient would decompensate in a less restrictive setting Request HC Surrog/Guard Advoc?: Yes Problem Qualifiers (1) Psychosis: Qualified Code: F20.0 - Paranoid schizophrenia Dinesh Pinto DO Nov 01, 2016 12:11
[2016-11-01 16:54] VITALS: BP 114/72; PULSE 70; RESP 18; TEMP 98.2; O2SAT 96
[2016-11-01] MEDS: MIRTAZAPINE 15 MG TAB PO SCH (21:24)
[2016-11-01] MEDS: QUEtiapine FUMARATE 100 MG TAB PO SCH (21:24)
[2016-11-02 05:27] VITALS: BP 106/71; PULSE 65; RESP 16; TEMP 97.7; O2SAT 96
[2016-11-02] MEDS: METOPROLOL TARTRATE 25 MG TAB PO SCH ×3 (08:37→20:29)
[2016-11-02] MEDS: NIFEdipine 60 MG SUSTAINED RELEASE TAB PO SCH (08:37)
[2016-11-02] MEDS: ESCITALOPRAM OXALATE 20 MG TAB PO SCH (08:37)
[2016-11-02] MEDS: DOCUSATE SODIUM 50 MG/SENNA 8.6 MG TAB PO SCH ×2 (08:37→20:28)
[2016-11-02] MEDS: BENZTROPINE MESYLATE 2 MG TAB PO SCH ×2 (08:37→20:28)
[2016-11-02] MEDS: HALOPERIDOL 5 MG TAB PO SCH ×2 (08:38→20:28)
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
[2016-11-02 15:34] VITALS: BP 127/58; PULSE 85; RESP 18; TEMP 99.5; O2SAT 96
[2016-11-02] MEDS: QUEtiapine FUMARATE 100 MG TAB PO SCH (20:28)
[2016-11-02] MEDS: MIRTAZAPINE 15 MG TAB PO SCH (20:28)
[2016-11-03 06:19] VITALS: BP 104/62; PULSE 74; RESP 16; TEMP 97.7; O2SAT 96
[2016-11-03] MEDS: HALOPERIDOL 5 MG TAB PO SCH ×2 (08:53→20:38)
[2016-11-03] MEDS: ESCITALOPRAM OXALATE 20 MG TAB PO SCH (08:53)
[2016-11-03] MEDS: DOCUSATE SODIUM 50 MG/SENNA 8.6 MG TAB PO SCH ×2 (08:53→20:38)
[2016-11-03] MEDS: BENZTROPINE MESYLATE 2 MG TAB PO SCH ×2 (08:53→20:39)
[2016-11-03] MEDS: NIFEdipine 60 MG SUSTAINED RELEASE TAB PO SCH ×2 (08:54→15:48)
[2016-11-03] MEDS: METOPROLOL TARTRATE 25 MG TAB PO SCH ×3 (08:54→20:39)
[2016-11-03 15:33] VITALS: BP 169/95; PULSE 81; RESP 18; TEMP 99.1; O2SAT 91
--- NOTE | 2016-11-03 16:18 | HHI.PYPN ---
Subjective Remarks Patient seen for follow-up, chart reviewed. As per nursing report patient continues to report auditory hallucinations of his 's name "Jason" and continued be noted to be isolative. Patient found lying on hospital bed sleeping was able to wake up to engage in interview. Patient noted to have shaved, but continues to require improvement hygiene (e.g. showering). Patient states that he continues to feel bothered by the voice name "Jason" that he is in the hospital because of him. Patient reports feeling "down" but denies SI. He reports eating two meals a day and reports feeling constipated for the past two days. He continues to report feeling "Jason" is present and continues to feel distressed about it. Currently denies SI, HI, VH but continues to endorse AH and persecutory delusions. Plan to down titrate quetiapine and initiate clozapine was discussed and patient agreed with plan. Review of Systems Except as stated in HPI: all other systems reviewed are Neg Gastrointestinal: COMPLAINS OF: Constipation Objective Alert: Yes [place]: Person, Place, Date Mood: Other ("down") Affect: Blunted Memory Intact: Immediate, Recent, Remote Hallucinations: Auditory (continues to endorse the voice of Jason ) Delusions: Yes Delusion Type: Paranoid, Other (persecutory) Suicidal: Ideation (No SI) Homicidal: Ideation (No HI) Insight/Judgment Poor insight, fair impulse control, fair judgment Vitals/IOs Vital Signs Date Time Temp Pulse Resp B/P Pulse Ox O2 Delivery O2 Flow Rate FiO2 11/03/16 15:33 99.1 81 18 169/95 91 Assessment & Plan Problem List: (1) Psychosis ICD Code: F29 (2) Depressive disorder ICD Code: F32.9 Assessment & Plan Estimated LOS: 7-10 days. Patient at this time continues to report psychotic symptoms, auditory hallucinations of a voice named "Jason" which he feels is trying to kill him and feels persecuted by this voice. Patient denies any other depressive symptoms aside from feeling "down", denies any mood symptoms. Patient encouraged to improve hygiene and to participate in group activities. Plan: Decrease Seroquel to 175 by mouth at bedtime with plan to down titrate so that clozapine can be started thereafter. Patient had CBC which that she focus on was within normal limits as well as EKG as noted in chart. Robbin will be added as patient reported some constipation. Patient to be continued to be monitored while on the unit. Justification for Cont. Inpt. Patient at risk for decompensation if at lower level of care Discharge Planning In progress Request HC Surrog/Guard Advoc?: Yes Problem Qualifiers (1) Psychosis: Qualified Code: F20.0 - Paranoid schizophrenia Frederick Oliver MD Nov 03, 2016 16:17
[2016-11-03] MEDS: MIRTAZAPINE 15 MG TAB PO SCH (20:37)
[2016-11-03] MEDS: QUEtiapine FUMARATE 100 MG TAB PO SCH (20:37)
[2016-11-03] MEDS: DOCUSATE SODIUM 100 MG CAP PO SCH (20:38)
[2016-11-03] MEDS ORDERED: QUEtiapine FUMARATE 25 MG TAB PO SCH (21:00)
[2016-11-04 06:34] VITALS: BP 111/65; PULSE 58; RESP 16; TEMP 97.8; O2SAT 96
[2016-11-04] MEDS: NIFEdipine 60 MG SUSTAINED RELEASE TAB PO SCH (08:27)
[2016-11-04] MEDS: BENZTROPINE MESYLATE 2 MG TAB PO SCH ×2 (08:27→21:00)
[2016-11-04] MEDS: ESCITALOPRAM OXALATE 20 MG TAB PO SCH (08:27)
[2016-11-04] MEDS: METOPROLOL TARTRATE 25 MG TAB PO SCH ×2 (08:28→21:00)
[2016-11-04] MEDS: HALOPERIDOL 5 MG TAB PO SCH ×2 (08:28→21:00)
[2016-11-04] MEDS: DOCUSATE SODIUM 50 MG/SENNA 8.6 MG TAB PO SCH ×2 (08:28→21:00)
--- NOTE | 2016-11-04 11:14 | PD.TTN ---
Present for Treatment Team Treatment Team Staff: Provider (Dr. Oliver), Nurse (Viraj), Psych Therapist ( ESTELLE Hammond) Patient Problems 1. Discharge planning 2. Medication compliance 3. Knowledge deficit 4. Lack of coping skills Progress Toward Goals Provider Input: Dr. Oliver requested an update regarding patient's progress, medication management, and behavioral status. Dr. menendez reported he will titrate patient's Seroquel and initiate clozapine. Nurse Input: Viraj reported the patient continues to report auditory hallucinations in the form of pops and cracking noises. Psych Therapist Input: Counselor reported the patient continues to self-isolate in his room and does not socialize with peers. Patient remains on the [facility] wait list. He remains compliant with medications and without behavioral incident. Patient continues to report auditory hallucinations in the form of pops and cracking. Documentation Scribe: ESTELLE Hammond Date Resolved: Nov 04, 2016 Latoya Mendoza Nov 04, 2016 11:14
[2016-11-04 17:24] VITALS: BP 125/61; PULSE 99; RESP 18; TEMP 98; O2SAT 94
--- NOTE | 2016-11-04 18:42 | HHI.PYPN ---
Subjective Remarks Patient seen for follow-up, chart reviewed. As per nursing report patient continues report hearing crackles in pops, noted to be eating well but continues to be seclusive in room. Patient seen sitting in hospital bed, calm and cooperative with interview. Patient states that he continues to hear "pops in crackles" but has not heard a voice of "Jason" as is recent but states that he does hear him from time to time. Patient reports that he showered today and will plan to continue shaving as well. Patient stated that he is eating and drinking, attended activity outside with the rest of the group yesterday and plans on continuing to participate in activities here on the unit. Patient at this time denies SI, HI,visual hallucinations but continues to endorse auditory hallucinations and paranoid persecutory delusions. Review of Systems Except as stated in HPI: all other systems reviewed are Neg Objective Alert: Yes [place]: Person, Place, Date Mood: Other ("all right") Affect: Blunted (but slightly more reactive today) Memory Intact: Immediate, Recent, Remote Hallucinations: Auditory (continues to endorse "crackles in pops") Delusions: Yes Delusion Type: Paranoid, Other (persecutory) Suicidal: Ideation (No SI) Homicidal: Ideation (No HI) Insight/Judgment Poor insight, fair impulse control and judgment. Vitals/IOs Vital Signs Date Time Temp Pulse Resp B/P Pulse Ox O2 Delivery O2 Flow Rate FiO2 11/04/16 17:24 98.0 99 18 125/61 94 Assessment & Plan Problem List: (1) Psychosis ICD Code: F29 (2) Depressive disorder ICD Code: F32.9 Assessment & Plan Patient this time continues to endorse auditory hallucinations along with paranoia persecutory delusions from the voice called Jason. Patient is adherent to treatment and will continue to have some quetiapine down titrated so asked to commence clozapine soon thereafter. Continue to encourage patient to improve on personal hygiene and to participate in groups and activities while on the unit. Discharge planning in progress Justification for Cont. Inpt. Patient at risk for decompensation at lower level of care Discharge Planning In progress Request HC Surrog/Guard Advoc?: Yes Problem Qualifiers (1) Psychosis: Qualified Code: F20.0 - Paranoid schizophrenia Frederick Oliver MD Nov 04, 2016 18:42
[2016-11-04] MEDS: MIRTAZAPINE 15 MG TAB PO SCH (21:00)
[2016-11-04] MEDS: QUEtiapine FUMARATE 100 MG TAB PO SCH (21:00)
[2016-11-04] MEDS ORDERED: QUEtiapine FUMARATE 25 MG TAB PO SCH (21:00)
[2016-11-04] MEDS: diphenhydrAMINE HCL 50 MG CAP PO PRN (21:00)
[2016-11-04] MEDS: DOCUSATE SODIUM 100 MG CAP PO SCH (21:00)
[2016-11-05 05:28] VITALS: BP 132/72; PULSE 64; RESP 18; TEMP 97.5; O2SAT 97
[2016-11-05] MEDS: BENZTROPINE MESYLATE 2 MG TAB PO SCH ×2 (09:19→20:07)
[2016-11-05] MEDS: NIFEdipine 60 MG SUSTAINED RELEASE TAB PO SCH (09:19)
[2016-11-05] MEDS: ESCITALOPRAM OXALATE 20 MG TAB PO SCH (09:19)
[2016-11-05] MEDS: DOCUSATE SODIUM 50 MG/SENNA 8.6 MG TAB PO SCH ×2 (09:19→20:07)
[2016-11-05] MEDS: HALOPERIDOL 5 MG TAB PO SCH ×2 (09:19→20:10)
[2016-11-05] MEDS: METOPROLOL TARTRATE 25 MG TAB PO SCH ×2 (09:19→20:10)
--- NOTE | 2016-11-05 15:20 | HHI.PYPN ---
Subjective Remarks Patient seen for follow-up, chart reviewed. Patient states that he is "going to constipation mass", and reports having had some bowel movement but not as easily he would like. Patient stated that his mood has been "not too good" and asked for which reason she states because I am in here. Patient reported having charges today and plans to shave today to improve his personal hygiene. Patient reports that he will plan to just be more groups and activities. Patient denies having heard any auditory hallucinations of the voice of Jason but continue the year pops and crackles. Patient denies SI, HI. Review of Systems Except as stated in HPI: all other systems reviewed are Neg Objective Alert: Yes [place]: Person, Place, Date Mood: Other ("not too good") Affect: Restricted Memory Intact: Immediate, Recent, Remote Hallucinations: Auditory (continues to endorse "crackles in pops") Delusions: Yes Delusion Type: Paranoid, Other (persecutory) Suicidal: Ideation (No SI) Homicidal: Ideation (No HI) Insight/Judgment Poor insight, fair impulse control and judgment Vitals/IOs Vital Signs Date Time Temp Pulse Resp B/P Pulse Ox O2 Delivery O2 Flow Rate FiO2 11/05/16 05:28 97.5 64 18 132/72 97 Intake and Output 11/04/16 11/04/16 11/05/16 08:00 16:00 00:00 Intake Total 960 ml 360 ml Balance 960 ml 360 ml Assessment & Plan Problem List: (1) Psychosis ICD Code: F29 (2) Depressive disorder ICD Code: F32.9 Assessment & Plan Patient continues to endorse psychotic symptoms of auditory hallucinations, paranoid and persecutory delusions; occasionally hears a voice of "Jason". Quetiapine is currently being down titrated so asked to start clozapine thereafter. Patient to be continued to be encouraged to improve his personal hygiene attending activities and groups and be less isolative in his room. Discharge planning in process. Justification for Cont. Inpt. Patient risk for the further decompensation at lower level of care Discharge Planning In progress Request HC Surrog/Guard Advoc?: Yes Problem Qualifiers (1) Psychosis: Qualified Code: F20.0 - Paranoid schizophrenia Frederick Oliver MD Nov 05, 2016 15:20
[2016-11-05] MEDS: DOCUSATE SODIUM 100 MG CAP PO SCH (20:07)
[2016-11-05] MEDS: MIRTAZAPINE 15 MG TAB PO SCH (20:08)
[2016-11-05] MEDS: QUEtiapine FUMARATE 100 MG TAB PO SCH (20:08)
[2016-11-05] MEDS ORDERED: QUEtiapine FUMARATE 25 MG TAB PO SCH (21:00)
[2016-11-06 06:11] VITALS: BP 134/66; PULSE 74; RESP 16; TEMP 98.7; O2SAT 98
[2016-11-06] MEDS: DOCUSATE SODIUM 50 MG/SENNA 8.6 MG TAB PO SCH ×2 (09:29→20:31)
[2016-11-06] MEDS: ESCITALOPRAM OXALATE 20 MG TAB PO SCH (09:29)
[2016-11-06] MEDS: BENZTROPINE MESYLATE 2 MG TAB PO SCH ×2 (09:30→20:29)
[2016-11-06] MEDS: HALOPERIDOL 5 MG TAB PO SCH ×2 (09:30→20:30)
[2016-11-06] MEDS: METOPROLOL TARTRATE 25 MG TAB PO SCH ×2 (09:30→20:31)
[2016-11-06] MEDS: NIFEdipine 60 MG SUSTAINED RELEASE TAB PO SCH (09:30)
--- NOTE | 2016-11-06 19:07 | HHI.PYPN ---
Subjective Remarks Patient for follow up, chart review. Patient noted to be shaven and improving on personal hygiene was noted to be calm and cooperative in interview. Patient states that he continues to have some "pops" and that "Jason is working on a radio that controls his pops". Patient continues to have auditory hallucinations but last time being a couple days ago as stated above. Patient continues to have specific during and paranoid delusions of the voice called Jason feels that he is put here unjustly because he was trying to have Jason arrested. Patient reports sleeping well, no problems with eating and drinking, had about yesterday reports mood being "same". Patient currently states being worried about hospital bills that he has been here for "quite a while". Patient is time denies any SI, HI or VH but continues to endorse auditory hallucinations as stated above and paranoid and persecutory delusions by the same voice. Review of Systems Except as stated in HPI: all other systems reviewed are Neg Objective Alert: Yes [place]: Person, Place, Date Mood: Other ("same") Affect: Restricted Memory Intact: Immediate, Recent, Remote Hallucinations: Auditory (continues to endorse "crackles in pops") Delusions: Yes Delusion Type: Paranoid, Other (persecutory) Suicidal: Ideation (No SI) Homicidal: Ideation (No HI) Insight/Judgment poor insight, fair impulse control, fair judgement Remarks Patient appears stated age, [facility], mildly disheveled, fair hygiene, cleanly shaven, calm and cooperative in interview, fair eye contact, speech normal rate tone and prosody, leg which fluid and spontaneous, thought processes linear, thought content denies SI, HI, VH but endorses auditory hallucinations of crackles in pops, endorses paranoid anniversaries of delusions of voicing Jason. Vitals/IOs Vital Signs Date Time Temp Pulse Resp B/P Pulse Ox O2 Delivery O2 Flow Rate FiO2 11/06/16 06:11 98.7 74 16 134/66 98 Intake and Output 11/05/16 11/05/16 11/06/16 08:00 16:00 00:00 Intake Total 360 ml Balance 360 ml Assessment & Plan Problem List: (1) Psychosis ICD Code: F29 (2) Depressive disorder ICD Code: F32.9 Assessment & Plan Patient's this time continues to be acutely psychotic, endorsing auditory hallucinations and paranoid and persecutory delusions of requesting Jason. Patient continues to be done treated of Seroquel with plan to commence clozapine thereafter. Continue to down titrate Seroquel over the weekend. Continue treatment, continue to encourage patient to maintain hygiene and to participate in groups and activities on the unit. Discharge planning in progress Justification for Cont. Inpt. Patient at risk for further decompensation if it lower level of care Discharge Planning In progress Request HC Surrog/Guard Advoc?: Yes Problem Qualifiers (1) Psychosis: Qualified Code: F20.0 - Paranoid schizophrenia Frederick Oliver MD Nov 06, 2016 19:07
[2016-11-06 19:24] VITALS: BP 126/56; PULSE 81; RESP 16; TEMP 99.3; O2SAT 96
[2016-11-06] MEDS: MIRTAZAPINE 15 MG TAB PO SCH (20:29)
[2016-11-06] MEDS: QUEtiapine FUMARATE 100 MG TAB PO SCH (20:30)
[2016-11-06] MEDS: DOCUSATE SODIUM 100 MG CAP PO SCH (20:30)
[2016-11-07 05:21] VITALS: BP 117/56; PULSE 73; RESP 18; TEMP 98.4; O2SAT 98
[2016-11-07] MEDS: NIFEdipine 60 MG SUSTAINED RELEASE TAB PO SCH (08:47)
[2016-11-07] MEDS: DOCUSATE SODIUM 50 MG/SENNA 8.6 MG TAB PO SCH ×2 (08:48→21:19)
[2016-11-07] MEDS: METOPROLOL TARTRATE 25 MG TAB PO SCH ×2 (08:48→21:19)
[2016-11-07] MEDS: ESCITALOPRAM OXALATE 20 MG TAB PO SCH (08:48)
[2016-11-07] MEDS: HALOPERIDOL 5 MG TAB PO SCH ×2 (08:49→21:18)
[2016-11-07] MEDS: BENZTROPINE MESYLATE 2 MG TAB PO SCH ×2 (08:49→21:20)
[2016-11-07 18:31] VITALS: BP 136/87; PULSE 76; RESP 17; TEMP 98.3; O2SAT 99
[2016-11-07] MEDS: DOCUSATE SODIUM 100 MG CAP PO SCH (21:18)
[2016-11-07] MEDS: MIRTAZAPINE 15 MG TAB PO SCH (21:19)
[2016-11-07] MEDS: QUEtiapine FUMARATE 100 MG TAB PO SCH (21:20)
--- NOTE | 2016-11-07 22:49 | HHI.PYPN ---
Subjective Remarks Pt seen and discussed with staff. He continues to c/o of AH and being controlled by "Jason". He is compliant with medication and denies side effects. No SI/HI Objective Alert: Yes [place]: Person, Place, Date Mood: Other ("same") Affect: Restricted Memory Intact: Immediate, Recent, Remote Hallucinations: Auditory (continues to endorse "crackles in pops") Delusions: Yes Delusion Type: Paranoid, Other (persecutory) Suicidal: Ideation (No SI) Homicidal: Ideation (No HI) Insight/Judgment poor Vitals/IOs Vital Signs Date Time Temp Pulse Resp B/P Pulse Ox O2 Delivery O2 Flow Rate FiO2 11/07/16 18:31 98.3 76 17 136/87 99 Assessment & Plan Problem List: (1) Psychosis ICD Code: F29 (2) Depressive disorder ICD Code: F32.9 Assessment & Plan Continue current tx plan. Estimated LOS: days Justification for Cont. Inpt. impairments in reality testing Request HC Surrog/Guard Advoc?: Yes Problem Qualifiers (1) Psychosis: Qualified Code: F20.0 - Paranoid schizophrenia Jess Hall MD Nov 07, 2016 22:49
[2016-11-08 06:20] VITALS: BP_SYST 128; BP_SYST 97; BP_DIAS 54; BP_DIAS 69; PULSE 67; PULSE 75; RESP 17; RESP 18; TEMP 98.3; O2SAT 96; O2SAT 97
[2016-11-08] MEDS: HALOPERIDOL 5 MG TAB PO SCH ×2 (08:30→21:02)
[2016-11-08] MEDS: ESCITALOPRAM OXALATE 20 MG TAB PO SCH (08:30)
[2016-11-08] MEDS: BENZTROPINE MESYLATE 2 MG TAB PO SCH ×2 (08:30→21:02)
[2016-11-08] MEDS: METOPROLOL TARTRATE 25 MG TAB PO SCH ×2 (08:30→21:02)
[2016-11-08] MEDS: DOCUSATE SODIUM 50 MG/SENNA 8.6 MG TAB PO SCH ×2 (08:31→21:03)
[2016-11-08] MEDS: NIFEdipine 60 MG SUSTAINED RELEASE TAB PO SCH (08:31)
--- NOTE | 2016-11-08 14:22 | HHI.PYPN ---
Subjective Remarks Pt seen and discussed with staff. He slept well last night. AH persists but pt is less fixated. He has been quiet and withdrawn. No medication side effects. No SI/hI Objective Alert: Yes [place]: Person, Place, Date Mood: Calm Affect: Restricted Memory Intact: Immediate, Recent, Remote Hallucinations: Auditory (continues to endorse "crackles in pops") Delusions: Yes Delusion Type: Paranoid, Other (persecutory) Suicidal: Ideation (No SI) Homicidal: Ideation (No HI) Insight/Judgment poor Vitals/IOs Vital Signs Date Time Temp Pulse Resp B/P Pulse Ox O2 Delivery O2 Flow Rate FiO2 11/08/16 06:20 98.3 67 17 128/69 96 Assessment & Plan Problem List: (1) Psychosis ICD Code: F29 (2) Depressive disorder ICD Code: F32.9 Assessment & Plan Continue current tx plan. Estimated LOS: days Justification for Cont. Inpt. psychosis and impairments in self care Request HC Surrog/Guard Advoc?: Yes Problem Qualifiers (1) Psychosis: Qualified Code: F20.0 - Paranoid schizophrenia Jess Hall MD Nov 08, 2016 14:22
[2016-11-08] MEDS ORDERED: POLYETHYLENE GLYCOL 17 GM PKG PO ONE (14:30)
[2016-11-08 18:33] VITALS: BP 133/72; PULSE 65; RESP 18; TEMP 97.8; O2SAT 95
[2016-11-08] MEDS: DOCUSATE SODIUM 100 MG CAP PO SCH (21:02)
[2016-11-08] MEDS: MIRTAZAPINE 15 MG TAB PO SCH (21:03)
[2016-11-08] MEDS: QUEtiapine FUMARATE 100 MG TAB PO SCH (21:03)
[2016-11-09 06:00] VITALS: BP 105/55; PULSE 56; RESP 18; TEMP 97.9; O2SAT 95
[2016-11-09] MEDS: BENZTROPINE MESYLATE 2 MG TAB PO SCH ×2 (08:19→20:37)
[2016-11-09] MEDS: NIFEdipine 60 MG SUSTAINED RELEASE TAB PO SCH (08:19)
[2016-11-09] MEDS: HALOPERIDOL 5 MG TAB PO SCH ×2 (08:19→20:37)
[2016-11-09] MEDS: METOPROLOL TARTRATE 25 MG TAB PO SCH ×2 (08:19→20:37)
[2016-11-09] MEDS: DOCUSATE SODIUM 50 MG/SENNA 8.6 MG TAB PO SCH ×2 (08:19→20:37)
[2016-11-09] MEDS: ESCITALOPRAM OXALATE 20 MG TAB PO SCH (08:19)
--- NOTE | 2016-11-09 16:46 | HHI.PYPN ---
Subjective Remarks Patient seen for follow, chart review. As per nursing report and discussion patient continues to hear "crackles upon his" and continues to be isolative in his room. Patient found walking on [place] but was able to engage in interview. Patient states that he isn't feeling "sane" and over the weekend was reporting feeling tired of the same meals and was encouraged to fill out request for prior to each meal. Patient continues to report feeling "pops in car" "and continues to report that he was "him" referring to the voice name Jason. Patient denies any auditory hallucinations at time of interview but continues to have paranoid ideations of this voice that is "after me". Patient denies any adverse drug reaction from medications, denies any issues with bowel movement or urination. Patient denies SI, HI, VH continues to endorse auditory hallucinations as stated above along with paranoid and persecutory delusions. Review of Systems Except as stated in HPI: all other systems reviewed are Neg Objective Alert: Yes [place]: Person, Place, Date Mood: Calm Affect: Restricted Memory Intact: Immediate, Recent, Remote Hallucinations: Auditory (continues to endorse "crackles in pops") Delusions: Yes Delusion Type: Paranoid, Other (persecutory) Suicidal: Ideation (No SI) Homicidal: Ideation (No HI) Insight/Judgment Poor insight, fair impulse control and judgment Remarks Patient appears stated age, found in [facility], noted to be disheveled, fair hygiene, calm and cooperative in interview, fair eye contact. Thought process: Linear, thought content continues to endorse auditory hallucinations along with persecutory and paranoid delusions. Vitals/IOs Vital Signs Date Time Temp Pulse Resp B/P Pulse Ox O2 Delivery O2 Flow Rate FiO2 11/09/16 06:00 97.9 56 18 105/55 95 Intake and Output 11/08/16 11/08/16 11/09/16 08:00 16:00 00:00 Intake Total 550 ml Balance 550 ml Assessment & Plan Problem List: (1) Psychosis ICD Code: F29 (2) Depressive disorder ICD Code: F32.9 Assessment & Plan Patient continues to report psychotic symptoms of auditory hallucinations and paranoid persecutory delusions. Patient will complete down titration of quetiapine will commence with chronic pain as patient has been tried on several antipsychotics with limited response. Continue to encourage patient to improve hygiene and to participate in groups and activities so that he is less isolative. Supportive psychotherapy provided. Discharge planning in progress Justification for Cont. Inpt. Patient risk for decompensation if a lower level of care Discharge Planning In progress Request HC Surrog/Guard Advoc?: Yes Problem Qualifiers (1) Psychosis: Qualified Code: F20.0 - Paranoid schizophrenia Frederick Oliver MD Nov 09, 2016 16:46
[2016-11-09 18:24] VITALS: BP 119/79; PULSE 78; RESP 18; TEMP 98.1; O2SAT 97
[2016-11-09] MEDS: MIRTAZAPINE 15 MG TAB PO SCH (20:36)
[2016-11-09] MEDS: DOCUSATE SODIUM 100 MG CAP PO SCH (20:37)
[2016-11-09] MEDS ORDERED: QUEtiapine FUMARATE 25 MG TAB PO SCH (21:00)
[2016-11-10 05:53] VITALS: BP 124/71; PULSE 60; RESP 17; TEMP 97.9; O2SAT 99
[2016-11-10] MEDS: ESCITALOPRAM OXALATE 20 MG TAB PO SCH (09:30)
[2016-11-10] MEDS: NIFEdipine 60 MG SUSTAINED RELEASE TAB PO SCH (09:30)
[2016-11-10] MEDS: METOPROLOL TARTRATE 25 MG TAB PO SCH ×2 (09:30→21:00)
[2016-11-10] MEDS: BENZTROPINE MESYLATE 2 MG TAB PO SCH ×2 (09:30→21:00)
[2016-11-10] MEDS: HALOPERIDOL 5 MG TAB PO SCH ×2 (09:30→21:00)
[2016-11-10] MEDS: DOCUSATE SODIUM 50 MG/SENNA 8.6 MG TAB PO SCH ×2 (09:30→21:00)
[2016-11-10] MEDS ORDERED: cloZAPine 25 MG TAB PO SCH ×2 (14:45→21:00)
[2016-11-10 15:24] VITALS: BP 107/61; PULSE 62; RESP 18; TEMP 98.8; O2SAT 96
--- NOTE | 2016-11-10 17:39 | HHI.PYPN ---
Subjective Remarks Patient seen for follow-up, chart review. Patient reports he continues to hear a lot of "pops and crackles", denies the voice of her diaper states that her daughter wants him and that he controls him to the radio/radar by putting a lot of "negativity in me". Patient reports having gone outside yesterday with group but did not participate in any other activities. Patient states that he has been having difficulty with doubling up with his last bowel movement being 2 days ago. Patient denies any other physical symptoms. Review of Systems Except as stated in HPI: all other systems reviewed are Neg Objective Alert: Yes [place]: Person, Place, Date Mood: Calm Affect: Restricted Memory Intact: Immediate, Recent, Remote Hallucinations: Auditory (continues to endorse "crackles in pops") Delusions: Yes Delusion Type: Paranoid, Other (persecutory) Suicidal: Ideation (No SI) Homicidal: Ideation (No HI) Insight/Judgment Poor insight, fair impulse control and judgment Vitals/IOs Vital Signs Date Time Temp Pulse Resp B/P Pulse Ox O2 Delivery O2 Flow Rate FiO2 11/10/16 15:24 98.8 62 18 107/61 96 Assessment & Plan Problem List: (1) Psychosis ICD Code: F29 (2) Depressive disorder ICD Code: F32.9 Assessment & Plan Patient continues to have delusions and auditory hallucinations. Patient down titrated Seroquel and discontinued along with down titration of Haldol to 5 mg by mouth twice a day. Patient had last CBC done 10 days ago and will require recent CBC no more than 7 days ago to be oh to be registered in the [facility] as registry to commence clozapine. CBC ordered and was with results will be registered to commence treatment. Clozapine ordered will be on hold until patient is registered in the registry. Justification for Cont. Inpt. Patient risk for further decompensation if a lower level of care Discharge Planning In progress Request HC Surrog/Guard Advoc?: Yes Problem Qualifiers (1) Psychosis: Qualified Code: F20.0 - Paranoid schizophrenia Frederick Oliver MD Nov 10, 2016 17:39
[2016-11-10] MEDS: MIRTAZAPINE 15 MG TAB PO SCH (21:00)
[2016-11-10] MEDS: DOCUSATE SODIUM 100 MG CAP PO SCH (21:00)
[2016-11-10 21:44] LABS: AUTOMATED NEUTROPHIL # 3.5 TH/MM3 (1.8-7.7); BASOPHIL % 0.6 % (0.0-2.0); EOSINOPHIL # 0.2 TH/MM3 (0-0.4); EOSINOPHIL % 3.8 % (0.0-4.0); HEMO FLAGS DIFF FINAL; LYMPH % 32.8 % (9.0-44.0); LYMPHOCYTE # 2.1 TH/MM3 (1.0-4.8); MEAN CELL VOLUME 91.3 FL (80.0-100.0); MEAN CORPUSCULAR HEMOGLOBIN 31.6 PG (27.0-34.0); MEAN CORPUSCULAR HGB CONC 34.6 % (32.0-36.0); MONO % 8.2 % (0.0-8.0); NEUT % 54.6 % (16.0-70.0); PLATELET COUNT 184 TH/MM3 (150-450); RED BLOOD COUNT 4.27 MIL/MM3 (4.50-5.90); RED CELL DISTRIBUTION WIDTH 14.1 % (11.6-17.2); WHITE BLOOD COUNT 6.5 TH/MM3 (4.0-11.0)
[2016-11-11 05:47] VITALS: BP 123/71; PULSE 61; RESP 18; TEMP 97.9; O2SAT 96
[2016-11-11] MEDS: BENZTROPINE MESYLATE 2 MG TAB PO SCH ×2 (09:34→20:39)
[2016-11-11] MEDS: HALOPERIDOL 5 MG TAB PO SCH ×2 (09:34→20:39)
[2016-11-11] MEDS: NIFEdipine 60 MG SUSTAINED RELEASE TAB PO SCH (09:34)
[2016-11-11] MEDS: DOCUSATE SODIUM 50 MG/SENNA 8.6 MG TAB PO SCH ×2 (09:34→20:38)
[2016-11-11] MEDS: ESCITALOPRAM OXALATE 20 MG TAB PO SCH (09:34)
[2016-11-11] MEDS: cloZAPine 25 MG TAB PO SCH ×2 (09:34→20:39)
[2016-11-11] MEDS: METOPROLOL TARTRATE 25 MG TAB PO SCH ×2 (09:34→20:39)
--- NOTE | 2016-11-11 14:10 | HHI.PYPN ---
Subjective Remarks Patient seen for follow-up, chart reviewed. As per nursing report patient continues to report auditory hallucinations and paranoid delusions along with being isolative. Patient found sitting in hospital bed able to engage in interview today. Patient states that things are "the same" and states that he still gets on noisiness had of the crackles and pops which she reports is being controlled by a person named Jason through [employer]. Patient states feeling worried that he is unable to afford a prolonged hospital stay. At this time patient denies any physical symptoms, denies any adverse drug reactions from treatment regimen. Patient aware he will begin clozapine very soon. Review of Systems Except as stated in HPI: all other systems reviewed are Neg Objective Alert: Yes [place]: Person, Place, Date Mood: Calm Affect: Restricted Memory Intact: Immediate, Recent, Remote Hallucinations: Auditory (continues to endorse "crackles in pops") Delusions: Yes Delusion Type: Paranoid, Other (persecutory) Suicidal: Ideation (No SI) Homicidal: Ideation (No HI) Insight/Judgment Poor insight, fair impulse control, fair judgment Labs Labs reviewed Test 11/10/16 21:09 White Blood Count 6.5 TH/MM3 Labs reviewed Red Blood Count 4.27 MIL/MM3 Hemoglobin 13.5 GM/DL Hematocrit 39.0 % Mean Corpuscular Volume 91.3 FL Mean Corpuscular Hemoglobin 31.6 PG Mean Corpuscular Hemoglobin 34.6 % Concent Red Cell Distribution Width 14.1 % Platelet Count 184 TH/MM3 Mean Platelet Volume 8.3 FL Neutrophils (%) (Auto) 54.6 % Lymphocytes (%) (Auto) 32.8 % Monocytes (%) (Auto) 8.2 % Eosinophils (%) (Auto) 3.8 % Basophils (%) (Auto) 0.6 % Neutrophils # (Auto) 3.5 TH/MM3 Lymphocytes # (Auto) 2.1 TH/MM3 Monocytes # (Auto) 0.5 TH/MM3 Eosinophils # (Auto) 0.2 TH/MM3 Basophils # (Auto) 0.0 TH/MM3 CBC Comment DIFF FINAL Differential Comment Vitals/IOs Vital Signs Date Time Temp Pulse Resp B/P Pulse Ox O2 Delivery O2 Flow Rate FiO2 11/11/16 05:47 97.9 61 18 123/71 96 Assessment & Plan Problem List: (1) Psychosis ICD Code: F29 (2) Depressive disorder ICD Code: F32.9 Assessment & Plan Patient at this time continues to have auditory hallucinations along with paranoid and persecutory delusions. Patient now has been currently titrated off of quetiapine. Patient was CBC drawn yesterday for submission to the clozapine registry. Clozapine patient history form faxed today to the patient may commence clozapine treatment. Justification for Cont. Inpt. Patient at risk for further decompensation if it lower level of care Discharge Planning in progress Request HC Surrog/Guard Advoc?: Yes Problem Qualifiers (1) Psychosis: Qualified Code: F20.0 - Paranoid schizophrenia Frederick Oliver MD Nov 11, 2016 14:10
[2016-11-11] MEDS: DOCUSATE SODIUM 100 MG CAP PO SCH (20:38)
[2016-11-11] MEDS: MIRTAZAPINE 15 MG TAB PO SCH (20:39)
[2016-11-12 05:33] VITALS: BP 137/84; PULSE 84; RESP 17; TEMP 97.6; O2SAT 97
[2016-11-12] MEDS: ESCITALOPRAM OXALATE 20 MG TAB PO SCH (08:43)
[2016-11-12] MEDS: BENZTROPINE MESYLATE 2 MG TAB PO SCH ×2 (08:43→21:33)
[2016-11-12] MEDS: METOPROLOL TARTRATE 25 MG TAB PO SCH ×2 (08:43→21:33)
[2016-11-12] MEDS: NIFEdipine 60 MG SUSTAINED RELEASE TAB PO SCH (08:43)
[2016-11-12] MEDS: HALOPERIDOL 5 MG TAB PO SCH ×2 (08:44→21:33)
[2016-11-12] MEDS: DOCUSATE SODIUM 50 MG/SENNA 8.6 MG TAB PO SCH ×2 (08:44→21:33)
[2016-11-12] MEDS: cloZAPine 25 MG TAB PO SCH ×2 (08:44→21:33)
[2016-11-12 18:20] VITALS: BP 122/82; PULSE 71; RESP 16; TEMP 98.1; O2SAT 96
--- NOTE | 2016-11-12 19:14 | HHI.PYPN ---
Subjective Remarks Patient's C-file, chart review. Patient continues to report that he is feeling and hearing crackles in pops" that his mood has been "the same". Patient states that he is worried that he will be staying here for a prolonged period of time and does not want to continue living in the hospital. Patient reports that he has not heard from the voice "Jason" for the past couple of days but continues to feel that he is controlling the current "crackles and pops" through the radio/radar. Patient this time denies SI, HI, VH continues to endorse auditory hallucinations and paranoid and persecutory delusions at time of interview Review of Systems Except as stated in HPI: all other systems reviewed are Neg Objective Alert: Yes [place]: Person, Place, Date Mood: Calm Affect: Restricted Memory Intact: Immediate, Recent, Remote Hallucinations: Auditory (continues to endorse "crackles in pops") Delusions: Yes Delusion Type: Paranoid, Other (persecutory) Suicidal: Ideation (No SI) Homicidal: Ideation (No HI) Insight/Judgment Poor insight, fair impulse control and judgment Vitals/IOs Vital Signs Date Time Temp Pulse Resp B/P Pulse Ox O2 Delivery O2 Flow Rate FiO2 11/12/16 18:20 98.1 71 16 122/82 96 Intake and Output 11/11/16 11/11/16 11/12/16 08:00 16:00 00:00 Intake Total 120 ml Balance 120 ml Assessment & Plan Problem List: (1) Psychosis ICD Code: F29 (2) Depressive disorder ICD Code: F32.9 Assessment & Plan Patient at this time continues to endorse auditory hallucinations and paranoid, persecutory delusions. Patient continues to be titrated on clozapine. Month for medication response adverse drug reactions. Continue to encourage prudent personal hygiene as well as participation in groups and activities while on the unit. Discharge planning in progress Justification for Cont. Inpt. Patient at risk for further decompensation if it lower level of care Discharge Planning In progress Request HC Surrog/Guard Advoc?: Yes Problem Qualifiers (1) Psychosis: Qualified Code: F20.0 - Paranoid schizophrenia Frederick Oliver MD Nov 12, 2016 19:14
[2016-11-12] MEDS: MIRTAZAPINE 15 MG TAB PO SCH (21:33)
[2016-11-12] MEDS: DOCUSATE SODIUM 100 MG CAP PO SCH (21:33)
[2016-11-13 05:33] VITALS: BP 110/62; PULSE 62; RESP 18; TEMP 97.8
[2016-11-13] MEDS: ESCITALOPRAM OXALATE 20 MG TAB PO SCH (08:44)
[2016-11-13] MEDS: BENZTROPINE MESYLATE 2 MG TAB PO SCH ×2 (08:44→20:28)
[2016-11-13] MEDS: NIFEdipine 60 MG SUSTAINED RELEASE TAB PO SCH (08:44)
[2016-11-13] MEDS: HALOPERIDOL 5 MG TAB PO SCH ×2 (08:44→20:27)
[2016-11-13] MEDS: DOCUSATE SODIUM 50 MG/SENNA 8.6 MG TAB PO SCH ×2 (08:44→20:28)
[2016-11-13] MEDS: METOPROLOL TARTRATE 25 MG TAB PO SCH ×2 (08:45→20:28)
[2016-11-13] MEDS ORDERED: cloZAPine 25 MG TAB PO SCH ×2 (09:00→21:00)
--- NOTE | 2016-11-13 17:00 | HHI.PYPN ---
Subjective Remarks Patient seen for follow-up, chart reviewed. As a discussion with is a step patient continues to be isolative, and requires much encouragement to maintain personal hygiene. Patient found lying on hospital bed, was able to engage in interview patient states that he had gone outside yesterday with a group and spoke with a show card letterer which she was able to enjoy his meals today. Patient reports he continues to hear "crackles in pops" and states that sometimes as last and sometimes same. Patient reports not having heard a voice of Jason and that has been a while since he last heard this voice. Patient continues to believe that his auditory hallucinations are controlled by Jason through a radio/radar. Patient stated he plans a shower today and will consider attending more groups. Review of Systems Except as stated in HPI: all other systems reviewed are Neg Objective Alert: Yes [place]: Person, Place, Date Mood: Calm Affect: Restricted (but smiles at times) Memory Intact: Immediate, Recent, Remote Hallucinations: Auditory (continues to endorse "crackles in pops") Delusions: Yes Delusion Type: Paranoid, Other (persecutory) Suicidal: Ideation (No SI) Homicidal: Ideation (No HI) Insight/Judgment Poor insight, fair impulse control and judgment Vitals/IOs Vital Signs Date Time Temp Pulse Resp B/P Pulse Ox O2 Delivery O2 Flow Rate FiO2 11/13/16 05:33 97.8 62 18 110/62 11/12/16 18:20 96 Intake and Output 11/12/16 11/12/16 11/12/16 07:59 15:59 23:59 Intake Total 220 ml 1200 ml Balance 220 ml 1200 ml Assessment & Plan Problem List: (1) Psychosis ICD Code: F29 (2) Depressive disorder ICD Code: F32.9 Assessment & Plan Patient continues to endorse auditory hallucination and paranoia but noted to be more related and engaging in interview today. Patient concerned about how this hospital will be reimbursed as he states this does not have the money to pay for his hospitalization. Patient reports tolerating medication well clozapine will be continued to be uptitrated with weekly CBC labs. Continue to monitor for adverse drug reactions and signs of possible myocarditis. Continue to encourage patient to maintain personal hygiene and participate in groups and activities. Discharge planning in progress Justification for Cont. Inpt. Patient at risk for further decompensation if at lower level of care. Discharge Planning In progress Request HC Surrog/Guard Advoc?: Yes Problem Qualifiers (1) Psychosis: Qualified Code: F20.0 - Paranoid schizophrenia Frederick Oliver MD Nov 13, 2016 17:00
[2016-11-13] MEDS: DOCUSATE SODIUM 100 MG CAP PO SCH (20:26)
[2016-11-13] MEDS: MIRTAZAPINE 15 MG TAB PO SCH (20:27)
[2016-11-13 20:28] VITALS: BP 127/73; PULSE 79; RESP 18; TEMP 98.2; O2SAT 96
[2016-11-14 05:33] VITALS: BP 99/63; PULSE 72; RESP 17; TEMP 98; O2SAT 96
[2016-11-14] MEDS ORDERED: cloZAPine 25 MG TAB PO SCH ×2 (09:00→21:00)
[2016-11-14] MEDS: BENZTROPINE MESYLATE 2 MG TAB PO SCH ×2 (09:24→21:14)
[2016-11-14] MEDS: NIFEdipine 60 MG SUSTAINED RELEASE TAB PO SCH (09:24)
[2016-11-14] MEDS: HALOPERIDOL 5 MG TAB PO SCH ×2 (09:25→21:14)
[2016-11-14] MEDS: DOCUSATE SODIUM 50 MG/SENNA 8.6 MG TAB PO SCH ×2 (09:25→21:13)
[2016-11-14] MEDS: ESCITALOPRAM OXALATE 20 MG TAB PO SCH (09:25)
[2016-11-14] MEDS: METOPROLOL TARTRATE 25 MG TAB PO SCH ×2 (09:25→21:14)
--- NOTE | 2016-11-14 15:49 | HHI.PYPN ---
Subjective Remarks Patient was seen and case discussed with nursing. Patient remains isolative and depressed. He is passive suicidal ideation stating "I don't care what happens to me." He denies any plan or intent. Hygiene remains poor. Continues to have snaps some crackles from Jason. Compliant with medications Objective Alert: Yes [place]: Person, Place, Date Mood: Calm Affect: Restricted (but smiles at times) Memory Intact: Immediate, Recent, Remote Hallucinations: Auditory (continues to endorse "crackles in pops") Delusions: Yes Delusion Type: Paranoid, Other (persecutory) Suicidal: Ideation (passive suicidal thoughts) Homicidal: Ideation (No HI) Insight/Judgment Poor Vitals/IOs Vital Signs Date Time Temp Pulse Resp B/P Pulse Ox O2 Delivery O2 Flow Rate FiO2 11/14/16 05:33 98.0 72 17 99/63 96 Intake and Output 11/13/16 11/13/16 11/14/16 08:00 16:00 00:00 Intake Total 480 ml 360 ml Balance 480 ml 360 ml Assessment & Plan Problem List: (1) Psychosis ICD Code: F29 (2) Depressive disorder ICD Code: F32.9 Assessment & Plan Encouraged patient to socialize take a shower. Supportive therapy done. Continue current treatment plan Justification for Cont. Inpt. Patient would decompensate in a less restrictive setting Request HC Surrog/Guard Advoc?: Yes Problem Qualifiers (1) Psychosis: Qualified Code: F20.0 - Paranoid schizophrenia Dinesh Pinto DO Nov 14, 2016 15:49
[2016-11-14 17:00] VITALS: BP 113/72; PULSE 97; RESP 18; TEMP 98.1; O2SAT 99
[2016-11-14] MEDS: MIRTAZAPINE 15 MG TAB PO SCH (21:13)
[2016-11-14] MEDS: DOCUSATE SODIUM 100 MG CAP PO SCH (21:14)
[2016-11-15 07:16] VITALS: BP 156/98; PULSE 86; RESP 18; O2SAT 97
[2016-11-15] MEDS: NIFEdipine 60 MG SUSTAINED RELEASE TAB PO SCH (09:00)
[2016-11-15] MEDS: ESCITALOPRAM OXALATE 20 MG TAB PO SCH (09:00)
[2016-11-15] MEDS: METOPROLOL TARTRATE 25 MG TAB PO SCH ×2 (09:00→20:48)
[2016-11-15] MEDS: cloZAPine 25 MG TAB PO SCH ×2 (09:00→20:47)
[2016-11-15] MEDS: DOCUSATE SODIUM 50 MG/SENNA 8.6 MG TAB PO SCH ×2 (09:00→20:49)
[2016-11-15] MEDS: HALOPERIDOL 5 MG TAB PO SCH ×2 (09:00→20:49)
[2016-11-15] MEDS: BENZTROPINE MESYLATE 2 MG TAB PO SCH ×2 (09:00→20:49)
--- NOTE | 2016-11-15 16:58 | HHI.PYPN ---
Subjective Remarks Patient was seen and case discussed with nursing. Patient is pleasant and cooperative with exam. He remains perseverant with snaps and crackles. Says he is irritable that they are now in his neck yet he describes him as an auditory hallucination. Eating and sleeping well. Appears less dysphoric. Denies suicidal ideation intent or plan. He did shower today Objective Alert: Yes [place]: Person, Place, Date Mood: Depressed (less so) Affect: Blunted Memory Intact: Immediate, Recent, Remote Hallucinations: Auditory (continues to endorse "crackles in pops") Delusions: Yes Delusion Type: Paranoid, Other (persecutory) Suicidal: Ideation (passive suicidal thoughts) Homicidal: Ideation (No HI) Insight/Judgment Poor Vitals/IOs Vital Signs Date Time Temp Pulse Resp B/P (MAP) Pulse Ox O2 Delivery O2 Flow Rate FiO2 11/15/16 07:16 86 18 156/98 (117) 97 11/14/16 17:00 98.1 Assessment & Plan Problem List: (1) Psychosis ICD Codes: F29 - Psychosis Status: Acute (2) Depressive disorder ICD Codes: F32.9 - Major depressive disorder, single episode, unspecified Status: Acute Assessment & Plan Continue current treatment plan Justification for Cont. Inpt. Patient would decompensate in a less restrictive setting Request HC Surrog/Guard Advoc?: Yes Problem Qualifiers (1) Psychosis: Dinesh Pinto DO Nov 15, 2016 16:58
[2016-11-15 18:37] VITALS: BP 134/84; PULSE 79; RESP 18; TEMP 97.7; O2SAT 97
[2016-11-15] MEDS: MIRTAZAPINE 15 MG TAB PO SCH (20:47)
[2016-11-15] MEDS: DOCUSATE SODIUM 100 MG CAP PO SCH (20:49)
[2016-11-16] MEDS: HALOPERIDOL 5 MG TAB PO SCH ×2 (09:26→21:33)
[2016-11-16] MEDS: NIFEdipine 60 MG SUSTAINED RELEASE TAB PO SCH (09:26)
[2016-11-16] MEDS: cloZAPine 25 MG TAB PO SCH ×2 (09:26→21:00)
[2016-11-16] MEDS: BENZTROPINE MESYLATE 2 MG TAB PO SCH ×2 (09:27→21:32)
[2016-11-16] MEDS: ESCITALOPRAM OXALATE 20 MG TAB PO SCH (09:27)
[2016-11-16] MEDS: METOPROLOL TARTRATE 25 MG TAB PO SCH ×2 (09:27→21:30)
[2016-11-16] MEDS: DOCUSATE SODIUM 50 MG/SENNA 8.6 MG TAB PO SCH ×2 (09:27→21:32)
--- NOTE | 2016-11-16 18:25 | HHI.PYPN ---
Subjective Remarks Patient seen for follow-up, chart reviewed. Patient found in room, sitting on hospital bed; noted to be disheveled. Patient states that he continues to have "crackles and pops". He states that he has been feeling "the same". He states feeling worried about how he will pay for his hospitalization. He agrees to take a shower today. Patient was noted to be better related in conversation. He spoke about the type of cars he likes and shoes he used to own. Noted to have more affect today. Review of Systems Except as stated in HPI: all other systems reviewed are Neg Objective Alert: Yes [place]: Person, Place, Date Mood: Calm Affect: Other (More reactive today) Memory Intact: Immediate, Recent, Remote Hallucinations: Auditory (continues to endorse "crackles in pops") Delusions: Yes Delusion Type: Paranoid, Other (persecutory) Suicidal: Ideation (passive suicidal thoughts) Homicidal: Ideation (No HI) Insight/Judgment poor insight, fair impulse control and poor judgement Vitals/IOs Vital Signs Date Time Temp Pulse Resp B/P (MAP) Pulse Ox O2 Delivery O2 Flow Rate FiO2 11/15/16 18:37 97.7 79 18 134/84 (101) 97 Assessment & Plan Problem List: (1) Psychosis ICD Codes: F29 - Psychosis Status: Acute (2) Depressive disorder ICD Codes: F32.9 - Major depressive disorder, single episode, unspecified Status: Acute Assessment & Plan Patient noted to be more engaging interview and reactive with his affect. Continue titration of clozapine, CBC ordered for tomorrow AM, continue to encourage patient to improve on hygiene and participate in groups and activities. Monitor for signs and symptoms of myocarditis. Discharge planning in progress. Justification for Cont. Inpt. At risk for further decompensation if at lower level of care. Request HC Surrog/Guard Advoc?: Yes Problem Qualifiers (1) Psychosis: Frederick Oliver MD Nov 16, 2016 18:25
[2016-11-16 19:55] VITALS: BP 125/60; PULSE 76; RESP 18; TEMP 98.9; O2SAT 98
[2016-11-16] MEDS: MIRTAZAPINE 15 MG TAB PO SCH (21:30)
[2016-11-16] MEDS: DOCUSATE SODIUM 100 MG CAP PO SCH (21:30)
[2016-11-17 05:59] VITALS: BP 116/68; PULSE 69; RESP 17; TEMP 97.8; O2SAT 95
[2016-11-17] MEDS: NIFEdipine 60 MG SUSTAINED RELEASE TAB PO SCH (08:52)
[2016-11-17] MEDS: BENZTROPINE MESYLATE 2 MG TAB PO SCH ×2 (08:52→20:38)
[2016-11-17] MEDS: DOCUSATE SODIUM 50 MG/SENNA 8.6 MG TAB PO SCH ×2 (08:52→20:39)
[2016-11-17] MEDS: ESCITALOPRAM OXALATE 20 MG TAB PO SCH (08:52)
[2016-11-17] MEDS: HALOPERIDOL 5 MG TAB PO SCH ×2 (08:53→20:38)
[2016-11-17] MEDS: METOPROLOL TARTRATE 25 MG TAB PO SCH ×2 (08:53→20:38)
[2016-11-17] MEDS ORDERED: cloZAPine 25 MG TAB PO SCH ×2 (09:00→21:00)
[2016-11-17 09:30] LABS: AUTOMATED NEUTROPHIL # 3.4 TH/MM3 (1.8-7.7); BASOPHIL % 0.5 % (0.0-2.0); EOSINOPHIL # 0.3 TH/MM3 (0-0.4); EOSINOPHIL % 4.5 % (0.0-4.0); HEMATOCRIT 42.7 % (39.0-51.0); HEMO FLAGS DIFF FINAL; LYMPH % 32.3 % (9.0-44.0); MEAN CELL VOLUME 93.3 FL (80.0-100.0); MEAN CORPUSCULAR HEMOGLOBIN 31.3 PG (27.0-34.0); MEAN CORPUSCULAR HGB CONC 33.5 % (32.0-36.0); MONO % 7.2 % (0.0-8.0); NEUT % 55.5 % (16.0-70.0); PLATELET COUNT 198 TH/MM3 (150-450); RED BLOOD COUNT 4.58 MIL/MM3 (4.50-5.90); RED CELL DISTRIBUTION WIDTH 14.3 % (11.6-17.2); WHITE BLOOD COUNT 6.1 TH/MM3 (4.0-11.0)
--- NOTE | 2016-11-17 14:12 | HHI.PYPN ---
Subjective Remarks Patient seen for follow, chart review. Patient found lying in hospital bed able to engage in interview. Patient states that he was able to take a shower yesterday although unclear whether he was able to wash his hair as it does not seem washed. Patient states that he continues to have "Popsicle crackles but has not mentioned Jason within the past couple of days. Patient noted to be more engaged in interview, noted to have a lot of affect smiling and laughing. Patient states that he would like to have his own private place where police would not cover him. Patient was referring to his recent admission which placed and brought him into the hospital. Patient agrees to try to participate in groups and activities on the unit. Patient denies any constitutional signs or symptoms no fever no chest pain, shortness of breath or any other physical complaint. Patient reports tolerating medication well with no adverse drug reactions. Review of Systems Except as stated in HPI: all other systems reviewed are Neg Objective Alert: Yes [place]: Person, Place, Date Mood: Calm Affect: Other (More reactive today) Memory Intact: Immediate, Recent, Remote Hallucinations: Auditory (continues to endorse "crackles in pops") Delusions: Yes Delusion Type: Paranoid, Other (persecutory) Suicidal: Ideation (passive suicidal thoughts) Homicidal: Ideation (No HI) Insight/Judgment Improved insight, good impulse control and improved judgment Labs Labs reviewed. Test 11/17/16 07:56 White Blood Count 6.1 TH/MM3 Red Blood Count 4.58 MIL/MM3 Hemoglobin 14.3 GM/DL Hematocrit 42.7 % Mean Corpuscular Volume 93.3 FL Mean Corpuscular Hemoglobin 31.3 PG Mean Corpuscular Hemoglobin Concent 33.5 % Red Cell Distribution Width 14.3 % Platelet Count 198 TH/MM3 Mean Platelet Volume 8.4 FL Neutrophils (%) (Auto) 55.5 % Lymphocytes (%) (Auto) 32.3 % Monocytes (%) (Auto) 7.2 % Eosinophils (%) (Auto) 4.5 % Basophils (%) (Auto) 0.5 % Neutrophils # (Auto) 3.4 TH/MM3 Lymphocytes # (Auto) 2.0 TH/MM3 Monocytes # (Auto) 0.4 TH/MM3 Eosinophils # (Auto) 0.3 TH/MM3 Basophils # (Auto) 0.0 TH/MM3 CBC Comment DIFF FINAL Differential Comment Vitals/IOs Vital Signs Date Time Temp Pulse Resp B/P (MAP) Pulse Ox O2 Delivery O2 Flow Rate FiO2 11/17/16 05:59 97.8 69 17 116/68 (84) 95 Intake and Output 11/17/16 11/17/16 11/18/16 08:00 16:00 00:00 Intake Total 360 ml Balance 360 ml Assessment & Plan Problem List: (1) Psychosis ICD Codes: F29 - Psychosis Status: Acute (2) Depressive disorder ICD Codes: F32.9 - Major depressive disorder, single episode, unspecified Status: Acute Assessment & Plan Patient noted to have been greased affect, seems to be improving with more organized thought process. Although patient continues to endorse hearing "pops or crackles" but has not mentioned "Jason" or endorse continued persecutory delusions related to the same. Patient tolerating [place] well patient has CBC done which absolute neutrophil count was within normal range. We'll continue to titrate clozapine. Continue to monitor medication response and adverse drug reactions, continue to monitor for signs and symptoms of myocarditis. Continue to encourage improvement of hygiene and participation in groups and activities while on the unit. Discharge planning in progress Justification for Cont. Inpt. Patient at risk for further decompensation if at a lower level of care Request HC Surrog/Guard Advoc?: Yes Problem Qualifiers (1) Psychosis: Frederick Oliver MD Nov 17, 2016 14:12
[2016-11-17 18:12] VITALS: BP 144/73; PULSE 73; RESP 16; TEMP 97.9; O2SAT 96
[2016-11-17] MEDS: MIRTAZAPINE 15 MG TAB PO SCH (20:38)
[2016-11-17] MEDS: DOCUSATE SODIUM 100 MG CAP PO SCH (20:38)
[2016-11-18 06:04] VITALS: BP 107/56; PULSE 72; RESP 18; TEMP 97.5; O2SAT 97
[2016-11-18] MEDS ORDERED: cloZAPine 25 MG TAB PO SCH ×2 (09:00→21:00)
[2016-11-18] MEDS: NIFEdipine 60 MG SUSTAINED RELEASE TAB PO SCH (09:00)
[2016-11-18] MEDS: DOCUSATE SODIUM 50 MG/SENNA 8.6 MG TAB PO SCH ×2 (09:35→20:17)
[2016-11-18] MEDS: METOPROLOL TARTRATE 25 MG TAB PO SCH ×2 (09:35→20:17)
[2016-11-18] MEDS: HALOPERIDOL 5 MG TAB PO SCH ×2 (09:36→20:17)
[2016-11-18] MEDS: ESCITALOPRAM OXALATE 20 MG TAB PO SCH (09:37)
[2016-11-18] MEDS: BENZTROPINE MESYLATE 2 MG TAB PO SCH ×2 (09:37→20:16)
--- NOTE | 2016-11-18 13:59 | HHI.PYPN ---
Subjective Remarks Patient seen for follow-up, chart reviewed. Patient found lying on hospital bed , calm and cooperative interview. Patient states that he continues to hear the "snaps", and considering to going outside and participate with the rest of the group. She states she is wondering why everyone else comes and goes and that he still here in this facility. Patient did shower yesterday and was encouraged to continue doing so. Patient currently being titrated on clozapine reports tolerating medication well with no adverse drug reactions. Review of Systems Except as stated in HPI: all other systems reviewed are Neg Objective Alert: Yes [place]: Person, Place, Date Mood: Calm Affect: Other (More reactive today) Memory Intact: Immediate, Recent, Remote Hallucinations: Auditory (continues to endorse "crackles in pops") Delusions: Yes Delusion Type: Paranoid (less so today) Suicidal: Ideation (passive suicidal thoughts) Homicidal: Ideation (No HI) Insight/Judgment Limited insight, fair impulse control and judgment Vitals/IOs Vital Signs Date Time Temp Pulse Resp B/P (MAP) Pulse Ox O2 Delivery O2 Flow Rate FiO2 11/18/16 06:04 97.5 72 18 107/56 (73) 97 Assessment & Plan Problem List: (1) Psychosis ICD Codes: F29 - Psychosis Status: Acute (2) Depressive disorder ICD Codes: F32.9 - Major depressive disorder, single episode, unspecified Status: Acute Assessment & Plan Patient continues to endorse perceptual disturbances of "snaps and crackles" but has not mentioned the voice of Jason for the past couple of days. Patient noted to have more affect and more engaging in interview. Continues to require much encouragement to maintain hygiene and participate in groups and activities. Clozapine continues to be titrated patient had CBC done yesterday which was submitted to the [facility] registry. Continue current treatment, monitor her medication response and adverse drug reactions. Monitor for signs and symptoms of myocarditis. Discharge planning in progress. Clozapine commenced 11/10/16. Current dose is 125 mg with upward titration. Last CBC showed absolute neutrophil count: 3.4 (11/17/16) Justification for Cont. Inpt. Patient at risk for further decompensation if at a lower level of care Request HC Surrog/Guard Advoc?: Yes Problem Qualifiers (1) Psychosis: Frederick Oliver MD Nov 18, 2016 13:59
[2016-11-18 18:00] VITALS: BP 129/77; PULSE 85; RESP 18; TEMP 98.2; O2SAT 96
[2016-11-18] MEDS: DOCUSATE SODIUM 100 MG CAP PO SCH (20:16)
[2016-11-18] MEDS: MIRTAZAPINE 15 MG TAB PO SCH (20:17)
[2016-11-19 06:09] VITALS: BP 118/59; PULSE 66; RESP 18; TEMP 97.8
[2016-11-19] MEDS: DOCUSATE SODIUM 50 MG/SENNA 8.6 MG TAB PO SCH ×2 (08:39→21:04)
[2016-11-19] MEDS: HALOPERIDOL 5 MG TAB PO SCH ×2 (08:39→21:06)
[2016-11-19] MEDS: ESCITALOPRAM OXALATE 20 MG TAB PO SCH (08:39)
[2016-11-19] MEDS: NIFEdipine 60 MG SUSTAINED RELEASE TAB PO SCH (08:39)
[2016-11-19] MEDS: cloZAPine 25 MG TAB PO SCH ×2 (08:39→21:00)
[2016-11-19] MEDS: BENZTROPINE MESYLATE 2 MG TAB PO SCH ×2 (08:39→21:04)
[2016-11-19] MEDS: METOPROLOL TARTRATE 25 MG TAB PO SCH ×2 (08:39→21:04)
--- NOTE | 2016-11-19 16:55 | HHI.PYPN ---
Subjective Remarks Patient seen for follow-up, chart reviewed. As discussion with nursing staff patient seems brighter, shower today but did mention that he said there was a telephone implanted in his brain. Patient attended groups. Patient found sitting on hospital bed, calm and cooperative interview. Patient states that "Monty took my clothes" , patient noted that he showered with his hair combed. Patient states that he had wanted to groups today but did not entirely enjoyed as well as psychotherapy group. Patient reports tolerating medications well with no adverse drug reactions. Patient continues to report "snaps and pops". Review of Systems Except as stated in HPI: all other systems reviewed are Neg Objective Alert: Yes [place]: Person, Place, Date Mood: Calm Affect: Other (More reactive today) Memory Intact: Immediate, Recent, Remote Hallucinations: Auditory (continues to endorse "crackles in pops") Delusions: Yes Delusion Type: Paranoid (less so today), Other (persecutory) Suicidal: Ideation (passive suicidal thoughts) Homicidal: Ideation (No HI) Insight/Judgment Poor insight, impulse control is fair and judgment is fair Vitals/IOs Vital Signs Date Time Temp Pulse Resp B/P (MAP) Pulse Ox O2 Delivery O2 Flow Rate FiO2 11/19/16 06:09 97.8 66 18 118/59 (78) 11/18/16 18:00 96 Intake and Output 11/19/16 11/19/16 11/20/16 08:00 16:00 00:00 Intake Total 480 ml Balance 480 ml Assessment & Plan Problem List: (1) Psychosis ICD Codes: F29 - Psychosis Status: Acute (2) Depressive disorder ICD Codes: F32.9 - Major depressive disorder, single episode, unspecified Status: Acute Assessment & Plan Patient has not mentioned "Jason Millan" some time but today reported that this alleged person to consent clothes. Unclear whether this came up again as he was looking into his closet defined casual clothing to put on as he had taken a shower: Lisa today. Patient continues on clozapine upward titration. Monitor for medication response adverse drug reactions, monitor for signs and symptoms of myocarditis. Continue to encourage patient to maintain personal hygiene and participate in groups and activities. Clozapine commenced 11/10/16. Current dose is 150 mg with upward titration. Justification for Cont. Inpt. Patient at risk for further decompensation if at a lower level of care Request HC Surrog/Guard Advoc?: Yes Problem Qualifiers (1) Psychosis: Frederick Oliver MD Nov 19, 2016 16:55
[2016-11-19 18:53] VITALS: BP 126/73; PULSE 106; RESP 19; TEMP 97.8; O2SAT 96
[2016-11-19] MEDS: DOCUSATE SODIUM 100 MG CAP PO SCH (21:05)
[2016-11-19] MEDS: MIRTAZAPINE 15 MG TAB PO SCH (21:07)
[2016-11-20 05:29] VITALS: BP 137/76; PULSE 77; RESP 16; TEMP 97.8; O2SAT 97
[2016-11-20] MEDS: METOPROLOL TARTRATE 25 MG TAB PO SCH ×2 (09:28→21:24)
[2016-11-20] MEDS: ESCITALOPRAM OXALATE 20 MG TAB PO SCH (09:28)
[2016-11-20] MEDS: DOCUSATE SODIUM 50 MG/SENNA 8.6 MG TAB PO SCH ×2 (09:28→21:23)
[2016-11-20] MEDS: NIFEdipine 60 MG SUSTAINED RELEASE TAB PO SCH (09:28)
[2016-11-20] MEDS: cloZAPine 25 MG TAB PO SCH ×2 (09:28→21:24)
[2016-11-20] MEDS: HALOPERIDOL 5 MG TAB PO SCH ×2 (09:28→21:23)
[2016-11-20] MEDS: BENZTROPINE MESYLATE 2 MG TAB PO SCH ×2 (09:28→21:24)
--- NOTE | 2016-11-20 17:31 | HHI.PYPN ---
Subjective Remarks Patient seen for follow, chart reviewed. Patient found lying in hospital bed noted to not think discharged today. Patient states they have gone to groups today and ate some ice cream. Patient states that his mood has been "disgusting " stated that he is still here to hospitalizations noticed of the patient's coming ago. Patient states that Jason Millan was trying to get him to go back to the hotel. Patient continues with paranoid ideations persecutory delusions of Jason Millan wanted to kill him. Review of Systems Except as stated in HPI: all other systems reviewed are Neg Objective Alert: Yes [place]: Person, Place, Date Mood: Other ("disgusted") Affect: Other (constricted today) Memory Intact: Immediate, Recent, Remote Hallucinations: Auditory (continues to endorse "crackles in pops") Delusions: Yes Delusion Type: Paranoid (less so today), Other (persecutory) Suicidal: Ideation (passive suicidal thoughts) Homicidal: Ideation (No HI) Insight/Judgment Poor insight, fair impulse control, poor judgment Vitals/IOs Vital Signs Date Time Temp Pulse Resp B/P (MAP) Pulse Ox O2 Delivery O2 Flow Rate FiO2 11/20/16 05:29 97.8 77 16 137/76 (96) 97 Assessment & Plan Problem List: (1) Psychosis ICD Codes: F29 - Psychosis Status: Acute (2) Depressive disorder ICD Codes: F32.9 - Major depressive disorder, single episode, unspecified Status: Acute Assessment & Plan Patient today noted to continue with paranoid and persecutory delusions of this person named Jason Millan. Patient continues to require much encouragement to maintain personal hygiene and participate in groups and activities. Clozapine continue to be titrated upward. Monitor medication as well as adverse drug reactions. Monitor for signs and symptoms of myocarditis. Discharge planning in progress Clozapine commenced 11/10/16. Current dose is 150 mg with upward titration. Last CBC showed absolute neutrophil count: 3.4 (11/17/16) Justification for Cont. Inpt. Patient at risk for further decompensation if at a lower level of care Request HC Surrog/Guard Advoc?: Yes Problem Qualifiers (1) Psychosis: Frederick Oliver MD Nov 20, 2016 17:31
[2016-11-20 17:49] VITALS: BP 136/71; PULSE 96; RESP 17; TEMP 97.7; O2SAT 95
[2016-11-20] MEDS: MIRTAZAPINE 15 MG TAB PO SCH (21:23)
[2016-11-20] MEDS: DOCUSATE SODIUM 100 MG CAP PO SCH (21:24)
[2016-11-21 06:09] VITALS: BP 125/69; PULSE 74; RESP 19; TEMP 98; O2SAT 100
[2016-11-21] MEDS: BENZTROPINE MESYLATE 2 MG TAB PO SCH ×2 (08:36→21:04)
[2016-11-21] MEDS: NIFEdipine 60 MG SUSTAINED RELEASE TAB PO SCH (08:36)
[2016-11-21] MEDS: DOCUSATE SODIUM 50 MG/SENNA 8.6 MG TAB PO SCH ×2 (08:37→21:03)
[2016-11-21] MEDS: METOPROLOL TARTRATE 25 MG TAB PO SCH ×2 (08:37→21:00)
[2016-11-21] MEDS: ESCITALOPRAM OXALATE 20 MG TAB PO SCH (08:37)
[2016-11-21] MEDS: HALOPERIDOL 5 MG TAB PO SCH ×2 (08:38→21:04)
[2016-11-21] MEDS ORDERED: cloZAPine 25 MG TAB PO SCH (09:00)
--- NOTE | 2016-11-21 14:27 | HHI.PYPN ---
Subjective Remarks Pt seen and discussed with staff. He reports that he continues to hear "snaps and pops". He states that "Jason has been pretending to be the Devil and Jose Trump" He is seclusive with poor interaction but has been compliant with care. Objective Alert: Yes [place]: Person, Place, Date Mood: Calm Affect: Restricted, Other (constricted today) Memory Intact: Immediate, Recent, Remote Hallucinations: Auditory (continues to endorse "crackles in pops") Delusions: Yes Delusion Type: Paranoid, Other (persecutory) Suicidal: Ideation (passive suicidal thoughts) Homicidal: Ideation (No HI) Insight/Judgment poor Vitals/IOs Vital Signs Date Time Temp Pulse Resp B/P (MAP) Pulse Ox O2 Delivery O2 Flow Rate FiO2 11/21/16 06:09 98.0 74 19 125/69 (87) 100 Intake and Output 11/21/16 11/21/16 11/22/16 08:00 16:00 00:00 Intake Total 600 ml Balance 600 ml Assessment & Plan Problem List: (1) Psychosis ICD Codes: F29 - Psychosis Status: Acute (2) Depressive disorder ICD Codes: F32.9 - Major depressive disorder, single episode, unspecified Status: Acute Assessment & Plan Continue current tx plan. Estimated LOS: days Justification for Cont. Inpt. impairments in reality and self care Request HC Surrog/Guard Advoc?: Yes Problem Qualifiers (1) Psychosis: Jess Hall MD Nov 21, 2016 14:27
[2016-11-21 17:52] VITALS: BP 114/61; PULSE 100; RESP 18; TEMP 98.2; O2SAT 100
[2016-11-21] MEDS ORDERED: cloZAPine 100 MG TAB PO SCH (21:00)
[2016-11-21] MEDS: MIRTAZAPINE 15 MG TAB PO SCH (21:04)
[2016-11-21] MEDS: DOCUSATE SODIUM 100 MG CAP PO SCH (21:04)
[2016-11-22 06:33] VITALS: BP 146/80; PULSE 98; RESP 18; TEMP 97.4; O2SAT 96
[2016-11-22] MEDS ORDERED: cloZAPine 25 MG TAB PO SCH (09:00)
[2016-11-22] MEDS: ESCITALOPRAM OXALATE 20 MG TAB PO SCH (09:40)
[2016-11-22] MEDS: BENZTROPINE MESYLATE 2 MG TAB PO SCH ×2 (09:40→20:50)
[2016-11-22] MEDS: NIFEdipine 60 MG SUSTAINED RELEASE TAB PO SCH (09:40)
[2016-11-22] MEDS: DOCUSATE SODIUM 50 MG/SENNA 8.6 MG TAB PO SCH ×2 (09:40→20:51)
[2016-11-22] MEDS: METOPROLOL TARTRATE 25 MG TAB PO SCH ×3 (09:41→20:56)
[2016-11-22] MEDS: HALOPERIDOL 5 MG TAB PO SCH ×2 (09:41→20:51)
--- NOTE | 2016-11-22 16:16 | HHI.PYPN ---
Subjective Remarks Pt seen and discussed with staff. He remains delusional with hallucinations. Hygiene today is poor. No aggression or agitation. Objective Alert: Yes [place]: Person, Place, Date Mood: Calm Affect: Restricted, Other (constricted today) Memory Intact: Immediate, Recent, Remote Hallucinations: Auditory (continues to endorse "crackles in pops") Delusions: Yes Delusion Type: Paranoid, Other (persecutory) Suicidal: Ideation (passive suicidal thoughts) Homicidal: Ideation (No HI) Insight/Judgment poor Vitals/IOs Vital Signs Date Time Temp Pulse Resp B/P (MAP) Pulse Ox O2 Delivery O2 Flow Rate FiO2 11/22/16 06:33 97.4 98 18 146/80 (102) 96 Assessment & Plan Problem List: (1) Psychosis ICD Codes: F29 - Psychosis Status: Acute (2) Depressive disorder ICD Codes: F32.9 - Major depressive disorder, single episode, unspecified Status: Acute Assessment & Plan Continue current tx plan. Estimated LOS: days Justification for Cont. Inpt. impairments in reality construction and self care Request HC Surrog/Guard Advoc?: Yes Problem Qualifiers (1) Psychosis: Jess Hall MD Nov 22, 2016 16:16
[2016-11-22 16:21] VITALS: BP 111/60; PULSE 87; RESP 18; TEMP 98.6; O2SAT 96
[2016-11-22] MEDS: MIRTAZAPINE 15 MG TAB PO SCH (20:50)
[2016-11-22] MEDS: DOCUSATE SODIUM 100 MG CAP PO SCH (20:51)
[2016-11-22] MEDS ORDERED: cloZAPine 100 MG TAB PO SCH (21:00)
[2016-11-23 06:17] VITALS: BP 122/72; PULSE 90; RESP 18; TEMP 98.2; O2SAT 98
[2016-11-23] MEDS: ESCITALOPRAM OXALATE 20 MG TAB PO SCH (08:18)
[2016-11-23] MEDS: DOCUSATE SODIUM 50 MG/SENNA 8.6 MG TAB PO SCH ×2 (08:18→20:08)
[2016-11-23] MEDS: NIFEdipine 60 MG SUSTAINED RELEASE TAB PO SCH (08:18)
[2016-11-23] MEDS: HALOPERIDOL 5 MG TAB PO SCH ×2 (08:18→20:09)
[2016-11-23] MEDS: cloZAPine 100 MG TAB PO SCH ×2 (08:19→20:09)
[2016-11-23] MEDS: BENZTROPINE MESYLATE 2 MG TAB PO SCH ×2 (08:19→20:09)
[2016-11-23] MEDS: METOPROLOL TARTRATE 25 MG TAB PO SCH ×2 (08:19→20:09)
--- NOTE | 2016-11-23 15:15 | HHI.PYPN ---
Subjective Remarks Patient seen for follow-up, chart review. Patient found lying in hospital bed noted to be shaven but noted to be slightly disheveled. Patient states that over the weekend and has been "not a whole lot going on", reports feeling tired of being in the hospital. Patient states he continues to hear [place] crackles and continues to refer to Jason Millan as being the person that he had called the police on which caused him to be brought to the hospital. Patient reports tolerating medication well denies any adverse drug reactions. Review of Systems Except as stated in HPI: all other systems reviewed are Neg Objective Alert: Yes [place]: Person, Place, Date Mood: Calm Affect: Restricted Memory Intact: Immediate, Recent, Remote Hallucinations: Auditory (continues to endorse "crackles in pops") Delusions: Yes Delusion Type: Paranoid, Other (persecutory) Suicidal: Ideation (passive suicidal thoughts) Homicidal: Ideation (No HI) Insight/Judgment Poor insight, fair impulse control, limited judgment Vitals/IOs Vital Signs Date Time Temp Pulse Resp B/P (MAP) Pulse Ox O2 Delivery O2 Flow Rate FiO2 11/23/16 06:17 98.2 90 18 122/72 (89) 98 Assessment & Plan Problem List: (1) Psychosis ICD Codes: F29 - Psychosis Status: Acute (2) Depressive disorder ICD Codes: F32.9 - Major depressive disorder, single episode, unspecified Status: Acute Assessment & Plan Patient today continues to report perceptual disturbances of "pops and crackles ", continues with delusion of persecution by Jason Millan paranoid the same. Patient reports tolerating medications well denies any adverse drug reactions. Patient currently on Clozaril 200 mg by mouth daily with continued upward titration. CBC ordered for tomorrow a.m. Continue current treatment. Continue to encourage improvement in personal hygiene and participation in groups and activities while on the unit. Discharge planning in progress Justification for Cont. Inpt. At risk for further decompensation if at lower level of care. Request HC Surrog/Guard Advoc?: Yes Problem Qualifiers (1) Psychosis: Frederick Oliver MD Nov 23, 2016 15:14
[2016-11-23 16:55] VITALS: BP 122/60; PULSE 85; RESP 18; TEMP 98.1; O2SAT 96
[2016-11-23] MEDS: MIRTAZAPINE 15 MG TAB PO SCH (20:08)
[2016-11-23] MEDS: DOCUSATE SODIUM 100 MG CAP PO SCH (20:09)
[2016-11-24 06:12] VITALS: BP 137/75; PULSE 81; RESP 18; TEMP 97.6; O2SAT 99
[2016-11-24] MEDS: DOCUSATE SODIUM 50 MG/SENNA 8.6 MG TAB PO SCH ×2 (09:04→20:42)
[2016-11-24] MEDS: BENZTROPINE MESYLATE 2 MG TAB PO SCH ×2 (09:04→20:42)
[2016-11-24] MEDS: METOPROLOL TARTRATE 25 MG TAB PO SCH ×2 (09:04→20:43)
[2016-11-24] MEDS: HALOPERIDOL 5 MG TAB PO SCH ×2 (09:04→20:42)
[2016-11-24] MEDS: NIFEdipine 60 MG SUSTAINED RELEASE TAB PO SCH (09:04)
[2016-11-24] MEDS: cloZAPine 100 MG TAB PO SCH ×2 (09:04→20:43)
[2016-11-24] MEDS: ESCITALOPRAM OXALATE 20 MG TAB PO SCH (09:04)
[2016-11-24 13:03] LABS: AUTOMATED NEUTROPHIL # 10.2 TH/MM3 (1.8-7.7); BASOPHIL % 0.3 % (0.0-2.0); EOSINOPHIL # 0.2 TH/MM3 (0-0.4); EOSINOPHIL % 1.9 % (0.0-4.0); HEMATOCRIT 44.6 % (39.0-51.0); HEMO FLAGS DIFF FINAL; LYMPH % 12.5 % (9.0-44.0); LYMPHOCYTE # 1.7 TH/MM3 (1.0-4.8); MEAN CORPUSCULAR HEMOGLOBIN 31.1 PG (27.0-34.0); MEAN CORPUSCULAR HGB CONC 33.1 % (32.0-36.0); MONO % 7.9 % (0.0-8.0); NEUT % 77.4 % (16.0-70.0); PLATELET COUNT 197 TH/MM3 (150-450); RED BLOOD COUNT 4.74 MIL/MM3 (4.50-5.90); RED CELL DISTRIBUTION WIDTH 14.3 % (11.6-17.2); WHITE BLOOD COUNT 13.2 TH/MM3 (4.0-11.0)
--- NOTE | 2016-11-24 14:46 | HHI.PYPN ---
Subjective Remarks Patient seen for follow-up, chart review. After discussion with nursing staff patient continues to endorse hearing pops or crackles. Patient will be transferred to [facility] tomorrow. Patient found lying in hospital bed, calm and cooperative in interview today. Patient states that he continues to feel "the same" reporting steps pops and continues to endorse paranoid and persecutory delusions by this person named Jason Millan although he denies having had any auditory hallucinations at this person. Patient denies any physical presents at this time, patient aware that he will be transferred to [facility] tomorrow which patient reports that it is the doing of Jason Millan and that was the plan from the beginning. Patient denies any perceptual disturbances at this time. Review of Systems Except as stated in HPI: all other systems reviewed are Neg Objective Alert: Yes [place]: Person, Place, Date Mood: Calm Affect: Restricted (but also noted to be slightly upset when told he was being transferred to a different facility) Memory Intact: Immediate, Recent, Remote Hallucinations: Auditory (continues to endorse "crackles in pops") Delusions: Yes Delusion Type: Paranoid, Other (persecutory) Suicidal: Ideation (passive suicidal thoughts) Homicidal: Ideation (No HI) Insight/Judgment Poor insight, fair post control limited judgment Labs Labs reviewed. Test 11/24/16 11:17 White Blood Count 13.2 TH/MM3 Red Blood Count 4.74 MIL/MM3 Hemoglobin 14.8 GM/DL Hematocrit 44.6 % Mean Corpuscular Volume 94.0 FL Mean Corpuscular Hemoglobin 31.1 PG Mean Corpuscular Hemoglobin Concent 33.1 % Red Cell Distribution Width 14.3 % Platelet Count 197 TH/MM3 Mean Platelet Volume 8.2 FL Neutrophils (%) (Auto) 77.4 % Lymphocytes (%) (Auto) 12.5 % Monocytes (%) (Auto) 7.9 % Eosinophils (%) (Auto) 1.9 % Basophils (%) (Auto) 0.3 % Neutrophils # (Auto) 10.2 TH/MM3 Lymphocytes # (Auto) 1.7 TH/MM3 Monocytes # (Auto) 1.0 TH/MM3 Eosinophils # (Auto) 0.2 TH/MM3 Basophils # (Auto) 0.0 TH/MM3 CBC Comment DIFF FINAL Differential Comment Vitals/IOs Vital Signs Date Time Temp Pulse Resp B/P (MAP) Pulse Ox O2 Delivery O2 Flow Rate FiO2 11/24/16 06:12 97.6 81 18 137/75 (95) 99 Assessment & Plan Problem List: (1) Psychosis ICD Codes: F29 - Psychosis Status: Acute (2) Depressive disorder ICD Codes: F32.9 - Major depressive disorder, single episode, unspecified Status: Acute Assessment & Plan Patient at this time continues to tolerate Klonopin titration well. She continues to endorse hallucinations of snaps and pops and paranoid persecutory delusions of Jason Millan. Patient noted to have elevated white count upon CBC result today. I will patient denies any physical symptoms workup will be ordered today (EKG, UA, BMP, chest x-ray, echocardiogram for baseline report due to patient being on clozapine.) Patient likely to have myocarditis at this time has not had a use a presents for 6 weeks after commencement of clozapine treatment. We'll continue to monitor for the same. Consult with hospitalist ordered. Continue treatment for now. Discharge planning in progress. Patient plan for discharge tomorrow and transfer to [facility]. Justification for Cont. Inpt. At risk for further decompensation if at lower level of care Request HC Surrog/Guard Advoc?: Yes Problem Qualifiers (1) Psychosis: Frederick Oliver MD Nov 24, 2016 14:46
--- NOTE | 2016-11-24 15:46 | ECHRPT ---
Indication: pt on clozapine CONCLUSIONS The left ventricular systolic function is hyperdynamic with an estimated ejection fraction in the ra nge of 65- 70%. Normal left ventricular size. No regional wall motion abnormalities are present. No mitral valve regurgitation. No mitral valve stenosis. No aortic valve stenosis. No aortic valve regurgitation. The pulmonary valve is not well visualized. BP: / HR: Rhythm: MEASUREMENTS (Male / Female) Normal Values Technical Quality:Good 2D ECHO LV Diastolic Diameter PLAX 3.5 cm 4.2 - 5.9 / 3.9 - 5.3 cm LV Systolic Diameter PLAX 2.3 cm IVS Diastolic Thickness 1.4 cm 0.6 - 1.0 / 0.6 - 0.9 cm LVPW Diastolic Thickness 1.1 cm 0.6 - 1.0 / 0.6 - 0.9 cm LV Relative Wall Thickness 0.7 RV Internal Dim ED PLAX 2.4 cm M-MODE Aortic Root Diameter MM 2.7 cm LA Systolic Diameter MM 3.0 cm LA Ao Ratio MM 1.1 AV Cusp Separation MM 1.8 cm DOPPLER TR Peak Velocity 244.0 cm/s TR Peak Gradient 23.8 mmHg FINDINGS LEFT VENTRICLE The left ventricular systolic function is hyperdynamic with an estimated ejection fraction in the ra nge of 65- 70%. Normal left ventricular size. No regional wall motion abnormalities are present. RIGHT VENTRICLE Normal right ventricular size and systolic function. LEFT ATRIUM The left atrial size is normal. RIGHT ATRIUM The right atrial size is normal. ATRIAL SEPTUM Normal atrial septal thickness without atrial level shunting by limited color doppler interrogation. AORTA The aortic root and proximal ascending aorta are normal in size on limited imaging. MITRAL VALVE Structurally normal mitral valve. No mitral valve regurgitation. No mitral valve stenosis. AORTIC VALVE Trileaflet aortic valve. No aortic valve stenosis. No aortic valve regurgitation. TRICUSPID VALVE Structurally normal tricuspid valve. No tricuspid valve stenosis or regurgitation. PULMONARY VALVE The pulmonary valve is not well visualized. VESSELS The inferior vena cava is normal in size. PERICARDIUM No pericardial effusion. Samuel Griffin MD (Electronically Signed) Final Date:24 November 2016 15:45
--- NOTE | 2016-11-24 16:23 | RADRPT ---
EXAM DATE/TIME: 11/24/2016 15:54 [place] COMPARISON: CHEST SINGLE AP, September 12, 2016, 11:48. INDICATIONS : Cough. MEDICAL HISTORY : None. SURGICAL HISTORY : None. ENCOUNTER: Initial ACUITY: 1 day PAIN SCORE: 0/10 LOCATION: Bilateral chest FINDINGS: PA and lateral views of the chest demonstrate the lungs to be symmetrically aerated without evidence of mass, infiltrate or effusion. The cardiomediastinal contours are unremarkable. Osseous structure s are intact. Areas of curvilinear atelectasis in the left lung base CONCLUSION: Areas of curvilinear atelectasis in left lung base. No consolidative infiltrates Zohaib Burt MD on November 24, 2016 at 16:21 Board Certified Radiologist. This report was verified electronically.
[2016-11-24 17:58] LABS: BLOOD, URINE NEG (NEG); GLUCOSE,URINE NEG (NEG); KETONE, URINE NEG (NEG); NITRITE,URINE NEG (NEG); PH, URINE 6.5 (5.0-8.5); URINE COLOR YELLOW (YELLW/STRAW)
[2016-11-24 18:02] LABS: COMMENT (UR) CULT NOT INDICATED; CULTURE IF INDICATED CULT NOT INDICATED
[2016-11-24 18:11] VITALS: BP 130/75; PULSE 111; RESP 18; TEMP 97.7; O2SAT 97
[2016-11-24] MEDS: DOCUSATE SODIUM 100 MG CAP PO SCH (20:42)
[2016-11-24] MEDS: MIRTAZAPINE 15 MG TAB PO SCH (20:43)
[2016-11-25 06:45] VITALS: BP 135/74; PULSE 89; RESP 17; TEMP 97.6; O2SAT 96
[2016-11-25] MEDS: DOCUSATE SODIUM 50 MG/SENNA 8.6 MG TAB PO SCH (07:58)
[2016-11-25] MEDS: NIFEdipine 60 MG SUSTAINED RELEASE TAB PO SCH (07:58)
[2016-11-25] MEDS: ESCITALOPRAM OXALATE 20 MG TAB PO SCH (07:58)
[2016-11-25] MEDS: METOPROLOL TARTRATE 25 MG TAB PO SCH (07:59)
[2016-11-25] MEDS: HALOPERIDOL 5 MG TAB PO SCH (07:59)
[2016-11-25] MEDS: BENZTROPINE MESYLATE 2 MG TAB PO SCH (07:59)
[2016-11-25] MEDS ORDERED: cloZAPine 100 MG TAB PO SCH ×2 (09:00→21:00)
--- NOTE | 2016-11-25 16:49 | EKG ---
Date Performed: 11/24/2016 Time Performed: 15:04:42 PTAGE: 61 years EKG: Sinus Tachycardia Nonspecific ST-T wave changes Compared to previous tracing, the patient i s now tachycardic ABNORMAL RHYTHM ECG PREVIOUS TRACING : 10/30/2016 20.47 DOCTOR: Awa Colon Interpretating Date/Time 11/25/2016 16:48:57
--- NOTE | 2016-11-25 17:24 | HHI.DS ---
Psychiatry Discharge Summary Inpatient Psychiatric care?: Yes Advance Directive: No Reason Not Provided: . Mental Health AdvanceDirective: No Health Care Proxy: No Admission Admission Date Sep 16, 2016 at 16:10 Admission Diagnosis: (1) Psychosis ICD Code: F29 - Psychosis Brief History Mr. Pate is a 61-year-old male with a history of schizophrenia transferred from the medical unit following an episode of SARAH. He had initially been admitted to the inpatient psychiatric unit on 09/02 under my care. He was presented to the [email or web address] court and retained by the court and a BILL guardian was appointed. EMR reviewed. Patient seen and examined. Chart reviewed. Case discussed with nursing staff. Patient has been placed with a sitter. On my examination today, the patient remains extremely dysphoric. He claims that it is his intention not to eat on the unit "because 16 times I've been in the hospital. I'm tired of it." I do see that he is charted as having eaten 100% of breakfast and lunch today. He describes his mood as "miserable." Remains quite hopeless. He continues to believe that he is "being induced by someone else." He continues to believe that he is being attacked by Jason Millan who is directing radar beams at him with messages as before. No other hallucinations or delusional material. No hypomanic/manic symptoms. Denies side effects from medications but doesn't feel like they are doing anything. No physical complaints. I obtained patient's past psychiatric, family, chemical dependency and social history at the time of my initial evaluation on 09/02, and these are unchanged today. Tobacco Use In Past 30 Days: No Tobacco Past 30 Days Alcohol Use: Never Hospital Course Patient is a 61 year-old male, , living in [place] for several decades, recently at [facility], supported on disability, with a past psychiatric history of schizophrenia, previous psychiatric admissions, recently seen in 2015 at [facility], no previous suicide attempts who presented under a [place] by MALORIE on 09/01/16 alleging that he believes that someone named Jason Millan is beaming signals into his brain with bizarre delusions and endorsing wanting to end his life during initial evaluation.~ Patient was restarted on Risperidone 1mg PO BID along with antihypertensive medications for hypertension and risperidone was titrated upward to 4mg PO BID.~ Patient was also noted to have dysphoric mood along with irritiability which depakote was introduced for mood stabilization.~ Patient had limited response to Risperdal which was cross titrated with Clozapine.~ Patient was presented to [place] and was retained by the court and BILL guardian appointed by the tug captain. During hospitalization patient was found to have sepsis, SARAH and acute encephalopathy likely secondary to uremia which he was transferred to the medical floor for medical management.~ Due patients dysphoria, patient was started on Remeron 15mg HS and Clozpine and Depakote discontinued due to medical issues at that time and Abilify was started to address psychosis.~ Patient was cleared medically and was transferred back to the psychiatry inpatient unit where he continued on Abilify and Remeron.~ Patient continued with ongoing psychotic symptoms which Haldol was added as an augmenting agent and titrated along with the addition of Lexapro and cogentin for EPS.~ Abilify was later discontinued which Seroquel was introduced for psychosis with little response.~ Patient had several adequate trials of several antipsychotics which re-trail with Clozapine was undertaken and was titrated up to 200mg PO daily after two weeks of titration with plan to continue titrating up to therapeutic doses between 300-400mg PO daily with subsequent norclozapine level thereafter. ~ Patient was noted to have elevated white count upon CBC draw of week two of clozapine titration which UA, CXR, echocardiogram were normal along with no clinical signs or symptoms of infection and normal vital signs.~ Patient currently stable for discharged/transfer to [facility] at this time. Results Blood Pressure 135 / 74 Vital Signs Date Time Temp Pulse Resp B/P (MAP) Pulse Ox O2 Delivery O2 Flow Rate FiO2 11/25/16 06:45 97.6 89 17 135/74 (94) 96 Laboratory Tests Test 11/24/16 11:17 11/24/16 16:30 White Blood Count 13.2 TH/MM3 (4.0-11.0) Neutrophils (%) (Auto) 77.4 % (16.0-70.0) Neutrophils # (Auto) 10.2 TH/MM3 (1.8-7.7) Monocytes # (Auto) 1.0 TH/MM3 (0-0.9) Laboratory Results Test 09/17/16 06:22 Cholesterol Level 136 MG/DL (120-200) HDL Cholesterol 24.1 MG/DL (40.0-60.0) Hemoglobin A1c 5.9 % (4.3-6.0) LDL Cholesterol 79 MG/DL (0-99) Triglycerides Level 163 MG/DL (42-150) Summary of Procedures None Imaging Last Impressions Chest X-Ray 11/24/16 0000 Signed Impressions: Service Date/Time: Thursday, November 24, 2016 15:54 - CONCLUSION: Areas of curvilinear atelectasis in left lung base. No consolidative infiltrates Zohaib Burt MD Renal Ultrasound 10/21/16 0000 Signed Impressions: Service Date/Time: Friday, October 21, 2016 14:39 - CONCLUSION: 1. Echogenic kidneys which can be seen with medical renal disease. 2. There is questionable layering debris in the bladder. Frederick Jefferson MD Abdomen X-Ray 10/18/16 0000 Signed Impressions: Service Date/Time: Tuesday, October 18, 2016 18:33 - CONCLUSION: Constipation. Frederick Jefferson MD Pending results at discharge: No Medications # of Antipsychotic meds at D/C: 2 Appropriate >1 Antipsych meds?: 3 Approp Antipsych med options 1 - Minimum of three failed multiple trials of monotherapy. 2 - Documented plan to taper to monotherapy due to previous use of multiple meds OR cross-taper in progress at D/C. 3 - Documentation of augmentation of Clozapine. 4 - Justification other than those listed in allowable values 1-3, document here : Discharge Discharge Date: Nov 25, 2016 Discharge Diagnosis: (1) Psychosis Diagnosis: Principal ICD Code: F29 - Psychosis Status: Acute Mental Status Exam at Disch Appearance/Behavior: appears stated age, in hospital pajadcs, fair grooming and hygiene, calm and cooperative with interview; fair eye contact; no psychomotor agitation nor retardation noted. Speech: Normal rate tone and prosody Mood: fine Affect: Constricted Thought process: Linear organized Thought content: Denies SI, HI, AVH but endorsed paranoid and persecutory delusions Insight/impulse control/judgment: poor/fair/limited Alert and oriented 3 Pt Condition on Discharge: Stable Discharge Disposition: Disc to Psych Care Fac Discharge Instructions Diet Instructions: Heart Healthy Diet Activities you can perform: Regular-No Restrictions [facility] > 30 minutes Discharge/Advance Care Plan Health Problems: (1) Psychosis (2) Depressive disorder Goals to promote your health * To prevent worsening of your condition and complications * To maintain your health at the optimal level Directions to meet your goals Take your medications as prescribed Follow your dietary instruction Follow activity as directed Keep your appointments as scheduled Take your immunizations and boosters as scheduled If your symptoms worsen call your PCP, if no PCP go to Urgent Care Center or Emergency Room For 19/10 questions related to your inpatient stay or results of tests pending at discharge, please contact Dr. Frederick Oliver at Smoking is Dangerous to Your Health. Avoid second hand smoking Problem Qualifiers (1) Psychosis: Frederick Oliver MD Nov 25, 2016 17:24
[2016-11-25] MEDS ORDERED: cloZAPine 25 MG TAB PO SCH (21:00)
[2016-11-26] MEDS ORDERED: cloZAPine 100 MG TAB PO SCH ×2 (09:00→21:00)
[2016-11-26] MEDS ORDERED: cloZAPine 25 MG TAB PO SCH (21:00)
[2016-11-27] MEDS ORDERED: cloZAPine 100 MG TAB PO SCH ×2 (09:00→21:00)
[2016-11-27] MEDS ORDERED: cloZAPine 25 MG TAB PO SCH (21:00)
[2016-11-28] MEDS ORDERED: cloZAPine 100 MG TAB PO SCH ×2 (09:00→21:00)
[2016-11-28] MEDS ORDERED: cloZAPine 25 MG TAB PO SCH (21:00)
[2016-11-29] MEDS ORDERED: cloZAPine 100 MG TAB PO SCH ×2 (09:00→21:00)
[2016-11-29] MEDS ORDERED: cloZAPine 25 MG TAB PO SCH (21:00)
[2016-11-30] MEDS ORDERED: cloZAPine 100 MG TAB PO SCH ×2 (09:00→21:00)
[2016-11-30] MEDS ORDERED: cloZAPine 25 MG TAB PO SCH (21:00)
[2016-12-01] MEDS ORDERED: cloZAPine 100 MG TAB PO SCH ×2 (09:00→21:00)
== END 2016-11-25 08:05 | DRG 885 ==
LOC: H250 16:10 → H270 10-08 16:57 → H260 10-18 09:15 → H4EA 10-18 15:38 → H260 10-23 12:00
PROVIDERS: ADMIT Student in an Organized Health Care Education/Training Program; ATTEND Student in an Organized Health Care Education/Training Program
DX: F29 Unspecified psychosis not due to a substance or known physiological condition (principal); E11.9 Type 2 diabetes mellitus without complications; I12.9 Hypertensive chronic kidney disease with stage 1 through stage 4 chronic kidney disease, or unspecified chronic kidney disease; N18.3 Chronic kidney disease, stage 3 (moderate); E78.5 Hyperlipidemia, unspecified; Z59.0 Homelessness; K59.00 Constipation, unspecified
CPT/HCPCS: 71020; 74000; 76775; 80048; 80053; 80061; 80076; 81001; 82140; 83036; 84100; 84132; 85025; 93005; 93306; J7030; Q0163